=== PATIENT | female | born 1965 | race Caucasian/White ===

== ENCOUNTER → 2021-03-31 | Outpatient (CLI) | payer BC ==
--- NOTE | 2021-04-01 09:57 | MM ---
Reason for exam: clinical finding. Indicated problem(s): lump or thickening and pain in the left breast. Physical Findings: Nurse Summary: 5cm nodule in the left breast at 6-8 o'clock (nurse db). MG Diagnostic Mammo w CAD GORDY Bilateral CC, MLO, LM, and spot compression CC view(s) were taken. XCCM view(s) were taken of the left breast. The breast tissue is heterogeneously dense. This may lower the sensitivity of mammography. Right MLO central density does not show a clear persisting abnormality on spot MLO or lateral. Left 1.1cm oval, 1 o'clock mass contains a popcorn calcification likely fibroadenoma. Left anterior lateral density appears to disperse. Left far posterior medial and inferior palpable marker, shows an underlying 1cm nodule. These results were verbally communicated with the patient and result sheet given to the patient on 03/31/21. ASSESSMENT: Incomplete: need additional imaging evaluation, BI-RAD 0 RECOMMENDATION: Ultrasound of both breasts.
--- NOTE | 2021-04-01 10:09 | USB ---
Reason for exam: additional evaluation requested from abnormal screening. US Breast BILAT Right complete breast ultrasound includes all four quadrants, the retroareolar region and axilla. Finding demonstrates duct ectasia at the posterior nipple. Left complete breast ultrasound includes all four quadrants, the retroareolar region and axilla. Finding demonstrates a 10 x 4 x 10mm oval, hypoechoic lesion at 12 o'clock, probably fibroadenoma with a calcification, a 6 x 3 x 7mm oval, cystic lesion at 1 o'clock, a 31 x 23 x 28cm lobular, spiculated, solid, hypoechoic, vascular lesion at 7 o'clock BB, very suspicious, a 7mm oval lymph node at the axillary tail, slight 4mm cortical thickening, possible biopsy, maybe reactive and ductal ectasia at the posterior nipple. These results were verbally communicated with the patient and result sheet given to the patient on 03/31/21. ASSESSMENT: Highly suggestive of malignancy, BI-RAD 5 RECOMMENDATION: Ultrasound core biopsy of the left breast. 7 o'clock, possible second site axillary node. This maybe reactive. If thickening persists it can be sampled as well. Called Dr. Wright's office with mammographic findings and has scheduled an appointment for the patient for 04/09/21 at 12:[address] Valero. Biopsy scheduled for 04/23/21 at 10:30. PRELIMINARY REPORT CALLED AND FAXED TO DR. VALERO ON 04/01/21.
== END | disposition home or self-care (01) ==
LOC: RADMAMWWP 10:22
PROVIDERS: ATTEND Family Medicine
DX: N60.42 Mammary duct ectasia of left breast (principal); R92.1 Mammographic calcification found on diagnostic imaging of breast; N64.89 Other specified disorders of breast
CPT/HCPCS: 77066

== ENCOUNTER → 2021-04-09 | Outpatient (CLI) | payer BC ==
[2021-04-09 12:18] VITALS: BP 148/86; PULSE 88; RESP 18; TEMP 98.1
--- NOTE | 2021-04-09 13:37 | P.GSHP ---
History of Present Illness H&P Date: 04/09/21 Chief Complaint: mass in left breast Vicky is a 55 year old white female seen in consultation for Dr. Wright regarding a lump in her left breast. Patient states she noted the lesion approximately 5 months ago, however secondary to difficulty scheduling around where she was unable to see a physician until recently. She recently underwent a bilateral mammogram on for which ultrasound was recommended of both breasts. Ultrasound of the right breast showed duct ectasia, ultrasound of the left breast revealed a 10 x 10 mm lesion at 12:00 probable fibroadenoma as well as a 6 x 7 mm lesion at 1:00, and a 3 x 2.8 cm lobular spiculated solid lesion at 7:00. Additionally the patient was noted to have a 7 mm oval lymph node at the axillary tail for which biopsy was suggested. The patient states that the area of palpable change is painful, additionally she is uncertain as to whether it is increased in size. The pain is aching in nature with some burning to this. She has no nipple discharge or skin changes recently. She did have and episode of brown discharge from the left nipple several weeks ago. She has had cysts removed from both breast in the past. She has not had any infection in the breast. Caffeine: 3-4 cups/day nicotine: 1/2 PPD for 6 years chocolate: occasional Family history: father: lung cancer mother: uterine maternal grandfather: lung cancer paternal uncle : colon cancer Hormonal History: menarche: 12 M1, age at first : 19, breast feed: yes menopause: hysterectomy at 40, left ovaries BCP: used for 6 years hormones: none Surgical history: fluid drained behind her right ear tonsil 2 c-sections hysterectomy hernia right groin cyst removed from bilateral breast lipoma removed from back Medical History: A-fib. no blood thiners asa/day Social History: Nicotine: Half a pack per day for 6 years Alcohol:none drugs: none - Constitutional Constitutional: Denies chills, Denies fever - EENT Eyes: denies blurred vision, denies pain Ears: deny: decreased hearing, tinnitus Ears, nose, mouth and throat: Denies headache, Denies sore throat - Breasts Breasts: bilateral: as per HPI - Cardiovascular Cardiovascular: Reports as per HPI - Respiratory Comment: smoker - Gastrointestinal Gastrointestinal: Denies abdominal pain, Denies diarrhea, Denies nausea, Denies vomiting - Genitourinary (Female) Genitourinary: Denies dysuria, Denies hematuria - Menstruation Menstruation: Reports post hysterectomy - 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 - Integumentary Integumentary: Denies pruritus, Denies rash - Neurological Neurological: Denies numbness, Denies weakness - Psychiatric Psychiatric: Denies anxiety, Denies depression - Endocrine Endocrine: Denies fatigue, Denies weight change - Hematologic/Lymphatic Comment: 2 baby aspirin /day - Allergic/Immunologic Allergic/Immunologic: Reports as per HPI Past Medical History History of Any Multi-Drug Resistant Organisms: None Reported Smoking Status: Current every day smoker Medications and Allergies Home Medications Medication Instructions Recorded Confirmed Type Aspirin 81 mg PO DAILY 04/09/21 04/09/21 History Allergies Allergy/AdvReac Type Severity Reaction Status Date / Time Penicillins Allergy Unknown Verified 04/09/21 12:14 adhesive tape AdvReac Rash/Hives Unverified 04/09/21 12:15 Surgical - Exam Vital Signs Temp Pulse Resp BP Pulse Ox 98.1 F 88 18 148/86 98 04/09/21 12:15 04/09/21 12:15 04/09/21 12:15 04/09/21 12:15 04/09/21 12:15 BMI 30 - General no distress - Eyes normal ocular movement - ENT no hearing loss - Neck no masses, trachea midline - Respiratory normal respiratory effort, clear to auscultation - Cardiovascular Rhythm: regular Heart Sounds: normal: S1, S2 - Abdomen Abdomen: soft - Integumentary normal turgor - Neurologic no disoriented, no combative - Musculoskeletal normal gait, normal posture - Psychiatric oriented to time, oriented to person, oriented to place, speech is normal, memory intact Breast Exam: BRA: 40B inspection: Bilateral grade 3 ptosis Palpation: Right breast: Multi-positional exam fibrocystic changes no dominant masses or nodules of concern Right axilla: No adenopathy of concern Left breast: Multi-positional exam fibrocystic changes at the 7 o'clock position . As a firm area which extends onto the area of the chest wall it appears that it may be getting a slight infection with a punctate opening, is approximately 3 and half centimeters in size Left axilla: Shoddy adenopathy Results Mammogram and ultrasound reviewed with Dr. Torres Assessment and Plan Assessment: Impression: Palpable abnormality left breast Ultrasound abnormality left breast Fibrocystic breast changes Plan: Ultrasound-guided core biopsy area of concern of left breast Ultrasound core biopsy left axilla Follow up after ultrasound core biopsies CC: Dr. Wright
== END ==
LOC: WWCWWP 11:55
PROVIDERS: ATTEND Surgery
DX: N60.12 Diffuse cystic mastopathy of left breast (principal); I48.91 Unspecified atrial fibrillation; F17.210 Nicotine dependence, cigarettes, uncomplicated; Z79.82 Long term (current) use of aspirin; Z88.0 Allergy status to penicillin; Z91.018 Allergy to other foods

== ENCOUNTER → 2021-04-23 | Day surgery (SDC) | payer BC ==
[2021-04-23 09:45] VITALS: RESP 16
[2021-04-23 11:13] VITALS: BP 148/87; PULSE 70; TEMP 98
--- NOTE | 2021-04-23 13:01 | USB ---
EXAMINATION TYPE: US biopsy breast VAD LT, US breast needle core LT, MG diagnostic mammo LT wo CAD DATE OF EXAM: 04/23/2021 CLINICAL HISTORY: R92.8 Abnormal mammogram. Abnormal ultrasound TECHNIQUE: Ultrasound guided core biopsy of left breast mass and abnormal left axilla lymph node with clip placement both sites and follow-up two-view mammogram.. COMPARISON: Prior diagnostic mammogram and ultrasound March 31, 2021 FINDINGS: The procedure of ultrasound guided core biopsy was explained to the patient. Benefits, alternatives, and risks were discussed. An informed consent was then obtained. The patient was placed in supine positioning for imaging and for the procedure. Preprocedure imaging redemonstrates large roughly 3.0 cm heterogeneous hypoechoic mass with some vascularity at 7:00 position in the left breast. It also shows approximately 11 x 7 mm prominent lymph node in the left axilla with some asymmetric cortical thickening. The overlying skin was prepped and draped in usual sterile fashion. Lidocaine is used as anesthetic into the skin and subcutaneous tissue up to both areas of concern in the left breast. Lidocaine with epinephrine is used anesthetic into the deeper tissues. Under ultrasound guidance, a vacuum assisted biopsy gun device was used to obtain 2 core samples of the dominant mass 7:00 level. Following this, a biopsy clip was left in lesion. Under ultrasound guidance, an 18-gauge Bard needle was used to obtain 3 core samples of the prominent left axillary lymph node targeting the asymmetrically thickened cortex. Following this a hydromark biopsy clip left in the axillary lymph node. The patient tolerated the procedure ok without any immediate complication. She did have more pain than usual throughout the entire procedure. The patient was kept in the radiology department for short stay after the procedure and then discharged home in stable condition. Postprocedure mammogram shows Hydromark clip in the prominent left axillary lymph node. The clip in the dominant mass not documented due to posterior inner location not clearly seen on images obtained. Patient had left Department at time of dictation before repeat imaging could be performed or documented. During real-time ultrasound central placement of clip in the lesion was felt present. Mammogram correlation to the large ultrasound lesion number well seen even on March 31 work up. IMPRESSION: Successful, uncomplicated ultrasound guided core biopsy of area of concern in the left breast, full pathology results to follow. High index of suspicion for the left breast lesion. Intermediate index of suspicion for the left axillary lesion. Pathology Results: Malignant A. LEFT BREAST, 7:00, ULTRASOUND GUIDED NEEDLE CORE BIOPSY: Invasive poorly differentiated ductal carcinoma (Grade 3). See Surgical Pathology Cancer Case Summary and Comment. B. LEFT AXILLA, CORE BIOPSY: Scanty fragments of lymph node and fibrous tissue, negative for malignancy. Limited sample, see Comment. Recommendation Surgical consult of the left breast. (breast therapy and follow up) (lymph node negative) MTDD
== END ==
LOC: RADUSWWP 09:28
PROVIDERS: ATTEND Surgery
DX: C50.512 Malignant neoplasm of lower-outer quadrant of left female breast (principal); Z17.0 Estrogen receptor positive status [ER+]; Z88.0 Allergy status to penicillin; Z91.09 Other allergy status, other than to drugs and biological substances
CPT/HCPCS: 19083; 38505; 88305; 88342; 88341; 77065; A4648; J2001

== ENCOUNTER → 2021-04-30 | Outpatient (CLI) | payer BC ==
[2021-04-30 10:20] VITALS: BP 175/85; PULSE 77; RESP 16; TEMP 98
--- NOTE | 2021-04-30 10:54 | P.PN ---
Subjective Progress Note Date: 04/30/21 Principal diagnosis: left breast invasive ductal cancer Vicky is a 55 year old white female status post a left breast biopsy on 04-23-21 which was positive for a grade 3 invasive ductal cancer. There is probable skin involvement. This would make it a [id number]; Stage IIIC. If there is no skin involvement it would be a stage IIB. I have discussed this with the patient and her . I have recommended referral to medical oncology as soon as possible, as well as metastatic workup. Objective - Vital Signs Vital signs: Vital Signs Temp 98.0 F 04/30/21 10:14 Pulse 77 04/30/21 10:14 Resp 16 04/30/21 10:14 BP 175/85 04/30/21 10:14 Pulse Ox Intake & Output 04/29/21 04/30/21 04/30/21 18:59 06:59 18:59 Weight 78.018 kg - Constitutional Constitutional Comment(s): distress - EENT Eyes: Present: EOMI ENT: Present: hearing grossly normal - Integumentary Integumentary Comment(s): lesion inferior aspect of left breast extending onto skin - Musculoskeletal Musculoskeletal: Present: gait normal - Psychiatric Psychiatric: Present: A&O x's 3 Assessment and Plan Assessment: Impression: invasive ductal carcinoma left breast probable locally advanced Lymph node biopsy was negative Plan: I have had a discussion with the patient and her regarding the findings. If there is skin involvement this would be a T4 and a stage III C tumor, if there is not skin involvement this would be a stage IIB tumor most likely. I have suggested that she should be seen by medical oncology as soon as possible I have called medical oncology and we are waiting for an appointment The patient is going to have metastatic workup The patient is going to follow up here in 3 weeks Patient's case to be presented at tumor board CC: Dr. Wright
== END ==
LOC: WWCWWP 09:38
PROVIDERS: ATTEND Surgery
DX: C50.912 Malignant neoplasm of unspecified site of left female breast (principal); Z91.048 Other nonmedicinal substance allergy status; Z88.0 Allergy status to penicillin

== ENCOUNTER → 2021-05-17 | Outpatient (CLI) | payer BC ==
--- NOTE | 2021-05-19 09:28 | ECHOF ---
Referral Reason:I48.91 A-fib C50.312 breast CA MEASUREMENTS -------- HEIGHT: 160.0 cm WEIGHT: 76.7 kg BP: RVIDd: 2.7 cm (< 3.3) IVSd: 0.9 cm (0.6 - 1.1) LVIDd: 3.4 cm (3.9 - 5.3) LVPWd: 1.1 cm (0.6 - 1.1) IVSs: 1.6 cm LVIDs: 1.7 cm LVPWs: 1.9 cm LAESV Index (A-L): 23.44 ml/m Ao Diam: 3.0 cm (2.0 - 3.7) AV Cusp: 2.1 cm (1.5 - 2.6) LA Diam: 2.4 cm (2.7 - 3.8) MV EXCURSION: 14.230 mm (> 18.000) MV EF SLOPE: 144 mm/s (70 - 150) EPSS: 0.5 cm MV E Uvaldo: 0.73 m/s MV DecT: 233 ms MV A Uvaldo: 1.07 m/s MV E/A Ratio: 0.68 AR PHT: 285 ms RAP: 5.00 mmHg RVSP: 20.64 mmHg FINDINGS -------- This was a technically adequate study. The left ventricular size is normal. Left ventricular wall thickness is normal. Overall left vent ricular systolic function is normal with, an EF between 60 - 65 %. The right ventricle is normal in size. The left atrial size is normal. Normal LA size by volume 22+/-6 ml/m2. The right atrial size is normal. The aortic valve is trileaflet and appears structurally normal. The mitral valve is normal. There is trace mitral regurgitation. The tricuspid valve appears structurally normal. Trace tricuspid regurgitation present. Right alex tricular systolic pressure is normal at < 35 mmHg. There is no pulmonic regurgitation present. The aortic root size is normal. Normal inferior vena cava with normal inspiratory collapse consistent with estimated right atrial pre ssure of 5 mmHg. There is no pericardial effusion. CONCLUSIONS -------- 1. The left ventricular size is normal. 2. Left ventricular wall thickness is normal. 3. Overall left ventricular systolic function is normal with, an EF between 60 - 65 %. 4. There is trace mitral regurgitation. 5. Trace tricuspid regurgitation present. 6. There is no pericardial effusion. OFFICE LEAD: Ambreen Cohen RDCS
== END | disposition home or self-care (01) ==
LOC: RADECHMAIN 14:59
PROVIDERS: ATTEND Internal Medicine Hematology & Oncology
DX: C50.312 Malignant neoplasm of lower-inner quadrant of left female breast (principal); I08.1 Rheumatic disorders of both mitral and tricuspid valves
CPT/HCPCS: 93306

== ENCOUNTER → 2021-05-19 | Outpatient (CLI) | payer BC ==
--- NOTE | 2021-05-19 12:15 | CT ---
EXAMINATION TYPE: CT ChestAbdPelvis w con DATE OF EXAM: 05/19/2021 COMPARISON: None HISTORY: Left breast cancer, observation for suspected mets CT DLP: 1022.1 mGycm Automated exposure control for dose reduction was used. CONTRAST: CT scan of the chest, abdomen and pelvis is performed with Oral Contrast and with IV Contrast, patien t injected with 100 mL of Isovue 300. FINDINGS: LUNGS: Biapical thickening. Subpleural nodularity measures less than 5 mm likely benign. No consolida tive pneumonia, pleural effusion or pneumothorax. MEDIASTINUM: There are no greater than 1 cm hilar or mediastinal lymph nodes. No pericardial effusi on is seen. Residual thymic tissue in the anterior mediastinum. OTHER: Large aggressive appearing breast mass on the left measuring 3.1 cm suggestive of malignancy. LIVER/GB: No significant abnormality is appreciated. PANCREAS: No significant abnormality is seen. SPLEEN: No significant abnormality is seen. ADRENALS: No significant abnormality is seen. KIDNEYS: No significant abnormality is seen. BOWEL: No significant abnormality is seen. LYMPH NODES: There is a 1 cm short axis left axillary lymph node which should be correlated clinicall y given the presence of a left-sided breast mass or malignancy and metastases.. OSSEOUS STRUCTURES: Hypertrophic and degenerative changes of the spine. Multilevel facet arthropathy. OTHER: No free fluid. IMPRESSION: 1. The left breast mass suspicious for malignancy. There also is a lymph node within the left axilla measuring short axis of approximately 1 cm correlate clinically to exclude metastases.
--- NOTE | 2021-05-19 15:01 | NM ---
EXAMINATION TYPE: NM bone scan whole body DATE OF EXAM: 05/19/2021 COMPARISON: CT 05/19/2021 HISTORY: Breast cancer Delayed whole-body scanning was performed following the injection of 23.8 mCi Tc 99m MDP. Images acq uired 3 hours post injection. FINDINGS: There is faint uptake throughout the thoracic spine and more moderate uptake at L5-S1 on the left whi ch appears to be degenerative. Faint uptake involving the sternoclavicular joints and shoulders is most typical of arthritic change. Faint uptake involving the right knee likely is post arthritic. IMPRESSION: No diagnostic evidence of metastases.
== END | disposition home or self-care (01) ==
LOC: RADNMMAIN 09:59
PROVIDERS: ATTEND Surgery
DX: C50.912 Malignant neoplasm of unspecified site of left female breast (principal)
CPT/HCPCS: 71260; 74177; 78306; A9503; Q9967

== ENCOUNTER → 2021-05-20 | Outpatient (CLI) | payer BC ==
--- NOTE | 2021-05-21 07:57 | PE ---
EXAMINATION TYPE: PET CT fusion skull to thigh DATE OF EXAM: 05/20/2021 COMPARISON: Whole-body CT and nuclear medicine bone scan from one day earlier. HISTORY: Newly diagnosed left-sided breast cancer. TECHNIQUE: Following the intravenous administration of 9.83 mCi of F-18 FDG, whole body images are p erformed from the skull base to the midthigh. Images are reviewed on the computer in the coronal, ax ial, and sagittal planes. Reconstructed rotating images are created on independent workstation and r eviewed on the computer. A localization and attenuation correction CT is performed in conjunction w ith the PET scan. Blood glucose level equaled 95. SCAN: Initial Scan FINDINGS: SKULL BASE AND NECK: No areas of abnormal hypermetabolic uptake. CHEST, MEDIASTINUM, AND HILAR REGION: There is redemonstration of inferior medial left breast mass or known neoplasm measuring 3.2 x 2.7 cm axial image 105, abnormal hypermetabolic uptake is present max SUV is 10.24 on axial image 108. Central biopsy clip is seen axial image 106. Suspicious to adjacent left axillary lymph nodes axial image 75 with biopsy clip in the slightly larg er more lateral 1.3 x 1.1 cm lymph node. Mild hypermetabolic uptake, max SUV is 3.12 on axial image 7 6. No additional areas of abnormal hypermetabolic uptake including in the right breast or axilla. ABDOMEN AND PELVIS: Normal excretion is present. Contrast from recent CT seen in the colon. Nonspecif ic mild uptake at level of the cecum. No areas of abnormal hypermetabolic uptake. OSSEOUS STRUCTURES: No areas of abnormal hypermetabolic uptake. OTHER CT: Liver diffusely low dense consistent with diffuse fatty infiltration. Scattered colonic div erticula. Facet arthropathy in the lower lumbar spine. IMPRESSION: Abnormal hypermetabolic uptake in the biopsy-proven inferior medial left breast mass or n eoplasm. Mild uptake in the suspicious left axillary lymph node is worrisome for neoplasm involvement despite recent negative biopsy. No right breast involvement or metastatic disease identified.
== END | disposition home or self-care (01) ==
LOC: RADPETMAIN 08:27
PROVIDERS: ATTEND Internal Medicine Hematology & Oncology
DX: C50.312 Malignant neoplasm of lower-inner quadrant of left female breast (principal)
CPT/HCPCS: 78815; A9552

== ENCOUNTER → 2021-06-11 | Outpatient (CLI) | payer BC ==
[2021-06-11 14:42] VITALS: BP 143/87; PULSE 75; RESP 16; TEMP 97.9
--- NOTE | 2021-06-11 15:03 | P.PN ---
Subjective Progress Note Date: 06/11/21 Principal diagnosis: left breast invasive ductal cancer Vicky is a 55 year old white female seen in consultation for Dr. Wright regarding a lump in her left breast. Patient states she noted the lesion approximately 5 months ago, however secondary to difficulty scheduling around where she was unable to see a physician until recently. She recently underwent a bilateral mammogram on for which ultrasound was recommended of both breasts. Ultrasound of the right breast showed duct ectasia, ultrasound of the left breast revealed a 10 x 10 mm lesion at 12:00 probable fibroadenoma as well as a 6 x 7 mm lesion at 1:00, and a 3 x 2.8 cm lobular spiculated solid lesion at 7:00. Additionally the patient was noted to have a 7 mm oval lymph node at the axillary tail for which biopsy was suggested. The patient states that the area of palpable change is painful, additionally she is uncertain as to whether it is increased in size. The pain is aching in nature with some burning to this. She has no nipple discharge or skin changes recently. She did have and episode of brown discharge from the left nipple several weeks ago. She has had cysts removed from both breast in the past. She has not had any infection in the breast. Patient had a left breast core biopsy on 04-23-21. This was positive for an invasive ductal cancer possible skin involvement. [id number]; she was seen by medical oncology and recommended for carlos-adjuvant chemotherapy. She cancelled breast MRI and port placement next week. PET scan done on abnormal hypermetabolic uptake in biopsy-proven inferior medial left breast mass. Mild uptake and suspicious left axillary lymph node. No right breast involvement or metastatic disease Note from Dr. Talbert appreciated Caffeine: 3-4 cups/day nicotine: 1/2 PPD for 6 years chocolate: occasional Family history: father: lung cancer mother: uterine maternal grandfather: lung cancer paternal uncle : colon cancer Hormonal History: menarche: 12 M1, age at first : 19, breast feed: yes menopause: hysterectomy at 40, left ovaries BCP: used for 6 years hormones: none Surgical history: fluid drained behind her right ear tonsil 2 c-sections hysterectomy hernia right groin cyst removed from bilateral breast lipoma removed from back Medical History: A-fib. no blood thiners asa/day Social History: Nicotine: Half a pack per day for 6 years Alcohol:none drugs: none - Constitutional Constitutional: Denies chills, Denies fever - EENT Eyes: denies blurred vision, denies pain Ears: deny: decreased hearing, tinnitus Ears, nose, mouth and throat: Denies headache, Denies sore throat - Breasts Breasts: bilateral: as per HPI - Cardiovascular Cardiovascular: Reports as per HPI - Respiratory Comment: smoker - Gastrointestinal Gastrointestinal: Denies abdominal pain, Denies diarrhea, Denies nausea, Denies vomiting - Genitourinary (Female) Genitourinary: Denies dysuria, Denies hematuria - Menstruation Menstruation: Reports post hysterectomy - 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 - Integumentary Integumentary: Denies pruritus, Denies rash - Neurological Neurological: Denies numbness, Denies weakness - Psychiatric Psychiatric: Denies anxiety, Denies depression - Endocrine Endocrine: Denies fatigue, Denies weight change - Hematologic/Lymphatic Comment: 2 baby aspirin /day - Allergic/Immunologic Allergic/Immunologic: Reports as per HPI Objective - Vital Signs Vital signs: Vital Signs Temp 97.9 F 06/11/21 14:38 Pulse 75 06/11/21 14:38 Resp 16 06/11/21 14:38 BP 143/87 06/11/21 14:38 Pulse Ox Intake & Output 06/10/21 06/11/21 06/11/21 18:59 06:59 18:59 Weight 77.564 kg - Exam BMI 30.3 - Constitutional General appearance: Present: cooperative - EENT Eyes: Present: EOMI ENT: Present: hearing grossly normal - Neck Neck: Present: normal ROM - Respiratory Respiratory: bilateral: CTA - Cardiovascular Heart sounds: normal: S1, S2 - Gastrointestinal General gastrointestinal: Present: soft - Integumentary Integumentary Comment(s): Area under the left breast is approximately 4 cm by 2 cm with bolus changes over this consistent possibly with infected tumor - Musculoskeletal Musculoskeletal: Present: gait normal - Psychiatric Psychiatric: Present: A&O x's 3, appropriate affect, intact judgment & insight - Additional findings Additional findings: Breast Exam: BRA: 40B Patient: Bilateral grade 3 ptosis Palpation: Right breast: Multiple positional exam no dominant masses or nodules of concern Right axilla no adenopathy of concern Left breast: Positional exam fibrocystic changes at the 7 o'clock position is a firm area which extends onto the chest wall appears that maybe getting slight infected Left axilla: Shoddy adenopathy Assessment and Plan Assessment: Impression: Patient's case presented at tumor board this is a locally advanced invasive ductal carcinoma possibly T4 N0 M0 ER negative WI low positive and HER-2/marge negative G3 states 3 see if there is no skin involvement it would be a stage IIB; she has had a PET scan which did not show metastatic disease. She is scheduled for port placement and chemotherapy chemotherapy is recommended to be Adriamycin/Cytoxan followed by Taxol versus chemotherapy plus K Trudo Echocardiogram which has been done Plan: Port placement Chemotherapy to be initiated as soon as possible Surgical intervention. After the chemotherapy I will see the patient again in 2 months to follow clinically CC: Dr. Wright
== END ==
LOC: WWCWWP 14:19
PROVIDERS: ATTEND Surgery
DX: C50.912 Malignant neoplasm of unspecified site of left female breast (principal); F17.210 Nicotine dependence, cigarettes, uncomplicated; I48.91 Unspecified atrial fibrillation; Z88.0 Allergy status to penicillin; Z17.1 Estrogen receptor negative status [ER-]; Z91.048 Other nonmedicinal substance allergy status

== ENCOUNTER 2021-06-14 06:30 | Day surgery (SDC) | payer BC ==
[2021-06-11 09:15] VITALS: BMI 30.2
[~2021-06-14 06:30] MED LIST: ACETAMINOPHEN TAB 500 MG TAB PO PRN; DEXAMETHASONE SOD PHOSPHATE 4 MG/ML 1 ML VIAL IV ONE; HEPARIN SODIUM,PORCINE/PF 5,000 UNIT/0.5 ML SYRINGE SQ PRN; LACTATED RINGERS 1,000 ML IV SCH; MIDAZOLAM 2 MG/2 ML VIAL IV PRN; ONDANSETRON 4 MG/2 ML VIAL IVP ONE; Pre Op ABX Message 1 EACH MISC MISCELLANE ONE; SCOPOLAMINE 1.5MG/72HR PATCH TRANSDERM ONE
[2021-06-14] MEDS ORDERED: HYDROmorphone 0.5 MG/0.5 ML SYRINGE IVP PRN (07:00)
[2021-06-14] MEDS ORDERED: LIDOCAINE 1% (10MG/ML) FOR IV START INTRADERMA ONE (07:12)
[2021-06-14 07:22] VITALS: TEMP 97.5
[2021-06-14] MEDS ORDERED: IOPAMIDOL-370 50ML BTL MISCELLANE ONE (07:38)
[2021-06-14] MEDS ORDERED: BUPIVACAIN-EPI 0.25%-1:200,000 30 ML VIAL SQ ONE ×2 (07:38→08:10)
[2021-06-14] MEDS ORDERED: MIDAZOLAM 2 MG/2 ML VIAL ONE (07:55)
[2021-06-14] MEDS ORDERED: KETAMINE 10 MG/ML 20 ML VIAL ONE (07:55)
[2021-06-14] MEDS ORDERED: LIDOCAINE 1% INJ 10MG/ML (20 ML MDV) ONE (07:55)
[2021-06-14] MEDS ORDERED: fentaNYL (PF) 50 MCG/ML 2 ML AMP ONE (07:55)
[2021-06-14] MEDS ORDERED: PROPOFOL 10 MG/ML 20 ML VIAL IV ONE (07:55)
--- NOTE | 2021-06-14 09:07 | FL ---
Fluoroscopy HISTORY: Central catheter placement 4 seconds fluoroscopy time supplied to the referring clinician. 1 intraoperative C-arm images docume nt the procedure. See dictated report from general surgery.
--- NOTE | 2021-06-14 09:13 | XR ---
EXAMINATION TYPE: XR chest 1V portable DATE OF EXAM: 06/14/2021 COMPARISON: Chest x-ray 2013. CT thorax May 19, 2021 HISTORY: Post Mediport catheter insertion. Newly diagnosed breast cancer. TECHNIQUE: Single AP portable frontal upright view of the chest is obtained. FINDINGS: There is new right subclavian Mediport catheter terminating in SVC. The lungs remain grossl y clear without pleural effusion or pneumothorax seen bilaterally. The cardiac silhouette size remai ns within normal limits. The osseous structures are intact. IMPRESSION: As above.
[2021-06-14 09:16] VITALS: RESP 16
[2021-06-14 09:24] VITALS: BP 158/82; PULSE 72
--- NOTE | 2021-06-18 13:13 | P.GSHP ---
History of Present Illness H&P Date: 06/14/21 Chief Complaint: History of breast cancer This a 56-year-old female with recent diagnosis of breast cancer. Patient presents today for Port-A-Cath placement Past Medical History Past Medical History: Atrial Fibrillation, Deep Vein Thrombosis (DVT), Pulmonary Embolus (PE) Additional Past Medical History / Comment(s): left breast CA-dx April 30, 2021.,unable to lay on stomach from prior old injury as a teenager,DVT & PE after hysterectomy 15 yrs ago and DVT after varicose vein stripping yrs ago. History of Any Multi-Drug Resistant Organisms: None Reported Past Surgical History: Section, Hysterectomy, Tonsillectomy Additional Past Surgical History / Comment(s): breast biopsy. Ear surgery as child. Past Anesthesia/Blood Transfusion Reactions: No Reported Reaction Additional Past Anesthesia/Blood Transfusion Reaction / Comment(s): no hx blood transfusion Past Psychological History: No Psychological Hx Reported Smoking Status: Current every day smoker Past Alcohol Use History: Rare Additional Past Alcohol Use History / Comment(s): <1/2 ppd ppd,started smoking a s a teenager on and off Past Drug Use History: None Reported - Past Family History Mother Family Medical History: No Reported History Medications and Allergies Home Medications Medication Instructions Recorded Confirmed Type Aspirin 81 mg PO DAILY 04/09/21 06/11/21 History Acetaminophen [Tylenol] 325 - 650 mg PO Q4H PRN 06/11/21 06/11/21 History Allergies Allergy/AdvReac Type Severity Reaction Status Date / Time adhesive tape Allergy Rash/Hives,sometimes Verified 06/14/21 07:15 blisters Penicillins AdvReac Nausea Verified 06/14/21 07:15 Surgical - Exam Vital Signs Temp Pulse Resp BP Pulse Ox 97.5 F L 71 16 162/83 97 06/14/21 07:20 06/14/21 07:20 06/14/21 07:20 06/14/21 07:20 06/14/21 07:20 - General well developed, well nourished, no distress - Eyes PERRL - ENT normal pinna - Neck no masses - Respiratory normal expansion - Cardiovascular Rhythm: regular - Abdomen Abdomen: soft, non tender Results - Labs 06/14/21 07:12 Assessment and Plan Assessment: History of breast cancer. We'll perform Port-A-Cath placement
--- NOTE | 2021-06-18 13:14 | P.OP ---
Date of Procedure: 06/14/21 Preoperative Diagnosis: Breast cancer Postoperative Diagnosis: Breast cancer Procedure(s) Performed: Insertion of right subclavian Port-A-Cath Anesthesia: JOSE EDUARDO Surgeon: Jose R Newberry Estimated Blood Loss (ml): 5 Pathology: none sent Condition: stable Disposition: PACU Description of Procedure: The patient was placed on the operating table in the supine position. The patient received IV sedation. The patient's chest was prepped and draped in the usual sterile fashion. A roll had been placed between the shoulder blades in a longitudinal fashion. After prepping and draping the skin was anesthetized 1% local Xylocaine. And then using the Seldinger technique the subclavian vein was cannulated. A wire was placed into the vein and fluoroscopy position the wire at the atrial caval junction. Next the dilator sheath was placed over top the wire and the wire was withdrawn. The catheter was positioned at the atriocaval position. The catheter was placed through the sheath after the dilator was withdrawn. The sheath was then withdrawn. Position of the catheter was confirmed with fluoroscopy. The Port-A-Cath was connected to the catheter. The Port-A-Cath was flushed with saline and then heparinized saline. The skin was closed interrupted 3-0 Monocryl suture. Dermabond was applied. Patient tolerated procedure well and was sent to recovery room stable condition.
== END 2021-06-14 09:52 | disposition home or self-care (01) ==
LOC: OR 06:30
PROVIDERS: ATTEND Surgery
DX: C50.312 Malignant neoplasm of lower-inner quadrant of left female breast (principal)
CPT/HCPCS: 36556; 84132; 77001; 71045; C1788; J2250; J1100; J0690; J2405; J2001; J3010; J1642; J2704; J1644

== ENCOUNTER → 2021-07-30 | Outpatient (CLI) | payer BC ==
--- NOTE | 2021-08-01 14:00 | ECHOF ---
Referral Reason:Z01.818 ENCOUNTER FOR PREPROCEDURAL EXAM MEASUREMENTS -------- HEIGHT: 160.0 cm WEIGHT: 76.2 kg BP: RVIDd: 2.7 cm (< 3.3) IVSd: 1.0 cm (0.6 - 1.1) LVIDd: 3.8 cm (3.9 - 5.3) LVPWd: 1.0 cm (0.6 - 1.1) IVSs: 1.3 cm LVIDs: 2.3 cm LVPWs: 1.1 cm LA Diam: 2.9 cm (2.7 - 3.8) Ao Diam: 3.1 cm (2.0 - 3.7) AV Cusp: 2.2 cm (1.5 - 2.6) MV EXCURSION: 12.649 mm (> 18.000) MV EF SLOPE: 123 mm/s (70 - 150) EPSS: 0.3 cm MV E Uvaldo: 0.79 m/s MV DecT: 241 ms MV A Uvaldo: 0.84 m/s MV E/A Ratio: 0.95 FINDINGS -------- Sinus rhythm. This was a technically good study. The left ventricular size is normal. Left ventricular wall thickness is normal. Overall left vent ricular systolic function is normal with, an EF between 60 - 65 %. The right ventricle is normal in size. Normal LA size by volume 22+/-6 ml/m2. The right atrium is normal in size. Interatrial and interventricular septum intact. There is mild aortic regurgitation. The mitral valve is normal. The tricuspid valve appears structurally normal. Unable to estimate RVSP due to inadequate TR jet s pectral doppler profile. Trace/mild (physiologic) pulmonic regurgitation. The aortic root size is normal. Normal inferior vena cava with normal inspiratory collapse consistent with estimated right atrial pre ssure of 5 mmHg. There is no pericardial effusion. CONCLUSIONS -------- 1. The left ventricular size is normal. 2. Left ventricular wall thickness is normal. 3. Overall left ventricular systolic function is normal with, an EF between 60 - 65 %. 4. There is mild aortic regurgitation. 5. Trace/mild (physiologic) pulmonic regurgitation. 6. There is no pericardial effusion. MECHANICAL ASSEMBLY TECHNICIAN: Alma Rosa Corral, [facility]
== END | disposition home or self-care (01) ==
LOC: RADECHMAIN 13:55
PROVIDERS: ATTEND Internal Medicine Hematology & Oncology
DX: Z01.818 Encounter for other preprocedural examination (principal); I37.1 Nonrheumatic pulmonary valve insufficiency; I35.1 Nonrheumatic aortic (valve) insufficiency
CPT/HCPCS: 93306

== ENCOUNTER → 2021-09-22 | Outpatient (CLI) | payer BC ==
--- NOTE | 2021-09-22 11:22 | US ---
EXAMINATION TYPE: US venous doppler duplex LE RT DATE OF EXAM: 09/22/2021 11:11 AM COMPARISON: NONE CLINICAL HISTORY: R22.41, M79.661. Right leg pain and swelling SIDE PERFORMED: Right TECHNIQUE: The lower extremity deep venous system is examined utilizing real time linear array sonog saskia with graded compression, doppler sonography and color-flow sonography. VESSELS IMAGED: Common Femoral Vein Deep Femoral Vein Greater Saphenous Vein * Femoral Vein Popliteal Vein Small Saphenous Vein * Proximal Calf Veins (* superficial vessels) Right Leg: Positive for DVT There is thrombus within the popliteal vein from proximal through proximal calf veins. Grayscale, color doppler, spectral doppler imaging performed of the deep veins of the right lower ext remity. There is normal flow, compressibility, vascular waveforms up to the distal superficial femor al vein. IMPRESSION: Acute DVT in the proximal popliteal vein extending distally with complete occlusion is n oted. A Ida level critical message alert has been initiated for Myles Talbert MD via the [employer] on 09/22/2021 11:20 AM. This message alert has been sent to Myles Talbert MD via t preferences provided by the clinician for the receipt of Radiology Critical Findings. Message ID [id number].
== END | disposition home or self-care (01) ==
LOC: RADUSWWP 10:54
PROVIDERS: ATTEND Internal Medicine Hematology & Oncology
DX: I82.431 Acute embolism and thrombosis of right popliteal vein (principal)

== ENCOUNTER → 2021-11-19 | Outpatient (CLI) | payer OTHER ==
[2021-11-19 11:23] VITALS: BP 162/96; PULSE 90; RESP 18; TEMP 98.2
--- NOTE | 2021-11-19 11:49 | P.PN ---
Subjective Progress Note Date: 11/19/21 Principal diagnosis: left breast stage IIIC invasive ductal cancer left breast invasive ductal cancer stage IIIc T4b N0 M0 ER negative [place] weak HER- 2 negative Vicky is a 55 year old white female seen in consultation for Dr. Li regarding a lump in her left breast. Patient states she noted the lesion approximately 5 months ago, however secondary to difficulty scheduling around where she was unable to see a physician until recently. She recently underwent a bilateral mammogram on for which ultrasound was recommended of both breasts. Ultrasound of the right breast showed duct ectasia, ultrasound of the left breast revealed a 10 x 10 mm lesion at 12:00 probable fibroadenoma as well as a 6 x 7 mm lesion at 1:00, and a 3 x 2.8 cm lobular spiculated solid lesion at 7:00. Additionally the patient was noted to have a 7 mm oval lymph node at the axillary tail for which biopsy was suggested. The patient states that the area of palpable change is painful, additionally she is uncertain as to whether it is increased in size. The pain is aching in nature with some burning to this. She has no nipple discharge or skin changes recently. She did have and episode of brown discharge from the left nipple several weeks ago. She has had cysts removed from both breast in the past. She has not had any infection in the breast. Patient had a left breast core biopsy on 04-23-21. This was positive for an invasive ductal cancer possible skin involvement. [id number]; she was seen by medical oncology and recommended for carlos-adjuvant chemotherapy. She cancelled breast MRI and port placement next week. PET scan done on abnormal hypermetabolic uptake in biopsy-proven inferior medial left breast mass. Mild uptake and suspicious left axillary lymph node. No right breast involvement or metastatic disease Note from Dr. Talbert appreciated 11-19-21 The patient has completed her neoadjuvant chemotherapy. 11-05-21 note radiation oncology reviewed 10-06-21 note medical oncology reviewed The patient had a confirmed popliteal DVT during the course of her chemotherapy was started on Eliquis Patient is doing well at this time. She states that the nodule in the left breast is decreased in size. She is not complaining of any new lumps masses or nodules in either breast. The patient cannot tolerate an MRI; completed her chemotherapy on October 11. Caffeine: 3-4 cups/day nicotine: 1/2 PPD for 6 years chocolate: occasional Family history: father: lung cancer mother: uterine maternal grandfather: lung cancer paternal uncle : colon cancer Hormonal History: menarche: 12 M1, age at first : 19, breast feed: yes menopause: hysterectomy at 40, left ovaries BCP: used for 6 years hormones: none Surgical history: fluid drained behind her right ear tonsil 2 c-sections hysterectomy hernia right groin cyst removed from bilateral breast lipoma removed from back port placed Medical History: A-fib. no blood thiners asa/day DVT right leg behind the knee Social History: Nicotine: Half a pack per day for 6 years Alcohol:none drugs: none - Constitutional Constitutional: Denies chills, Denies fever - EENT Eyes: denies blurred vision, denies pain Ears: deny: decreased hearing, tinnitus Ears, nose, mouth and throat: Denies headache, Denies sore throat - Breasts Breasts: bilateral: as per HPI - Cardiovascular Cardiovascular: Reports as per HPI - Respiratory Comment: smoker - Gastrointestinal Gastrointestinal: Denies abdominal pain, Denies diarrhea, Denies nausea, Denies vomiting - Genitourinary (Female) Genitourinary: Denies dysuria, Denies hematuria - Menstruation Menstruation: Reports post hysterectomy - 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 - Integumentary Integumentary: Denies pruritus, Denies rash - Neurological Neurological: Denies numbness, Denies weakness - Psychiatric Psychiatric: Denies anxiety, Denies depression - Endocrine Endocrine: Denies fatigue, Denies weight change - Hematologic/Lymphatic Comment: 2 baby aspirin /day - Allergic/Immunologic Allergic/Immunologic: Reports as per HPI Objective - Exam BMI 28.7 - Constitutional General appearance: Present: cooperative - EENT Eyes: Present: EOMI ENT: Present: hearing grossly normal - Neck Neck: Present: normal ROM - Respiratory Respiratory: bilateral: CTA - Cardiovascular Heart sounds: normal: S1, S2 - Gastrointestinal General gastrointestinal: Present: soft - Integumentary Integumentary Comment(s): skin involvement lower aspect of left breast at 6 oclock - Musculoskeletal Musculoskeletal: Present: gait normal - Psychiatric Psychiatric: Present: A&O x's 3, appropriate affect, intact judgment & insight - Additional findings Additional findings: Breast Exam: BRA: XL Section: Bilateral grade 3 ptosis, skin involvement at the 6 o'clock position of the left breast where tumor was present Palpation: Right breast: Multi-positional exam fibrocystic changes no dominant masses or nodules of concern Right axilla: No adenopathy of concern Left breast there remains skin involvement at the 6 o'clock position as well as approximately a 4 cm lesion this is not appear to be fixed to the chest wall Left axilla: Fullness in the axilla Assessment and Plan Assessment: Impression: Stage III invasive ductal carcinoma left breast status post neoadjuvant therapy Residual tumor 6 o'clock position with skin involvement does not appear to be fixed to the chest wall Fullness in the left axilla Patient presently on our course Plan: Left breast mammogram re presentation of case at tumor board Patient would prefer a lumpectomy with sentinel node biopsy possible axillary node dissection Risk and benefits of the procedure discussed with the patient and her daughter, to be scheuled for surgery in the near future CC: Dr. Vasquez
== END ==
LOC: WWCWWP 11:12
PROVIDERS: ATTEND Surgery
DX: C50.912 Malignant neoplasm of unspecified site of left female breast (principal); Z17.1 Estrogen receptor negative status [ER-]; F17.210 Nicotine dependence, cigarettes, uncomplicated; Z86.718 Personal history of other venous thrombosis and embolism; Z91.048 Other nonmedicinal substance allergy status; Z88.0 Allergy status to penicillin
CPT/HCPCS: 77061; 77065

== ENCOUNTER → 2021-12-03 | Outpatient (CLI) | payer OTHER ==
--- NOTE | 2021-12-06 08:05 | MM ---
Reason for Exam: Additional evaluation requested from prior study. Last screening mammogram was performed 8 month(s) ago. Patient History: Menarche at age 12. First Full-Term at age 18. Hysterectomy at age 40. Breast cancer, left, age 55. Previous chemotherapy at age 56. 04/23/2021, Malignant Core Biopsy on the left side. 04/23/2021, Malignant Core Biopsy on the left side. Prior Study Comparison: 03/31/2021 Bilateral Diagnostic Mammogram, [facility]. 04/23/2021 Left Diagnostic Mammogram, [facility]. 11/19/2021 Left MG 3D diag mammo w/cad , [facility]. Tissue Density: Left: The breast tissue is heterogeneously dense. This may lower the sensitivity of mammography. Findings: Analyzed By CAD. Exam was repeated to try to visualize second biopsy clip in the marked posterior inferior left breast. This could not be identified. I was not told patient had recent ultrasound a few days ago when reviewing for needle localization. Recent ultrasound shows persistent but smaller mass with biopsy clip at 7:00 position growing into the dermal layer. This measures 1.9 cm long axis. Overall Assessment: Suspicious, BI-RAD 4 Management: Surgical Consultation of the left breast. Needle loc scheduled for 12/08/21. Electronically signed and approved by: Terry Orozco M.D.
== END | disposition home or self-care (01) ==
LOC: RADMAMWWP 12:48
PROVIDERS: ATTEND Surgery
DX: Z53.9 Procedure and treatment not carried out, unspecified reason (principal)

== ENCOUNTER 2021-12-08 07:38 | Day surgery (SDC) | payer OTHER ==
[~2021-12-08 07:38] MED LIST changes: -ACETAMINOPHEN TAB 500 MG TAB PO PRN; +ALPRAZolam 0.5 MG TAB PO PRN; -MIDAZOLAM 2 MG/2 ML VIAL IV PRN; -SCOPOLAMINE 1.5MG/72HR PATCH TRANSDERM ONE
[2021-12-08] MEDS ORDERED: LIDOCAINE 1% INJ 10MG/ML (20 ML MDV) SQ ONE (09:32)
--- NOTE | 2021-12-08 10:00 | P.NAPBC ---
NAPBC Queries - NAPBC Queries Was patient's case review presented at [facility] tumor board? If no, comment.: Yes Was patient's pathology reviewed at [facility]? If no, comment.: Yes Was breast conservation surgery offered? If no, comment.: Yes Was sentinel node biopsy offered? If no, comment.: Yes Was diagnosis confirmed by percutaneous core biopsy? If no, comment.: Yes Is patient mastectomy patient?: No Was a preop referral to reconstructive surgeon offered?: No Clinical Stage: Stage IIIC left breast invasive ductal camcer
[2021-12-08] MEDS ORDERED: LIDOCAINE 1% INJ 10MG/ML (30 ML VIAL-PF) SQ ONE (10:41)
[2021-12-08] MEDS ORDERED: METHYLENE BLUE 10 MG/ML (10 ML VIAL) MISCELLANE ONE (10:41)
[2021-12-08] MEDS ORDERED: LIDOCAINE 2% INJ 20 MG/ML (2 ML VIAL) ONE (11:34)
[2021-12-08] MEDS ORDERED: PROPOFOL 10 MG/ML 20 ML VIAL IV ONE (11:34)
[2021-12-08] MEDS ORDERED: fentaNYL (PF) 50 MCG/ML 2 ML AMP ONE (11:34)
[2021-12-08] MEDS ORDERED: SUCCINYLCHOLINE CHLORIDE 200 MG/10 ML VIAL IV ONE (11:34)
[2021-12-08] MEDS ORDERED: MIDAZOLAM 2 MG/2 ML VIAL ONE (11:34)
[2021-12-08] MEDS ORDERED: PHENYLEPHRINE-0.9% NACL SYG 1,000 MCG/10 ML SYRINGE ONE (11:34)
[2021-12-08] MEDS ORDERED: ceFAZolin 1,000 MG VIAL ONE (11:34)
--- NOTE | 2021-12-08 12:23 | NM ---
EXAMINATION TYPE: NM sentinel node injection DATE OF EXAM: 12/08/2021 COMPARISON: NONE HISTORY: Left-sided breast cancer TECHNIQUE AND FINDINGS: The procedure of sentinel lymph node injection was explained to the patient. The benefits, alternatives, and risks were discussed. An informed consent was then obtained. Overlying skin is cleaned with sterile alcohol. Following this, 474 uCi Tc99m Tilmanocept was inject ed in the upper outer aspect of the left nipple intradermally. The patient tolerated the procedure well without any immediate complication. The patient was kept in the radiology department for short stay after the procedure and then taken to surgery for surgical p rocedure what is presumed intraoperative gamma probe will be used for sentinel lymph node detection. IMPRESSION: Left breast radiotracer injection for sentinel node localization as above.
--- NOTE | 2021-12-08 12:36 | P.OP ---
Date of Procedure: 12/08/21 Preoperative Diagnosis: Left breast invasive ductal carcinoma status post neoadjuvant chemotherapy Postoperative Diagnosis: Same Procedure(s) Performed: needle localization of prior biopsied lymph node, sentinel node biopsy, lumpectomy, onco-plastic tissue transfer 84 cm Anesthesia: GETA Surgeon: Tawnya Valero Estimated Blood Loss (ml): 10 IV fluids (ml): 1,000 Pathology: other (Breast tissue, sentinel lymph node) Condition: stable Disposition: same day Indications for Procedure: Biopsy-proven invasive ductal carcinoma left breast Operative Findings: Invasive tumor left breast involving the skin and close on the chest wall Description of Procedure: The patient was first taken to the radiology suite where radiotracer was injected in the periareolar area. Additionally needle localization of the tumor in the breast and the lower medial aspect as well as near localization of a lymph node which had been biopsied pre-neoadjuvant chemotherapy was performed. The lymph node was negative for tumor however it shrink during neoadjuvant treatment and therefore the wish to remove it. The patient was then taken to the operative suite. Following induction of anesthesia interrogation of the axilla with the neoprobe was performed. Minimal activity was identified and therefore 10 mL of diluted methylene blue was injected in the periareolar area. The breast was massaged for 3 minutes. The breast and axilla were then prepped and draped in a sterile fashion. The area of the axilla was approached initially. An incision was made at the area. Needle local had been placed. This was dissected down into the axillary tissues. Deeper the axillary tissues. Activity was identified in the tissues were removed. The specimen was sent to pathology and confirmation that the node of concern had been identified and removed was obtained. The 10 second count on the area of the lymph node was 2642. The background count was 28 at 10 seconds. After assured that hemostasis was attained the deep tissues were closed using 3-0 Vicryl suture. This was followed by closure of the skin with 4-0 Monocryl. The area of the breast was then approached. The lesion on the breast was in the lower medial aspect at the inframammary ridge with involvement of the skin. The lesion was widely dissected around onto the pectoralis muscle. Skin was removed. Dissection was performed to recreate on the muscle of removal of some of the muscle tissue as well. The defect of the resection was 10 cm x 5 cm. The specimen was radiographed after was painted for orientation and the area of concern was identified to be removed. Additionally the lateral superior and inferior margins were obtained. Anterior margin was scan and posterior margin was the pectoralis muscle and chest wall. After assured that hemostasis was attained a superior polar of 9 x 2 cm was formed and inferior pillar of 8 x 2 cm was formed. The wound was examined for hemostasis and irrigated. Titanium clips were placed. The 2 pillars were brought together using 3-0 Vicryl suture. The skin was brought together using 3-0 Vicryl suture in the subcutaneous tissue and 4-0 Monocryl. Steri-Strips were applied. The patient tolerated the procedure in stable condition. All instrument and sponge counts were correct at the end of the case.
--- NOTE | 2021-12-08 12:39 | P.DS ---
Providers Attending physician: Tawnya Valero Primary care physician: Geoff Wright Plan - Discharge Summary Discharge Rx Participant: No New Discharge Prescriptions: No Action Unk Mulitple Vitamin 1 tab PO DAILY Aspirin 81 mg PO DAILY Acetaminophen [Tylenol] 325 - 650 mg PO Q4H PRN PRN Reason: Pain Apixaban [Eliquis] 5 mg PO BID Cholecalciferol (Vitamin D3) [Vitamin D3 (125 MCG = 5,000 IU)] 125 mcg PO DAILY Discharge Medication List Aspirin 81 mg PO DAILY 04/09/21 [History] Acetaminophen [Tylenol] 325 - 650 mg PO Q4H PRN 06/11/21 [History] Apixaban [Eliquis] 5 mg PO BID 11/19/21 [History] Cholecalciferol (Vitamin D3) [Vitamin D3 (125 MCG = 5,000 IU)] 125 mcg PO DAILY 12/06/21 [History] Unk Mulitple Vitamin 1 tab PO DAILY 12/06/21 [History] Follow up Appointment(s)/Referral(s): Tawnya Valero MD [STAFF PHYSICIAN] - 1 Week Activity/Diet/Wound Care/Special Instructions: Do not drive until seen by Dr. Morales Do not drive if taking narcotic pain medication May shower after 48 hours Wear Adolfo wrap at all times unless showering Discharge Disposition: HOME SELF-CARE
[2021-12-08] MEDS ORDERED: LACTATED RINGERS 1,000 ML IV ONE (12:44)
[2021-12-08 13:05] VITALS: TEMP 97.4
[2021-12-08] MEDS: HYDROmorphone 0.5 MG/0.5 ML SYRINGE IVP PRN ×3 (13:12→13:54)
[2021-12-08] MEDS ORDERED: Acetaminophen-Codeine 300-30mg TAB ONE (14:50)
[2021-12-08] MEDS ORDERED: Acetaminophen-Codeine 300-30mg TAB PO ONE (14:52)
[2021-12-08 15:04] VITALS: PULSE 87
[2021-12-08 15:22] VITALS: BP 143/84; RESP 15
--- NOTE | 2021-12-16 09:06 | MM ---
Prior Study Comparison: 04/23/2021 Left Diagnostic Mammogram, [facility]. 11/19/2021 Left MG 3D diag mammo w/cad LT, [facility]. 12/03/2021 Left MG 3D follow up no charge , [facility]. Pathology Description: Location: 7 o'clock. The procedure of needle localization with wire placement using ultrasound and mammogram guidance and than surgical excision was explained to the patient. Benefits, alternatives, and risks were discussed. An informed consent was then obtained. Ultrasound localization performed of the large mass or neoplasm. The clock position invading the dermal layer marked inferior aspect left breast. Preprocedure ultrasound redemonstrates a lobulated mass with central clip measuring just over 2.0 cm. Overlying skin is cleansed with ChloraPrep. Lidocaine was used as anesthetic. Under ultrasound guidance, a 5 cm needle was passed into the lesion. Following this needle is withdrawn and wires left in place. Due to marked posterior inferior location it cannot be visualized on mammogram similar to postbiopsy. Attention then turned to the sampled axillary lymph node with biopsy clip. The overlying skin was prepped and draped in usual sterile fashion. Lidocaine was used as anesthetic into the skin and subcutaneous tissue up to the level of area of concern. A 5 cm needle was used. It was placed via a lateral to medial approach under mammographic guidance. Subsequent 90 degrees mammogram show the needle to be in satisfactory position relative to the targeted area. At this point, wire was placed and the needle was withdrawn. The wire was fixed to patient's skin. Images were marked for surgeon for the axillary clip and lymph node. The patient tolerated the procedure well without any immediate complication. The patient was kept in the radiology department for short stay after the procedure and then taken to surgery for surgical excision. Targeted biopsy clip corresponding to mass and biopsy clip corresponding to lymph node and wire are identified in both specimen mammograms. The patient was kept in hospital for short stay after the procedure and then discharged home in stable condition. IMPRESSION: Successful, uncomplicated needle localization with wire placement and surgical excision of both areas of concern in the left breast, full pathology results to follow. Pathology Results: Result: Malignant, Invasive ductal carcinoma. A. LEFT BREAST, LUMPECTOMY: Lymph node involved by metastatic high grade ductal carcinoma. Greatest dimension of metastatic carcinoma measures 5 mm. Adjacent scar/fibrosis and histiocytes consistent with neoadjuvant chemotherapy related changes. Margins negative for malignancy. See Surgical Pathology Cancer Case Summary. B. LEFT BREAST #2, LUMPECTOMY: Invasive poorly differentiated ductal carcinoma (Grade 3), margins negative. Fibrosis/scar consistent with neoadjuvant chemotherapy related changes. See Surgical Pathology Cancer Case Summary. C. ADDITIONAL LEFT BREAST TISSUE, EXCISION: Benign breast with fibrocystic changes, fibroadipose tissue and skeletal muscle. D. LEFT BREAST, NEW MEDIAL MARGIN, EXCISION: Benign fibroadipose tissue with focal fibrosis. E. LEFT BREAST, NEW SUPERIOR MARGIN, EXCISION: Benign breast tissue with fibrocystic changes. F. LEFT BREAST, NEW LATERAL MARGIN, EXCISION: Benign breast tissue with fibrocystic changes. G. LEFT BREAST, INFERIOR MARGIN, EXCISION: Benign fibroadipose tissue. Pathology Description: The procedure of needle localization with wire placement using ultrasound and mammogram guidance and than surgical excision was explained to the patient. Benefits, alternatives, and risks were discussed. An informed consent was then obtained. Ultrasound localization performed of the large mass or neoplasm. The clock position invading the dermal layer marked inferior aspect left breast. Preprocedure ultrasound redemonstrates a lobulated mass with central clip measuring just over 2.0 cm. Overlying skin is cleansed with ChloraPrep. Lidocaine was used as anesthetic. Under ultrasound guidance, a 5 cm needle was passed into the lesion. Following this needle is withdrawn and wires left in place. Due to marked posterior inferior location it cannot be visualized on mammogram similar to postbiopsy. Attention then turned to the sampled axillary lymph node with biopsy clip. The overlying skin was prepped and draped in usual sterile fashion. Lidocaine was used as anesthetic into the skin and subcutaneous tissue up to the level of area of concern. A 5 cm needle was used. It was placed via a lateral to medial approach under mammographic guidance. Subsequent 90 degrees mammogram show the needle to be in satisfactory position relative to the targeted area. At this point, wire was placed and the needle was withdrawn. The wire was fixed to patient's skin. Images were marked for surgeon for the axillary clip and lymph node. The patient tolerated the procedure well without any immediate complication. The patient was kept in the radiology department for short stay after the procedure and then taken to surgery for surgical excision. Targeted biopsy clip corresponding to mass and biopsy clip corresponding to lymph node and wire are identified in both specimen mammograms. The patient was kept in hospital for short stay after the procedure and then discharged home in stable condition. IMPRESSION: Successful, uncomplicated needle localization with wire placement and surgical excision of both areas of concern in the left breast, full pathology results to follow. Pathology Results: Result: Malignant, Invasive ductal carcinoma. A. LEFT BREAST, LUMPECTOMY: Lymph node involved by metastatic high grade ductal carcinoma. Greatest dimension of metastatic carcinoma measures 5 mm. Adjacent scar/fibrosis and histiocytes consistent with neoadjuvant chemotherapy related changes. Margins negative for malignancy. See Surgical Pathology Cancer Case Summary. B. LEFT BREAST #2, LUMPECTOMY: Invasive poorly differentiated ductal carcinoma (Grade 3), margins negative. Fibrosis/scar consistent with neoadjuvant chemotherapy related changes. See Surgical Pathology Cancer Case Summary. C. ADDITIONAL LEFT BREAST TISSUE, EXCISION: Benign breast with fibrocystic changes, fibroadipose tissue and skeletal muscle. D. LEFT BREAST, NEW MEDIAL MARGIN, EXCISION: Benign fibroadipose tissue with focal fibrosis. E. LEFT BREAST, NEW SUPERIOR MARGIN, EXCISION: Benign breast tissue with fibrocystic changes. F. LEFT BREAST, NEW LATERAL MARGIN, EXCISION: Benign breast tissue with fibrocystic changes. G. LEFT BREAST, INFERIOR MARGIN, EXCISION: Benign fibroadipose tissue. Overall Assessment: Malignant Management: Surgical Consultation of the left breast. Electronically signed and approved by: Terry Orozco M.D.
--- NOTE | 2021-12-16 09:06 | MM ---
Prior Study Comparison: 04/23/2021 Left Diagnostic Mammogram, [facility]. 11/19/2021 Left MG 3D diag mammo w/cad LT, [facility]. 12/03/2021 Left MG 3D follow up no charge , [facility]. Pathology Description: Location: 7 o'clock. The procedure of needle localization with wire placement using ultrasound and mammogram guidance and than surgical excision was explained to the patient. Benefits, alternatives, and risks were discussed. An informed consent was then obtained. Ultrasound localization performed of the large mass or neoplasm. The clock position invading the dermal layer marked inferior aspect left breast. Preprocedure ultrasound redemonstrates a lobulated mass with central clip measuring just over 2.0 cm. Overlying skin is cleansed with ChloraPrep. Lidocaine was used as anesthetic. Under ultrasound guidance, a 5 cm needle was passed into the lesion. Following this needle is withdrawn and wires left in place. Due to marked posterior inferior location it cannot be visualized on mammogram similar to postbiopsy. Attention then turned to the sampled axillary lymph node with biopsy clip. The overlying skin was prepped and draped in usual sterile fashion. Lidocaine was used as anesthetic into the skin and subcutaneous tissue up to the level of area of concern. A 5 cm needle was used. It was placed via a lateral to medial approach under mammographic guidance. Subsequent 90 degrees mammogram show the needle to be in satisfactory position relative to the targeted area. At this point, wire was placed and the needle was withdrawn. The wire was fixed to patient's skin. Images were marked for surgeon for the axillary clip and lymph node. The patient tolerated the procedure well without any immediate complication. The patient was kept in the radiology department for short stay after the procedure and then taken to surgery for surgical excision. Targeted biopsy clip corresponding to mass and biopsy clip corresponding to lymph node and wire are identified in both specimen mammograms. The patient was kept in hospital for short stay after the procedure and then discharged home in stable condition. IMPRESSION: Successful, uncomplicated needle localization with wire placement and surgical excision of both areas of concern in the left breast, full pathology results to follow. Pathology Results: Result: Malignant, Invasive ductal carcinoma. A. LEFT BREAST, LUMPECTOMY: Lymph node involved by metastatic high grade ductal carcinoma. Greatest dimension of metastatic carcinoma measures 5 mm. Adjacent scar/fibrosis and histiocytes consistent with neoadjuvant chemotherapy related changes. Margins negative for malignancy. See Surgical Pathology Cancer Case Summary. B. LEFT BREAST #2, LUMPECTOMY: Invasive poorly differentiated ductal carcinoma (Grade 3), margins negative. Fibrosis/scar consistent with neoadjuvant chemotherapy related changes. See Surgical Pathology Cancer Case Summary. C. ADDITIONAL LEFT BREAST TISSUE, EXCISION: Benign breast with fibrocystic changes, fibroadipose tissue and skeletal muscle. D. LEFT BREAST, NEW MEDIAL MARGIN, EXCISION: Benign fibroadipose tissue with focal fibrosis. E. LEFT BREAST, NEW SUPERIOR MARGIN, EXCISION: Benign breast tissue with fibrocystic changes. F. LEFT BREAST, NEW LATERAL MARGIN, EXCISION: Benign breast tissue with fibrocystic changes. G. LEFT BREAST, INFERIOR MARGIN, EXCISION: Benign fibroadipose tissue. Pathology Description: The procedure of needle localization with wire placement using ultrasound and mammogram guidance and than surgical excision was explained to the patient. Benefits, alternatives, and risks were discussed. An informed consent was then obtained. Ultrasound localization performed of the large mass or neoplasm. The clock position invading the dermal layer marked inferior aspect left breast. Preprocedure ultrasound redemonstrates a lobulated mass with central clip measuring just over 2.0 cm. Overlying skin is cleansed with ChloraPrep. Lidocaine was used as anesthetic. Under ultrasound guidance, a 5 cm needle was passed into the lesion. Following this needle is withdrawn and wires left in place. Due to marked posterior inferior location it cannot be visualized on mammogram similar to postbiopsy. Attention then turned to the sampled axillary lymph node with biopsy clip. The overlying skin was prepped and draped in usual sterile fashion. Lidocaine was used as anesthetic into the skin and subcutaneous tissue up to the level of area of concern. A 5 cm needle was used. It was placed via a lateral to medial approach under mammographic guidance. Subsequent 90 degrees mammogram show the needle to be in satisfactory position relative to the targeted area. At this point, wire was placed and the needle was withdrawn. The wire was fixed to patient's skin. Images were marked for surgeon for the axillary clip and lymph node. The patient tolerated the procedure well without any immediate complication. The patient was kept in the radiology department for short stay after the procedure and then taken to surgery for surgical excision. Targeted biopsy clip corresponding to mass and biopsy clip corresponding to lymph node and wire are identified in both specimen mammograms. The patient was kept in hospital for short stay after the procedure and then discharged home in stable condition. IMPRESSION: Successful, uncomplicated needle localization with wire placement and surgical excision of both areas of concern in the left breast, full pathology results to follow. Pathology Results: Result: Malignant, Invasive ductal carcinoma. A. LEFT BREAST, LUMPECTOMY: Lymph node involved by metastatic high grade ductal carcinoma. Greatest dimension of metastatic carcinoma measures 5 mm. Adjacent scar/fibrosis and histiocytes consistent with neoadjuvant chemotherapy related changes. Margins negative for malignancy. See Surgical Pathology Cancer Case Summary. B. LEFT BREAST #2, LUMPECTOMY: Invasive poorly differentiated ductal carcinoma (Grade 3), margins negative. Fibrosis/scar consistent with neoadjuvant chemotherapy related changes. See Surgical Pathology Cancer Case Summary. C. ADDITIONAL LEFT BREAST TISSUE, EXCISION: Benign breast with fibrocystic changes, fibroadipose tissue and skeletal muscle. D. LEFT BREAST, NEW MEDIAL MARGIN, EXCISION: Benign fibroadipose tissue with focal fibrosis. E. LEFT BREAST, NEW SUPERIOR MARGIN, EXCISION: Benign breast tissue with fibrocystic changes. F. LEFT BREAST, NEW LATERAL MARGIN, EXCISION: Benign breast tissue with fibrocystic changes. G. LEFT BREAST, INFERIOR MARGIN, EXCISION: Benign fibroadipose tissue. Overall Assessment: Malignant Management: Surgical Consultation of the left breast. Electronically signed and approved by: Terry Orozco M.D.
== END 2021-12-08 15:45 | disposition home or self-care (01) ==
LOC: OR 07:38
PROVIDERS: ATTEND Surgery
DX: C50.312 Malignant neoplasm of lower-inner quadrant of left female breast (principal); R59.0 Localized enlarged lymph nodes; Z17.1 Estrogen receptor negative status [ER-]; Z92.21 Personal history of antineoplastic chemotherapy; I48.0 Paroxysmal atrial fibrillation; Z86.718 Personal history of other venous thrombosis and embolism; F17.210 Nicotine dependence, cigarettes, uncomplicated; Z80.0 Family history of malignant neoplasm of digestive organs; Z80.49 Family history of malignant neoplasm of other genital organs; Z80.1 Family history of malignant neoplasm of trachea, bronchus and lung; Z79.01 Long term (current) use of anticoagulants; Z79.82 Long term (current) use of aspirin; Z88.2 Allergy status to sulfonamides; Z88.3 Allergy status to other anti-infective agents; Z88.0 Allergy status to penicillin; Z91.09 Other allergy status, other than to drugs and biological substances
CPT/HCPCS: 38525; 19301; 14301; 14302; 19285; 88307; 76098; 19281; 38792; C1819; A9520; J2250; J0330; J1100; J2405; J0690; J2001 ×3; Q9968; J3010; J2370; J2704; J1170; J1644

== ENCOUNTER → 2021-12-16 | Outpatient (CLI) | payer OTHER ==
[2021-12-16 13:25] VITALS: BP 146/95; PULSE 87; RESP 18; TEMP 98.1
--- NOTE | 2021-12-16 13:56 | P.PN ---
Progress Note - Text Progress Note Date: 12/16/21 Vicky is a 56 year old white female status post left breast lumpectomy and SNB on 12-08-21. Pathology revealed the margins were negative, however, the node was(+). Patient tolerated the surgery without any difficulty. Physical examination: lungs: clear heart: RRR incision breast clean and dry incision axilla: clean and dry Impression: patient doing well Plan: follow up here in one month follow up with radiation oncology follow up with medical oncology CC: Dr. Vasquez
== END ==
LOC: WWCWWP 12:49
PROVIDERS: ATTEND Surgery
DX: Z48.817 Encounter for surgical aftercare following surgery on the skin and subcutaneous tissue (principal); Z88.0 Allergy status to penicillin; Z91.048 Other nonmedicinal substance allergy status; Z88.1 Allergy status to other antibiotic agents

== ENCOUNTER 2022-02-04 08:28 | Day surgery (SDC) | payer OTHER ==
[~2022-02-04 08:28] MED LIST changes: +ACETAMINOPHEN TAB 500 MG TAB PO PRN; -ALPRAZolam 0.5 MG TAB PO PRN; +HYDROmorphone 0.5 MG/0.5 ML SYRINGE IVP PRN; +MIDAZOLAM 2 MG/2 ML VIAL IV PRN; -Pre Op ABX Message 1 EACH MISC MISCELLANE ONE; +SCOPOLAMINE 1 MG/72 HR PATCH TRANSDERM ONE
[2022-02-04 08:53] VITALS: TEMP 97.4
--- NOTE | 2022-02-04 10:51 | P.GSHP ---
History of Present Illness H&P Date: 02/04/22 Chief Complaint: History of breast cancer This is a 56-year-old female who presents today for removal Port-A-Cath. Patient's previous history of breast cancer. Past Medical History Past Medical History: Atrial Fibrillation, Deep Vein Thrombosis (DVT), Pulmonary Embolus (PE) Additional Past Medical History / Comment(s): left breast CA-dx April 30, 2021-had surg. & currently getting radiation,unable to lay on stomach from prior old injury as a teenager, DVT & PE after hysterectomy 15 yrs ago and DVT after varicose vein stripping yrs ago., DVT in August behind right knee History of Any Multi-Drug Resistant Organisms: None Reported Past Surgical History: Breast Surgery, Section, Hysterectomy, Tonsillectomy Additional Past Surgical History / Comment(s): breast biopsy. Ear surgery as child., mediport insertion, left breast lumpectomy w/sentinel lymph node bx. in November 2021 Past Anesthesia/Blood Transfusion Reactions: No Reported Reaction Additional Past Anesthesia/Blood Transfusion Reaction / Comment(s): no hx blood transfusion Smoking Status: Current every day smoker - Past Family History Mother Family Medical History: AFIB, Congestive Heart Failure (CHF), COPD, Hypertension Additional Family Medical History / Comment(s): beginings of uterine Cancer Father Family Medical History: Cancer Additional Family Medical History / Comment(s): lung Medications and Allergies Home Medications Medication Instructions Recorded Confirmed Type Aspirin 81 mg PO DAILY 04/09/21 02/02/22 History Acetaminophen [Tylenol] 325 - 650 mg PO Q4H PRN 06/11/21 02/02/22 History Apixaban [Eliquis] 5 mg PO BID 11/19/21 02/02/22 History Cholecalciferol (Vitamin D3) 125 mcg PO DAILY 12/06/21 02/02/22 History [Vitamin D3 (125 MCG = 5,000 IU)] Unk Mulitple Vitamin 1 tab PO DAILY 12/06/21 02/02/22 History Allergies Allergy/AdvReac Type Severity Reaction Status Date / Time metronidazole [From Flagyl] Allergy Intermediate Anaphylaxis Verified 02/04/22 08:44 adhesive tape Allergy Mild Rash/Hives,sometimes Verified 02/04/22 08:43 blisters Penicillins AdvReac Nausea Verified 02/04/22 08:43 Surgical - Exam Vital Signs Temp Pulse Resp BP Pulse Ox 97.4 F L 85 16 156/74 98 02/04/22 08:52 02/04/22 08:52 02/04/22 08:52 02/04/22 08:52 02/04/22 08:52 - General well developed, well nourished, no distress - Eyes PERRL - ENT normal pinna - Neck no masses - Respiratory normal expansion - Cardiovascular Rhythm: regular - Abdomen Abdomen: soft, non tender Assessment and Plan Assessment: History of breast cancer. We'll perform of Port-A-Cath.
[2022-02-04] MEDS ORDERED: BUPIVACAIN-EPI 0.25%-1:200,000 30 ML VIAL SQ ONE ×3 (11:03→11:24)
[2022-02-04] MEDS ORDERED: LIDOCAINE 2% INJ 20 MG/ML (2 ML VIAL) ONE (11:06)
[2022-02-04] MEDS ORDERED: fentaNYL (PF) 50 MCG/ML 2 ML AMP ONE (11:06)
[2022-02-04] MEDS ORDERED: PROPOFOL 10 MG/ML 20 ML VIAL IV ONE (11:06)
[2022-02-04] MEDS ORDERED: MIDAZOLAM 2 MG/2 ML VIAL ONE (11:06)
--- NOTE | 2022-02-04 11:37 | P.OP ---
Date of Procedure: 02/04/22 Preoperative Diagnosis: History of left breast cancer Postoperative Diagnosis: History of left breast cancer Procedure(s) Performed: Removal of Port-A-Cath left subclavian Anesthesia: MAC Surgeon: Jose R Newberry Estimated Blood Loss (ml): 2 Pathology: none sent Condition: stable Disposition: PACU Description of Procedure: The patient's placed on the operating table in supine position. She received IV sedation. Her left chest was prepped and draped usual sterile fashion. The skin was incised 1% local Xylocaine. Skin cyst was made over the port Then using blunt and sharp dissection with cautery the Port-A-Cath was excised. The was retrieved cyst. The skin was then closed interrupted 3-0 Monocryl suture. Dermabond was applied. Patient tolerated the procedure well. She was sent to recovery room in stable condition.
[2022-02-04 11:59] VITALS: RESP 20
[2022-02-04 12:03] VITALS: BP 144/85; PULSE 80
== END 2022-02-04 12:21 | disposition home or self-care (01) ==
LOC: OR 08:28
PROVIDERS: ATTEND Surgery
DX: Z85.3 Personal history of malignant neoplasm of breast (principal); Z45.2 Encounter for adjustment and management of vascular access device; I48.91 Unspecified atrial fibrillation; I82.401 Acute embolism and thrombosis of unspecified deep veins of right lower extremity; I26.99 Other pulmonary embolism without acute cor pulmonale; F17.200 Nicotine dependence, unspecified, uncomplicated; Z98.891 History of uterine scar from previous surgery; Z90.710 Acquired absence of both cervix and uterus; Z90.89 Acquired absence of other organs; Z98.890 Other specified postprocedural states; Z82.49 Family history of ischemic heart disease and other diseases of the circulatory system; Z88.0 Allergy status to penicillin; Z88.8 Allergy status to other drugs, medicaments and biological substances; Z83.6 Family history of other diseases of the respiratory system; Z80.49 Family history of malignant neoplasm of other genital organs; Z80.1 Family history of malignant neoplasm of trachea, bronchus and lung; Z79.82 Long term (current) use of aspirin; Z90.12 Acquired absence of left breast and nipple
CPT/HCPCS: 36590; J2250; J1100; J0690; J2405; J3010; J2704; J1644; J2001

== ENCOUNTER → 2022-06-03 | Outpatient (CLI) | payer BC ==
[2022-06-03 09:16] VITALS: BP 144/95; PULSE 85; RESP 16; TEMP 97.8
--- NOTE | 2022-06-03 09:55 | P.PN ---
Subjective Progress Note Date: 06/03/22 Principal diagnosis: stage III left breast invasive ductal cancer left breast stage IIIC invasive ductal cancer left breast invasive ductal cancer stage IIIc T4b N0 M0 ER negative OR weak HER- 2 negative Vicky is a 57 year old white female who on had a bilateral maria de jesus mogram showing an abnormality in the lower inner quadrant of the left breast. An ultrasound was performed which revealed a 3.1 x 2.3 cm solid spiculated lesion at 7:00. In addition there appeared to be a 7 mm lymph node in the axillary tail with slight cortical thickening. A core biopsy was performed on 1119. The axillary node was negative however the mass was positive for grade 3 invasive ductal carcinoma. This was ER negative OR low positive and HER-2/marge negative. A PET scan was performed which did not show any evidence of metastatic disease. The patient underwent neoadjuvant chemotherapy which included Adriamycin and Cytoxan as well as Paxil. During the course of her treatment she developed a DVT of the right lower extremity and was placed on our course. She subsequently underwent a left breast lumpectomy and sentinel node biopsy on . Pathology revealed a 2.2 cm focus of invasive ductal carcinoma as well as a positive sentinel lymph node. She underwent radiation completing the radiation on . She was recommended to take Xeloda secondary to the incomplete response of the chemotherapy. She was unable to tolerate the Xeloda and is not taking it at thi s time. She is not taking any hormonal or chemotherapy at this time. She is not complaining of any new lumps masses or nodules of concern in either breast. She is due for bilateral mammogram at this time. 04-12-[address] Talbert appreciated Caffeine: 3-4 cups/day nicotine: 1/2 PPD for 6 years chocolate: occasional Family history: father: lung cancer mother: uterine maternal grandfather: lung cancer paternal uncle : colon cancer Hormonal History: menarche: 12 M1, age at first : 19, breast feed: yes menopause: hysterectomy at 40, left ovaries BCP: used for 6 years hormones: none Surgical history: fluid drained behind her right ear tonsil 2 c-sections hysterectomy hernia right groin cyst removed from bilateral breast lipoma removed from back port placed Medical History: A-fib. no blood thiners aspirin/day DVT right leg behind the knee Social History: Nicotine: Half a pack per day for 6 years Alcohol:none drugs: none - Constitutional Constitutional: Denies chills, Denies fever - EENT Eyes: denies blurred vision, denies pain Ears: deny: decreased hearing, tinnitus Ears, nose, mouth and throat: Denies headache, Denies sore throat - Breasts Breasts: bilateral: as per HPI - Cardiovascular Cardiovascular: Reports as per HPI - Respiratory Comment: smoker - Gastrointestinal Gastrointestinal: Denies abdominal pain, Denies diarrhea, Denies nausea, Denies vomiting - Genitourinary (Female) Genitourinary: Denies dysuria, Denies hematuria - Menstruation Menstruation: Reports post hysterectomy - 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 - Integumentary Integumentary: Denies pruritus, Denies rash - Neurological Neurological: Denies numbness, Denies weakness - Psychiatric Psychiatric: Denies anxiety, Denies depression - Endocrine Endocrine: Denies fatigue, Denies weight change - Hematologic/Lymphatic Comment: 2 baby aspirin /day - Allergic/Immunologic Allergic/Immunologic: Reports as per HPI Objective - Vital Signs Vital signs: Vital Signs Temp 97.8 F 06/03/22 09:10 Pulse 85 06/03/22 09:10 Resp 16 06/03/22 09:10 BP 144/95 06/03/22 09:10 Pulse Ox 98 06/03/22 09:10 FiO2 Intake & Output 06/02/22 06/03/22 06/03/22 18:59 06:59 18:59 Weight 68.492 kg - Constitutional General appearance: Present: cooperative - EENT Eyes: Present: EOMI ENT: Present: hearing grossly normal - Neck Neck: Present: normal ROM - Respiratory Respiratory: bilateral: CTA - Cardiovascular Heart sounds: normal: S1, S2 - Gastrointestinal General gastrointestinal: Present: soft - Integumentary Integumentary: Present: normal turgor - Musculoskeletal Musculoskeletal: Present: gait normal - Psychiatric Psychiatric: Present: A&O x's 3, appropriate affect, intact judgment & insight - Additional findings Additional findings: Breast Exam: BRA: 2X Inspection; post radiation and post operative changes left breast, bilateral grade 2 ptosis Palpation: Right breast: Multiple positional exam fibrocystic changes no dominant masses or nodules of concern Right axilla: No adenopathy of concern Left breast: Multiple positional exam post radiation and postsurgical changes no dominant masses or nodules of concern Left axilla: Well-healed scar from prior surgery no dominant masses or nodules of concern Assessment and Plan Assessment: Impression: A-fib. no blood thiners aspirin/day DVT right leg behind the knee in the past Stage IIIc left breast invasive ductal carcinoma no evidence of recurrent disease at this time Plan: Patient is due for a bilateral mammogram Bilateral mammogram and then follow up here for results Follow-up with medical oncology CC: Dr. Li
== END ==
LOC: WWCWWP 09:02
PROVIDERS: ATTEND Surgery
DX: R92.8 Other abnormal and inconclusive findings on diagnostic imaging of breast (principal); I48.91 Unspecified atrial fibrillation; Z79.82 Long term (current) use of aspirin; Z86.718 Personal history of other venous thrombosis and embolism; F17.210 Nicotine dependence, cigarettes, uncomplicated; Z88.0 Allergy status to penicillin; Z91.048 Other nonmedicinal substance allergy status; Z88.1 Allergy status to other antibiotic agents

== ENCOUNTER → 2022-06-08 | Outpatient (CLI) | payer BC ==
--- NOTE | 2022-06-08 10:14 | MM ---
Reason for Exam: Hx of breast cancer, conservation therapy. Last mammogram was performed 1 year(s) and 2 month(s) ago. Patient History: Menarche at age 12. First Full-Term at age 18. Hysterectomy at age 40. Postmenopausal. Patient has history of breast feeding. Breast cancer, left, age 55. Breast cancer, left, age 56. Breast cancer, left, age 56. 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 Previous chest radiation therapy at age 56. Previous chemotherapy at age 56. 12/08/2021, Lumpectomy on the Left side. 12/08/2021, Malignant MG pre op needle loc LT on the left side. 12/08/2021, Malignant US breast localization LT on the left side. 04/23/2021, Malignant Core Biopsy on the left side. 04/23/2021, Malignant Core Biopsy on the left side. Prior Study Comparison: 04/23/2021 Left Diagnostic Mammogram, [facility]. 11/19/2021 Left MG 3D diag mammo w/cad LT, [facility]. 12/03/2021 Left MG 3D follow up no charge LT, [facility]. Tissue Density: The breast tissue is heterogeneously dense. This may lower the sensitivity of mammography. Findings: Analyzed By CAD. Postsurgical changes to the left breast. New suspicious masses, calcifications or distortions. Overall Assessment: Benign, BI-RAD 2 Management: Diagnostic Mammogram of both breasts in 1 year. A clinical breast exam by your physician is recommended on an annual basis and results should be correlated with mammographic findings. This exam should not preclude additional follow-up of suspicious palpable abnormalities. Results were given to the patient verbally at the time of exam. Electronically signed and approved by: Jason Costa DO
== END | disposition home or self-care (01) ==
LOC: RADMAMWWP 09:32
PROVIDERS: ATTEND Surgery
DX: C50.912 Malignant neoplasm of unspecified site of left female breast (principal); Z85.3 Personal history of malignant neoplasm of breast; Z78.0 Asymptomatic menopausal state; Z98.890 Other specified postprocedural states
CPT/HCPCS: 77066

== ENCOUNTER → 2023-01-05 | Outpatient (CLI) | payer BC ==
[2023-01-05 09:47] VITALS: BP 149/91; PULSE 73; RESP 18; TEMP 98.3
--- NOTE | 2023-01-05 10:18 | P.PN ---
Subjective Progress Note Date: 01/05/23 Principal diagnosis: left breast stage III invasive ductal cancer; 2020 left breast stage IIIC invasive ductal cancer left breast invasive ductal cancer stage IIIc T4b N0 M0 ER negative IL weak HER- 2 negative Vicky is a 57 year old white female who on had a bilateral mammogram showing an abnormality in the lower inner quadrant of the left breast. An ultrasound was performed which revealed a 3.1 x 2.3 cm solid spiculated lesion at 7:00. In addition there appeared to be a 7 mm lymph node in the axillary tail with slight cortical thickening. A core biopsy was performed on 1119. The axillary node was negative however the mass was positive for grade 3 invasive ductal carcinoma. This was ER negative IL low positive and HER-2/marge negative. A PET scan was performed which did not show any evidence of metastatic disease. The patient underwent neoadjuvant chemotherapy which included Adriamycin and Cytoxan as well as Paxil. During the course of her treatment she developed a DVT of the right lower extremity and was placed on our course. She subsequently underwent a left breast lumpectomy and sentinel node biopsy on . Pathology revealed a 2.2 cm focus of invasive ductal carcinoma as well as a positive sentinel lymph node. She underwent radiation completing the radiation on . She was recommended to take Xeloda secondary to the incomplete response of the chemotherapy. She was unable to tolerate the Xeloda and is not taking it at this time. She is not taking any hormonal or chemotherapy at this time. She is not complaining of any new lumps masses or nodules of concern in either breast. She is due for bilateral mammogram at this time. 04-12-[address] Talbert appreciated 01-05-23 Vicky is a 57-year-old female with a history of clinical stage IIIc high-grade invasive ductal carcinoma of the left breast, ER negative IL weakly positive and HER-2/marge negative. She underwent neoadjuvant chemotherapy followed by lumpectomy and sentinel node sampling on 12-08-21. Final pathology revealed a stage IIIa T2 N1 M0 lesion. She underwent adjuvant radiotherapy finishing on . She is not complaining of any new lumps masses or nodules of concern in either breast. She is not taking any hormone therapy. She was recommended to take Xeloda secondary to the incomplete response of the chemotherapy. She was unable to tolerate this and is not taking any at this time. She has not seen medical oncology recently. Bilateral mammogram 05-29-22 BIRAD 2 note 08-18-22 radiation oncology reviewed finished on 01-30-2020 Caffeine: 3-4 cups/day nicotine: 1/2 PPD for 6 years chocolate: occasional Family history: father: lung cancer mother: uterine maternal grandfather: lung cancer paternal uncle : colon cancer Hormonal History: menarche: 12 M1, age at first : 19, breast feed: yes menopause: hysterectomy at 40, left ovaries BCP: used for 6 years hormones: none Surgical history: fluid drained behind her right ear tonsil 2 c-sections hysterectomy hernia right groin cyst removed from bilateral breast lipoma removed from back port placed Medical History: A-fib. no blood thiners aspirin/day DVT right leg behind the knee Social History: Nicotine: Half a pack per day for 6 years Alcohol:none drugs: none - Constitutional Constitutional: Denies chills, Denies fever - EENT Eyes: denies blurred vision, denies pain Ears: deny: decreased hearing, tinnitus Ears, nose, mouth and throat: Denies headache, Denies sore throat - Breasts Breasts: bilateral: as per HPI - Cardiovascular Cardiovascular: Reports as per HPI - Respiratory Comment: smoker - Gastrointestinal Gastrointestinal: Denies abdominal pain, Denies diarrhea, Denies nausea, Denies vomiting - Genitourinary (Female) Genitourinary: Denies dysuria, Denies hematuria - Menstruation Menstruation: Reports post hysterectomy - 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 - Integumentary Integumentary: Denies pruritus, Denies rash - Neurological Neurological: Denies numbness, Denies weakness - Psychiatric Psychiatric: Denies anxiety, Denies depression - Endocrine Endocrine: Denies fatigue, Denies weight change - Hematologic/Lymphatic Comment: 2 baby aspirin /day - Allergic/Immunologic Allergic/Immunologic: Reports as per HPI Objective - Vital Signs Vital signs: Vital Signs Temp 98.3 F 01/05/23 09:37 Pulse 73 01/05/23 09:37 Resp 18 01/05/23 09:37 BP 149/91 01/05/23 09:37 Pulse Ox 98 01/05/23 09:37 FiO2 Intake & Output 08/02/1801/05/23 01/05/23 18:59 06:59 18:59 Weight 66.224 kg - Constitutional General appearance: Present: cooperative - EENT Eyes: Present: EOMI ENT: Present: hearing grossly normal - Neck Neck: Present: normal ROM - Respiratory Respiratory: bilateral: CTA - Cardiovascular Rhythm: regular Heart sounds: normal: S1, S2 - Gastrointestinal General gastrointestinal: Present: soft - Integumentary Integumentary: Present: normal turgor - Musculoskeletal Musculoskeletal: Present: gait normal - Psychiatric Psychiatric: Present: A&O x's 3, appropriate affect, intact judgment & insight - Additional findings Additional findings: Breast Exam: BRA: 2X Inspection; post radiation and post operative changes left breast, bilateral grade 2 ptosis Palpation: Right breast: Multiple positional exam fibrocystic changes no dominant masses or nodules of concern Right axilla: No adenopathy of concern Left breast: Multiple positional exam post radiation and postsurgical changes no dominant masses or nodules of concern Left axilla: Well-healed scar from prior surgery no dominant masses or nodules of concern Assessment and Plan Assessment: Impression: A-fib. no blood thiners aspirin/day DVT right leg behind the knee in the past Stage IIIc left breast invasive ductal carcinoma no evidence of recurrent disease at this time Plan: Patient is due for a bilateral mammogram 2023 Bilateral mammogram and then follow up here for results Follow-up with medical oncology follow up radiation oncology Have discussed the importance of following with medical oncology. At this time she states that she can't afford it but will consider it. She will call us if she has any questions or concerns. CC: Dr. Li
== END ==
LOC: WWCWWP 09:02
PROVIDERS: ATTEND Surgery
DX: C50.912 Malignant neoplasm of unspecified site of left female breast (principal); I48.91 Unspecified atrial fibrillation; Z51.11 Encounter for antineoplastic chemotherapy; Z86.718 Personal history of other venous thrombosis and embolism; Z88.0 Allergy status to penicillin; Z17.1 Estrogen receptor negative status [ER-]; Z91.048 Other nonmedicinal substance allergy status; Z88.8 Allergy status to other drugs, medicaments and biological substances; Z79.82 Long term (current) use of aspirin

== ENCOUNTER 2023-02-07 19:07 | Emergency (ER) | payer BC ==
[2023-02-07 19:20] VITALS: TEMP 98
--- NOTE | 2023-02-07 19:22 | ED ---
Headache HPI - General Source: patient, RN notes reviewed Mode of arrival: ambulatory Limitations: no limitations - History of Present Illness MD Complaint: headache <Crystal Chavez - Last Filed: 02/07/23 19:18> <Felix Finch - Last Filed: 02/07/23 23:33> - General Chief Complaint: Headache Stated Complaint: bad headache queezy Time Seen by Provider: 02/07/23 19:15 - History of Present Illness Initial Comments: This is a 57 year old female who presents to the emergency department for a headache. States that this started earlier today. Reports associated nausea. Denies any history of headaches. She tried taking Tylenol with no relief. She went to see her PCP, who gave her a shot of steroids and Toradol, however that was not effective either. (Crystal Chavez) 57-year-old female presents to the ED with a chief complaint of headache. Patient states has been having "small" headaches over the past week and states that this has typically improved with [id number] medications however today started to experience worsening headache. Presented to her PCP today who provided her Toradol and steroids. Despite this, reports ongoing headache. Associated nausea. No auditory or visual hallucinations. Denies chest pain or shortness of breath. No other complaints. (Felix Finch) - Related Data Home Medications Medication Instructions Recorded Confirmed Aspirin 81 mg PO DAILY 04/09/21 01/05/23 Acetaminophen [Tylenol] 325 - 650 mg PO Q4H PRN 06/11/21 01/05/23 Allergies Allergy/AdvReac Type Severity Reaction Status Date / Time metronidazole [From Flagyl] Allergy Intermediate Anaphylaxis Verified 02/07/23 19:20 adhesive tape Allergy Mild Rash/Hives,sometimes Verified 02/07/23 19:20 blisters Penicillins AdvReac Nausea Verified 02/07/23 19:20 Review of Systems ROS Other: All systems not noted in ROS Statement are negative. <Crystal Chavez - Last Filed: 02/07/23 19:18> ROS Other: All systems not noted in ROS Statement are negative. <Felix Finch - Last Filed: 02/07/23 23:33> ROS Statement: Those systems with pertinent positive or pertinent negative responses have been documented in the HPI. Past Medical History Past Medical History: Atrial Fibrillation, Deep Vein Thrombosis (DVT), Pulmonary Embolus (PE) Additional Past Medical History / Comment(s): left breast CA-dx April 30, 2021-had surg. & currently getting radiation,unable to lay on stomach from prior old injury as a teenager, DVT & PE after hysterectomy 15 yrs ago and DVT after varicose vein stripping yrs ago., DVT in August behind right knee History of Any Multi-Drug Resistant Organisms: None Reported Past Surgical History: Breast Surgery, Section, Hysterectomy, Tonsillectomy Additional Past Surgical History / Comment(s): breast biopsy. Ear surgery as child., mediport insertion, left breast lumpectomy w/sentinel lymph node bx. in November 2021 Past Anesthesia/Blood Transfusion Reactions: No Reported Reaction Additional Past Anesthesia/Blood Transfusion Reaction / Comment(s): no hx blood transfusion Past Psychological History: No Psychological Hx Reported Smoking Status: Current every day smoker Past Alcohol Use History: None Reported Additional Past Alcohol Use History / Comment(s): <1/2 ppd, started smoking as a teenager on and off Past Drug Use History: None Reported - Past Family History Mother Family Medical History: AFIB, Congestive Heart Failure (CHF), COPD, Hypertension Additional Family Medical History / Comment(s): beginings of uterine Cancer Father Family Medical History: Cancer Additional Family Medical History / Comment(s): lung <Crystal Chavez - Last Filed: 02/07/23 19:18> General Exam <Crystal Chavez - Last Filed: 02/07/23 19:18> General appearance: alert, in no apparent distress Eye exam: Present: normal appearance, PERRL, EOMI ENT exam: Present: mucous membranes moist Neck exam: Present: normal inspection Respiratory exam: Present: normal lung sounds bilaterally Cardiovascular Exam: Present: regular rate, normal rhythm Extremities exam: Present: normal inspection Back exam: Present: normal inspection Neurological exam: Present: alert, oriented X3, CN II-XII intact, other (GCS 15) <Felix Finch - Last Filed: 02/07/23 23:33> - General Exam Comments Initial Comments: Visual Physical Exam Vital signs reviewed General: Well-appearing, nontoxic, no acute distress. Head: Normocephalic, atraumatic Eyes: PERRLA, EOMI ENT: Airway patent Chest: Nonlabored breathing Skin: No visual rash, normal skin tone Neuro: Alert and oriented 3 Musculoskeletal: No gross abnormalities I performed the QuickNote portion of this chart. Signed Crystal Chavez PA-C. (Crystal Chavez) Course Vital Signs 02/07/23 02/07/23 19:17 23:16 Temperature 98.0 F Pulse Rate 71 77 Respiratory 18 19 Rate Blood Pressure 187/80 188/96 O2 Sat by Pulse 97 99 Oximetry Medical Decision Making - Lab Data Result diagrams: 02/07/23 22:31 02/07/23 22:31 <Felix Finch - Last Filed: 02/07/23 23:33> - Medical Decision Making Was pt. sent in by a medical professional or institution (ALETHA Underwood, SWITCH TECHNICIAN, urgent care, hospital, or half-way...) When possible be specific @ -No Did you speak to anyone other than the patient for history (EMS, parent, family, police, friend...)? What history was obtained from this source @ -No Did you review nursing and triage notes (agree or disagree)? Why? @ -I reviewed and agree with nursing and triage notes Were old charts reviewed (outside hosp., previous admission, EMS record, old EKG, old radiological studies, urgent care reports/EKG's, half-way records)? Report findings @ -No old charts were reviewed Differential Diagnosis (chest pain, altered mental status, abdominal pain women, abdominal pain men, vaginal bleeding, weakness, fever, dyspnea, syncope, headache, dizziness, GI bleed, back pain, seizure, CVA, palpatations, mental health, musculoskeletal)? @ -Differential Headache: Migraine, tension, cluster, carbon monoxide, central venous thrombosis, pension karma temporal arteritis, acute closure glaucoma, intercranial hemorrhage, mastoiditis, sinusitis, head injury, this is not meant to be an all-inclusive list. EKG interpreted by me (3pts min.). @ -As above X-rays interpreted by me (1pt min.). @ -None done CT interpreted by me (1pt min.). @ -CT of the brain showed left occipital lobe cystic lesion with surrounding vasogenic edema. Additional hypodense area with in the right thalamus also present measuring 7 mm representing remote injury versus age indeterminate lacunar injury U/S interpreted by me (1pt. min.). @ -None done What testing was considered but not performed or refused? (CT, X-rays, U/S, labs)? Why? @ -None What meds were considered but not given or refused? Why? @ -None Did you discuss the management of the patient with other professionals (professionals i.e. Dr., PA, SWITCH TECHNICIAN, lab, RT, psych nurse, medical social consultant, automobile service station manager, teacher, psychological operations officer, family independence case manager)? Give summary @ -Case discussed with Dr. Urbano of internal medicine, who advised transfer to facility with neurosurgery. Was smoking cessation discussed for >3mins.? @ -No Was critical care preformed (if so, how long)? @ -No Were there social determinants of health that impacted care today? How? (Homelessness, low income, unemployed, alcoholism, drug addiction, transportation, low edu. Level, literacy, decrease access to med. care, fci, rehab)? @ -No Was there de-escalation of care discussed even if they declined (Discuss DNR or withdrawal of care, Hospice)? DNR status @ -No What co-morbidities impacted this encounter? (DM, HTN, Smoking, COPD, CAD, Cancer, CVA, ARF, Chemo, Hep., AIDS, mental health diagnosis, sleep apnea, morbid obesity)? @ -History of breast cancer Was patient admitted / discharged? Hospital course, mention meds given and route, prescriptions, significant lab abnormalities, going to OR and other pertinent info. @ -Transfer 77-year-old female with a history of breast cancer presenting to the ED with a chief complaint of headache. Laboratory studies including CBC, chemistry, Influenza A/B, RSV, COVID, unremarkable. CT brain remarkable for cystic lesion in the left occipital lobe measuring 3.9 x 3.8 x 3.4 cm. Patient will be transferred to [facility] for further evaluation. Case discussed with Dr. Segura, who accepted transfer. Undiagnosed new problem with uncertain prognosis? @ -No Drug Therapy requiring intensive monitoring for toxicity (Heparin, Nitro, Insulin, Cardizem)? @ -No Were any procedures done? @ -No Diagnosis/symptom? @ -Left occipital cystic lesion, headache Acute, or Chronic, or Acute on Chronic? @ -Acute on chronic Uncomplicated (without systemic symptoms) or Complicated (systemic symptoms)? @ -Uncomplicated Side effects of treatment? @ -No Exacerbation, Progression, or Severe Exacerbation? @ -No Poses a threat to life or bodily function? How? (Chest pain, [place], [place], pneumonia, PE, COPD, DKA, ARF, appy, cholecystitis, CVA, Diverticulitis, Homicidal, Suicidal, threat to staff... and all critical care pts) @ -No (Felix Finch) - Lab Data Lab Results 02/07/23 02/07/23 02/07/23 Range/Units 19:21 22:31 22:31 WBC 11.1 H (3.8-10.6) k/uL RBC 5.04 (3.80-5.40) m/uL Hgb 15.3 (11.4-16.0) gm/dL Hct 46.3 H (34.0-46.0) % MCV 91.9 (80.0-100.0) fL MCH 30.4 (25.0-35.0) pg MCHC 33.1 (31.0-37.0) g/dL RDW 12.6 (11.5-15.5) % Plt Count 237 (150-450) k/uL MPV 6.8 Neutrophils % 80 % Lymphocytes % 13 % Monocytes % 4 % Eosinophils % 1 % Basophils % 1 % Neutrophils # 8.9 H (1.3-7.7) k/uL Lymphocytes # 1.5 (1.0-4.8) k/uL Monocytes # 0.4 (0-1.0) k/uL Eosinophils # 0.1 (0-0.7) k/uL Basophils # 0.1 (0-0.2) k/uL Sodium 138 (137-145) mmol/L Potassium 3.7 (3.5-5.1) mmol/L Chloride 107 (98-107) mmol/L Carbon Dioxide 27 (22-30) mmol/L Anion Gap 4 mmol/L BUN 6 L (7-17) mg/dL Creatinine 0.48 L (0.52-1.04) mg/dL Est GFR (CKD-EPI)AfAm >90 (>60 ml/min/1.73 sqM) Est GFR (CKD-EPI)NonAf >90 (>60 ml/min/1.73 sqM) Glucose 126 H (74-99) mg/dL Calcium 9.4 (8.4-10.2) mg/dL Total Bilirubin 0.6 (0.2-1.3) mg/dL AST 28 (14-36) U/L ALT 18 (4-34) U/L Alkaline Phosphatase 85 (38-126) U/L Troponin I (0.000-0.034) ng/mL Total Protein 6.4 (6.3-8.2) g/dL Albumin 3.9 (3.5-5.0) g/dL Influenza Type A (PCR) Not Detected (Not Detectd) Influenza Type B (PCR) Not Detected (Not Detectd) RSV (PCR) Not Detected (Not Detectd) SARS-CoV-2 (PCR) Not Detected (Not Detectd) 02/07/23 Range/Units 22:31 WBC (3.8-10.6) k/uL RBC (3.80-5.40) m/uL Hgb (11.4-16.0) gm/dL Hct (34.0-46.0) % MCV (80.0-100.0) fL MCH (25.0-35.0) pg MCHC (31.0-37.0) g/dL RDW (11.5-15.5) % Plt Count (150-450) k/uL MPV Neutrophils % % Lymphocytes % % Monocytes % % Eosinophils % % Basophils % % Neutrophils # (1.3-7.7) k/uL Lymphocytes # (1.0-4.8) k/uL Monocytes # (0-1.0) k/uL Eosinophils # (0-0.7) k/uL Basophils # (0-0.2) k/uL Sodium (137-145) mmol/L Potassium (3.5-5.1) mmol/L Chloride (98-107) mmol/L Carbon Dioxide (22-30) mmol/L Anion Gap mmol/L BUN (7-17) mg/dL Creatinine (0.52-1.04) mg/dL Est GFR (CKD-EPI)AfAm (>60 ml/min/1.73 sqM) Est GFR (CKD-EPI)NonAf (>60 ml/min/1.73 sqM) Glucose (74-99) mg/dL Calcium (8.4-10.2) mg/dL Total Bilirubin (0.2-1.3) mg/dL AST (14-36) U/L ALT (4-34) U/L Alkaline Phosphatase (38-126) U/L Troponin I <0.012 (0.000-0.034) ng/mL Total Protein (6.3-8.2) g/dL Albumin (3.5-5.0) g/dL Influenza Type A (PCR) (Not Detectd) Influenza Type B (PCR) (Not Detectd) RSV (PCR) (Not Detectd) SARS-CoV-2 (PCR) (Not Detectd) - EKG Data EKG Comments: EKG shows a sinus rhythm at [address] or T-wave changes. [place] 135, QRS 86, QT/QTc 427/433 (Felix Finch) Disposition <Crystal Chavez - Last Filed: 02/07/23 19:18> Time of Disposition: 22:51 - Out of Hospital Transfer - Req. Specs Out of Hospital Transfer - Requested Specifics: Other Emergency Center ([facility]) <Felix Finch - Last Filed: 02/07/23 23:33> Clinical Impression: Brain lesion, Headache Disposition: OTHER INSTITUTION NOT DEFINED Referrals: Geoff Wright DO [Primary Care Provider] - 1-2 days
[2023-02-07] MEDS ORDERED: PROCHLORPERAZINE INJ 10 MG/2 ML VIAL IVP STA (21:35)
[2023-02-07] MEDS ORDERED: SODIUM CHLORIDE 0.9% 1,000 ML IV STA (21:35)
--- NOTE | 2023-02-07 22:03 | CT ---
EXAMINATION TYPE: CT brain wo con CT DLP: 1202.7 mGycm, Automated exposure control for dose reduction was used. DATE OF EXAM: 02/07/2023 9:49 PM COMPARISON: 05/20/2021 /CT.. CLINICAL INDICATION:Female, 57 years old with history of no hx of ram, intractable RAM, HEADACHE TECHNIQUE: Brain: Axial CT images of the brain were obtained with coronal and sagittal reformats created and rev iewed. Contrast used: None. Oral contrast used: None. FINDINGS: Brain: Extra-axial spaces: No abnormal extra-axial fluid collections. Ventricular system: Within normal limits Cerebral parenchyma: Cystic lesion in the left occipital lobe not definitively in the [id number] o n prior. Cystic area measuring 3.9 x 1.8 x 3.4 additional hypodense 7 mm area within the right thalam us. Cm. No acute intraparenchymal hemorrhage. The noble-white junction is well differentiated. Cerebellum: Unremarkable. Mass effect: No evidence of midline shift. Intracranial vasculature: unremarkable Soft tissues: Normal. Calvarium/osseous structures: No depressed skull fracture. Paranasal sinuses and mastoid air cells: Mild scattered paranasal sinus disease. Visualized orbits: Orbital contents are intact. IMPRESSION: 1. Left occipital lobe cystic lesion with surrounding vasogenic edema. Further evaluation with MRI b rain with IV contrast if recommended. 2. Hypodense area within the right thalamus also present measuring 7 mm represent remote injury vers us age indeterminate right thalamic lacunar injury. This should be assessed on MRI.
[2023-02-07] MEDS ORDERED: MORPHINE SULFATE 4 MG/ML SYRINGE IVP STA ×2 (22:57→23:04)
[2023-02-07 23:02] LABS: Basophils # (A) 0.1 k/uL (0-0.2); Basophils % (A) 1 %; Eosinophils # (A) 0.1 k/uL (0-0.7); Eosinophils % (A) 1 %; HCT 46.3 % (34.0-46.0); HGB 15.3 gm/dL (11.4-16.0); Lymphocytes # (A) 1.5 k/uL (1.0-4.8); Lymphocytes % (A) 13 %; MCH 30.4 pg (25.0-35.0); MCHC 33.1 g/dL (31.0-37.0); MCV 91.9 fL (80.0-100.0); Mean Platelet Volume 6.8; Monocytes # (A) 0.4 k/uL (0-1.0); Monocytes % (A) 4 %; Neutrophils # (A) 8.9 k/uL (1.3-7.7); Neutrophils % (A) 80 %; Platelet Count 237 k/uL (150-450); RBC 5.04 m/uL (3.80-5.40); RDW 12.6 % (11.5-15.5); WBC 11.1 k/uL (3.8-10.6)
[2023-02-07 23:13] LABS: ALT 18 U/L (4-34); AST 28 U/L (14-36); African American GFR (CKD) >90 (>60 ml/min/1.73 sqM); Albumin 3.9 g/dL (3.5-5.0); Alkaline Phosphatase 85 U/L (38-126); Anion Gap 4 mmol/L; Blood Urea Nitrogen 6 mg/dL (7-17); Calcium 9.4 mg/dL (8.4-10.2); Carbon Dioxide 27 mmol/L (22-30); Chloride 107 mmol/L (98-107); Glucose 126 mg/dL (74-99); Non-African American GFR(CKD) >90 (>60 ml/min/1.73 sqM); Potassium 3.7 mmol/L (3.5-5.1); Sodium 138 mmol/L (137-145); Total Bilirubin 0.6 mg/dL (0.2-1.3); Total Protein 6.4 g/dL (6.3-8.2)
[2023-02-07 23:17] VITALS: BP 188/96; PULSE 77; RESP 19
[2023-02-08 00:51] LABS: Amorphous Sediment,Urine Rare /hpf; Appearance,Urine Clear (Clear); Bacteria,Urine Occasional /hpf; Bilirubin,Urine Negative (Negative); Blood,Urine Small (Negative); Color,Urine Colorless; Glucose,Urine (UA) Negative (Negative); Granular Casts,Urine 2 /lpf (0); Hyaline Casts,Urine 10 /lpf (0-2); Ketones,Urine Negative (Negative); Leukocyte Esterase,Urine Negative (Negative); Mucus,Urine Many /hpf; Nitrite,Urine Negative (Negative); Protein,Urine Negative (Negative); RBC,Urine 12 /hpf (0-5); Specific Gravity,Urine 1.008 (1.001-1.035); Squamous Epithelial Cell,Urine 1 /hpf (0-4); Urobilinogen,Urine <2.0 mg/dL (<2.0); WBC,Urine 2 /hpf (0-5)
== END 2023-02-08 01:25 | disposition other institution (70) ==
LOC: EC 19:07
DX: G93.9 Disorder of brain, unspecified (principal); R51.9 Headache, unspecified; I48.91 Unspecified atrial fibrillation; F17.200 Nicotine dependence, unspecified, uncomplicated; Z79.82 Long term (current) use of aspirin; Z88.0 Allergy status to penicillin; Z91.09 Other allergy status, other than to drugs and biological substances; Z88.8 Allergy status to other drugs, medicaments and biological substances
CPT/HCPCS: 36415; 93005; 86900; 86901; 80053; 84484; 85025; 86850; 81001; 87636; 70450; 99285; 96374; 96375; 96361 ×3; J2270; J0780

== ENCOUNTER 2023-03-01 13:05 | Emergency (ER) | payer BC ==
[2023-03-01 13:21] VITALS: RESP 18
[2023-03-01] MEDS ORDERED: APIXABAN 5 MG TAB PO STA (15:13)
--- NOTE | 2023-03-01 15:15 | ED ---
Extremity Problem HPI - General Chief complaint: Extremity Problem,Nontraumatic Stated complaint: left leg DVT Time Seen by Provider: 03/01/23 14:21 Source: patient Mode of arrival: wheelchair Limitations: no limitations - History of Present Illness Initial comments: 57-year-old female past medical history significant for A. fib not on any anticoagulation presents to the ED with a chief complaint of leg pain. Patient states for the past 3 days has had pain of the left calf. States pain initially intermittent in nature but has since progressed to be constant nature. No recent long travel. Denies chest pain or shortness of breath. No abdominal pain. No other complaints. - Related Data Home Medications Medication Instructions Recorded Confirmed Aspirin 81 mg PO DAILY 04/09/21 01/05/23 Acetaminophen [Tylenol] 325 - 650 mg PO Q4H PRN 06/11/21 01/05/23 Previous Rx's Medication Instructions Recorded Apixaban [Eliquis Starter Pack 5 - 10 mg PO DIRECTED 30 Days 03/01/23 (for VTE)] #1 each Allergies Allergy/AdvReac Type Severity Reaction Status Date / Time metronidazole [From Flagyl] Allergy Intermediate Anaphylaxis Verified 03/01/23 13:16 adhesive tape Allergy Mild Rash/Hives,sometimes Verified 03/01/23 13:16 blisters Penicillins AdvReac Nausea Verified 03/01/23 13:16 Review of Systems ROS Statement: Those systems with pertinent positive or pertinent negative responses have been documented in the HPI. ROS Other: All systems not noted in ROS Statement are negative. Past Medical History Past Medical History: Atrial Fibrillation, Deep Vein Thrombosis (DVT), Pulmonary Embolus (PE) Additional Past Medical History / Comment(s): left breast CA-dx April 30, 2021-had surg. & currently getting radiation,unable to lay on stomach from prior old injury as a teenager, DVT & PE after hysterectomy 15 yrs ago and DVT after varicose vein stripping yrs ago., DVT in August behind right knee History of Any Multi-Drug Resistant Organisms: None Reported Past Surgical History: Breast Surgery, Section, Hysterectomy, Tonsillectomy Additional Past Surgical History / Comment(s): breast biopsy. Ear surgery as child., mediport insertion, left breast lumpectomy w/sentinel lymph node bx. in November 2021 Past Anesthesia/Blood Transfusion Reactions: No Reported Reaction Additional Past Anesthesia/Blood Transfusion Reaction / Comment(s): no hx blood transfusion Past Psychological History: No Psychological Hx Reported Smoking Status: Current every day smoker Past Alcohol Use History: None Reported Past Drug Use History: None Reported - Past Family History Mother Family Medical History: AFIB, Congestive Heart Failure (CHF), COPD, Hypertension Additional Family Medical History / Comment(s): beginings of uterine Cancer Father Family Medical History: Cancer Additional Family Medical History / Comment(s): lung General Exam Limitations: no limitations General appearance: alert, in no apparent distress Neck exam: Present: normal inspection Respiratory exam: Present: normal lung sounds bilaterally Cardiovascular Exam: Present: regular rate, irregular rhythm GI/Abdominal exam: Present: soft Extremities exam: Present: other (Strength and Sensation equal and symmetric in bilateral lower extremities. DP pulses of the left lower extremity 2+, PT pulses 1+. Tenderness to palpation upon squeezing the calf. Positive Homans si gn.) Neurological exam: Present: alert, oriented X3 Skin exam: Present: warm, dry Course Vital Signs 03/01/23 13:13 Temperature 98.3 F Pulse Rate 70 Respiratory 18 Rate Blood Pressure 145/84 O2 Sat by Pulse 99 Oximetry Medical Decision Making - Medical Decision Making Was pt. sent in by a medical professional or institution (, PA, MARINE PIPEFITTER HELPER, urgent care, hospital, or fdc...) When possible be specific @ -No Did you speak to anyone other than the patient for history (EMS, parent, family, police, friend...)? What history was obtained from this source @ -No Did you review nursing and triage notes (agree or disagree)? Why? @ -I reviewed and agree with nursing and triage notes Were old charts reviewed (outside hosp., previous admission, EMS record, old EKG, old radiological studies, urgent care reports/EKG's, fdc records)? Report findings @ -No old charts were reviewed Differential Diagnosis (chest pain, altered mental status, abdominal pain women, abdominal pain men, vaginal bleeding, weakness, fever, dyspnea, syncope, headache, dizziness, GI bleed, back pain, seizure, CVA, palpatations, mental health, musculoskeletal)? @ -Differential Musculoskeletal Muscular strain, contusion, ligament sprain, fracture, arthritis, septic arthritis, bursitis, cellulitis, muscle spasm, nerve compression, DVT, arterial occlusion, herpes zoster, electrolyte abnormality, tumor.... This is not meant to be in all inclusive list EKG interpreted by me (3pts min.). @ -None X-rays interpreted by me (1pt min.). @ -None done CT interpreted by me (1pt min.). @ -None done U/S interpreted by me (1pt. min.). @ -None done What testing was considered but not performed or refused? (CT, X-rays, U/S, labs)? Why? @ -None What meds were considered but not given or refused? Why? @ -None Did you discuss the management of the patient with other professionals (professionals i.e. Dr., PA, MARINE PIPEFITTER HELPER, lab, RT, psych nurse, 7th grade social studies teacher, wheat inspector, teacher, protective officer, shelter case manager)? Give summary @ -No Was smoking cessation discussed for >3mins.? @ -No Was critical care preformed (if so, how long)? @ -No Were there social determinants of health that impacted care today? How? (Homelessness, low income, unemployed, alcoholism, drug addiction, transportation, low edu. Level, literacy, decrease access to med. care, senior living, rehab)? @ -No Was there de-escalation of care discussed even if they declined (Discuss DNR or withdrawal of care, Hospice)? DNR status @ -No What co-morbidities impacted this encounter? (DM, HTN, Smoking, COPD, CAD, Cancer, CVA, ARF, Chemo, Hep., AIDS, mental health diagnosis, sleep apnea, morbi d obesity)? @ -A. fib Was patient admitted / discharged? Hospital course, mention meds given and route, prescriptions, significant lab abnormalities, going to OR and other pertinent info. @ -Discharge 57-year-old female presenting to the ED with a chief complaint of left leg pain. Patient had outpatient ultrasound that was positive for DVT in the left popliteal and proximal calf pain. He shouldn't advised to present to the ED for further evaluation. Patient not on any anticoagulation. Patient started on Eliquis. Provided dose here and provided prescription for initiation dose. Advised follow-up with PCP. At this time, patient is not having any chest pain or shortness of breath. Discharged home in stable condition. Discussed return precautions with patient and family who verbalizes agreement. Undiagnosed new problem with uncertain prognosis? @ -No Drug Therapy requiring intensive monitoring for toxicity (Heparin, Nitro, Insulin, Cardizem)? @ -No Were any procedures done? @ -No Diagnosis/symptom? @ -DVT, left lower extremity Acute, or Chronic, or Acute on Chronic? @ -Acute Uncomplicated (without systemic symptoms) or Complicated (systemic symptoms)? @ -Uncomplicated Side effects of treatment? @ -No Exacerbation, Progression, or Severe Exacerbation? @ -No Poses a threat to life or bodily function? How? (Chest pain, [place], [place], pneumonia, PE, COPD, DKA, ARF, appy, cholecystitis, CVA, Diverticulitis, Homicidal, Suicidal, threat to staff... and all critical care pts) @ -No Disposition Clinical Impression: DVT (deep vein thrombosis) in Disposition: HOME SELF-CARE Condition: Good Instructions (If sedation given, give patient instructions): Deep Vein Thrombosis (ED), Apixaban (By mouth), Deep Vein Thrombosis Prevention (ED) Additional Instructions: Please return to the Emergency Department if symptoms worsen or any other concerns. Please follow-up with PCP. Prescriptions: Apixaban [Eliquis Starter Pack (for VTE)] 5 - 10 mg PO DIRECTED 30 Days #1 each Is patient prescribed a controlled substance at d/c from ED?: No When asked, does pt state using other controlled substances?: No Referrals: Geoff Wright DO [Primary Care Provider] - 1-2 days Time of Disposition: 15:18
[2023-03-01 15:41] VITALS: BP 137/88; PULSE 69; TEMP 98.1
== END 2023-03-01 15:55 | disposition home or self-care (01) ==
LOC: EC 13:05
DX: I82.432 Acute embolism and thrombosis of left popliteal vein (principal); F17.200 Nicotine dependence, unspecified, uncomplicated; Z86.711 Personal history of pulmonary embolism; Z79.82 Long term (current) use of aspirin; Z88.1 Allergy status to other antibiotic agents; Z91.09 Other allergy status, other than to drugs and biological substances; Z88.0 Allergy status to penicillin
CPT/HCPCS: 99283

== ENCOUNTER → 2023-03-01 | Outpatient (CLI) | payer BC ==
--- NOTE | 2023-03-01 13:17 | US ---
EXAMINATION TYPE: US venous doppler duplex LE LT DATE OF EXAM: 03/01/2023 12:40 PM COMPARISON: NONE CLINICAL INDICATION: Female, 57 years old with history of M79.662 PAIN LLE R22.42 SWELLING LLE; LLE p ain and swelling SIDE PERFORMED: Left TECHNIQUE: The lower extremity deep venous system is examined utilizing real time linear array sonog [place] with graded compression, doppler sonography and color-flow sonography. VESSELS IMAGED: Common Femoral Vein Deep Femoral Vein Greater Saphenous Vein * Femoral Vein Popliteal Vein Small Saphenous Vein * Proximal Calf Veins (* superficial vessels) Left Leg: Positive for DVT within the distal segment of the popliteal vein and proximal calf vein IMPRESSION: Positive deep venous thrombosis within the left popliteal vein and proximal calf vein. Patient was sent to the ER.
== END | disposition home or self-care (01) ==
LOC: RADUSWWP 12:14
PROVIDERS: ATTEND Radiology Radiation Oncology
DX: I82.432 Acute embolism and thrombosis of left popliteal vein (principal); C77.3 Secondary and unspecified malignant neoplasm of axilla and upper limb lymph nodes; C50.512 Malignant neoplasm of lower-outer quadrant of left female breast; M79.662 Pain in left lower leg; R22.42 Localized swelling, mass and lump, left lower limb; Z92.21 Personal history of antineoplastic chemotherapy; Z17.1 Estrogen receptor negative status [ER-]

== ENCOUNTER → 2023-03-10 | Outpatient (CLI) | payer BC ==
--- NOTE | 2023-03-12 13:57 | PE ---
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 Images are reviewed on the computer in the coronal, ax ial, and sagittal planes. Reconstructed rotating images are created on independent workstation and r eviewed on the computer. A non-contrast CT is performed in conjunction with the PET scan. Glucose l evel 70 mg/dL CT DLP: 400.52 mGycm, Automated exposure control for dose reduction was used. COMPARISON: CT 05/19/2021, PET/CT 05/20/2021, FINDINGS: Mediastinal SUV mean is 03/10/2023. Hepatic parenchyma SUV mean is 1.6. SKULL BASE AND NECK: Post surgical changes to the skull with foci of gas within the surgical bed no abnormal radiotracer uptake. CHEST, MEDIASTINUM, AND HILAR REGION: * New right lower lung pulmonary nodule measuring 16 mm Max SUV 2.5 * Left upper lung streaky interstitial scarring max SUV 1.6. * Medial left breast mass now is probably cystic measuring 5.8 x 2.4 cm Max SUV 1.1, previously 10.2 . * Left lateral breast abnormal lymph node is no longer visualized previously Max SUV 3.1. ABDOMEN AND PELVIS: * Areas of of radiotracer uptake within the liver max SUV 2.8 in the posterior right hepatic lobe an d more medially in the right hepatic lobe measuring up to max SUV 2.1. Not well appreciated on noncon trast CT. * Left adrenal gland abnormal uptake max SUV 3.8. MUSCULOSKELETAL STRUCTURES: Focus of abnormal radiotracer uptake within the left gluteus maximize max SUV 4.6. OTHER CT: Post procedural changes to the left posterior skull with foci of gas in the dural space and left ventricle. Left nonobstructing 4 mm calculus. The [place] clinically. Scattered colonic divert icula. IMPRESSION: 1. Post treatment changes the left breast without remaining left breast radiotracer uptake suggestin g positive response to therapy. However there are new suspicious lesions including a new pulmonary no dule in the right lower lung, at least 3 areas within the liver and a left adrenal gland lesion which are suspicious for metastatic disease. Lastly, age indeterminate area within the left gluteus maximu m muscle is also new and suspicious. 2. Post procedural changes to the left posterior skull with foci of gas in the dural space and left ventricle. Correlate with history of craniotomy.
== END | disposition home or self-care (01) ==
LOC: RADPETMAIN 12:01
PROVIDERS: ATTEND Radiology Radiation Oncology
DX: C77.3 Secondary and unspecified malignant neoplasm of axilla and upper limb lymph nodes (principal); C50.512 Malignant neoplasm of lower-outer quadrant of left female breast; Z17.1 Estrogen receptor negative status [ER-]; Z92.21 Personal history of antineoplastic chemotherapy
CPT/HCPCS: 78815; A9552

== ENCOUNTER 2023-05-03 02:07 | Emergency (ER) | payer BC ==
[2023-05-03 02:19] VITALS: TEMP 97.9
[2023-05-03] MEDS ORDERED: IPRATROPIUM-ALBUTEROL 3 ML NEB INHALATION STA (02:35)
[2023-05-03] MEDS ORDERED: KETOROLAC 15 MG/ML 1 ML VIAL IVP STA (02:35)
[2023-05-03] MEDS ORDERED: HYDROmorphone 0.5 MG/0.5 ML SYRINGE IVP STA (02:36)
--- NOTE | 2023-05-03 02:36 | ED ---
Chest Pain HPI - General Chief Complaint: Chest Pain Stated Complaint: Chest pain Time Seen by Provider: 05/03/23 02:15 Source: patient, RN notes reviewed, old records reviewed Mode of arrival: wheelchair Limitations: no limitations - History of Present Illness Initial Comments: This is a 57-year-old female here today. She presents today for evaluation of chest pain and chest tightness. Shortness of breath. Patient is on [place] with underlying history of cancer and DVT. Patient has no fevers cough or congestion of travel show sick contacts. MD Complaint: chest pain, other (Chest tightness and shortness of breath) -: hour(s) Onset: during exertion Pain Location: substernal, left chest Pain Radiation: none Severity: moderate Severity scale (1-10): 4 Consistency: constant Improves With: nothing Worsens With: nothing Anginal Symptoms: nausea Other Symptoms: cough Treatments Prior to Arrival: none - Related Data Home Medications Medication Instructions Recorded Confirmed Aspirin 81 mg PO DAILY 04/09/21 04/24/23 Acetaminophen [Tylenol] 325 - 650 mg PO Q4H PRN 06/11/21 04/24/23 Acetaminophen-Codeine 300-30mg 1 tab PO DIRECTED PRN 04/03/23 04/24/23 [Tylenol w/codeine #3] Ondansetron [Zofran] 1 tab PO QID PRN 04/03/23 04/24/23 Previous Rx's Medication Instructions Recorded Apixaban [Eliquis Starter Pack 5 - 10 mg PO DIRECTED 30 Days 03/01/23 (for VTE)] #1 each Allergies Allergy/AdvReac Type Severity Reaction Status Date / Time metronidazole [From Flagyl] Allergy Intermediate Anaphylaxis Verified 05/03/23 02:11 adhesive tape Allergy Mild Rash/Hives,sometimes Verified 05/03/23 02:11 blisters Penicillins AdvReac Nausea Verified 05/03/23 02:11 Review of Systems ROS Statement: Those systems with pertinent positive or pertinent negative responses have been documented in the HPI. ROS Other: All systems not noted in ROS Statement are negative. EKG Findings - EKG Comments: EKG Findings:: EKG is sinus tachycardia 108 LA 1:30 QRS 82 QTC 397 - EKG Results: EKG: interpreted by VIRGIL Past Medical History Past Medical History: Atrial Fibrillation, Deep Vein Thrombosis (DVT), Pulmonary Embolus (PE) Additional Past Medical History / Comment(s): left breast CA-dx April 30, 2021-had surg. & currently getting radiation,unable to lay on stomach from prior old injury as a teenager, DVT & PE after hysterectomy 15 yrs ago and DVT after varicose vein stripping yrs ago., DVT in August behind right knee History of Any Multi-Drug Resistant Organisms: None Reported Past Surgical History: Breast Surgery, Section, Hysterectomy, Tonsillectomy Additional Past Surgical History / Comment(s): breast biopsy. Ear surgery as child., mediport insertion, left breast lumpectomy w/sentinel lymph node bx. in November 2021, tumor removal brain Past Anesthesia/Blood Transfusion Reactions: No Reported Reaction Additional Past Anesthesia/Blood Transfusion Reaction / Comment(s): no hx blood transfusion Past Psychological History: No Psychological Hx Reported Smoking Status: Current every day smoker Past Alcohol Use History: None Reported Past Drug Use History: None Reported - Past Family History Mother Family Medical History: AFIB, Congestive Heart Failure (CHF), COPD, Hypertension Additional Family Medical History / Comment(s): beginings of uterine Cancer Father Family Medical History: Cancer Additional Family Medical History / Comment(s): lung General Exam Limitations: no limitations General appearance: alert, in no apparent distress Head exam: Present: atraumatic, normocephalic, normal inspection Eye exam: Present: normal appearance, PERRL, EOMI. Absent: scleral icterus, conjunctival injection, periorbital swelling ENT exam: Present: normal exam, mucous membranes moist Neck exam: Present: normal inspection. Absent: tenderness, meningismus, lymphadenopathy Respiratory exam: Present: normal lung sounds bilaterally. Absent: respiratory distress, wheezes, rales, rhonchi, stridor Cardiovascular Exam: Present: regular rate, normal rhythm, normal heart sounds. Absent: systolic murmur, diastolic murmur, rubs, gallop, clicks GI/Abdominal exam: Present: soft, normal bowel sounds. Absent: distended, tenderness, guarding, rebound, rigid Extremities exam: Present: normal inspection, full ROM, normal capillary refill. Absent: tenderness, pedal edema, joint swelling, calf tenderness Back exam: Present: normal inspection Neurological exam: Present: alert, oriented X3, CN II-XII intact Psychiatric exam: Present: normal affect, normal mood Skin exam: Present: warm, dry, intact, normal color. Absent: rash Course Vital Signs 05/03/23 05/03/23 05/03/23 02:08 02:58 03:07 Temperature 97.9 F Pulse Rate 113 H 98 89 Respiratory 20 Rate Blood Pressure 189/104 O2 Sat by Pulse 99 Oximetry 05/03/23 05/03/23 05/03/23 03:35 05:00 05:52 Temperature 97.9 F Pulse Rate 90 89 Respiratory 18 18 Rate Blood Pressure 141/79 146/77 O2 Sat by Pulse 99 100 Oximetry - Reevaluation(s) Reevaluation #1: 05/03/23 04:40 Record is reviewed Reevaluation #2: Patient symptoms are improved Studies Chest x-ray negative for acute disease Reevaluation #3: 05/10/23 21:59 Spoke with patient regarding findings questions answered Reevaluation #4: 05/03/23 04:40 Was pt. sent in by a medical professional or institution (, PA, CLIENT RESOLUTION SPECIALIST, urgent care, hospital, or half-way...) When possible be specific @ -no Did you speak to anyone other than the patient for history (EMS, parent, family, police, friend...)? What history was obtained from this source @ -no Did you review nursing and triage notes (agree or disagree)? Why? @ -agree Are old charts reviewed (outside hosp., previous admission, EMS record, old EKG, old radiological studies, urgent care reports/EKG's, half-way records)? Report findings @ -yes Differential Diagnosis (chest pain, altered mental status, abdominal pain women, abdominal pain men, vaginal bleeding, weakness, fever, dyspnea, syncope, headache, dizziness, GI bleed, back pain, seizure, CVA, palpatations, mental health, musculoskeletal)? @ -prior EKG interpreted by me (3pts min.). @ -yes X-rays interpreted by me (1pt min.). @ -yes CT interpreted by me (1pt min.). @ -no U/S interpreted by me (1pt. min.). @ -no What testing was considered but not performed or refused? (CT, X-rays, U/S, labs)? Why? @ -none What meds were considered but not given or refused? Why? @ -none Did you discuss the management of the patient with other professionals (professionals i.e. , PA, CLIENT RESOLUTION SPECIALIST, lab, RT, psych nurse, delinquency prevention social worker, lockstitch tunnel elastic operator, teacher, court registry officer, piano case and bench assembler)? Give summary @ -no Was smoking cessation discussed for >3mins.? @ -no Was critical care preformed (if so, how long)? @ -no Were there social determinants of health that impacted care today? How? (Homelessness, low income, unemployed, alcoholism, drug addiction, transportation, low edu. Level, literacy, decrease access to med. care, skilled nursing, rehab)? @ -none Was there de-escalation of care discussed even if they declined (Discuss DNR or withdrawal of care, Hospice)? DNR status @ -no What co-morbidities impacted this encounter? (DM, HTN, Smoking, COPD, CAD, Cancer, CVA, ARF, Chemo, Hep., AIDS, mental health diagnosis, sleep apnea, morbid obesity)? @ -none Was patient admitted / discharged? Hospital course, mention meds given and route, prescriptions, significant lab abnormalities, going to OR and other pertinent info. @ - 57 female with chest pain, atypical chest pain and here in the ER for evaluation. Patient is no acute findings x-ray troponin EKG are negative and patient can be discharged home Discharge Undiagnosed new problem with uncertain prognosis? @ -no Drug Therapy requiring intensive monitoring for toxicity (Heparin, Nitro, Insulin, Cardizem)? @ -no Were any procedures done? @ -no Diagnosis/symptom? @ -Chest pain Acute, or Chronic, or Acute on Chronic? @ -Acute Uncomplicated (without systemic symptoms) or Complicated (systemic symptoms)? @ -Complicated Side effects of treatment? @ -no Exacerbation, Progression, or Severe Exacerbation? @ -exacerbation Poses a threat to life or bodily function? How? (Chest pain, [place], [place], pneumonia, PE, COPD, DKA, ARF, appy, cholecystitis, CVA, Diverticulitis, Homicidal, Suicidal, threat to staff... and all critical care pts) @ -yes with acute ACS Reevaluation #5: 05/03/23 04:40 Differential Chest Pain: Stable Angina, Unstable Angina, STEMI, NSTEMI Aortic Dissection, Pneumothorax, Musculoskeletal, Esophageal Spasm GERD, Cholecystitis, Pancreatitis, Zoster, this is not meant to be an all-inclusive list. Chest Pain MDM - MDM 57 female with chest pain, atypical chest pain and here in the ER for evaluation. Patient is no acute findings x-ray troponin EKG are negative and patient can be discharged home Disposition Clinical Impression: Atypical chest pain, Chest pain Disposition: HOME SELF-CARE Condition: Good Instructions (If sedation given, give patient instructions): Chest Pain (ED) Is patient prescribed a controlled substance at d/c from ED?: No Referrals: Geoff Wright DO [Primary Care Provider] - 1-2 days Time of Disposition: 05:30
[2023-05-03 03:16] LABS: ALT 17 U/L (4-34); AST 27 U/L (14-36); African American GFR (CKD) >90 (>60 ml/min/1.73 sqM); Albumin 3.7 g/dL (3.5-5.0); Alkaline Phosphatase 72 U/L (38-126); Anion Gap 12 mmol/L; Blood Urea Nitrogen 6 mg/dL (7-17); Calcium 9.3 mg/dL (8.4-10.2); Carbon Dioxide 25 mmol/L (22-30); Chloride 101 mmol/L (98-107); Glucose 99 mg/dL (74-99); Lipase 79 U/L (23-300); Magnesium 1.9 mg/dL (1.6-2.3); Non-African American GFR(CKD) >90 (>60 ml/min/1.73 sqM); Potassium 3.1 mmol/L (3.5-5.1); Sodium 138 mmol/L (137-145); Total Bilirubin 0.3 mg/dL (0.2-1.3); Total Protein 6.2 g/dL (6.3-8.2)
[2023-05-03 03:24] LABS: NT-Pro-B-Type Natriuretic Pept 261 pg/mL
[2023-05-03 03:35] LABS: Basophils # (A) 0.1 k/uL (0-0.2); Basophils % (A) 1 %; Eosinophils # (A) 0.3 k/uL (0-0.7); Eosinophils % (A) 3 %; HCT 35.5 % (34.0-46.0); Lymphocytes # (A) 1.4 k/uL (1.0-4.8); Lymphocytes % (A) 16 %; MCH 30.9 pg (25.0-35.0); MCHC 33.8 g/dL (31.0-37.0); MCV 91.5 fL (80.0-100.0); Mean Platelet Volume 7.9; Monocytes # (A) 0.6 k/uL (0-1.0); Monocytes % (A) 6 %; Neutrophils # (A) 6.6 k/uL (1.3-7.7); Neutrophils % (A) 73 %; Platelet Count 422 k/uL (150-450); RBC 3.88 m/uL (3.80-5.40); RDW 14.3 % (11.5-15.5); WBC 9.1 k/uL (3.8-10.6)
[2023-05-03 03:45] VITALS: RESP 18
[2023-05-03 03:49] LABS: Partial Thromboplastin Time 24.7 sec (22.0-30.0); Prothrombin Time 11.1 sec (10.0-12.5)
--- NOTE | 2023-05-03 05:25 | XR ---
EXAMINATION TYPE: XR chest 2V DATE OF EXAM: 05/03/2023 COMPARISON: Chest x-ray June 14, 2021 HISTORY: Chest pain. TECHNIQUE: Frontal and lateral views of the chest are obtained. FINDINGS: Interval removal of right-sided Mediport catheter. There is new nodular increased opacity in the right middle lobe. Left lung is clear. No pleural effusion or pneumothorax seen bilaterally. T he cardiac silhouette size is stable and within normal limits. The osseous structures are intact. IMPRESSION: New nodular consolidation and/or true pulmonary nodule right middle lobe. Advise follow- up after treatment to rule out pulmonary nodule.
[2023-05-03 05:57] VITALS: BP 146/77; PULSE 89
== END 2023-05-03 05:53 | disposition home or self-care (01) ==
LOC: EC 02:07
DX: R00.0 Tachycardia, unspecified (principal); I48.91 Unspecified atrial fibrillation; F17.200 Nicotine dependence, unspecified, uncomplicated; Z79.82 Long term (current) use of aspirin; Z88.0 Allergy status to penicillin; Z91.09 Other allergy status, other than to drugs and biological substances; Z88.8 Allergy status to other drugs, medicaments and biological substances
CPT/HCPCS: 99285 ×2; 96374 ×2; 36415; 94640; 93005; 83880; 80053; 83690; 83735; 84484; 85025; 85610; 85730; 71046; J1885

== ENCOUNTER → 2023-05-08 | Outpatient (CLI) | payer BC ==
--- NOTE | 2023-05-09 09:13 | MR ---
EXAMINATION TYPE: MR brain wo/w con DATE OF EXAM: 05/08/2023 3:42 PM COMPARISON: 02/16/2023 HISTORY: Hx breast cancer, Hx Brain tumor removed FINDINGS: The ventricles, basal cisterns and sulci overlying the cerebral convexities are mildly enlarged. There is evidence of mild periventricular white matter ischemic demyelination. Postoperative changes of craniotomy left parietal region with surgical cavity and postoperative encep halomalacia. No evidence for pathologic enhancement at this time which is much improved from prior st udy. No evidence for recurrent mass in this region. There are 2 new small lesions, one within the lef t cerebellum inferiorly measuring 6.2 mm and a second within the superior cerebellum on the right nichol suring 6 5 mm. Remote deep white matter insults are also noted. No acute edema is seen on diffusion weighted imaging. Acute intracranial hemorrhage or extra-axial collection is not evident. The paranasal sinuses and mastoid air cells are well-aerated. IMPRESSION: 1. Two small new enhancing lesions within the cerebellum as discussed. 2. Postoperative encephalomalacia left parietal lobe without evidence for recurrent mass or pathologi c enhancement.
== END | disposition home or self-care (01) ==
LOC: RADMRIMAIN 14:58
PROVIDERS: ATTEND Neurological Surgery
DX: G93.89 Other specified disorders of brain (principal); R22.0 Localized swelling, mass and lump, head; Z85.3 Personal history of malignant neoplasm of breast
CPT/HCPCS: 70553; A9585

== ENCOUNTER → 2023-05-18 | Outpatient (CLI) | payer BC | END | disposition home or self-care (01) | LOC: LABWHC1 11:48 | PROVIDERS: ATTEND Internal Medicine | DX: I51.7 Cardiomegaly (principal); C50.312 Malignant neoplasm of lower-inner quadrant of left female breast; I82.4Z9 Acute embolism and thrombosis of unspecified deep veins of unspecified distal lower extremity; R94.31 Abnormal electrocardiogram [ECG] [EKG]; Z17.1 Estrogen receptor negative status [ER-] | CPT/HCPCS: 93005 ==

== ENCOUNTER → 2023-06-01 | Outpatient (CLI) | payer BC ==
--- NOTE | 2023-06-02 09:22 | CA ---
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 67 - 155 / 56 - 104 cm??? LV Systolic Volume MOD BP 19.8 cm??? 22 - 58 / 19 - 49 cm??? LV Ejection Fraction MOD BP 62.5 % >= 55 % LV Cardiac Index MOD BP 1578.0 cm???/min???m??? LV Diastolic Volume MOD 4C 65.6 cm??? LV Systolic Volume MOD 4C 21.3 cm??? LV Ejection Fraction MOD 4C 67.5 % LV Cardiac Index MOD 4C 2122.1 cm???/min???m??? LV Diastolic Length 4C 7.6 cm LV Systolic Length 4C 6.1 cm LV Diastolic Volume MOD 2C 39.4 cm??? LV Systolic Volume MOD 2C 16.6 cm??? LV Ejection Fraction MOD 2C 57.8 % LV Cardiac Index MOD 2C 1091.9 cm???/min???m??? LV Diastolic Length 2C 7.0 cm LV Systolic Length 2C 5.5 cm Ascending Aorta Diameter 3.7 cm M-MODE Aortic Root Diameter MM 2.7 cm LA Systolic Diameter MM 3.2 cm LA Ao Ratio MM 1.2 AV Cusp Separation MM 2.1 cm DOPPLER AV Peak Velocity 147.7 cm/s AV Peak Gradient 8.7 mmHg AV Mean Velocity 99.5 cm/s AV Mean Gradient 4.6 mmHg AV Velocity Time Integral 25.2 cm LVOT Peak Velocity 154.0 cm/s LVOT Peak Gradient 9.5 mmHg LVOT Velocity Time Integral 27.6 cm LVOT Stroke Volume 91.1 cm??? LVOT Stroke Volume Index 53.8 ml/m??? LVOT Cardiac Index 4369.4 cm???/min???m??? AV Area Cont Eq vti 3.6 cm??? AV Area Cont Eq pk 3.4 cm??? Mitral E Point Velocity 48.4 cm/s Mitral A Point Velocity 78.6 cm/s Mitral E to A Ratio 0.6 MV Deceleration Time 244.9 ms LV E' Lateral Velocity 9.1 cm/s Mitral E to LV E' Lateral Ratio 5.3 LV E' Septal Velocity 5.8 cm/s Mitral E to LV E' Septal Ratio 8.4 TR Peak Velocity 201.6 cm/s TR Peak Gradient 16.3 mmHg Right Atrial Pressure 3.0 mmHg Pulmonary Artery Systolic Pressu 19.3 mmHg Right Ventricular Systolic Press 19.3 mmHg FINDINGS Left Ventricle Mildly increased septal wall thickness. Mildly increased posterior wall thickness. Left ventricular cavity size normal. Normal left ventricular systolic function with no obvious regional wall motion abnormalities. Left ventricular ejection fraction is estimated at 60-65%. Right Ventricle Mild right ventricular dilatation. Right Atrium Mild right atrial dilatation. Left Atrium Mild left atrial dilatation. Mitral Valve Structurally normal mitral valve. Trace mitral regurgitation. Aortic Valve Trileaflet aortic valve. Trace aortic regurgitation. Tricuspid Valve Structurally normal tricuspid valve. Trace-mild tricuspid regurgitation. Pulmonic Valve Structurally normal pulmonic valve. No pulmonic regurgitation. Pericardium Minimal pericardial effusion (normal variant). Aorta Normal size aortic root and upper normal proximal ascending aorta. CONCLUSIONS Normal LV size and systolic function. Mild biatrial enlargement noted. Mild mitral and tricuspid regurgitation. No pulmonary hypertension. Trivial pericardial effusion Previewed by: Dr. Gabby Salamanca MD (Electronically Signed) Final Date: 02 June 2023 09:22
== END | disposition home or self-care (01) ==
LOC: RADECHMAIN 12:58
PROVIDERS: ATTEND Internal Medicine
DX: Z01.818 Encounter for other preprocedural examination (principal); I34.0 Nonrheumatic mitral (valve) insufficiency; I36.1 Nonrheumatic tricuspid (valve) insufficiency; I31.39 Other pericardial effusion (noninflammatory); I51.7 Cardiomegaly; C50.312 Malignant neoplasm of lower-inner quadrant of left female breast; I82.4Z9 Acute embolism and thrombosis of unspecified deep veins of unspecified distal lower extremity; Z17.1 Estrogen receptor negative status [ER-]; Z71.3 Dietary counseling and surveillance
CPT/HCPCS: 93306

== ENCOUNTER → 2023-06-08 | Outpatient (CLI) | payer BC ==
--- NOTE | 2023-06-10 12:06 | PE ---
EXAMINATION TYPE: PET CT fusion skull to thigh DATE OF EXAM: 06/08/2023 CLINICAL INDICATION:Female, 58 years old with history of C50.312 BREAST CANCER; TECHNIQUE: Following the intravenous administration of 10.6 mCi of F-18 FDG, whole body images are performed from the skull base to the midthigh. Images are reviewed on the computer in the coronal, a xial, and sagittal planes. Reconstructed rotating images are created on independent workstation and reviewed on the computer. A non-contrast CT is performed in conjunction with the PET scan. Glucose level 83 mg/dL CT DLP: 299.7 mGycm, Automated exposure control for dose reduction was used. COMPARISON: CT None, PET/CT 03/10/2023, FINDINGS: Mediastinal SUV mean is 1.8. Hepatic parenchyma SUV mean is 2.4 SKULL BASE AND NECK: Post surgical changes to the skull. CHEST, MEDIASTINUM, AND HILAR REGION: * Increasing metabolic activity in the right lower lung pulmonary nodule measuring 16 mm Max SUV max SUV 10.7, previously 2.5. There is consolidation changes extending away from this lesion towards the periphery suggestive of superimposed post obstructive pneumonia versus atelectasis. * Left upper lung streaky interstitial scarring max SUV max SUV 2.6, previously 1.6. * Medial left breast mass now is probably cystic measuring 5.0 x 2.6 cm, previously 5.8 x 2.4 cm Max SUV 2.3, 1.1, previously 10.2. * New subcarinal lymph nodes with increased metabolic activity max SUV 4.2. * Right pulmonary hilum lymph node max SUV 3.7. Left lower lung pulmonary nodule Max SUV 5.4 measuri ng 10 mm. ABDOMEN AND PELVIS: * Increasing size and number of abnormal metastatic foci within the liver. The largest in the right hepatic lobe near the dome max SUV 7.0 inferiorly medially max SUV 8.0 and near the sixth segment is discrete 10.8. In the left hepatic lobe max SUV 9.6. There is over 20 lesions. Not well appreciated o n noncontrast CT. * Left adrenal gland abnormal uptake max SUV max SUV 5.0, previously 3.8. MUSCULOSKELETAL STRUCTURES: * Focus of abnormal radiotracer uptake within the left gluteus maximize max SUV 12.3, previously 4.6 . * L2 vertebral body max SUV 5.8. * T12 vertebral body max 6.3. * Left iliac crest max SUV 8.8. * Left femoral head max SUV 7.9. * Right femoral head max SUV 7.2. * New uptake within the right transverse process of C7 max SUV 7.9. OTHER CT: Post procedural changes to the left posterior skull. Left nonobstructing 4 mm calculus. Sca ttered colonic diverticula. Mild cardiomegaly. Multilevel degeneration changes of the spine. Moderate to severe atherosclerosis of the arterial vasculature. IMPRESSION: 1. Progression of disease with increasing metastatic foci in metabolic activity. There is greater th an 20 liver lesions on this exam. The left gluteus rebecca lesion is now increased size and metabolic activity. There is new areas of abnormal metabolic activity within the lung and mediastinum as well as the new lesions in the osseous structures. 2. Post procedural changes to the left posterior skull.
== END | disposition home or self-care (01) ==
LOC: RADPETMAIN 10:48
PROVIDERS: ATTEND Internal Medicine
DX: C50.312 Malignant neoplasm of lower-inner quadrant of left female breast (principal); K76.9 Liver disease, unspecified; M89.9 Disorder of bone, unspecified; I82.4Z9 Acute embolism and thrombosis of unspecified deep veins of unspecified distal lower extremity; Z17.1 Estrogen receptor negative status [ER-]; Z98.890 Other specified postprocedural states
CPT/HCPCS: 78815; A9552

== ENCOUNTER → 2023-06-12 | Outpatient (CLI) | payer BC ==
--- NOTE | 2023-06-12 09:23 | MM ---
Reason for Exam: Hx of breast cancer, conservation therapy. Last screening mammogram was performed 12 month(s) ago. Patient History: Menarche at age 12. First Full-Term at age 18. Hysterectomy at age 40. Postmenopausal. Patient has history of breast feeding. Breast cancer, left, age 55. Breast cancer, left, age 56. Breast cancer, left, age 56. [employer]. Previous chest radiation therapy at age 56. Previous chemotherapy at age 56. 12/08/2021, Lumpectomy on the Left side. 12/08/2021, Malignant MG pre op needle loc LT on the left side. 12/08/2021, Malignant US breast localization LT on the left side. 04/23/2021, Malignant Core Biopsy on the left side. 04/23/2021, Malignant Core Biopsy on the left side. 2021, Radiation Therapy on the left side. 2021, Chemotherapy. Tissue Density: The breast tissue is heterogeneously dense. This may lower the sensitivity of mammography. Findings: Analyzed By CAD. Postsurgical and posttreatment changes left breast. An additional nipple in profile view was provided for the left cc view. Unchanged course and round calcifications on the left. No significant change on the right. Ongoing short interval follow-up for the left breast. Overall Assessment: Probably benign, BI-RAD 3 Management: Diagnostic Mammogram of the left breast in 6 months. Ongoing appropriate oncologic management for patient's known metastatic disease. Results were given to the patient verbally at the time of exam. Patient should continue monthly self-breast exams. A clinical breast exam by your physician is recommended on an annual basis. This exam should not preclude additional follow-up of suspicious palpable abnormalities. Electronically signed and approved by: Fariba Martinez M.D. Radiologist
== END | disposition home or self-care (01) ==
LOC: RADMAMWWP 08:51
PROVIDERS: ATTEND Surgery
DX: R92.333 Mammographic heterogeneous density, bilateral breasts (principal); Z85.3 Personal history of malignant neoplasm of breast; Z78.0 Asymptomatic menopausal state; Z98.890 Other specified postprocedural states
CPT/HCPCS: 77062; 77066

== ENCOUNTER → 2023-06-15 | Outpatient (CLI) | payer BC ==
--- NOTE | 2023-06-15 10:24 | P.PN ---
Subjective Progress Note Date: 06/15/23 Principal diagnosis: stage 4 invasive ductal left breast cancer left breast stage III invasive ductal cancer; 2020 left breast invasive ductal cancer stage IIIc T4b N0 M0 ER negative AL weak HER- 2 negative Vicky is a 58-year-old female with a history of clinical stage IIIc high-grade invasive ductal carcinoma of the left breast, ER negative AL weakly positive and HER-2/marge negative. She underwent neoadjuvant chemotherapy followed by lumpectomy and sentinel node sampling on 12-08-21. Final pathology revealed a stage IIIa T2 N1 M0 lesion. She underwent adjuvant radiotherapy finishing on . She is not complaining of any new lumps masses or nodules of concern in either breast. She is not taking any hormone therapy. She was recommended to take Xeloda secondary to the incomplete response of the chemotherapy. She was unable to tolerate this and is not taking any at this time. She has not seen medical oncology recently. She began complaining of headaches in December of 2022, and following workup underwent a crainotomy with disease consistent with metastatic breast cancer. She subsequently underwent radiation therapy for this. She is going to receive her last radiation therapy for this today. note medical oncology reviewed from 05-18-[address] 06-08-23 reviewed/ metastatic disease liver, lung, and bones/ She is presently receiving Taxol mammogram 06-12-23 BIRAD 3 repeat left breast mammogram in 6 months Bilateral mammogram 05-29-22 BIRAD 3; repeat left breast mammogram in 6 months note 08-18-22 radiation oncology reviewed finished on 01-30-2020 Caffeine: 3-4 cups/day nicotine: 1/2 PPD for 6 years chocolate: occasional Family history: father: lung cancer mother: uterine maternal grandfather: lung cancer paternal uncle : colon cancer Hormonal History: menarche: 12 M1, age at first : 19, breast feed: yes menopause: hysterectomy at 40, left ovaries BCP: used for 6 years hormones: none Surgical history: fluid drained behind her right ear tonsil 2 c-sections hysterectomy hernia right groin cyst removed from bilateral breast lipoma removed from back port placed crainotomy January 2023 Medical History: A-fib. no blood thiners aspirin/day DVT right leg behind the knee on taxol now Social History: Nicotine: Half a pack per day for 6 years Alcohol:none drugs: none - Constitutional Constitutional: Denies chills, Denies fever - EENT Eyes: denies blurred vision, denies pain Ears: deny: decreased hearing, tinnitus Ears, nose, mouth and throat: Denies headache, Denies sore throat - Breasts Breasts: bilateral: as per HPI - Cardiovascular Cardiovascular: Reports as per HPI - Respiratory Comment: smoker - Gastrointestinal Gastrointestinal: Denies abdominal pain, Denies diarrhea, Denies nausea, Denies vomiting - Genitourinary (Female) Genitourinary: Denies dysuria, Denies hematuria - Menstruation Menstruation: Reports post hysterectomy - 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 - Integumentary Integumentary: Denies pruritus, Denies rash - Neurological Neurological: Denies numbness, Denies weakness - Psychiatric Psychiatric: Denies anxiety, Denies depression - Endocrine Endocrine: Denies fatigue, Denies weight change - Hematologic/Lymphatic Comment: 2 baby aspirin /day - Allergic/Immunologic Allergic/Immunologic: Reports as per HPI Objective - Constitutional General appearance: Present: cooperative - EENT Eyes: Present: EOMI ENT: Present: hearing grossly normal - Neck Neck: Present: normal ROM - Respiratory Respiratory: bilateral: CTA - Cardiovascular Rhythm: regular Heart sounds: normal: S1, S2 - Gastrointestinal General gastrointestinal: Present: soft - Integumentary Integumentary: Present: normal turgor - Psychiatric Psychiatric: Present: A&O x's 3, appropriate affect, intact judgment & insight - Additional findings Additional findings: Breast Exam: BRA: 2X Inspection; post radiation and post operative changes left breast, bilateral grade 2 ptosis Palpation: Right breast: Multiple positional exam fibrocystic changes no dominant masses or nodules of concern Right axilla: No adenopathy of concern Left breast: Multiple positional exam post radiation and postsurgical changes no dominant masses or nodules of concern Left axilla: Well-healed scar from prior surgery no dominant masses or nodules of concern Assessment and Plan Assessment: Impression: A-fib. no blood thiners aspirin/day DVT right leg behind the knee in the past Stage IV left breast invasive ductal carcinoma, PET scan 06-08-23 multiople sites of mmetastatic disease MRI 05-08-23 reviewed two new spot recieving radiation therapy Plan: left breast mammogram in 6 months follow up with medical ALLERGY/probable resumed Taxol follow up radiation oncology CC: Dr. Li
[2023-06-15 10:58] VITALS: BP 140/83; PULSE 98; RESP 18; TEMP 97.9
== END ==
LOC: WWCWWP 09:41
PROVIDERS: ATTEND Surgery
DX: C50.912 Malignant neoplasm of unspecified site of left female breast (principal); C78.00 Secondary malignant neoplasm of unspecified lung; C78.7 Secondary malignant neoplasm of liver and intrahepatic bile duct; C79.51 Secondary malignant neoplasm of bone; I48.91 Unspecified atrial fibrillation; Z17.1 Estrogen receptor negative status [ER-]; Z51.11 Encounter for antineoplastic chemotherapy; Z86.718 Personal history of other venous thrombosis and embolism; Z90.710 Acquired absence of both cervix and uterus; Z92.3 Personal history of irradiation; Z98.890 Other specified postprocedural states; Z91.018 Allergy to other foods; Z88.0 Allergy status to penicillin; Z79.82 Long term (current) use of aspirin; Z88.1 Allergy status to other antibiotic agents

== ENCOUNTER → 2023-06-27 | Outpatient (CLI) | payer BC ==
--- NOTE | 2023-06-27 13:34 | MR ---
EXAMINATION TYPE: MR brain wo/w con DATE OF EXAM: 06/27/2023 COMPARISON: 05/08/2023 HISTORY: 58-year-old female F/U radiation, abnormal MR. R22.0 SWELLING MASS LUMP OF HEAD TECHNIQUE: Multiplanar, multisequence images of the brain and brainstem were acquired before and aft er administration of 6 mL IV Gadavist. Diffusion weighted imaging is performed. FINDINGS: DWI sequence shows no evidence for acute infarct. Postsurgical change of left parieto-occipital craniotomy flap. Thin extra-axial fluid underlying the craniotomy flap measuring 5 mm unchanged. Underlying resection cavity/encephalomalacia with some heterogeneous T1 and T2 bright hemorrhagic pro ducts noted. Stable 4 mm nodular area of enhancement along the posterior superior margin of the resec tion cavity, post contrast axial image 105 remains unchanged. No new or enlarging abnormal nodular en hancement. * Ring-enhancing lesion left cerebellum measures 8 mm versus 5 mm, previously. Slight increased surr ounding vasogenic edema. * 6 mm ring-enhancing lesion superior right cerebellum versus 4 mm, previously. Minimal associated r ight T2-weighted signal here. * 5 mm ring-enhancing lesion posterior left elizabeth radiata. Retrospectively, this measured 2 mm dist ally. Some increasing localized vasogenic edema here. Suspect old lacunar infarct right basal ganglia versus site of previously treated disease. No additional new lesions are seen. No midline shift or hydrocephalus. Midline structures and craniocervical junction appear normal. Dural venous sinuses are patent. Scattered mild mucosal thickening ethmoid air cells. Globes are intact. IMPRESSION: 1. Left posterior craniotomy flap with underlying resection cavity containing some similar hemorrhagi c debris. A small area of 4 mm nodular enhancement along the posterosuperior margin of the cavity is unchanged. 2. However, a ring-enhancing lesion within the left cerebellum, right cerebellum, and posterior left elizabeth radiata are also enlarging currently measuring up to 8 mm versus 5 mm, previously. Slight inte rval increase in localized vasogenic edema at these lesions as well. 3. No midline shift or hydrocephalus.
== END | disposition home or self-care (01) ==
LOC: RADMRIMAIN 09:23
PROVIDERS: ATTEND Neurological Surgery
DX: G93.9 Disorder of brain, unspecified (principal); R22.0 Localized swelling, mass and lump, head
CPT/HCPCS: 70553; A9585

== ENCOUNTER 2023-07-06 02:33 | Emergency (ER) | payer BC ==
[2023-07-06 02:58] VITALS: RESP 18; TEMP 98.1
[2023-07-06 03:12] LABS: Basophils # (A) 0.1 k/uL (0-0.2); Basophils % (A) 1 %; Eosinophils # (A) 0.1 k/uL (0-0.7); Eosinophils % (A) 1 %; HGB 13.9 gm/dL (11.4-16.0); Lymphocytes # (A) 1.9 k/uL (1.0-4.8); Lymphocytes % (A) 19 %; MCH 29.7 pg (25.0-35.0); MCHC 33.1 g/dL (31.0-37.0); MCV 89.9 fL (80.0-100.0); Mean Platelet Volume 7.5; Monocytes # (A) 0.5 k/uL (0-1.0); Monocytes % (A) 5 %; Neutrophils % (A) 72 %; Platelet Count 350 k/uL (150-450); RBC 4.67 m/uL (3.80-5.40); RDW 13.2 % (11.5-15.5); WBC 9.8 k/uL (3.8-10.6)
[2023-07-06 03:26] LABS: INR 1.1 (<1.2); Partial Thromboplastin Time 26.1 sec (22.0-30.0); Prothrombin Time 11.5 sec (10.0-12.5)
--- NOTE | 2023-07-06 03:28 | ED ---
Chest Pain HPI - General Chief Complaint: Chest Pain Stated Complaint: Chest pain Source: patient, EMS Mode of arrival: EMS Limitations: no limitations - History of Present Illness Initial Comments: 58-year-old female with past medical history of metastatic breast cancer who presents to the emergency department reporting chest pain. States that the pain started tonight while she was at work. Describes it as a pressure sensation without radiation. Denies associated shortness of breath. No history of coronary disease. She called EMS who provided her with aspirin and nitro. States that her pain is resolved at this time. She denies history of DVT or PE. Patient is on anticoagulation for A-fib. No other alleviating, precipitating modifying factors - Related Data Home Medications Medication Instructions Recorded Confirmed Apixaban [Eliquis] 5 mg PO BID 07/07/23 07/07/23 Omeprazole 40 mg PO AC-BRKFST 07/07/23 07/07/23 Previous Rx's Medication Instructions Recorded Acetaminophen-Codeine 300-30mg 1 tab PO Q4H PRN 3 Days #18 tablet 07/09/23 [Tylenol w/codeine #3] Lidocaine 4% Patch 1 patch TOPICAL DAILY 30 Days #30 07/09/23 patch amLODIPine [Norvasc] 5 mg PO DAILY 90 Days #90 tab 07/09/23 Allergies Allergy/AdvReac Type Severity Reaction Status Date / Time metronidazole [From Flagyl] Allergy Intermediate Anaphylaxis Verified 07/07/23 07:25 adhesive tape Allergy Mild Rash/Hives,sometimes Verified 07/07/23 07:25 blisters Penicillins AdvReac Nausea Verified 07/07/23 07:25 Review of Systems ROS Statement: Those systems with pertinent positive or pertinent negative responses have been documented in the HPI. ROS Other: All systems not noted in ROS Statement are negative. Past Medical History Past Medical History: Atrial Fibrillation, Cancer, Deep Vein Thrombosis (DVT), Pulmonary Embolus (PE) Additional Past Medical History / Comment(s): left breast CA-dx April 30, 2021-had surg. & currently getting radiation,unable to lay on stomach from prior old injury as a teenager, DVT & PE after hysterectomy 15 yrs ago and DVT after varicose vein stripping yrs ago., DVT in August behind right knee History of Any Multi-Drug Resistant Organisms: None Reported Past Surgical History: Breast Surgery, Section, Hysterectomy, Tonsillectomy Additional Past Surgical History / Comment(s): breast biopsy. Ear surgery as child., mediport insertion, left breast lumpectomy w/sentinel lymph node bx. in November 2021, tumor removal brain Past Anesthesia/Blood Transfusion Reactions: No Reported Reaction Additional Past Anesthesia/Blood Transfusion Reaction / Comment(s): no hx blood transfusion Past Psychological History: No Psychological Hx Reported Smoking Status: Current every day smoker Past Alcohol Use History: None Reported Past Drug Use History: None Reported - Past Family History Mother Family Medical History: AFIB, Congestive Heart Failure (CHF), COPD, Hypertension Additional Family Medical History / Comment(s): beginings of uterine Cancer Father Family Medical History: Cancer Additional Family Medical History / Comment(s): lung General Exam Limitations: no limitations General appearance: alert, in no apparent distress Head exam: Present: atraumatic, normocephalic, normal inspection Eye exam: Present: normal appearance, PERRL, EOMI. Absent: scleral icterus, conjunctival injection, periorbital swelling ENT exam: Present: normal exam, mucous membranes moist Neck exam: Present: normal inspection. Absent: tenderness, meningismus, lymphadenopathy Respiratory exam: Present: normal lung sounds bilaterally. Absent: respiratory distress, wheezes, rales, rhonchi, stridor Cardiovascular Exam: Present: regular rate, normal rhythm, normal heart sounds. Absent: systolic murmur, diastolic murmur, rubs, gallop, clicks GI/Abdominal exam: Present: soft, normal bowel sounds. Absent: distended, tenderness, guarding, rebound, rigid Extremities exam: Present: normal inspection, full ROM, normal capillary refill. Absent: tenderness, pedal edema, joint swelling, calf tenderness Back exam: Present: normal inspection Neurological exam: Present: alert, oriented X3, CN II-XII intact Psychiatric exam: Present: normal affect, normal mood Skin exam: Present: warm, dry, intact, normal color. Absent: rash Course Vital Signs 07/06/23 07/06/23 07/06/23 02:35 03:00 04:00 Temperature 98.1 F Pulse Rate 74 70 69 Respiratory 18 18 18 Rate Blood Pressure 177/106 151/96 158/90 O2 Sat by Pulse 96 96 97 Oximetry 07/06/23 07/06/23 05:00 06:00 Temperature Pulse Rate 65 66 Respiratory 18 18 Rate Blood Pressure 154/92 159/93 O2 Sat by Pulse 97 97 Oximetry Chest Pain MDM - MDM Was pt. sent in by a medical professional or institution (ALETHA Underwood, FOOD COURT TEAM MEMBER, urgent care, hospital, or [facility]...) When possible be specific @ -No Did you speak to anyone other than the patient for history (EMS, parent, family, police, friend...)? What history was obtained from this source @ -EMS Did you review nursing and triage notes (agree or disagree)? Why? @ -I reviewed and agree with nursing and triage notes Were old charts reviewed (outside hosp., previous admission, EMS record, old EKG, old radiological studies, urgent care reports/EKG's, [facility] records)? Report findings @ -No old charts were reviewed Differential Diagnosis (chest pain, altered mental status, abdominal pain women, abdominal pain men, vaginal bleeding, weakness, fever, dyspnea, syncope, headache, dizziness, GI bleed, back pain, seizure, CVA, palpatations, mental health, musculoskeletal)? @ -Differential Chest Pain: Stable Angina, Unstable Angina, STEMI, NSTEMI Aortic Dissection, Pneumothorax, Musculoskeletal, Esophageal Spasm GERD, Cholecystitis, Pancreatitis, Zoster, this is not meant to be an all-inclusive list. EKG interpreted by me (3pts min.). @ -Yes and demonstrates sinus rhythm with a rate of 75. Parable 129. QRS 85. QTc of 443. Mild ST depression in lead III. No ST segment elevation X-rays interpreted by me (1pt min.). @ -Yes and demonstrates no acute process CT interpreted by me (1pt min.). @ -None done U/S interpreted by me (1pt. min.). @ -None done What testing was considered but not performed or refused? (CT, X-rays, U/S, labs)? Why? @ -None What meds were considered but not given or refused? Why? @ -None Did you discuss the management of the patient with other professionals (professionals i.e. ALETHA Underwood, FOOD COURT TEAM MEMBER, lab, RT, psych nurse, social secretary, reproduction production manager, teacher, state patrol officer, caseworker)? Give summary @ -No Was smoking cessation discussed for >3mins.? @ -No Was critical care preformed (if so, how long)? @ -No Were there social determinants of health that impacted care today? How? (Homel essness, low income, unemployed, alcoholism, drug addiction, transportation, low edu. Level, literacy, decrease access to med. care, long-term, rehab)? @ -No Was there de-escalation of care discussed even if they declined (Discuss DNR or withdrawal of care, Hospice)? DNR status @ -No What co-morbidities impacted this encounter? (DM, HTN, Smoking, COPD, CAD, Cancer, CVA, ARF, Chemo, Hep., AIDS, mental health diagnosis, sleep apnea, morbid obesity)? @ -Metastatic breast cancer Was patient admitted / discharged? Hospital course, mention meds given and route, prescriptions, significant lab abnormalities, going to OR and other pertinent info. @ -Upon arrival patient was placed into room 6. Thorough history and physical exam was performed. Patient placed on continuous pulse ox and cardiac monit oring. Twelve-lead EKG was obtained. Laboratory studies are conducted. Chest x-ray was performed. Results are discussed with the patient. Did recommend overnight observation however patient refused. Discussed completing a second troponin. Patient was agreeable to this. Second troponin was completed and was negative. Patient will go home at this time. Instructed to follow-up with her primary care doctor and return for any new or worsening symptoms. Patient agreeable to the plan she was discharged in stable condition Undiagnosed new problem with uncertain prognosis? @ -Yes Drug Therapy requiring intensive monitoring for toxicity (Heparin, Nitro, Insulin, Cardizem)? @ -No Were any procedures done? @ -No Diagnosis/symptom? @ -Acute chest pain Acute, or Chronic, or Acute on Chronic? @ -Acute Uncomplicated (without systemic symptoms) or Complicated (systemic symptoms)? @ -Complicated Side effects of treatment? @ -No Exacerbation, Progression, or Severe Exacerbation? @ -No Poses a threat to life or bodily function? How? (Chest pain, [place], [place], pneumonia, PE, COPD, DKA, ARF, appy, cholecystitis, CVA, Diverticulitis, Homicidal, Suicidal, threat to staff... and all critical care pts) @ -No Disposition Clinical Impression: Chest pain Disposition: HOME SELF-CARE Condition: Stable Instructions (If sedation given, give patient instructions): Chest Pain (ED) Additional Instructions: I recommend that you follow-up with your primary care doctor for an echo. Return for any new or worsening symptoms Is patient prescribed a controlled substance at d/c from ED?: No Referrals: Geoff Wright DO [Primary Care Provider] - 1-2 days Time of Disposition: 06:42
[2023-07-06 03:34] LABS: ALT 24 U/L (4-34); AST 48 U/L (14-36); African American GFR (CKD) >90 (>60 ml/min/1.73 sqM); Albumin 3.7 g/dL (3.5-5.0); Alkaline Phosphatase 113 U/L (38-126); Anion Gap 7 mmol/L; Blood Urea Nitrogen 3 mg/dL (7-17); Calcium 9.2 mg/dL (8.4-10.2); Carbon Dioxide 29 mmol/L (22-30); Chloride 103 mmol/L (98-107); Glucose 119 mg/dL (74-99); Lipase 63 U/L (23-300); Magnesium 1.9 mg/dL (1.6-2.3); Non-African American GFR(CKD) >90 (>60 ml/min/1.73 sqM); Potassium 3.3 mmol/L (3.5-5.1); Sodium 139 mmol/L (137-145); Total Bilirubin 0.4 mg/dL (0.2-1.3); Total Protein 6.9 g/dL (6.3-8.2)
[2023-07-06 03:41] LABS: NT-Pro-B-Type Natriuretic Pept 406 pg/mL
--- NOTE | 2023-07-06 04:09 | XR ---
EXAM: XR Chest, 2 Views CLINICAL HISTORY: ITS.REASON XR Reason: Chest Pain TECHNIQUE: Frontal and lateral views of the chest. COMPARISON: XR Chest dated 05/03/23, PET/CT dated 06/08/2023 FINDINGS: Lungs: Lobular opacity/consolidation in the right lower lung correlates with PET/CT findings in the anterolateral right lower lobe. Opacity increased since the prior x-ray although similar to the PET/CT. Pleural space: Unremarkable. No pneumothorax. Heart: Unremarkable. No cardiomegaly. Mediastinum: Unremarkable. Normal mediastinal contour. Bones/joints: Unremarkable. No acute fracture. Other: Clips in the left breast as seen on the PET/CT. IMPRESSION: Lobular opacity/consolidation in the right lower lung correlates with PET/CT findings in the anterolateral right lower lobe. Opacity increased since the prior x-ray although similar to the PET/CT.
[2023-07-06 06:17] VITALS: BP 159/93; PULSE 66
== END 2023-07-06 06:54 | disposition home or self-care (01) ==
LOC: EC 02:33
DX: R07.9 Chest pain, unspecified (principal); I48.91 Unspecified atrial fibrillation; F17.200 Nicotine dependence, unspecified, uncomplicated; Z79.01 Long term (current) use of anticoagulants; Z79.899 Other long term (current) drug therapy; Z88.0 Allergy status to penicillin; Z88.1 Allergy status to other antibiotic agents; Z91.048 Other nonmedicinal substance allergy status
CPT/HCPCS: 36415; 71046; 80053; 83690; 83735; 83880; 84484; 85025; 85610; 85730; 93005; 99285

== ENCOUNTER 2023-07-07 05:37 | Observation (INO) | payer BC ==
[2023-07-07 05:59] LABS: Basophils # (A) 0.2 k/uL (0-0.2); Basophils % (A) 2 %; Eosinophils # (A) 0.2 k/uL (0-0.7); Eosinophils % (A) 2 %; HCT 42.8 % (34.0-46.0); Lymphocytes % (A) 20 %; MCH 29.8 pg (25.0-35.0); MCHC 32.8 g/dL (31.0-37.0); MCV 90.9 fL (80.0-100.0); Mean Platelet Volume 6.8; Monocytes # (A) 0.5 k/uL (0-1.0); Monocytes % (A) 5 %; Neutrophils # (A) 7.1 k/uL (1.3-7.7); Neutrophils % (A) 70 %; Platelet Count 306 k/uL (150-450); RBC 4.71 m/uL (3.80-5.40); WBC 10.1 k/uL (3.8-10.6)
--- NOTE | 2023-07-07 05:59 | ED ---
Chest Pain HPI - General Chief Complaint: Chest Pain Stated Complaint: Chest Pain Source: patient, EMS Mode of arrival: EMS Limitations: no limitations - History of Present Illness Initial Comments: 58-year-old female with past medical history of metastatic cancer to the bone, lung, brain and liver who presents emergency department reporting chest pain. Patient was seen in the emergency department yesterday for same complaint. She had a negative workup and was sent home and instructed to follow-up with her primary care doctor. States that the pain returned tonight. She describes it as a pressure sensation over the central portion of her chest. Describes any provocative factors. She called EMS who gave her nitro. She refused an aspirin. She has no previous cardiac history. She does have a history of PE and takes Eliquis. States she has been compliant with this medication. No missed doses. She denies being short of breath. No fevers, chills or cough. No calf pain or swelling. Pain has been alleviated after the nitro. No other alleviating, precipitating modifying factors - Related Data Home Medications Medication Instructions Recorded Confirmed Apixaban [Eliquis] 5 mg PO BID 07/07/23 07/07/23 Omeprazole 40 mg PO AC-BRKFST 07/07/23 07/07/23 Allergies Allergy/AdvReac Type Severity Reaction Status Date / Time metronidazole [From Flagyl] Allergy Intermediate Anaphylaxis Verified 07/07/23 07:25 adhesive tape Allergy Mild Rash/Hives,sometimes Verified 07/07/23 07:25 blisters Penicillins AdvReac Nausea Verified 07/07/23 07:25 Review of Systems ROS Statement: Those systems with pertinent positive or pertinent negative responses have been documented in the HPI. ROS Other: All systems not noted in ROS Statement are negative. Past Medical History Past Medical History: Atrial Fibrillation, Cancer, Deep Vein Thrombosis (DVT), Pulmonary Embolus (PE) Additional Past Medical History / Comment(s): left breast CA-dx April 30, 2021-had surg. & currently getting radiation,unable to lay on stomach from prior old injury as a teenager, DVT & PE after hysterectomy 15 yrs ago and DVT after varicose vein stripping yrs ago., DVT in August behind right knee History of Any Multi-Drug Resistant Organisms: None Reported Past Surgical History: Breast Surgery, Section, Hysterectomy, Tonsillectomy Additional Past Surgical History / Comment(s): breast biopsy. Ear surgery as child., mediport insertion, left breast lumpectomy w/sentinel lymph node bx. in November 2021, tumor removal brain Past Anesthesia/Blood Transfusion Reactions: No Reported Reaction Additional Past Anesthesia/Blood Transfusion Reaction / Comment(s): no hx blood transfusion Past Psychological History: No Psychological Hx Reported Smoking Status: Current every day smoker Past Alcohol Use History: None Reported Past Drug Use History: None Reported - Past Family History Mother Family Medical History: AFIB, Congestive Heart Failure (CHF), COPD, Hypertension Additional Family Medical History / Comment(s): beginings of uterine Cancer Father Family Medical History: Cancer Additional Family Medical History / Comment(s): lung General Exam Limitations: no limitations General appearance: alert, in no apparent distress Head exam: Present: atraumatic, normocephalic, normal inspection Eye exam: Present: normal appearance, PERRL, EOMI. Absent: scleral icterus, conjunctival injection, periorbital swelling ENT exam: Present: normal exam, mucous membranes moist Neck exam: Present: normal inspection. Absent: tenderness, meningismus, lymphadenopathy Respiratory exam: Present: normal lung sounds bilaterally. Absent: respiratory distress, wheezes, rales, rhonchi, stridor Cardiovascular Exam: Present: regular rate, normal rhythm, normal heart sounds. Absent: systolic murmur, diastolic murmur, rubs, gallop, clicks GI/Abdominal exam: Present: soft, normal bowel sounds. Absent: distended, tenderness, guarding, rebound, rigid Extremities exam: Present: normal inspection, full ROM, normal capillary refill. Absent: tenderness, pedal edema, joint swelling, calf tenderness Back exam: Present: normal inspection Neurological exam: Present: alert, oriented X3, CN II-XII intact Psychiatric exam: Present: normal affect, normal mood Skin exam: Present: warm, dry, intact, normal color. Absent: rash Course Vital Signs 07/07/23 07/07/23 05:38 06:44 Temperature 97.8 F Pulse Rate 82 75 Respiratory 16 18 Rate Blood Pressure 169/109 150/88 O2 Sat by Pulse 98 97 Oximetry Chest Pain MDM - MDM Was pt. sent in by a medical professional or institution (, PA, SHIRRER, urgent care, hospital, or [facility]...) When possible be specific @ -No Did you speak to anyone other than the patient for history (EMS, parent, family, police, friend...)? What history was obtained from this source @ -EMS Did you review nursing and triage notes (agree or disagree)? Why? @ -I reviewed and agree with nursing and triage notes Were old charts reviewed (outside hosp., previous admission, EMS record, old EKG, old radiological studies, urgent care reports/EKG's, [facility] records)? Report findings @ -I reviewed the patient's ED visit from yesterday Differential Diagnosis (chest pain, altered mental status, abdominal pain women, abdominal pain men, vaginal bleeding, weakness, fever, dyspnea, syncope, headache, dizziness, GI bleed, back pain, seizure, CVA, palpatations, mental health, musculoskeletal)? @ -Differential Chest Pain: Stable Angina, Unstable Angina, STEMI, NSTEMI Aortic Dissection, Pneumothorax, Musculoskeletal, Esophageal Spasm GERD, Cholecystitis, Pancreatitis, Zoster, this is not meant to be an all-inclusive list. EKG interpreted by me (3pts min.). @ -Yes and demonstrates sinus rhythm with a rate of 73. QRS 84. QTc 425. No acute ST segment elevations or depressions X-rays interpreted by me (1pt min.). @ -None done CT interpreted by me (1pt min.). @ -Yes and demonstrates no PE U/S interpreted by me (1pt. min.). @ -None done What testing was considered but not performed or refused? (CT, X-rays, U/S, labs)? Why? @ -None What meds were considered but not given or refused? Why? @ -Aspirin however patient refused Did you discuss the management of the patient with other professionals (professionals i.e. , PA, SHIRRER, lab, RT, psych nurse, social media campaign manager, marketing systems analyst, teacher, consular officer, case managers)? Give summary @ -Dr. John who accepted admission of the patient Was smoking cessation discussed for >3mins.? @ -No Was critical care preformed (if so, how long)? @ -No Were there social determinants of health that impacted care today? How? (Homelessness, low income, unemployed, alcoholism, drug addiction, transportation, low edu. Level, literacy, decrease access to med. care, skilled nursing, rehab)? @ -No Was there de-escalation of care discussed even if they declined (Discuss DNR or withdrawal of care, Hospice)? DNR status @ -No What co-morbidities impacted this encounter? (DM, HTN, Smoking, COPD, CAD, Cancer, CVA, ARF, Chemo, Hep., AIDS, mental health diagnosis, sleep apnea, morbid obesity)? @ -Metastatic breast cancer Was patient admitted / discharged? Hospital course, mention meds given and route, prescriptions, significant lab abnormalities, going to OR and other pertinent info. @ -Admitted. Upon arrival patient is placed in room 1. Thorough history and physical exam were performed. IV was established. Laboratory studies are conducted. Patient is sent for CT as her chest x-ray yesterday was negative. Patient has no PE on CT. Discussed results with the patient. Spoke with Dr. John who agreed to admit the patient Undiagnosed new problem with uncertain prognosis? @ -yes Drug Therapy requiring intensive monitoring for toxicity (Heparin, Nitro, I nsulin, Cardizem)? @ -No Were any procedures done? @ -No Diagnosis/symptom? @ -Acute chest pain, history of metastatic breast cancer, history of PE Acute, or Chronic, or Acute on Chronic? @ -Acute Uncomplicated (without systemic symptoms) or Complicated (systemic symptoms)? @ -Complicated Side effects of treatment? @ -No Exacerbation, Progression, or Severe Exacerbation? @ -No Poses a threat to life or bodily function? How? (Chest pain, [place], [place], pneumonia, PE, COPD, DKA, ARF, appy, cholecystitis, CVA, Diverticulitis, Homicidal, Suicidal, threat to staff... and all critical care pts) @ -No Disposition Clinical Impression: Chest pain Disposition: ADMITTED IP TO THIS HOSP Condition: Stable Is patient prescribed a controlled substance at d/c from ED?: No Time of Disposition: 07:58 Decision to Admit Reason: Admit from EC Decision Date: 07/07/23 Decision Time: 07:58
[2023-07-07 06:11] LABS: ALT 23 U/L (4-34); AST 47 U/L (14-36); African American GFR (CKD) >90 (>60 ml/min/1.73 sqM); Albumin 3.6 g/dL (3.5-5.0); Alkaline Phosphatase 111 U/L (38-126); Anion Gap 3 mmol/L; Blood Urea Nitrogen 5 mg/dL (7-17); Calcium 9.1 mg/dL (8.4-10.2); Carbon Dioxide 31 mmol/L (22-30); Chloride 104 mmol/L (98-107); Glucose 114 mg/dL (74-99); Lipase 48 U/L (23-300); Magnesium 1.8 mg/dL (1.6-2.3); Non-African American GFR(CKD) >90 (>60 ml/min/1.73 sqM); Potassium 3.5 mmol/L (3.5-5.1); Sodium 138 mmol/L (137-145); Total Bilirubin 0.4 mg/dL (0.2-1.3); Total Protein 6.7 g/dL (6.3-8.2)
[2023-07-07 07:07] LABS: INR 1.1 (<1.2); Partial Thromboplastin Time 25.1 sec (22.0-30.0); Prothrombin Time 11.5 sec (10.0-12.5)
--- NOTE | 2023-07-07 07:08 | CT ---
EXAMINATION TYPE: CT chest angio for PE DATE OF EXAM: 07/07/2023 COMPARISON: PET CT 06/08/2023 HISTORY: Chest pain for a few days hx of breast CA current TX CT DLP: 228.2 mGycm CONTRAST: CT chest with contrast and 3D reconstruction with MIP imaging is performed with IV Contrast, patient injected with 80 mL of Isovue 300. Contrast-enhanced CT of the chest was performed through the course of the pulmonary arteries with nori g and mediastinal window settings submitted. 3D reconstruction with MIP imaging was also performed. PULMONARY ARTERIES: The pulmonary arteries and their major tributaries are patent. I do not see judy dence for sizable filling defect to suggest pulmonary embolic process. LUNGS: Right basilar pulmonary mass measuring 4.4 cm maximal dimension. Scattered pulmonary nodules d escribed on recent PET/CT. MEDIASTINUM: Thoracic aorta is of normal caliber,however, evaluation is limited given timing of the contrast bolus. If there is concern for thoracic aortic pathology consider BRYON. Correlate clinicall y . The heart is not enlarged. No evidence for mediastinal mass. No mediastinal lymph nodes greater than 1cm. HILAR STRUCTURES: No evidence for mass. No hilar lymph nodes greater than 1 cm. UPPER ABDOMEN: Suspect hepatic lesions. IMPRESSION: 1. No evidence for Pulmonary embolism at this time.
[2023-07-07] MEDS ORDERED: NALOXONE 0.4 MG/ML 1 ML VIAL IVP PRN (08:10)
[2023-07-07] MEDS ORDERED: ONDANSETRON 4 MG/2 ML VIAL IVP PRN (08:10)
[2023-07-07] MEDS ORDERED: HYDROcodone/APAP 5-325MG 1 EACH TAB PO PRN (08:10)
[2023-07-07] MEDS ORDERED: MELATONIN 3 MG TABLET PO PRN (08:10)
[2023-07-07] MEDS ORDERED: NALOXONE 0.4 MG/ML 1 ML VIAL IV PRN (08:11)
[2023-07-07] MEDS: ACETAMINOPHEN TAB 325 MG TAB PO PRN (08:42)
[2023-07-07] MEDS: APIXABAN 5 MG TAB PO SCH (08:42)
[2023-07-07] MEDS: ASPIRIN 325 MG TAB PO STA (09:55)
--- NOTE | 2023-07-07 10:19 | P.CRDCN ---
History of Present Illness Consult date: 07/07/23 Requesting physician: Moises John Reason for Consult (text): chest pain Chief complaint: chest pain History of present illness: Is a pleasant 58-year-old female patient who does not follow regularly with a advertising representative. She has a remote history of paroxysmal atrial fibrillation, pulmonary embolism for which she is anticoagulated with Eliquis, breast cancer diagnosed in 2020 and most recently brain tumor requiring craniotomy done at [facility] in January 2023 as well as subsequent radiation and also involvement in bilateral lungs, liver and bone. She is a current every day smo ker but is trying to quit. She recently had an appointment with her oncologist Dr. Dallas Mejia and chemotherapy was stopped as it was not effective and moving forward the patient is unsure of the treatment plan. She presented to the emergency department with complaints of chest discomfort. The pain is worse with deep inspiration. It is not exertional. Troponin has been negative x 1. EKG shows sinus mechanism with no significant ST-T wave abnormalities. Upon examination she is resting comfortably in bed. She continues to complain of discomfort with inspiration. She denies any shortness of breath, edema, or PND. She does have occasional palpitations and attributes this to her paroxysmal atrial fibrillation. Which she has had for several years. She has had no syncope or near syncope. Echocardiogram and done in May of this year showed normal LV systolic function with mild MR and TR. Past Medical History Past Medical History: Atrial Fibrillation, Cancer, Deep Vein Thrombosis (DVT), Pulmonary Embolus (PE) Additional Past Medical History / Comment(s): left breast CA-dx April 30, 2021-had surg. & currently getting radiation,unable to lay on stomach from prior old injury as a teenager, DVT & PE after hysterectomy 15 yrs ago and DVT after varicose vein stripping yrs ago., DVT in August behind right knee History of Any Multi-Drug Resistant Organisms: None Reported Past Surgical History: Breast Surgery, Section, Hysterectomy, Tonsillectomy Additional Past Surgical History / Comment(s): breast biopsy. Ear surgery as child., mediport insertion, left breast lumpectomy w/sentinel lymph node bx. in November 2021, tumor removal brain Past Anesthesia/Blood Transfusion Reactions: No Reported Reaction Additional Past Anesthesia/Blood Transfusion Reaction / Comment(s): no hx blood transfusion Past Psychological History: No Psychological Hx Reported Smoking Status: Current every day smoker Past Alcohol Use History: None Reported Past Drug Use History: None Reported - Past Family History Mother Family Medical History: AFIB, Congestive Heart Failure (CHF), COPD, Hypertension Additional Family Medical History / Comment(s): beginings of uterine Cancer Father Family Medical History: Cancer Additional Family Medical History / Comment(s): lung Medications and Allergies Home Medications Medication Instructions Recorded Confirmed Type Apixaban [Eliquis] 5 mg PO BID 07/07/23 07/07/23 History Omeprazole 40 mg PO AC-BRKFST 07/07/23 07/07/23 History Allergies Allergy/AdvReac Type Severity Reaction Status Date / Time metronidazole [From Flagyl] Allergy Intermediate Anaphylaxis Verified 07/07/23 07:25 adhesive tape Allergy Mild Rash/Hives,sometimes Verified 07/07/23 07:25 blisters Penicillins AdvReac Nausea Verified 07/07/23 07:25 Physical Exam Vitals: Vital Signs Temp Pulse Resp BP Pulse Ox 07/07/23 08:39 98.2 F 76 18 150/95 98 07/07/23 06:44 75 18 150/88 97 07/07/23 05:38 97.8 F 82 16 169/109 98 Intake and Output 07/06/23 07/07/23 07/07/23 22:59 06:59 14:59 Other: Weight 60.328 kg PHYSICAL EXAMINATION: This is a 58-year-old female in no apparent distress at the time of my examination. VITAL SIGNS: Reviewed HEENT: Head is atraumatic, normocephalic. Pupils are equal, round. Sclerae anicteric. Conjunctivae are clear. Mucous membranes of the mouth are moist. Neck is supple. There is no elevated jugular venous pressure. No carotid bruit is heard. CHEST EXAMINATION: Managed to auscultation bilaterally. No wheezes rales or rhonchi. Respirations even and nonlabored. HEART EXAMINATION: Heart regular, positive S1 and S2. No S3. No S4. No clicks, rubs or murmurs. ABDOMEN: Soft, nontender. Bowel sounds are heard. No organomegaly noted. EXTREMITIES: 2+ peripheral pulses with no evidence of peripheral edema and no calf tenderness noted. NEUROLOGIC EXAMINATION: Patient is awake, alert and oriented x3. Results 07/07/23 05:45 02/09/24 05:45 Cardiac Enzymes 07/07/23 07/07/23 07/07/23 Range/Units 05:45 05:45 08:45 AST 47 H (14-36) U/L Troponin I <0.012 <0.012 (0.000-0.034) ng/mL Coagulation 07/07/23 Range/Units 05:45 PT 11.5 (10.0-12.5) sec APTT 25.1 (22.0-30.0) sec CBC 07/07/23 Range/Units 05:45 WBC 10.1 (3.8-10.6) k/uL RBC 4.71 (3.80-5.40) m/uL Hgb 14.0 (11.4-16.0) gm/dL Hct 42.8 (34.0-46.0) % Plt Count 306 (150-450) k/uL Comprehensive Metabolic Panel 07/07/23 Range/Units 05:45 Sodium 138 (137-145) mmol/L Potassium 3.5 (3.5-5.1) mmol/L Chloride 104 (98-107) mmol/L Carbon Dioxide 31 H (22-30) mmol/L BUN 5 L (7-17) mg/dL Creatinine 0.44 L (0.52-1.04) mg/dL Glucose 114 H (74-99) mg/dL Calcium 9.1 (8.4-10.2) mg/dL AST 47 H (14-36) U/L ALT 23 (4-34) U/L Alkaline Phosphatase 111 (38-126) U/L Total Protein 6.7 (6.3-8.2) g/dL Albumin 3.6 (3.5-5.0) g/dL Current Medications Generic Name Dose Route Start Last Admin Trade Name Freq PRN Reason Stop Dose Admin Acetaminophen 650 mg 07/07/23 08:10 07/07/23 08:42 Acetaminophen Tab 325 Mg Tab PO 650 mg Q6HR PRN Administration Mild Pain or Fever > 100.5 Hydrocodone Bitart/Acetaminophen 1 each 07/07/23 08:10 Hydrocodone/Apap 5-325mg 1 Each Tab PO Q4HR PRN Moderate Pain (Scale 4 to 6) Apixaban 5 mg 07/07/23 09:00 07/07/23 08:42 Apixaban 5 Mg Tab PO 5 mg BID [facility] Administration Protocol Aspirin 81 mg 07/08/23 09:00 Aspirin 81 Mg PO DAILY [facility] Melatonin 3 mg 07/07/23 08:10 Melatonin 3 Mg Tablet PO HS PRN Insomnia Morphine Sulfate 4 mg 07/07/23 08:27 Morphine Sulfate 4 Mg/Ml Syringe IV Q4HR PRN Severe Pain (Scale 7 to 10) Naloxone HCl 0.2 mg 07/07/23 08:11 Naloxone 0.4 Mg/Ml 1 Ml Vial IV Q2M PRN Opioid Reversal Ondansetron HCl 4 mg 07/07/23 08:10 Ondansetron 4 Mg/2 Ml Vial IVP Q8HR PRN Nausea And Vomiting Pantoprazole Sodium 40 mg 07/08/23 07:30 Pantoprazole 40 Mg Tablet PO AC-BRKFST [facility] Intake and Output 07/06/23 07/07/23 07/07/23 22:59 06:59 14:59 Other: Weight 60.328 kg 07/07/23 05:45 07/07/23 05:45 EKG Interpretations (text) Normal sinus rhythm Assessment and Plan Assessment: #1 chest pain, atypical, likely to be musculoskeletal or pulmonary in nature, troponin and EKG unremarkable #2 metastatic breast cancer #3 paroxysmal atrial fibrillation, currently maintaining sinus mechanism #4 history of PE, currently anticoagulated on Eliquis Plan: From cardiology's perspective an acute coronary event has been ruled out patient's discomfort does not appear to be cardiac in nature. At this time we will follow-up with the patient on as-needed basis. Recommend considering consulting oncology. CHILD DEVELOPMENT ASSISTANT note has been reviewed, I agree with a documented findings and plan of care. Patient was seen and examined.
--- NOTE | 2023-07-07 10:40 | P.HPIM ---
History of Present Illness H&P Date: 07/07/23 History of Presenting Illness: Patient is a very pleasant 58-year-old female with a past medical history of metastatic breast cancer with metastasis to lung, liver, bone and brain status post craniotomy with tumor revision 02/[address] Mejia with last chemotherapy treatment being approximately 6 weeks ago, DVT, paroxysmal atrial fibrillation and previous PE on anticoagulation with Eliquis. She presented to the emergency department with a chief complaint of chest pain/pressure. Patient reports a constant pressure to midsternal chest beginning yesterday and progressively worsening. Patient reports pain is made worse upon taking a deep breath but denies anything improving pain. Patient underwent full evaluation in the emergency department. Vital signs upon arrival show blood pressure 169/109, heart rate 82, respiratory rate 16, temp 97.8 F, and SpO2 of 98% on room air. EKG was completed showing normal sinus rhythm at 73 bpm with T wave inversion in leads III otherwise showing no further T wave or ST abnormalities upon personal review and interpretation. Labs were completed and reviewed. CBC and coagulation profile were unremarkable. BMP revealing hypercarbia with bicarb of 31 otherwise normal findings. Blood glucose was 114. Magnesium 1.8. Liver profile showing elevated AST of 47 otherwise normal findings. Troponin was negative at less than 0.012. Lipase normal findings at 48. CTA chest was completed showing right basilar pulmonary mass measuring 4.4 cm with scattered pulmonary nodules which was previously shown on patient's PET scan completed 06/08/2023, concerns for hepatic lesions also previously reported, and no evidence of acute process or pulmonary emboli reported at this time. Heart score 5 secondary to highly suspicious history, nonspecific repolarization disturbance with T wave inversion in lead III, age, and 1-2 risk factors. Patient is admitted under our services with consultation to cardiology and oncology. Recent echo completed 06/01/2023 and report reviewed revealed preserved EF of 60 to 65% with mild biatrial enlargement and trivial pericardial effusion. Review of systems: Pertinent positives and negatives as discussed in HPI, a complete review of systems was performed and all other systems are negative. Physical exam: Vital signs reviewed and stable. General: Nontoxic, no distress and appears chronically ill. Derm: Skin warm and dry, normal coloration for ethnicity. Head: Atraumatic, normocephalic and symmetric. Eyes: EOMs intact, no lid lag, and anicteric sclera Mouth: no lip lesions, mucus membranes moist Cardiovascular: regular rate and rhythm with normal S1S2, systolic murmur, positive posterior tibial pulses bilaterally, and cap refill < 2 seconds. Lungs: Respirations even, regular, and unlabored on room air. Lungs CTA bilaterally, no rhonchi, no rales, no wheezing, and no accessory muscle usage. Abdominal: soft, nontender to palpation, no guarding, no appreciable organomegaly Ext: ROM intact. No gross muscle atrophy, no edema, no contractures Neuro: Speech clear, face symmetrical and CN II-XII grossly intact with no noted focal neuro deficits Psych: Alert and oriented to person, place, time, and situation. Appropriate and pleasant affect. Assessment and Plan of Care: Chest pain/pressure, rule out acute coronary event Hypertension upon arrival -Echocardiogram recently completed 06/01/2023 showing preserved EF of 60 to 65% with mild biatrial enlargement and trivial pericardial effusion, will order repeat echocardiogram for reevaluation pending further cardiology recommendations. -Cardiology consulted, appreciate recommendations -Telemetry monitoring -Trend troponins -Cardiac diet -Patient given aspirin 325 mg p.o. x 1 dose and started on aspirin 81 mg daily. -Lipid profile with a.m. labs. -Echocardiogram Metastatic breast cancer -Consult placed to patient's oncologist, Dr. Mejia -Symptomatic care and pain management with Tylenol 650 mg p.o. every 6 hours as needed for mild pain or fever, Albers 5/325 mg tablets every 4 hours as needed for moderate pain, or morphine 4 mg IVP as needed for severe pain. Data and imaging reviewed: As stated above in HPI. The patient is admitted with an anticipated lessr than 2 midnight stay for evaluation of chest pain CODE STATUS: Full code DVT prophylaxis: Eliquis Anticipated discharge date: 24 to [address]: Home Patient was seen independently by Nurse Practitioner. This document was prepared using [employer] dictation software. Please allow for errors in wedger and gluer while rare they do occur. Getachew Briceno NP rendered care for this patient independently, reviewed the findings and plan as documented in the note above. I did not physically speak with or examine the patient on this date. Past Medical History Past Medical History: Atrial Fibrillation, Cancer, Deep Vein Thrombosis (DVT), Pulmonary Embolus (PE) Additional Past Medical History / Comment(s): left breast CA-dx April 30, 2021-had surg. & currently getting radiation,unable to lay on stomach from prior old injury as a teenager, DVT & PE after hysterectomy 15 yrs ago and DVT after varicose vein stripping yrs ago., DVT in August behind right knee History of Any Multi-Drug Resistant Organisms: None Reported Past Surgical History: Breast Surgery, Section, Hysterectomy, Tonsillectomy Additional Past Surgical History / Comment(s): breast biopsy. Ear surgery as child., mediport insertion, left breast lumpectomy w/sentinel lymph node bx. in November 2021, tumor removal brain Past Anesthesia/Blood Transfusion Reactions: No Reported Reaction Additional Past Anesthesia/Blood Transfusion Reaction / Comment(s): no hx blood transfusion Past Psychological History: No Psychological Hx Reported Smoking Status: Current every day smoker Past Alcohol Use History: None Reported Past Drug Use History: None Reported - Past Family History Mother Family Medical History: AFIB, Congestive Heart Failure (CHF), COPD, Hypertension Additional Family Medical History / Comment(s): beginings of uterine Cancer Father Family Medical History: Cancer Additional Family Medical History / Comment(s): lung Medications and Allergies Home Medications Medication Instructions Recorded Confirmed Type Apixaban [Eliquis] 5 mg PO BID 07/07/23 07/07/23 History Omeprazole 40 mg PO AC-BRKFST 07/07/23 07/07/23 History Allergies Allergy/AdvReac Type Severity Reaction Status Date / Time metronidazole [From Flagyl] Allergy Intermediate Anaphylaxis Verified 07/07/23 07:25 adhesive tape Allergy Mild Rash/Hives,sometimes Verified 07/07/23 07:25 blisters Penicillins AdvReac Nausea Verified 07/07/23 07:25 Physical Exam Vitals: Vital Signs Temp Pulse Resp BP Pulse Ox 07/07/23 06:44 75 18 150/88 97 07/07/23 05:38 97.8 F 82 16 169/109 98 Intake and Output 07/06/23 07/07/23 07/07/23 22:59 06:59 14:59 Other: Weight 60.328 kg Results CBC & Chem 7: 07/07/23 05:45 07/07/23 05:45 Labs: Abnormal Lab Results - Last 24 Hours (Table) 07/07/23 Range/Units 05:45 Carbon Dioxide 31 H (22-30) mmol/L BUN 5 L (7-17) mg/dL Creatinine 0.44 L (0.52-1.04) mg/dL Glucose 114 H (74-99) mg/dL AST 47 H (14-36) U/L
--- NOTE | 2023-07-07 12:34 | CA ---
Transthoracic Echo Report Name: Vicky Duncan Age: 58 Gender: F : 1965 Exam Date: 07/07/2023 10:36 Exam Location: [facility] Ht (in): 63 Wt (lb): 133 Ordering Physician: Getachew Briceno Attending/Referring Phys: Manufacturing Engineering Professor Santy Camargo RD Procedure CPT: Indications: Evaluate structure and function Cardiac Hx: Technical Quality: Fair Contrast 1: Total Dose (mL): Contrast 2: Total Dose (mL): MEASUREMENTS (Male / Female) Normal Values 2D ECHO LV Diastolic Diameter PLAX 4.6 cm 4.2 - 5.9 / 3.9 - 5.3 cm LV Systolic Diameter PLAX 3.3 cm IVS Diastolic Thickness 0.9 cm 0.6 - 1.0 / 0.6 - 0.9 cm LVPW Diastolic Thickness 1.0 cm 0.6 - 1.0 / 0.6 - 0.9 cm LV Relative Wall Thickness 0.4 RV Internal Dim ED PLAX 2.2 cm LV Diastolic Volume MOD BP 35.7 cm??? 67 - 155 / 56 - 104 cm??? LV Systolic Volume MOD BP 13.7 cm??? 22 - 58 / 19 - 49 cm??? LV Ejection Fraction MOD BP 61.7 % >= 55 % LV Cardiac Index MOD BP 951.8 cm???/min???m??? LV Diastolic Volume MOD 4C 33.7 cm??? LV Systolic Volume MOD 4C 16.1 cm??? LV Ejection Fraction MOD 4C 52.1 % LV Cardiac Index MOD 4C 758.5 cm???/min???m??? LV Diastolic Length 4C 6.8 cm LV Systolic Length 4C 6.0 cm LV Diastolic Volume MOD 2C 38.0 cm??? LV Systolic Volume MOD 2C 11.4 cm??? LV Ejection Fraction MOD 2C 69.9 % LV Cardiac Index MOD 2C 1145.5 cm???/min???m??? LV Diastolic Length 2C 6.8 cm LV Systolic Length 2C 6.2 cm FINDINGS Left Ventricle Normal LV size and wall thickness. Left ventricular ejection fraction is estimated at 55-60 %.Normal left ventricular systolic function with no obvious regional wall motion abnormalities. Right Ventricle Right Atrium Left Atrium Mitral Valve Aortic Valve Tricuspid Valve Pulmonic Valve Pericardium minimal pericardial effusion (normal variant). Aorta CONCLUSIONS Limited echo. Normal left ventricle size and systolic function Minimal pericardial effusion Previewed by: Dr. Melissa Blake MD (Electronically Signed) Final Date: 07 July 2023 12:34
[2023-07-07 15:10] LABS: Chol/HDL Ratio 4.12 Ratio; LDL Cholesterol,Calculated 128.7 mg/dL (0.0-131.0); VLDL Calculation 15.16 mg/dL (5.00-40.00)
--- NOTE | 2023-07-07 22:33 | P.CONS ---
History of Present Illness - Reason for Consult Consult date: 07/07/23 metastatic breast cancer Requesting physician: Getachew Briceno - Chief Complaint Chest pain - History of Present Illness Patient is a 58 year old female with a signifcant history of metastatic breast cancer. She is a patient of Dr. Dallas Mejia. She underwent 4 cycles of dose dense Adriamycin/cyclophosphamide from 06/21/2021-08/02/2021 followed by 4 cycles of dose dense Taxol from 08/16/2021-10/11/2021. She underwent lumpectomy with sentinel lymph node biopsy on 12/08/2021, which noted residual 2.2 cm grade 3 invasive ductal carcinoma with 1 sentinel lymph node being positive. Pathologic staging was [id number]. She completed 60 Gy of adjuvant radiation therapy on 02/25/2022. She briefly took adjuvant Xeloda for residual disease, but did not tolerate this well and eventually stopped. In December 2022, she began to have mild headaches, which were initially relieved with Tylenol. Eventually, these became more persistent and were not relieved with Tylenol. CT of the head on 02/07/2023 without contrast noted cystic lesion in the left occipital lobe measuring 3.9 x 1.8 x 3.4 cm with surrounding vasogenic edema along with an additional hypodense 7 mm area within the right thalamus of unclear etiology. She was eventually transferred to [facility] for brain MRI revealed 4.6 x 3.3 cm mass in the left occipital region with surrounding vasogenic edema and no midline shift. There was noted to be remote lacunar infarct in the right thalamus. CT chest/abdomen/pelvis on 02/09/2023 was notable for nodule in the apical segment of the right lower lobe measuring 2 x 1.5 cm. She underwent craniotomy with resection of the left occipital tumor on 02/14/2023 with postsur gical pathology revealing poorly differentiated metastatic carcinoma compatible with breast primary (IHC positive for GATA3, CK7, CK5/6) that was ER negative, MT negative, and HER2 low (IHC 1+) with Ki-67 of 90%. Her postoperative course was complicated by DVT of the left lower extremity on 03/01/2023 and was subsequently started on Eliquis. She has seen Dr. Aquino of radiation oncology with plan to receive 5 fractions of radiation therapy to the surgical bed in February 2023. PET/CT on 03/10/2023 noted evidence of metastatic disease to the right lung, right hepatic lobe, and left adrenal gland. NGS from the resected brain tumor revealed no targetable mutations and MSI negative. PD-L1 was less than 1%. [id number] revealed TP53 mutation with no actionable mutations. She initiated paclitaxel every 3 weeks on 04/03/2023 and most recently received cycle 4 of treatment on 06/06/2023 at 20% dose reduction. Echocardiogram obtained on 06/01/2023 following last visit revealed EF of 60 to 65%. Brain MRI on 05/08/2023 noted 2 new cerebellar lesions in the left and right cerebellar hemispheres nichol suring 6.2 and 6.5 mm with no vasogenic edema. She received 3 fractions of radiation therapy to the cerebellar lesions from 06/13/2023 through 06/15/2023. PET/CT on 06/08/2023 revealed evidence of disease progression with new liver lesions, subcarinal lymphadenopathy, and metastases to the bone. Based on this, we discussed changing treatment from paclitaxel to Enhertu given she had HER2 low disease. Schduled to begin Enhertu soon. She presented to the emergency department with a chief complaint of chest pain. Patient reports a constant pressure to midsternal chest beginning yesterday and began to worsen over night. Of note patient underwent full evaluation in the emergency department for the same the day prior. Upon admission CTA chest was obtained revealing no evidence for pulmonary embolism with right basilar pulmonary mass measuring 4.4 cm, with scattered pulmonary nodules. Serial troponins negative. Echocardiogram obtained revealing normal left ventricular size and systolic function with minimal pericardial effusion. Cardiology following. CBC reviewed, WBC 10.1, hemoglobin 14.0, platelets 306,000. At today's visit patient is reporting improvement in chest pain. Reports nasal congestion and cough with clear sputum. Denies dysphagia. Review of Systems 10 point ROS is negative except as stated in the HPI Past Medical History Past Medical History: Atrial Fibrillation, Cancer, Deep Vein Thrombosis (DVT), Pulmonary Embolus (PE) Additional Past Medical History / Comment(s): left breast CA-dx April 30, 2021-had surg. & currently getting radiation,unable to lay on stomach from prior old injury as a teenager, DVT & PE after hysterectomy 15 yrs ago and DVT after varicose vein stripping yrs ago., DVT in August behind right knee History of Any Multi-Drug Resistant Organisms: None Reported Past Surgical History: Breast Surgery, Section, Hysterectomy, Tonsillectomy Additional Past Surgical History / Comment(s): breast biopsy. Ear surgery as child., mediport insertion, left breast lumpectomy w/sentinel lymph node bx. in November 2021, tumor removal brain Past Anesthesia/Blood Transfusion Reactions: No Reported Reaction Additional Past Anesthesia/Blood Transfusion Reaction / Comm: no hx blood transfusion Past Psychological History: No Psychological Hx Reported Smoking Status: Current every day smoker Past Alcohol Use History: None Reported Past Drug Use History: None Reported - Past Family History Mother Family Medical History: AFIB, Congestive Heart Failure (CHF), COPD, Hypertension Additional Family Medical History / Comment(s): beginings of uterine Cancer Father Family Medical History: Cancer Additional Family Medical History / Comment(s): lung Medications and Allergies Home Medications Medication Instructions Recorded Confirmed Type Apixaban [Eliquis] 5 mg PO BID 07/07/23 07/07/23 History Omeprazole 40 mg PO AC-BRKFST 07/07/23 07/07/23 History Allergies Allergy/AdvReac Type Severity Reaction Status Date / Time metronidazole [From Flagyl] Allergy Intermediate Anaphylaxis Verified 07/07/23 07:25 adhesive tape Allergy Mild Rash/Hives,sometimes Verified 07/07/23 07:25 blisters Penicillins AdvReac Nausea Verified 07/07/23 07:25 Physical Exam Vitals: Vital Signs Temp Pulse Resp BP Pulse Ox 07/07/23 12:17 98.1 F 70 18 152/91 97 07/07/23 08:39 98.2 F 76 18 150/95 98 07/07/23 06:44 75 18 150/88 97 07/07/23 05:38 97.8 F 82 16 169/109 98 Intake and Output 07/06/23 07/07/23 07/07/23 22:59 06:59 14:59 Other: Weight 60.328 kg - Constitutional General appearance: average body habitus, no acute distress - EENT ENT: hearing grossly normal - Respiratory Respiratory: bilateral: CTA - Cardiovascular Rhythm: regular Heart sounds: normal: S1, S2 - Gastrointestinal General gastrointestinal: soft, no tenderness - Integumentary Integumentary: no cyanotic, no jaundiced - Neurologic Neurologic: CNII-XII intact - Musculoskeletal Musculoskeletal: strength equal bilaterally - Psychiatric Psychiatric: A&O x's 3 Results CBC & Chem 7: 07/07/23 05:45 07/07/23 05:45 Labs: Abnormal Lab Results - Last 24 Hours (Table) 07/07/23 Range/Units 05:45 Carbon Dioxide 31 H (22-30) mmol/L BUN 5 L (7-17) mg/dL Creatinine 0.44 L (0.52-1.04) mg/dL Glucose 114 H (74-99) mg/dL AST 47 H (14-36) U/L Comments: echo reviewed CT scan - chest: report reviewed Assessment and Plan (1) Breast cancer Current Visit: Yes Status: Acute Priority: High Code(s): C50.919 - MALIGNANT NEOPLASM OF UNSP SITE OF UNSPECIFIED FEMALE BREAST SNOMED Code(s): 973129810 (2) Chest pain Current Visit: Yes Status: Acute Priority: High Code(s): R07.9 - CHEST PAIN, UNSPECIFIED SNOMED Code(s): 68490946 Plan: Chest pain: -Presented to the emergency department with a chief complaint of chest pain. Of note patient underwent full evaluation in the emergency department for the same the day prior. Upon admission CTA chest was obtained revealing no evidence for pulmonary embolism with right basilar pulmonary mass measuring 4.4 cm, with scattered pulmonary nodules. Serial troponins negative. Echocardiogram obtained revealing normal left ventricular size and systolic function with minimal pericardial effusion -Cardiology following Metastatic breast cancer: -Full history in HPI -Completed cycle 4 of taxol on 06/05/23 -Brain MRI on 05/08/2023 noted 2 new cerebellar lesions in the left and right cerebellar hemispheres measuring 6.2 and 6.5 mm with no vasogenic edema. She received 3 fractions of radiation therapy to the cerebellar lesions from 06/13/2023 through 06/15/2023. PET/CT on 06/08/2023 revealed evidence of disease progression with new liver lesions, subcarinal lymphadenopathy, and metastases to the bone -Based on this, we discussed changing treatment from paclitaxel to Enhertu given she had HER2 low disease. Scheduled to begin Enhertu soon attests: I have seen and examined patient, performed H&P, developed impression and plan of care. Discussed with dictator. Agree with documentation, dictated as a scribe
[2023-07-08] MEDS: PANTOPRAZOLE 40 MG TABLET PO SCH (06:08)
[2023-07-08] MEDS: MORPHINE SULFATE 4 MG/ML SYRINGE IV PRN (09:05)
--- NOTE | 2023-07-08 11:39 | P.PN ---
Subjective Progress Note Date: 07/08/23 History of Presenting Illness: Patient is a very pleasant 58-year-old female with a past medical history of metastatic breast cancer with metastasis to lung, liver, bone and brain status post craniotomy with tumor revision 02/[address] Mejia with last chemotherapy treatment being approximately 6 weeks ago, DVT, paroxysmal atrial fibrillation and previous PE on anticoagulation with Eliquis. She presented to the emergency department with a chief complaint of chest pain/pressure. Patient reports a constant pressure to midsternal chest beginning yesterday and progressively worsening. Patient reports pain is made worse upon taking a deep breath but denies anything improving pain. Patient underwent full evaluation in the emergency department. Vital signs upon arrival show blood pressure 169/109, heart rate 82, respiratory rate 16, temp 97.8 F, and SpO2 of 98% on room air. EKG was completed showing normal sinus rhythm at 73 bpm with T wave inversion in leads III otherwise showing no further T wave or ST abnormalities upon personal review and interpretation. Labs were completed and reviewed. CBC and coagulation profile were unremarkable. BMP revealing hypercarbia with bicarb of 31 otherwise normal findings. Blood glucose was 114. Magnesium 1.8. Liver profile showing elevated AST of 47 otherwise normal findings. Troponin was n egative at less than 0.012. Lipase normal findings at 48. CTA chest was completed showing right basilar pulmonary mass measuring 4.4 cm with scattered pulmonary nodules which was previously shown on patient's PET scan completed 06/08/2023, concerns for hepatic lesions also previously reported, and no evidence of acute process or pulmonary emboli reported at this time. Heart score 5 secondary to highly suspicious history, nonspecific repolarization disturbance with T wave inversion in lead III, age, and 1-2 risk factors. Patient is admitted under our services with consultation to cardiology and oncology. Recent echo completed 06/01/2023 and report reviewed revealed preserved EF of 60 to 65% with mild biatrial enlargement and trivial pericardial effusion. Troponins were trended all negative at less than 0.012 x 3 draws. Repeat echocardiogram was completed showing normal preserved EF of 55 to 60% again with minimal pericardial effusion. Cardiology evaluated ruling out acute coronary process clearing patient from cardiac perspective as chest pain is not likely of cardiac origin. Patient reports persistent chest pressure pain to midsternal region worsens upon taking a deep breath this is likely pleurisy versus pain from known lung mass with metastasis to bone. Oncology following. Discussed with oncology team who would like to reevaluate patient this morning, will hold patient for pain management pending further recommendations from oncologist. Plan for likely discharge within the next 24 hours. Physical exam: Patient seen and fully evaluated at the bedside this morning. Patient appeared frustrated regarding persistent pain to midsternal chest and continues to report worsens upon taking a deep breath. Patient required IV pain medication this morning with morphine. Vital signs reviewed and stable. General: Nontoxic, no distress and appears chronically ill. Derm: Skin warm and dry, normal coloration for ethnicity. Head: Atraumatic, normocephalic and symmetric. Eyes: EOMs intact, no lid lag, and anicteric sclera Mouth: no lip lesions, mucus membranes moist Cardiovascular: regular rate and rhythm with normal S1S2, systolic murmur, positive posterior tibial pulses bilaterally, and cap refill < 2 seconds. Lungs: Respirations even, regular, and unlabored on room air. Lungs CTA bilaterally, no rhonchi, no rales, no wheezing, and no accessory muscle usage. Abdominal: soft, nontender to palpation, no guarding, no appreciable organomegaly Ext: ROM intact. No gross muscle atrophy, no edema, no contractures Neuro: Speech clear, face symmetrical and CN II-XII grossly intact with no noted focal neuro deficits Psych: Alert and oriented to person, place, time, and situation. Appropriate and pleasant affect. Assessment and Plan of Care: Chest pain believed to be secondary to pleurisy and cancer pain as patient with known metastatic pulmonary mass along with metastasis to bone Metastatic breast cancer to lung, bone, liver, and brain Chest pain/pressure, acute coronary event ruled out Hypertension -Troponins were trended all negative at less than 0.012 x 3 draws. -Repeat echocardiogram was completed showing normal preserved EF of 55 to 60% again with minimal pericardial effusion. -Cardiology evaluated ruling out acute coronary process clearing patient from cardiac perspective as chest pain is not likely of cardiac origin. -Patient reports persistent chest pressure pain to midsternal region worsens upon taking a deep breath this is likely pleurisy versus pain from known lung mass with metastasis to bone. -Oncology following. Discussed patient's persistent reports of pain with oncology team who would like to reevaluate patient this morning, will hold patient for pain management pending further recommendations from oncologist. -Blood pressure was hypertensive upon arrival to the emergency department at 169/109, patient continues to have elevated pressures ranging from 140s to 160s. Will start patient on amlodipine 5 mg daily. -Lipid profile unremarkable -At this time we will continue with symptomatic care and pain management with Tylenol 650 mg p.o. every 6 hours as needed for mild pain or fever, [place] 5/325 mg tablets every 4 hours as needed for moderate pain, or morphine 4 mg IVP as needed for severe pain. -Plan for likely discharge within the next 24 hours. Data and imaging reviewed: Repeat echocardiogram was completed and report reviewed showing normal preserved EF of 55 to 60% again with minimal pericardial effusion. Troponins trended all negative at less than 0.012 x 3 draws. Lipid profile was unremarkable. Vital signs reviewed. Blood pressure 160/84, patient has had persistently elevated pressures throughout hospitalization with systolic pressures ranging from 140s to 160s. Patient started on amlodipine 5 mg daily. CODE STATUS: Full code DVT prophylaxis: Eliquis Anticipated discharge date: Plan for discharge within the next 24 hours once cleared by oncologist. Anticipated discharge place: Home Patient was seen independently by Nurse Practitioner. This document was prepared using [employer] dictation software. Please allow for errors in quality review trainer while rare they do occur. I reviewed the documentation as provided by the VIGNESH above, who is the original author of this note. I agree with the documented assessment and plan, with the following changes: none Objective - Vital Signs Vital signs: Vital Signs Temp 98.4 F 07/08/23 07:00 Pulse 66 07/08/23 07:00 Resp 15 07/08/23 07:00 BP 160/84 07/08/23 07:00 Pulse Ox 99 07/08/23 07:00 FiO2 Intake & Output 07/07/23 07/08/23 07/08/23 18:59 06:59 18:59 Intake Total 118 Balance 118 Weight 60.328 kg Intake: Oral 118 Other: # Voids 1 1 - Labs CBC & Chem 7: 07/08/23 05:58 07/08/23 05:58
[2023-07-08 11:52] LABS: Basophils # (A) 0.15 X 10*3/uL (0.00-0.10); Basophils % (A) 1.7 %; Blood Urea Nitrogen 7.4 mg/dL (9.0-27.0); Calcium 9.1 mg/dL (8.7-10.3); Carbon Dioxide 26.3 mmol/L (21.6-31.8); Chloride 103 mmol/L (96-109); Eosinophils # (A) 0.15 X 10*3/uL (0.04-0.35); Eosinophils % (A) 1.7 %; Glucose 93 mg/dL (70-110); HCT 42.5 % (37.2-46.3); HGB 13.5 g/dL (12.0-15.0); Lymphocytes # (A) 2.11 X 10*3/uL (0.90-5.00); Lymphocytes % (A) 23.3 %; MCH 28.7 pg (27.0-32.0); MCHC 31.8 g/dL (32.0-37.0); MCV 90.4 FL (80.0-97.0); Mean Platelet Volume 9.1 FL (9.5-12.2); Monocytes # (A) 0.62 X 10*3/uL (0.20-1.00); Monocytes % (A) 6.8 %; NRBC Per 100 WBC 0 X 10*3/uL (0.00-0.01); Neutrophils # (A) 6.01 X 10*3/uL (1.80-7.70); Neutrophils % (A) 66.3 %; Platelet Count 310 X 10*3/uL (140-440); Potassium 3.7 mmol/L (3.5-5.5); RDW 12.6 % (11.5-14.5); Sodium 141 mmol/L (135-145); WBC 9.06 X 10*3/uL (4.50-10.00)
[2023-07-08] MEDS: ASPIRIN 81 MG PO SCH (12:23)
[2023-07-08] MEDS: amLODIPine 5 MG TAB PO SCH (12:49)
[2023-07-08] MEDS: LIDOCAINE 4% PATCH TOPICAL SCH (14:55)
--- NOTE | 2023-07-08 15:24 | P.PN ---
Subjective Progress Note Date: 07/08/23 Principal diagnosis: Metastatic breast cancer -Echocardiogram revealed no evidence of wall motion abnormalities or pericarditis -CTA of the chest negative for pulmonary embolism or pneumonia -No acute events overnight -She still has intermittent chest discomfort that is located in the sternum and reproducible upon touching the lateral edges of the sternum -Prior to admission, she had been lifting heavy boxes up and down stairs in addition to working her job Objective - Vital Signs Vital signs: Vital Signs Temp 98.5 F 07/08/23 14:45 Pulse 75 07/08/23 14:45 Resp 15 07/08/23 14:45 BP 129/84 07/08/23 14:45 Pulse Ox 98 07/08/23 14:45 FiO2 Intake & Output 07/07/23 07/08/23 07/08/23 18:59 06:59 18:59 Intake Total 118 Balance 118 Weight 60.328 kg Intake: Oral 118 Other: Voiding Method Toilet # Voids 1 1 3 # Bowel Movements 0 - Constitutional General appearance: Present: cooperative, no acute distress - EENT Eyes: Present: EOMI - Respiratory Respiratory: bilateral: CTA - Cardiovascular Rhythm: regular - Gastrointestinal General gastrointestinal: Present: soft. Absent: distended - Integumentary Integumentary: Absent: rash - Neurologic Neurologic: Present: CNII-XII intact - Musculoskeletal Musculoskeletal Comment(s): Tenderness to palpation of the sternum - Psychiatric Psychiatric: Present: A&O x's 3, appropriate affect - Labs CBC & Chem 7: 07/08/23 05:58 07/08/23 05:58 Labs: Abnormal Lab Results - Last 24 Hours (Table) 07/08/23 07/08/23 Range/Units 05:58 05:58 MCHC 31.8 L (32.0-37.0) g/dL MPV 9.1 L (9.5-12.2) FL Basophils # 0.15 H (0.00-0.10) X 10*3/uL BUN 7.4 L (9.0-27.0) mg/dL Creatinine 0.5 L (0.6-1.5) mg/dL - Imaging and Cardiology CT scan - chest: report reviewed Venous US: report reviewed Assessment and Plan (1) Costochondritis, acute Current Visit: Yes Status: Acute Code(s): M94.0 - CHONDROCOSTAL JUNCTION SYNDROME [TIETZE] SNOMED Code(s): 60961828 (2) Malignant neoplasm of breast metastatic to liver Current Visit: Yes Status: Acute Code(s): C50.919 - MALIGNANT NEOPLASM OF UNSP SITE OF UNSPECIFIED FEMALE BREAST; C78.7 - SECONDARY MALIG NEOPLASM OF LIVER AND INTRAHEPATIC BILE DUCT SNOMED Code(s): 47240215 Plan: Costochondritis: -Presented to the emergency department with a chief complaint of chest pain. Of note patient underwent full evaluation in the emergency department for the same the day prior. Upon admission CTA chest was obtained revealing no evidence for pulmonary embolism with right basilar pulmonary mass measuring 4.4 cm, with scattered pulmonary nodules. Serial troponins negative. 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 She received 3 fractions of radiation therapy to the cerebellar lesions from 06/13/2023 through 06/15/2023. PET/CT on 06/08/2023 revealed evidence of disease progression with new liver lesions, subcarinal lymphadenopathy, and metastases to the bone -Based on this, we discussed changing treatment from paclitaxel to Enhertu given she had HER2 low disease -We are currently working on scheduling her treatment and will follow-up on this in clinic Dallas Mejia MD
[2023-07-09 07:57] VITALS: BP 157/85; PULSE 63; RESP 14; TEMP 98.1
--- NOTE | 2023-07-09 11:07 | P.DS ---
Providers Date of admission: 07/07/23 08:11 Expected date of discharge: 07/09/23 Attending physician: Moises John MD Consults: 07/07/23 08:21 Consult Physician Routine Consulting Provider: Dallas Mejia Consult Reason/Comments: metastatic breast cancer, coming in w/ CP has lung mass previously known Do you want consulting provider notified?: Yes Primary care physician: [facility] Course: Discharge Diagnosis: Chest pain secondary to pleurisy and costochondritis resulting from cancer pain as patient with known metastatic pulmonary mass along with metastasis to bone. Hypertension. Metastatic breast cancer to lung, bone, liver, and brain. Chest pain/pressure, acute coronary event ruled out. Hospital Course: Patient is a very pleasant 58-year-old female with a past medical history of metastatic breast cancer with metastasis to lung, liver, bone and brain status post craniotomy with tumor revision 02/[address] Mejia with last chemotherapy treatment being approximately 6 weeks ago, DVT, paroxysmal atrial fibrillation and previous PE on anticoagulation with Eliquis. She presented to the emergency department with a chief complaint of chest pain/pressure. Patient reports a constant pressure to midsternal chest beginning yesterday and progressively worsening. Patient reports pain is made worse upon taking a deep breath but denies anything improving pain. Patient underwent full evaluation in the emergency department. Vital signs upon arrival show blood pressure 169/109, heart rate 82, respiratory rate 16, temp 97.8 F, and SpO2 of 98% on room air. EKG was completed showing normal sinus rhythm at 73 bpm with T wave inversion in leads III otherwise showing no further T wave or ST abnormalities upon personal review and interpretation. Labs were completed and reviewed. CBC and coagulation profile were unremarkable. BMP revealing hypercarbia with bicarb of 31 otherwise normal findings. Blood glucose was 114. Magnesium 1.8. Liver profile showing elevated AST of 47 otherwise normal findings. Troponin was negative at less than 0.012. Lipase normal findings at 48. CTA chest was completed showing right basilar pulmonary mass measuring 4.4 cm with scattered pulmonary nodules which was previously shown on patient's PET scan completed 06/08/2023, concerns for hepatic lesions also previously reported, and no evidence of acute process or pulmonary emboli reported at this time. Heart score 5 secondary to highly suspicious history, nonspecific repolarization disturbance with T wave inversion in lead III, age, and 1-2 risk factors. Patient is admitted under our services with consultation to cardiology and oncology. Recent echo completed 06/01/2023 and report reviewed revealed preserved EF of 60 to 65% with mild biatrial enlargement and trivial pericardial effusion. Troponins were trended all negative at less than 0.012 x 3 draws. Repeat echocardiogram was completed showing normal preserved EF of 55 to 60% again with minimal pericardial effusion. Cardiology evaluated ruling out acute coronary process clearing patient from cardiac perspective as chest pain is not likely of cardiac origin. Patient reports persistent chest pressure pain to midsternal region worsens upon taking a deep breath this is likely pleurisy versus pain from known lung mass with metastasis to bone. Oncology following. Discussed with oncology team who recommended continuing pain management and added on lidocaine patches. As stated above, blood pressure was quite elevated upon arrival to the emergency department at 169/109 and patient continued to have elevated pressures ranging from 140s to 160s throughout hospitalization and was started on amlodipine 5 mg daily. Patient discharged home with prescriptions for amlodipine, lidocaine patch, and Tylenol 3. Physical exam: Vital signs reviewed and stable. General: Nontoxic, no distress and appears chronically ill. Derm: Skin warm and dry, normal coloration for ethnicity. Head: Atraumatic, normocephalic and symmetric. Eyes: EOMs intact, no lid lag, and anicteric sclera Mouth: no lip lesions, mucus membranes moist Cardiovascular: regular rate and rhythm with normal S1S2, systolic murmur, positive posterior tibial pulses bilaterally, and cap refill < 2 seconds. Lungs: Respirations even, regular, and unlabored on room air. Lungs CTA bilaterally, no rhonchi, no rales, no wheezing, and no accessory muscle usage. Abdominal: soft, nontender to palpation, no guarding, no appreciable organomegaly Ext: ROM intact. No gross muscle atrophy, no edema, no contractures Neuro: Speech clear, face symmetrical and CN II-XII grossly intact with no noted focal neuro deficits Psych: Alert and oriented to person, place, time, and situation. Appropriate and pleasant affect. A total of 31 minutes of time were spent preparing this complex discharge summary. Pt was discharged on 07/09/2023 at 11:14 AM. Patient was seen independently by Nurse Practitioner. This document was prepared using [employer] dictation software. Please allow for errors in neurocritical care physician while rare they do occur. I reviewed the documentation as provided by the VIGNESH above, who is the original author of this note. I agree with the documented assessment and plan, with the following changes: none Patient Condition at Discharge: Stable Plan - Discharge Summary New Discharge Prescriptions: New Lidocaine 4% Patch 1 patch TOPICAL DAILY 30 Days #30 patch amLODIPine [Norvasc] 5 mg PO DAILY 90 Days #90 tab Acetaminophen-Codeine 300-30mg [Tylenol w/codeine #3] 1 tab PO Q4H PRN 3 Days #18 tablet PRN Reason: Pain Control Continue Apixaban [Eliquis] 5 mg PO BID Omeprazole 40 mg PO AC-BRKT Discharge Medication List Apixaban [Eliquis] 5 mg PO BID 07/07/23 [History] Omeprazole 40 mg PO AC-BRKFST 07/07/23 [History] Acetaminophen-Codeine 300-30mg [Tylenol w/codeine #3] 1 tab PO Q4H PRN 3 Days #18 tablet 07/09/23 [Rx] Lidocaine 4% Patch 1 patch TOPICAL DAILY 30 Days #30 patch 07/09/23 [Rx] amLODIPine [Norvasc] 5 mg PO DAILY 90 Days #90 tab 07/09/23 [Rx] Follow up Appointment(s)/Referral(s): Geoff Wright DO [Primary Care Provider] - 1-2 days Dallas Mejia MD [STAFF PHYSICIAN] - 1 Week Melissa Blake MD [STAFF PHYSICIAN] - 1 Week Patient Instructions/Handouts: Pleurisy (DC), Costochondritis (DC), Hypertension (DC) Activity/Diet/Wound Care/Special Instructions: Activity: As tolerated. Take breaks as needed. Diet: Heart healthy and carb consistent diet. Avoid salts, or foods with hidden salts such as canned or boxed foods and frozen dinners. Extra salt makes your heart work harder and traps the fluid in your body for longer. Special Instructions: Take all of your medications as directed and remember to keep all of your doctor's appointments and follow-up as needed. Thank you for allowing us to participate in your care, it was truly a pleasure having you for our patient!!! Discharge/Stand Alone Forms: Work/School Release Discharge Disposition: HOME SELF-CARE
== END 2023-07-09 14:13 | disposition home or self-care (01) ==
LOC: EC 05:37 → 6NMEDSUR 08:11
PROVIDERS: ADMIT Student in an Organized Health Care Education/Training Program; ATTEND Student in an Organized Health Care Education/Training Program
DX: M94.0 Chondrocostal junction syndrome [Tietze] (principal); R09.1 Pleurisy; G89.3 Neoplasm related pain (acute) (chronic); C79.51 Secondary malignant neoplasm of bone; C78.01 Secondary malignant neoplasm of right lung; C78.7 Secondary malignant neoplasm of liver and intrahepatic bile duct; C79.31 Secondary malignant neoplasm of brain; I48.0 Paroxysmal atrial fibrillation; I11.0 Hypertensive heart disease with heart failure; I50.9 Heart failure, unspecified; J44.9 Chronic obstructive pulmonary disease, unspecified; F17.200 Nicotine dependence, unspecified, uncomplicated; Z85.3 Personal history of malignant neoplasm of breast; Z86.711 Personal history of pulmonary embolism; Z86.718 Personal history of other venous thrombosis and embolism; Z86.73 Personal history of transient ischemic attack (TIA), and cerebral infarction without residual deficits; Z79.01 Long term (current) use of anticoagulants; Z79.899 Other long term (current) drug therapy; Z88.0 Allergy status to penicillin; Z88.1 Allergy status to other antibiotic agents
CPT/HCPCS: 96376; 96374; 99285; 36415; 93308; 80061; 80053; 80048; 83690; 83735; 84484; 85025 ×2; 85610; 85730; 71275; G0378 ×3; J2270; Q9967

== ENCOUNTER 2023-08-28 09:10 | Observation (INO) | payer BC ==
[2023-08-28] MEDS: SODIUM CHLORIDE 0.9% 500 ML 500 ML IV STA (10:09)
[2023-08-28] MEDS: MORPHINE SULFATE 2 MG/ML SYRINGE IVP STA (10:10)
[2023-08-28] MEDS: ONDANSETRON 4 MG/2 ML VIAL IVP STA (10:10)
--- NOTE | 2023-08-28 10:12 | CT ---
EXAMINATION TYPE: CT brain wo con DATE OF EXAM: 08/28/2023 COMPARISON: 02/07/2023 HISTORY: Dizziness, prior brain mets CT DLP: 1153.[address] of the brain was performed. The ventricles, basal cisterns and sulci overlying the cerebral convexities demonstrate mild enlargem ent. Interval left occipital craniotomy change with post surgical encephalomalacia noted. No evidence for obvious recurrent or residual mass on this unenhanced study. If symptoms persist consider MRI. There is no evidence for intracranial hemorrhage or sulcal effacement. There is decreased attenuation about the periventricular white matter and deep white matter of both c erebral hemispheres, compatible with chronic small vessel ischemia. Differential diagnosis does inclu de demyelination. No mass effects are seen.No midline shift. If symptoms persist consider MRI. IMPRESSION: 1. Interval left occipital craniotomy change with post surgical encephalomalacia noted. No evidence f or obvious recurrent or residual mass on this unenhanced study. If symptoms persist consider MRI.
--- NOTE | 2023-08-28 10:13 | XR ---
EXAMINATION TYPE: XR chest 2V DATE OF EXAM: 08/28/2023 COMPARISON: July 06, 2023 HISTORY: Shortness of breath TECHNIQUE: Frontal and lateral views of the chest are obtained. FINDINGS: Scattered senescent parenchymal changes noted. Hyperinflation compatible with COPD. There is persistent right basilar opacity which correlates with recent PET/CT findings. No definite i nterval change appreciated. Heart size is stable. Mediastinal structures are stable and grossly unremarkable. No evidence for hilar prominence. Degenerative changes dorsal spine. IMPRESSION: 1. There is persistent right basilar opacity which correlates with recent PET/CT findings. No definit e interval change appreciated.
[2023-08-28 10:16] LABS: Basophils # (A) 0.1 k/uL (0-0.2); Basophils % (A) 1 %; Eosinophils # (A) 0.1 k/uL (0-0.7); Eosinophils % (A) 1 %; HCT 41.1 % (34.0-46.0); HGB 13.2 gm/dL (11.4-16.0); Lymphocytes # (A) 1.3 k/uL (1.0-4.8); Lymphocytes % (A) 12 %; MCH 28.5 pg (25.0-35.0); MCV 88.9 fL (80.0-100.0); Mean Platelet Volume 8.4; Monocytes # (A) 0.9 k/uL (0-1.0); Monocytes % (A) 8 %; Neutrophils # (A) 8.8 k/uL (1.3-7.7); Neutrophils % (A) 77 %; Platelet Count 359 k/uL (150-450); RBC 4.63 m/uL (3.80-5.40); RDW 15.6 % (11.5-15.5); WBC 11.3 k/uL (3.8-10.6)
[2023-08-28 10:29] LABS: ALT 78 U/L (4-34); African American GFR (CKD) >90 (>60 ml/min/1.73 sqM); Albumin 3.3 g/dL (3.5-5.0); Anion Gap 11 mmol/L; Blood Urea Nitrogen 8 mg/dL (7-17); Calcium 8.7 mg/dL (8.4-10.2); Carbon Dioxide 23 mmol/L (22-30); Chloride 99 mmol/L (98-107); Glucose 220 mg/dL (74-99); Magnesium 1.9 mg/dL (1.6-2.3); Non-African American GFR(CKD) >90 (>60 ml/min/1.73 sqM); Sodium 133 mmol/L (137-145); Total Bilirubin 0.9 mg/dL (0.2-1.3); Total Protein 6.4 g/dL (6.3-8.2)
[2023-08-28 10:30] LABS: INR 1.1 (<1.2); Prothrombin Time 11.7 sec (10.0-12.5)
[2023-08-28 10:31] LABS: AST 163 U/L (14-36); Alkaline Phosphatase 304 U/L (38-126); Potassium 3.7 mmol/L (3.5-5.1)
[2023-08-28] MEDS ORDERED: NITROGLYCERIN SL TABS 0.4 MG TAB SUBLINGUAL PRN (11:40)
--- NOTE | 2023-08-28 11:40 | ED ---
Chest Pain HPI - General Chief Complaint: Chest Pain Stated Complaint: Chest Pains Time Seen by Provider: 08/28/23 09:31 Source: patient, RN notes reviewed Mode of arrival: wheelchair - History of Present Illness Initial Comments: 58-year-old female presents emergency department chief complaint chest pain, dizziness. Patient states that symptoms started yesterday worsened today. States that she is extremely dizzy the point where she cannot get up. Patient states it is better at rest. States that room spinning she did feel lightheaded [place] today. She complains of centralized chest pain. Patient states does not feel like her typical chest pain that she has associated with her breast cancer. Patient states she was due for chemotherapy but states that she was too symptomatic and came here. She states her last treatment was 3 weeks ago. She denies any fevers or chills no cough or cold-like symptoms. She does admit to nausea. Patient states nothing is alleviated her chest pain. States she is stage IV metastatic breast cancer states she did have a prior mets to her brain with prior surgery at [facility]. Patient is followed by oncology here. - Related Data Home Medications Medication Instructions Recorded Confirmed Apixaban [Eliquis] 5 mg PO BID 07/07/23 08/28/23 Omeprazole 40 mg PO AC-BRKFST 07/07/23 08/28/23 OLANZapine 5 mg PO DIRECTED 08/28/23 08/28/23 Ondansetron Odt [Zofran Odt] 4 mg PO Q4-6H PRN 08/28/23 08/28/23 Previous Rx's Medication Instructions Recorded Acetaminophen-Codeine 300-30mg 1 tab PO Q4H PRN 3 Days #18 tablet 07/09/23 [Tylenol w/codeine #3] amLODIPine [Norvasc] 5 mg PO DAILY 90 Days #90 tab 07/09/23 Allergies Allergy/AdvReac Type Severity Reaction Status Date / Time metronidazole [From Flagyl] Allergy Intermediate Anaphylaxis Verified 08/28/23 12:19 adhesive tape Allergy Mild Rash/Hives,sometimes Verified 08/28/23 12:19 blisters Penicillins AdvReac Nausea Verified 08/28/23 12:19 Review of Systems ROS Statement: Those systems with pertinent positive or pertinent negative responses have been documented in the HPI. ROS Other: All systems not noted in ROS Statement are negative. EKG Findings - EKG Comments: EKG Findings:: EKG performed at 9: 24 sinus rhythm rate of 93 HI 104 QRS 80 QT/QTc 354/408 - EKG Results: EKG: interpreted by VIRGIL Past Medical History Past Medical History: Atrial Fibrillation, Cancer, Deep Vein Thrombosis (DVT), Pulmonary Embolus (PE) Additional Past Medical History / Comment(s): left breast CA-dx April 30, 2021-had surg. & currently getting radiation,unable to lay on stomach from prior old injury as a teenager, DVT & PE after hysterectomy 15 yrs ago and DVT after varicose vein stripping yrs ago., DVT in August behind right knee History of Any Multi-Drug Resistant Organisms: None Reported Past Surgical History: Breast Surgery, Section, Hysterectomy, Tonsillectomy Additional Past Surgical History / Comment(s): breast biopsy. Ear surgery as child., mediport insertion, left breast lumpectomy w/sentinel lymph node bx. in November 2021, tumor removal brain Past Anesthesia/Blood Transfusion Reactions: No Reported Reaction Additional Past Anesthesia/Blood Transfusion Reaction / Comment(s): no hx blood transfusion Past Psychological History: No Psychological Hx Reported Smoking Status: Current every day smoker Past Alcohol Use History: None Reported Past Drug Use History: None Reported - Past Family History Mother Family Medical History: AFIB, Congestive Heart Failure (CHF), COPD, Hypertension Additional Family Medical History / Comment(s): beginings of uterine Cancer Father Family Medical History: Cancer Additional Family Medical History / Comment(s): lung General Exam General appearance: alert, in no apparent distress Head exam: Present: atraumatic, normocephalic, normal inspection Eye exam: Present: normal appearance, PERRL, EOMI. Absent: scleral icterus, conjunctival injection, periorbital swelling ENT exam: Present: normal exam, normal oropharynx, mucous membranes moist Neck exam: Present: normal inspection, full ROM. Absent: tenderness, meningismus, lymphadenopathy Respiratory exam: Present: normal lung sounds bilaterally. Absent: respiratory distress, wheezes, rales, rhonchi, stridor Cardiovascular Exam: Present: normal rhythm, tachycardia, normal heart sounds. Absent: systolic murmur, diastolic murmur, rubs, gallop, clicks GI/Abdominal exam: Present: soft, normal bowel sounds. Absent: distended, tenderness, guarding, rebound, rigid Neurological exam: Present: alert, oriented X3, CN II-XII intact, reflexes normal. Absent: motor sensory deficit Course Vital Signs 08/28/23 08/28/23 08/28/23 09:14 10:05 11:00 Temperature 97.7 F Pulse Rate 103 H 84 77 Respiratory 18 19 17 Rate Blood Pressure 142/86 133/90 123/77 O2 Sat by Pulse 98 98 97 Oximetry 08/28/23 08/28/23 12:00 14:08 Temperature Pulse Rate 80 77 Respiratory 17 18 Rate Blood Pressure 132/83 118/69 O2 Sat by Pulse 98 98 Oximetry Chest Pain MDM - MDM Was pt. sent in by a medical professional or institution (, PA, NERVE SPECIALIST, urgent care, hospital, or correction...) When possible be specific @ -No Did you speak to anyone other than the patient for history (EMS, parent, family, police, friend...)? What history was obtained from this source @ -No Did you review nursing and triage notes (agree or disagree)? Why? @ -I reviewed and agree with nursing and triage notes Were old charts reviewed (outside hosp., previous admission, EMS record, old EK G, old radiological studies, urgent care reports/EKG's, correction records)? Report findings @ -Reviewed prior laboratory studies, imaging Differential Diagnosis (chest pain, altered mental status, abdominal pain women, abdominal pain men, vaginal bleeding, weakness, fever, dyspnea, syncope, headache, dizziness, GI bleed, back pain, seizure, CVA, palpatations, mental health, musculoskeletal)? @ -Differential Dizziness: Benign paroxysmal positional Vertigo, Menieres disease, otitis media, acoustic neuroma, vertebrobasilar insufficiency, cerebellar stroke, encephalitis, hypovolemic, arrhythmia, coronary artery syndrome, anemia, this is not meant to be an all-inclusive list Differential Chest Pain: Stable Angina, Unstable Angina, STEMI, NSTEMI Aortic Dissection, Pneumothorax, Musculoskeletal, Esophageal Spasm GERD, Cholecystitis, Pancreatitis, Zoster, this is not meant to be an all-inclusive list. EKG interpreted by me (3pts min.). @ -As above X-rays interpreted by me (1pt min.). @ -Chest x-ray shows consolidation of the right consistent with PET scan and known cancer CT interpreted by me (1pt min.). @ -CT the brain shows no intracranial hemorrhage, there is postsurgical changes, craniotomy U/S interpreted by me (1pt. min.). @ -None done What testing was considered but not performed or refused? (CT, X-rays, U/S, labs)? Why? @ -None What meds were considered but not given or refused? Why? @ -None Did you discuss the management of the patient with other professionals (professionals i.e. , PA, NERVE SPECIALIST, lab, RT, psych nurse, social studies department chair, controls project engineer, teacher, control systems drafting officer, supportive employment case manager)? Give summary @ -Dr. Charles for admission secondary to persistent dizziness, metastatic disease and underlying chest pain. Was smoking cessation discussed for >3mins.? @ -No Was critical care preformed (if so, how long)? @ -No Were there social determinants of health that impacted care today? How? (Homelessness, low income, unemployed, alcoholism, drug addiction, transportation, low edu. Level, literacy, decrease access to med. care, retirement, rehab)? @ -No Was there de-escalation of care discussed even if they declined (Discuss DNR or withdrawal of care, Hospice)? DNR status @ -No What co-morbidities impacted this encounter? (DM, HTN, Smoking, COPD, CAD, Cancer, CVA, ARF, Chemo, Hep., AIDS, mental health diagnosis, sleep apnea, morbid obesity)? @ -Metastatic cancer Was patient admitted / discharged? Hospital course, mention meds given and route, prescriptions, significant lab abnormalities, going to OR and other pertinent info. @ -Admitted the patient admitted for persistent intractable dizziness concerning for her metastatic disease in which she had prior brain mets and surgery. Patient does have chest pain and will have cardiac rule out. Patient will consult to neurology, oncology. Undiagnosed new problem with uncertain prognosis? @ -No Drug Therapy requiring intensive monitoring for toxicity (Heparin, Nitro, Insulin, Cardizem)? @ -No Were any procedures done? @ -No Diagnosis/symptom? @ -Intractable dizziness, metastatic cancer, chest pain Acute, or Chronic, or Acute on Chronic? @ -Acute Uncomplicated (without systemic symptoms) or Complicated (systemic symptoms)? @ -Complicated Side effects of treatment? @ -No Exacerbation, Progression, or Severe Exacerbation? @ -No Poses a threat to life or bodily function? How? (Chest pain, [place], [place], pneumonia, PE, COPD, DKA, ARF, appy, cholecystitis, CVA, Diverticulitis, Homicidal, Suicidal, threat to staff... and all critical care pts) @ -No Disposition Clinical Impression: Chest pain, Dizziness, Breast cancer metastasized to multiple sites Disposition: ADMITTED IP TO THIS [facility] Time of Disposition: 11:40
[2023-08-28] MEDS: MECLIZINE 12.5 MG TAB PO STA (12:35)
[2023-08-28] MEDS: METOCLOPRAMIDE 5 MG/ML 2 ML VIAL IVP STA (12:35)
[2023-08-28] MEDS ORDERED: MECLIZINE 25 MG TAB PO PRN (13:05)
--- NOTE | 2023-08-28 13:11 | P.HPIM ---
History of Present Illness H&P Date: 08/28/23 58-year-old female with a past medical history of metastatic breast cancer with metastasis to lung, liver, bone and brain status post craniotomy with tumor revision 02/[address] Mejia, DVT, paroxysmal atrial fibrillation and previous PE on anticoagulation with Eliquis. Presents to the ED for chest pain and vertigo. Symptoms started yesterday after taking a shower. While walking back to her bedroom, experienced vertiginous symptoms associated with loss of coordination and nausea. Denied slurred speech, confusion, focal neurological deficits. No viral URI or issues with hearing. Reports feeling vertigo sometimes since her craniotomy in January 2023 but nothing as severe as this episode. This morning started to experience chest pain. Sternal, aching, 6/10 severity, no radiation, worsened with deep inspiration and palpation of the chest wall. Symptoms persisted which prompted her to come to the ED. In the ED she underwent extensive evaluation. BP 142/86, HR 103, RR 18, T97.7F, 98% on RA. CBC WBC 11.3. Coag panel within normal limits. CMP Na 133, Cr 0.46, glu 220, AST 163, ALT 78, alk phos 304, alb 3.3. Trop < 0.012. EKG sinus rhythm. CXR unremarkable. CT brain interval left craniotomy changes with post surgical encephlomalacia. Admitted for further workup of dizziness, rule out ACS and Neurology evaluation. General: non toxic, no distress, appears at stated age Derm: warm, dry Head: atraumatic, normocephalic, symmetric Eyes: EOMI, no lid lag, anicteric sclera Mouth: no lip lesion, mucus membranes moist Cardiovascular: S1S2 reg, no murmur Lungs: CTA bilateral, no rhonchi, no rales , no accessory muscle use Ext: no gross muscle atrophy, no edema, no contractures Neuro: no focal neuro deficits Psych: Alert, oriented, appropriate affect Based on my assessment of this patient, this patient meets a high complexity level of care. Patient has an acute diagnosis of vertigo and chest pain that poses a threat to life or bodily function. Vertigo: History of left craniotomy changes with post surgical encephlomalacia in 01/2023. Start Meclizine 25 mg PO TID. Fall precautions. Orthostats. Telemetry monitoring. Previous Echo in 06/21 shows preserved EF with mild MR/TR and trivial pericardial effusion. Consult Neurology. Chest pain: Likely costocondritis or pleurisy given pulmonary mass. Toradol 15 mg IV Q6H PRN for pain. Trend Trop/EKG to rule out ACS. Leukocytosis: No signs of active infection. Monitor fever profile. Transaminitis: Unsure if related to chemotherapy. Consult Oncology. CODE STATUS: FULL CODE DVT Prophylaxis: Eliquis GI Prophylaxis: Omeprazole. Designated medical POA if patient is not able to make medical decisions for themselves: Daughter I have reviewed the following community resource consultant notes: ED note. I have reviewed the results of the following tests: As above I have ordered the following tests: As above I have discussed the care of this patient with the following independent historian: Daughter I have independently interpreted the following test below: EKG I have discussed the management of this patient with the following physician: ED provider. Past Medical History Past Medical History: Atrial Fibrillation, Cancer, Deep Vein Thrombosis (DVT), Pulmonary Embolus (PE) Additional Past Medical History / Comment(s): left breast CA-dx April 30, 2021-had surg. & currently getting radiation,unable to lay on stomach from prior old injury as a teenager, DVT & PE after hysterectomy 15 yrs ago and DVT after varicose vein stripping yrs ago., DVT in August behind right knee History of Any Multi-Drug Resistant Organisms: None Reported Past Surgical History: Breast Surgery, Section, Hysterectomy, Tonsi llectomy Additional Past Surgical History / Comment(s): breast biopsy. Ear surgery as child., mediport insertion, left breast lumpectomy w/sentinel lymph node bx. in November 2021, tumor removal brain Past Anesthesia/Blood Transfusion Reactions: No Reported Reaction Additional Past Anesthesia/Blood Transfusion Reaction / Comment(s): no hx blood transfusion Past Psychological History: No Psychological Hx Reported Smoking Status: Current every day smoker Past Alcohol Use History: None Reported Past Drug Use History: None Reported - Past Family History Mother Family Medical History: AFIB, Congestive Heart Failure (CHF), COPD, Hypertension Additional Family Medical History / Comment(s): beginings of uterine Cancer Father Family Medical History: Cancer Additional Family Medical History / Comment(s): lung Medications and Allergies Home Medications Medication Instructions Recorded Confirmed Type Apixaban [Eliquis] 5 mg PO BID 07/07/23 08/28/23 History Omeprazole 40 mg PO AC-BRKFST 07/07/23 08/28/23 History Acetaminophen-Codeine 300-30mg 1 tab PO Q4H PRN 3 Days #18 tablet 07/09/23 08/28/23 Rx [Tylenol w/codeine #3] amLODIPine [Norvasc] 5 mg PO DAILY 90 Days #90 tab 07/09/23 08/28/23 Rx OLANZapine 5 mg PO DIRECTED 08/28/23 08/28/23 History Ondansetron Odt [Zofran Odt] 4 mg PO Q4-6H PRN 08/28/23 08/28/23 History Allergies Allergy/AdvReac Type Severity Reaction Status Date / Time metronidazole [From Flagyl] Allergy Intermediate Anaphylaxis Verified 08/28/23 12:19 adhesive tape Allergy Mild Rash/Hives,sometimes Verified 08/28/23 12:19 blisters Penicillins AdvReac Nausea Verified 08/28/23 12:19 Physical Exam Vitals: Vital Signs Temp Pulse Resp BP Pulse Ox 08/28/23 12:00 80 17 132/83 98 08/28/23 11:00 77 17 123/77 97 08/28/23 10:05 84 19 133/90 98 08/28/23 09:14 97.7 F 103 H 18 142/86 98 Intake and Output 08/27/23 08/28/23 08/28/23 22:59 06:59 14:59 Other: Weight 63.503 kg Results CBC & Chem 7: 08/28/23 09:54 08/28/23 09:54 Labs: Abnormal Lab Results - Last 24 Hours (Table) 08/28/23 08/28/23 Range/Units 09:54 09:54 WBC 11.3 H (3.8-10.6) k/uL RDW 15.6 H (11.5-15.5) % Neutrophils # 8.8 H (1.3-7.7) k/uL Sodium 133 L (137-145) mmol/L Creatinine 0.46 L (0.52-1.04) mg/dL Glucose 220 H (74-99) mg/dL AST 163 H (14-36) U/L ALT 78 H (4-34) U/L Alkaline Phosphatase 304 H (38-126) U/L Albumin 3.3 L (3.5-5.0) g/dL
[2023-08-28] MEDS: KETOROLAC 15 MG/ML 1 ML VIAL IVP PRN (14:21)
--- NOTE | 2023-08-28 16:11 | P.CNNES ---
History of Present Illness Consult date: 08/28/23 Requesting physician: Geoff Rogers Reason for Consult: Intractable dizziness History of Present Illness: Patient is a 58-year-old left-handed female with history of atrial fibrillation, left breast cancer, DVT and PE, came to the hospital this morning at 9:10 AM for vertigo. Patient states that last night she took a shower around 8 PM, and was feeling fine. When she got done with taking the shower, she felt very dizzy, spinning with vertigo which she has never experienced before. She was barely able to walk from bathroom to the bedroom, as it was a continuous vertigo, until she laid down in the bed and then was not feeling as bad. She started watching TV and few hours later, she stopped being dizzy. She then put herself under covers and went to sleep and slept well. When she woke up at 6 AM this morning, she was feeling slightly dizzy. She was still able to get up, went to the bathroom, started making her snacks. She was able to eat oatmeal. She has scheduled chemotherapy today for her breast cancer. She went and drove to her daughter and then did not feel good and the dizziness reappeared and kept on getting worse. Therefore she told her daughter to bring her to the hospital. Patient denies any strokelike symptoms like slurred speech facial droop, double vision, loss of vision, any focal numbness tingling or weakness. Patient denies any flulike symptoms, cold, upper respiratory infection, pain pressure or ringing in the ears, or any sinus issues. Vital signs arrival blood pressure 142/86 pulse rate 103, temperature 97.7. Blood test shows WBC 11.3, hemoglobin 13.2, normal platelets. PT PTT normal, sodium 133 potassium 3.7, AST is 163, ALT 78, troponin negative. Chest x-ray revealed there is persistent right basilar opacity which correlates with recent PET/CT findings. No definite interval change appreciated. EKG shows sinus rhythm with short VT interval. CT head showed interval left occipital craniotomy change with postsurgical encephalomalacia noted. No evidence for obvious recurrent or residual mass on this unenhanced study. If symptoms persist, consider MRI. I personally reviewed CT head, agree with the findings. Visualized paranasal sinuses and external auditory canals are clear. Patient was diagnosed with left breast cancer in 2020 for which she underwent surgery, followed by radiation therapy. In January 2022, she was diagnosed with cerebral metastasis for which she underwent craniotomy and surgical removal of the tumor followed by cranial radiation. She was placed on Taxol but that it did not work. Now she is under another type of chemotherapy and has completed 3 of them and 2 more to go. Patient has developed right lower quadrant defect since her craniotomy. Patient also has history of DVT, PE and atrial fibrillation on Eliquis. She does not miss a dose of Eliquis. Patient has smoked half pack per day for 10 years, quit 1-1/2 months ago. At present patient is not dizzy anymore. Review of Systems Constitutional: Reports weight loss, Denies chills, Denies fever Eyes: right loss of peripheral vision, denies blurred vision, denies diplopia, denies pain, denies loss of vision Ears: deny: decreased hearing, ear discharge Ears, nose, mouth and throat: Reports headache (Comes and goes), Reports vertigo, Denies sore throat Cardiovascular: Reports chest pain, Reports shortness of breath (When first got here, now gone), Denies syncope Respiratory: Reports excessive sputum, Denies cough Gastrointestinal: Denies abdominal pain, Denies diarrhea, Denies nausea, Denies vomiting Genitourinary: Denies dysuria, Denies hematuria, Denies urge incontinence Musculoskeletal: Denies low back pain, Denies neck pain Integumentary: Denies pruritus, Denies rash Neurological: Reports as per HPI Psychiatric: Denies anxiety, Denies depression Endocrine: Reports weight change, Denies fatigue Hematologic/Lymphatic: Denies easy bleeding, Denies easy bruising Past Medical History Past Medical History: Atrial Fibrillation, Cancer, Deep Vein Thrombosis (DVT), Pulmonary Embolus (PE) Additional Past Medical History / Comment(s): left breast CA-dx April 30, 2021-had surg. & currently getting radiation,unable to lay on stomach from prior old injury as a teenager, DVT & PE after hysterectomy 15 yrs ago and DVT after varicose vein stripping yrs ago., DVT in August behind right knee History of Any Multi-Drug Resistant Organisms: None Reported Past Surgical History: Breast Surgery, Section, Hysterectomy, Tonsillectomy Additional Past Surgical History / Comment(s): breast biopsy. Ear surgery as child., mediport insertion, left breast lumpectomy w/sentinel lymph node bx. in November 2021, tumor removal brain Past Anesthesia/Blood Transfusion Reactions: No Reported Reaction Additional Past Anesthesia/Blood Transfusion Reaction / Comment(s): no hx blood transfusion Past Psychological History: No Psychological Hx Reported Smoking Status: Current every day smoker Past Alcohol Use History: None Reported Past Drug Use History: None Reported - Past Family History Mother Family Medical History: AFIB, Congestive Heart Failure (CHF), COPD, Hypertension Additional Family Medical History / Comment(s): beginings of uterine Cancer Father Family Medical History: Cancer Additional Family Medical History / Comment(s): lung Medications and Allergies Home Medications Medication Instructions Recorded Confirmed Type Apixaban [Eliquis] 5 mg PO BID 07/07/23 08/28/23 History Omeprazole 40 mg PO AC-BRKFST 07/07/23 08/28/23 History Acetaminophen-Codeine 300-30mg 1 tab PO Q4H PRN 3 Days #18 tablet 07/09/23 08/28/23 Rx [Tylenol w/codeine #3] amLODIPine [Norvasc] 5 mg PO DAILY 90 Days #90 tab 07/09/23 08/28/23 Rx OLANZapine 5 mg PO DIRECTED 08/28/23 08/28/23 History Ondansetron Odt [Zofran Odt] 4 mg PO Q4-6H PRN 08/28/23 08/28/23 History Allergies Allergy/AdvReac Type Severity Reaction Status Date / Time metronidazole [From Flagyl] Allergy Intermediate Anaphylaxis Verified 08/28/23 12:19 adhesive tape Allergy Mild Rash/Hives,sometimes Verified 08/28/23 12:19 blisters Penicillins AdvReac Nausea Verified 08/28/23 12:19 Physical Examination - Vital Signs Vital Signs: Vital Signs Temp Pulse Resp BP Pulse Ox 08/28/23 12:00 80 17 132/83 98 08/28/23 11:00 77 17 123/77 97 08/28/23 10:05 84 19 133/90 98 08/28/23 09:14 97.7 F 103 H 18 142/86 98 Intake and Output 08/27/23 08/28/23 08/28/23 22:59 06:59 14:59 Other: Weight 63.503 kg Patient is a middle aged female, very pleasant, in no acute distress. She is somewhat thin built. Patient is alert awake oriented to time place and person. Speech and language functions are normal. Patient can name and repeat very well. No aphasia or dysarthria. Attention, concentration and fund of knowledge is adequate. Yosvany lind is edentulous. On cranial nerve examination, pupils are equal, round and reacting to light, visual clarke revealed right lower quadrant visual field defect, homonymous type, on confrontation. Extraocular muscles are intact with no nystagmus. Face is symmetric, tongue protrudes to the midline. Palatal elevation and sensation normal, hearing and shoulder shrug normal, facial sensation normal. On muscle strength testing, there is no pronator drift and the strength is normal in arms and legs distally and proximally except hip flexion, which is about 4+5-bilaterally. Deep tendon reflexes are asymmetric (right/left) biceps 1+/1, brachioradialis 1+/1, knees 1+/1, ankles 1/1 and plantars are downgoing bilaterally. Sensory to touch is equal with no neglect on double simultaneous stimulation. Cerebellar function showed no ataxia for [id number] testing. No dysdiadochokinesia. No ataxia for [id number] testing on either side. Tone and bulk of muscles normal. Gait deferred.. On general examination, there is no carotid bruit or murmur, S1-S2 audible. Chest is clear on consultation. Abdomen is soft nontender. No organomegaly, bowel sounds present. Peripheral pulses are present. No peripheral edema. Results - Laboratory Findings CBC and BMP: 08/28/23 09:54 08/28/23 09:54 Abnormal Lab Findings: Abnormal Labs 08/28/23 08/28/23 09:54 09:54 WBC 11.3 H RDW 15.6 H Neutrophils # 8.8 H Sodium 133 L Creatinine 0.46 L Glucose 220 H AST 163 H ALT 78 H Alkaline Phosphatase 304 H Albumin 3.3 L Assessment and Plan Assessment: * New onset dizziness/vertigo, unclear cause. * Left breast cancer, status post surgery, radiation, on chemotherapy. * History of a solitary left occipital cerebral metastasis, status postcraniotomy February 2023. * Right lower quadrant visual field defect, likely due to residual effect of above. * Atrial fibrillation, on Eliquis * Tobacco use, quit 1-1/2 months ago * History of DVT Plan: * MRI of the brain with and without contrast evaluate for CVA, rule out metastasis * CTA of head and neck, rule out vertebrobasilar insufficiency or carotid disease. * Further management based upon above test results. * Continue Eliquis. * Cholesterol 190, LDL 128, HDL 46 and triglycerides 75, on 07/07/2023. Consider starting Lipitor 20 mg. * B12, folate, TSH, hemoglobin A1c. * Neurology will follow. Thank you for the consult.
--- NOTE | 2023-08-28 17:10 | MR ---
EXAMINATION TYPE: MR brain wo/w con DATE OF EXAM: 08/28/2023 4:48 PM CLINICAL INDICATION:Female, 58 years old with history of Vertigo, history of breast cancer?; PHH, Sandeep tigo, History of breast cancer. COMPARISON: 06/27/2023. TECHNIQUE: Multi planar, multi sequence imaging was performed through the brain including: T1, T2, In version recovery, susceptibility weighted imaging and gradient echo imaging and Diffusion weighted im aging. The patient was then given intravenous contrast and multi planar, T1 fat-saturation images wer e obtained. IV Contrast: 6.5 cc Gadavist FINDINGS: Postsurgical changes of the left posterior parietal region with craniotomy changes. There is blooming artifact along the surgical bed margin. Some enhancement along the posterior superior aspect of the lesion remains present. Measuring 5 mm. No evidence for restricted diffusion. Scattered metastatic lesions throughout the cerebellum and cerebrum. samples include: * New cystic peripherally enhancing lesion in the right cerebellum measuring up to 9 mm. * Decrease in size of left cerebellar lesion now measuring 6 mm, previously 10 mm. * Right superior cerebellar hemisphere lesion has now decreased in size measuring 4 mm previously 6 mm. * Enhancing focus within the left caudate nucleus is new. Measuring up to 4 mm. * Cystic area within the right thalamus is not significantly changed. Left temporal lobe deep white matter enhancing focus measuring 3 mm, previously 7 mm. * Possible new right frontal lobe lesion measuring 2 mm series 801 image 124. * New left frontal lobe cortex lesion using 5 mm series 801 image 102 * Right posterior parietal subcortical cystic lesion which is new measuring 9 mm series 801 image 29 . * New focus of enhancement in the right frontal lobe series 801 image 119. Measuring 3 mm. The bone marrow signal is within normal limits. Post craniotomy changes. Some heterogenous bone marro w signal and postcontrast imaging within the right frontal/parietal region series 801 image 124. This is not significantly changed from prior. Paranasal sinuses and mastoid air cells: No significant paranasal sinus disease. Visualized orbits: Orbital contents are intact. IMPRESSION: 1. Progression of disease with postsurgical changes and new scattered metastatic foci. Other metasta tic foci have decreased in size. 2. No evidence for acute/subacute CVA.
[2023-08-28] MEDS: APIXABAN 5 MG TAB PO SCH (20:41)
[2023-08-29 03:50] LABS: Vitamin B12 >3600.0 pg/mL (200.0-944.0)
[2023-08-29] MEDS: PANTOPRAZOLE 40 MG TABLET PO SCH (06:21)
[2023-08-29] MEDS: amLODIPine 5 MG TAB PO SCH (08:36)
[2023-08-29] MEDS: ACETAMINOPHEN TAB 325 MG TAB PO PRN (10:46)
[2023-08-29 11:16] LABS: Chol/HDL Ratio 8.22 Ratio; LDL Cholesterol,Calculated 147.8 mg/dL (0.0-131.0)
--- NOTE | 2023-08-29 12:05 | P.PN ---
Subjective Progress Note Date: 08/29/23 Patient was seen for a follow-up. Patient's sister was also present. Patient states that she had a short episode of dizziness this morning that lasted only for a minute. She has a slight headache at this time. No other focal symptoms. No new concerns. Objective - Vital Signs Vital signs: Vital Signs Temp 98.5 F 08/29/23 07:00 Pulse 70 08/29/23 07:00 Resp 18 08/29/23 07:00 BP 135/79 08/29/23 07:00 Pulse Ox 98 08/29/23 07:00 FiO2 Intake & Output 08/28/23 08/29/23 08/29/23 18:59 06:59 18:59 Intake Total 118 Balance 118 Weight 63.503 kg 63.503 kg Intake: Oral 118 Other: Voiding Method Toilet # Voids 2 - Exam Mental status, speech and language functions are normal. Rest of the examination is unchanged. No ataxia. - Labs CBC & Chem 7: 08/28/23 09:54 08/28/23 09:54 Labs: Abnormal Lab Results - Last 24 Hours (Table) 08/28/23 Range/Units 09:54 Vitamin B12 >3600.0 H (200.0-944.0) pg/mL Assessment and Plan Assessment: * New onset dizziness/vertigo, unclear cause. Probable due to cerebral metastasis. * Left breast cancer, status post surgery, radiation, on chemotherapy. * History of a solitary left occipital cerebral metastasis, status postcraniotomy February 2023. * Right lower quadrant visual field defect, likely due to residual effect of above. * Atrial fibrillation, on Eliquis * Tobacco use, quit 1-1/2 months ago * History of DVT Plan: * MRI of the brain with and without contrast was performed, which revealed progression of disease with postsurgical changes and new scattered metastatic foci. Other metastatic foci have decreased in size. No evidence for acute/subacute CVA. I personally reviewed MRI, agree with the findings. Await oncology input. * CTA of head and neck, completed, results pending. * Continue Eliquis. * B12 > 3600, folate 11.10, TSH 1.97, hemoglobin A1c. * Lipid panel with cholesterol 199, LDL 147, HDL 24, triglycerides 135. Consider starting Lipitor 20 mg. However we will defer to IM because of already elevated liver enzymes.
[2023-08-29] MEDS: DEXAMETHASONE SOD PHOSPHATE 10 MG/ML 1 ML VIAL IVP STA (13:26)
--- NOTE | 2023-08-29 14:10 | P.PN ---
Subjective Progress Note Date: 08/29/23 58-year-old female with a past medical history of metastatic breast cancer with metastasis to lung, liver, bone and brain status post craniotomy with tumor revision 02/[address] Mejia, DVT, paroxysmal atrial fibrillation and previous PE on anticoagulation with Eliquis. Presents to the ED for chest pain and vertigo. Symptoms started yesterday after taking a shower. While walking back to her bedroom, experienced vertiginous symptoms associated with loss of coordination and nausea. Denied slurred speech, confusion, focal neurological deficits. No viral URI or issues with hearing. Reports feeling vertigo sometimes since her craniotomy in January 2023 but nothing as severe as this episode. This morning started to experience chest pain. Sternal, aching, 6/10 severity, no radiation, worsened with deep inspiration and palpation of the chest wall. Symptoms persisted which prompted her to come to the ED. In the ED she underwent extensive evaluation. BP 142/86, HR 103, RR 18, T97.7F, 98% on RA. CBC WBC 11.3. Coag panel within normal limits. CMP Na 133, Cr 0.46, glu 220, AST 163, ALT 78, alk phos 304, alb 3.3. Trop < 0.012. EKG sinus rhythm. CXR unremarkable. CT brain interval left craniotomy changes with post surgical encephlomalacia. Admitted for further workup of dizziness, rule out ACS and Neurology evaluation. 08/28 Patient was seen and examined. Sister at bedside. Reported one episode of vertigo this morning that improved after sitting down. Troponins < 0.012 x 3. B12 > 3600. Folate 11.1. TSH 1.97. Lipid panel LDL 147.8, HDL 24.2. MRI brain shows new metastatic lesions including in the cerebellum. Discussed with Dr. Talbert, plans to start Decadron and get Rad-Onc to evaluate. Neurology recommends CTA head and neck. General: non toxic, no distress, appears at stated age Derm: warm, dry Head: atraumatic, normocephalic, symmetric Eyes: EOMI, no lid lag, anicteric sclera Mouth: no lip lesion, mucus membranes moist Cardiovascular: S1S2 reg, no murmur Lungs: CTA bilateral, no rhonchi, no rales , no accessory muscle use Ext: no gross muscle atrophy, no edema, no contractures Neuro: no focal neuro deficits Psych: Alert, oriented, appropriate affect Based on my assessment of this patient, this patient meets a high complexity level of care. Patient has an acute diagnosis of vertigo and chest pain that poses a threat to life or bodily function. Vertigo: History of left craniotomy changes with post surgical encephlomalacia in 01/2023. MRI brain as above. Meclizine 25 mg PO TID. Start Decadron 10 mg IV x 1 followed by 2 mg IV TID. Fall precautions. Telemetry monitoring. Previous Echo in 06/21 shows preserved EF with mild MR/TR and trivial pericardial effusion. Consult Neurology. Chest pain: Likely costocondritis or pleurisy given pulmonary mass. Toradol 15 mg IV Q6H PRN for pain. Troponins trended ACS ruled out. Dyslipidemia: Lipitor 20 mg PO QD started by Neurology. Leukocytosis: No signs of active infection. Monitor fever profile. Transaminitis: Unsure if related to chemotherapy. Consult Oncology. CODE STATUS: FULL CODE DVT Prophylaxis: Eliquis GI Prophylaxis: Omeprazole. Designated medical POA if patient is not able to make medical decisions for themselves: Daughter I have reviewed the following ent consultant notes: Neurology. I have reviewed the results of the following tests: Troponin. B12. Folate. TSH. Lipid panel. MRI brain. I have ordered the following tests: I have discussed the care of this patient with the following independent hist orian: RICHARD Snowden. I have independently interpreted the following test below: I have discussed the management of this patient with the following physician: Dr. Talbert. Objective - Vital Signs Vital signs: Vital Signs Temp 98.5 F 08/29/23 07:00 Pulse 70 08/29/23 07:00 Resp 18 08/29/23 07:00 BP 135/79 08/29/23 07:00 Pulse Ox 98 08/29/23 07:00 FiO2 Intake & Output 08/28/23 08/29/23 08/29/23 18:59 06:59 18:59 Intake Total 118 Balance 118 Weight 63.503 kg 63.503 kg Intake: Oral 118 Other: Voiding Method Toilet # Voids 2 - Labs CBC & Chem 7: 08/28/23 09:54 08/28/23 09:54 Labs: Abnormal Lab Results - Last 24 Hours (Table) 08/28/23 08/29/23 Range/Units 09:54 06:45 LDL Cholesterol, Calc 147.8 H (0.0-131.0) mg/dL HDL Cholesterol 24.20 L (40.00-60.00) mg/dL Vitamin B12 >3600.0 H (200.0-944.0) pg/mL
--- NOTE | 2023-08-29 16:00 | P.CONS ---
History of Present Illness - Reason for Consult Consult date: 08/29/23 [employer] progression Requesting physician: Myles Talbert - Chief Complaint "I have dizziness" - History of Present Illness Ms. 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 She underwent neoadjuvant chemotherapy followed by lumpectomy with sentinel lymph node sampling. Final pathology revealed stage IIIA (pT2, pN1a, M0) disease. She underwent a course of adjuvant radiotherapy to the breast and at risk lymphatics finishing 60 Gy on 02/25/2022. She initiated adjuvant Xeloda, but did ultimately discontinue this. She unfortunately was more recently found to have a large left parietal brain metastasis and underwent resection on 02/14/23. She underwent post-operative adjuvant radiation to the brain finishing on 03/17/23. She was later found to have 3 new, small lesions and underwent single fraction SRS to each finishing on 06/15/23. As above, the patient is well-known to Dr. Aquino. She presents with an acute history of dizziness, which is how she notes she presented when her 3 lesions were found earlier this year. She has also had occasional headaches though denies any neurological deficits. CT brain yesterday was essentially unremarkable, but MRI brain demonstrated, on my review, at least 7 new lesions (all subcentimeter). She has been started on Decadron 2 mg every 8 hours. She feels her symptoms have since improved. Review of Systems as per HPI Past Medical History Past Medical History: Atrial Fibrillation, Cancer, Deep Vein Thrombosis (DVT), Pulmonary Embolus (PE) Additional Past Medical History / Comment(s): left breast CA-dx April 30, 2021-had surg. & currently getting chemo; completed radiation,unable to lay on stomach from prior old injury as a teenager, DVT & PE after hysterectomy 15 yrs ago and DVT after varicose vein stripping yrs ago., DVT in August behind right knee and another DVT behind left knee. History of Any Multi-Drug Resistant Organisms: None Reported Past Surgical History: Breast Surgery, Section, Hernia Repair, Hysterectomy, Tonsillectomy Additional Past Surgical History / Comment(s): breast biopsy. Ear surgery as child., mediport insertion with removal, left breast lumpectomy w/sentinel lymph node bx. in November 2021, tumor removal brain. fatty tissue removed from back. Cysts removed from bilateral breasts. Past Anesthesia/Blood Transfusion Reactions: No Reported Reaction Additional Past Anesthesia/Blood Transfusion Reaction / Comm: no hx blood transfusion Past Psychological History: No Psychological Hx Reported Smoking Status: Former smoker Past Alcohol Use History: None Reported Past Drug Use History: None Reported - Past Family History Mother Family Medical History: AFIB, Congestive Heart Failure (CHF), COPD, Hypertension Additional Family Medical History / Comment(s): beginings of uterine Cancer Father Family Medical History: Cancer Additional Family Medical History / Comment(s): lung Medications and Allergies Home Medications Medication Instructions Recorded Confirmed Type Apixaban [Eliquis] 5 mg PO BID 07/07/23 08/28/23 History Omeprazole 40 mg PO AC-BRKFST 07/07/23 08/28/23 History Acetaminophen-Codeine 300-30mg 1 tab PO Q4H PRN 3 Days #18 tablet 07/09/23 08/28/23 Rx [Tylenol w/codeine #3] amLODIPine [Norvasc] 5 mg PO DAILY 90 Days #90 tab 07/09/23 08/28/23 Rx OLANZapine 5 mg PO DIRECTED 08/28/23 08/28/23 History Ondansetron Odt [Zofran Odt] 4 mg PO Q4-6H PRN 08/28/23 08/28/23 History Allergies Allergy/AdvReac Type Severity Reaction Status Date / Time metronidazole [From Flagyl] Allergy Intermediate Anaphylaxis Verified 08/28/23 12:19 adhesive tape Allergy Mild Rash/Hives,sometimes Verified 08/28/23 12:19 blisters Penicillins AdvReac Nausea Verified 08/28/23 12:19 Physical Exam Vitals: Vital Signs Temp Pulse Pulse Resp BP BP BP 08/29/23 07:00 98.5 F 70 18 08/29/23 05:37 75 16 144/80 136/83 08/29/23 01:37 99.0 F 74 16 118/77 08/28/23 20:37 97.9 F 72 16 122/71 08/28/23 20:14 97.8 F 69 16 120/70 BP Pulse Ox 08/29/23 07:00 135/79 98 08/29/23 05:37 145/83 97 08/29/23 01:37 97 08/28/23 20:37 100 08/28/23 20:14 96 Intake and Output 08/29/23 08/29/23 08/29/23 06:59 14:59 22:59 Intake Total 118 Balance 118 Intake: Oral 118 Other: # Voids 2 - Constitutional General appearance: average body habitus, no acute distress - Respiratory Respiratory: negative: prolonged expiration, prolonged inspiration - Neurologic no focal motor or sensory deficits, gait not assessed - Psychiatric Psychiatric: A&O x's 3 Results CBC & Chem 7: 08/28/23 09:54 08/28/23 09:54 Labs: Abnormal Lab Results - Last 24 Hours (Table) 08/28/23 08/29/23 Range/Units 09:54 06:45 LDL Cholesterol, Calc 147.8 H (0.0-131.0) mg/dL HDL Cholesterol 24.20 L (40.00-60.00) mg/dL Vitamin B12 >3600.0 H (200.0-944.0) pg/mL Assessment and Plan Assessment: 58-year-old female with a history of a clinical stage IIIC (cT4b, cN0, M0) high- grade invasive ductal carcinoma the left breast, ER negative, WA weak (1-10%) and HER-2 negative. She underwent neoadjuvant chemotherapy followed by lumpectomy with sentinel lymph node sampling. Final pathology revealed a stage IIIA (pT2, pN1a, M0). She underwent a course of adjuvant radiotherapy to the breast and at risk lymphatics finishing 60 Gy on 02/25/2022. She initiated ad juvant Xeloda, but did ultimately discontinue this. She unfortunately was recently found to have a large left parietal brain metastasis and underwent resection on 02/14/23. She underwent post-operative adjuvant radiation to the brain finishing on 03/17/23. She was later found to have 3 new, small lesions and underwent single fraction SRS to each finishing on 06/15/23. Plan: The patient unfortunately presents with intracranial progression, with at least 7 new subcentimeter lesions. Given the short latency to recurrence and extent of disease, I recommend a course of whole brain radiation therapy. Hippocampal- avoidance should be achievable based on the locations of the lesions. I did discuss her case with Dr. Aquino as well as her and her daughter at bedside. Ag ree with Decadron with GI prophylaxis. Treatment will span 2 weeks (10 treatments) and commence upon discharge. We will follow while inpatient and coordinate close follow-up upon discharge. Irving Singh MD Radiation Oncology Time with Patient: Greater than 30
[2023-08-29] MEDS ORDERED: DEXAMETHASONE SOD PHOSPHATE 4 MG/ML 1 ML VIAL IVP SCH (18:00)
--- NOTE | 2023-08-29 19:06 | CT ---
EXAMINATION TYPE: CT angio head neck CT DLP: 254.4 mGycm, Automated exposure control for dose reduction was used. DATE OF EXAM: 08/28/2023 6:34 PM COMPARISON: 08/28/2023. CLINICAL INDICATION:Female, 58 years old with history of Vertigo; PHH, dizziness TECHNIQUE: Axially acquired helical CT angiogram of the head and neck was obtained with contrast. Axi al images are supplemented with 3D reconstructions and MIP images which were post-processed at an in dependent workstation. NASCET criteria used. Contrast used:65cc mL of Isovue 370 with IV Contrast, Oral contrast used: None. FINDINGS: CTA HEAD: No evidence of acute intracranial hemorrhage, mass effect, or midline shift. The ventricles, sulci, a nd cisterns are unremarkable. Posterior surgical changes of the left posterior scalp. The visualized portions of the internal carotid arteries, middle cerebral arteries, anterior cerebral arteries, and posterior cerebral arteries are patent. The basilar and vertebral arteries are patent. CTA NECK: Right Carotid System: The common carotid and external carotid arteries are patent. There is less than 25% stenosis at the c arotid bifurcation secondary to calcified/noncalcified plaque. The rest of the internal carotid arter y is patent. Left Carotid System: The common carotid and external carotid arteries are patent. There is less than 25% stenosis at the c arotid bifurcation secondary to calcified/noncalcified plaque. The rest of the internal carotid arter y is patent. Vertebral arteries are patent without evidence hemodynamically significant stenosis. There is a three-vessel aortic arch. The origins of the great vessels are patent. No evidence of hemo dynamically significant stenosis. Upper thorax: 4 mm pulmonary nodule in the right upper lung interstitial prominence in the left upper lung anteriorly. IMPRESSION: 1. No evidence of dissection of the cervical internal carotid arteries or vertebral arteries or any e vidence of significant stenosis at the carotid bifurcations. 2. No evidence of intracranial high-grade stenosis or intracranial aneurysm.
[2023-08-29] MEDS: DEXAMETHASONE SOD PHOSPHATE 4 MG/ML 1 ML VIAL IVP SCH (19:58)
--- NOTE | 2023-08-29 21:48 | P.CONS ---
History of Present Illness - Reason for Consult Consult date: 08/29/23 metastatic breast cancer Requesting physician: Geoff Rogers - Chief Complaint dizziness - History of Present Illness Patient is a 58 year old female with a signifcant history of metastatic breast cancer. She is a patient of Dr. Dallas Mejia. She underwent 4 cycles of dose dense Adriamycin/cyclophosphamide from 06/21/2021-08/02/2021 followed by 4 cycles of dose dense Taxol from 08/16/2021-10/11/2021. She underwent lumpectomy with sentinel lymph node biopsy on 12/08/2021, which noted residual 2.2 cm grade 3 invasive ductal carcinoma with 1 sentinel lymph node being positive. Pathologic staging was [id number]. She completed 60 Gy of adjuvant radiation therapy on 02/25. She briefly took adjuvant Xeloda for residual disease, but did not tolerate this well and eventually stopped. In December 2022, she began to have mild headaches, which were initially relieved with Tylenol. Eventually, these became more persistent and were not relieved with Tylenol. CT of the head on 02/07/2023 without contrast noted cystic lesion in the left occipital lobe measuring 3.9 x 1.8 x 3.4 cm with surrounding vasogenic edema along with an additional hypodense 7 mm area within the right thalamus of unclear etiology. She was eventually transferred to [facility] for brain MRI revealed 4.6 x 3.3 cm mass in the left occipital region with surrounding vasogenic edema and no midline shift. There was noted to be remote lacunar infarct in the right thalamus. CT chest/abdomen/pelvis on 02/09/2023 was notable for nodule in the apical segment of the right lower lobe measuring 2 x 1.5 cm. She underwent craniotomy with resection of the left occipital tumor on 02/14/2023 with pos tsurgical pathology revealing poorly differentiated metastatic carcinoma compatible with breast primary (IHC positive for GATA3, CK7, CK5/6) that was ER negative, [place] negative, and HER2 low (IHC 1+) with Ki-67 of 90%. Her postoperative course was complicated by DVT of the left lower extremity on 03/01 and was subsequently started on Eliquis. She has seen Dr. Aquino of radiation oncology with plan to receive 5 fractions of radiation therapy to the surgical bed in February 2023. PET/CT on 03/10/2023 noted evidence of metastatic disease to the right lung, right hepatic lobe, and left adrenal gland. NGS from the resected brain tumor revealed no targetable mutations and MSI negative. PD- L1 was less than 1%. [id number] revealed TP53 mutation with no actionable mutations. She initiated paclitaxel every 3 weeks on 04/03/2023 and most recently received cycle 4 of treatment on 06/06/2023 at 20% dose reduction. Echocardiogram obtained on 06/01/2023 following last visit revealed EF of 60 to 65%. Brain MRI on 05/08/2023 noted 2 new cerebellar lesions in the left and right cerebellar hemispheres measuring 6.2 and 6.5 mm with no vasogenic edema. She received 3 fractions of radiation therapy to the cerebellar lesions from 06/13/2023 through 06/15/2023. PET/CT on 06/08/2023 revealed evidence of disease progression with new liver lesions, subcarinal lymphadenopathy, and metastases to the bone. Based on this, we discussed changing treatment from paclitaxel to Enhertu given she had HER2 low disease. Cycle 1 of Enhertu was started on 07/17/2023 and most recently received cycle 2 on 08/07/2023. Next cycle wa scheduled on 08/27, but was missed due to hospitalization. Plan to repeat PET/CT in late August/ early September to assess disease response, as well as repeat brain MRI around mid August per neurosurgery and radiation oncology. Patient presented to the emergency room with dizziness. Also complaining of chest pain which is chronic in nature related to malignancy. Patient reports she began to have sudden onset dizziness causing her to present for further evaluation. Denies visual disturbances, nausea vomiting and unilateral weakness, and slurred speech. Patient does report mild headache today, but states she did not sleep well and relates headache to this. Upon admission CT brain without contrast revealed interval left occipital craniotomy change with postsurgical encephalomalacia noted. No evidence for obvious recurrent or residual mass. MRI brain was subsequently ordered revealing progression of disease with postsurgical changes and new scattered metastatic foci. Other meta static foci have decreased in size. No evidence for acute/subacute CVA. Serial troponins negative. Coags WNL. CBC revealed, WBC 11.3, hemoglobin 13.2, platelets 359,000. Creatinine 0.46, GFR greater than 90. Transaminitis noted, bilirubin 0.9. At today's visit patient is reporting improvement in dizziness, had mild episode this morning but reports no dizziness at this time. Review of Systems 10 point ROS is negative except as stated in HPI Past Medical History Past Medical History: Atrial Fibrillation, Cancer, Deep Vein Thrombosis (DVT), Pulmonary Embolus (PE) Additional Past Medical History / Comment(s): left breast CA-dx April 30, 2021-had surg. & currently getting chemo; completed radiation,unable to lay on stomach from prior old injury as a teenager, DVT & PE after hysterectomy 15 yrs ago and DVT after varicose vein stripping yrs ago., DVT in August behind right knee and another DVT behind left knee. History of Any Multi-Drug Resistant Organisms: None Reported Past Surgical History: Breast Surgery, Section, Hernia Repair, Hysterectomy, Tonsillectomy Additional Past Surgical History / Comment(s): breast biopsy. Ear surgery as child., mediport insertion with removal, left breast lumpectomy w/sentinel lymph node bx. in November 2021, tumor removal brain. fatty tissue removed from back. Cysts removed from bilateral breasts. Past Anesthesia/Blood Transfusion Reactions: No Reported Reaction Additional Past Anesthesia/Blood Transfusion Reaction / Comm: no hx blood transfusion Past Psychological History: No Psychological Hx Reported Smoking Status: Former smoker Past Alcohol Use History: None Reported Past Drug Use History: None Reported - Past Family History Mother Family Medical History: AFIB, Congestive Heart Failure (CHF), COPD, Hypertension Additional Family Medical History / Comment(s): beginings of uterine Cancer Father Family Medical History: Cancer Additional Family Medical History / Comment(s): lung Medications and Allergies Home Medications Medication Instructions Recorded Confirmed Type Apixaban [Eliquis] 5 mg PO BID 07/07/23 08/28/23 History Omeprazole 40 mg PO AC-BRKFST 07/07/23 08/28/23 History Acetaminophen-Codeine 300-30mg 1 tab PO Q4H PRN 3 Days #18 tablet 07/09/23 08/28/23 Rx [Tylenol w/codeine #3] amLODIPine [Norvasc] 5 mg PO DAILY 90 Days #90 tab 07/09/23 08/28/23 Rx OLANZapine 5 mg PO DIRECTED 08/28/23 08/28/23 History Ondansetron Odt [Zofran Odt] 4 mg PO Q4-6H PRN 08/28/23 08/28/23 History Allergies Allergy/AdvReac Type Severity Reaction Status Date / Time metronidazole [From Flagyl] Allergy Intermediate Anaphylaxis Verified 08/28/23 12:19 adhesive tape Allergy Mild Rash/Hives,sometimes Verified 08/28/23 12:19 blisters Penicillins AdvReac Nausea Verified 08/28/23 12:19 Physical Exam Vitals: Vital Signs Temp Pulse Pulse Resp BP BP BP 08/29/23 07:00 98.5 F 70 18 08/29/23 05:37 75 16 144/80 136/83 08/29/23 01:37 99.0 F 74 16 118/77 08/28/23 20:37 97.9 F 72 16 122/71 08/28/23 20:14 97.8 F 69 16 120/70 08/28/23 14:08 77 18 118/69 08/28/23 12:00 80 17 132/83 08/28/23 11:00 77 17 123/77 08/28/23 10:05 84 19 133/90 08/28/23 09:14 97.7 F 103 H 18 142/86 BP Pulse Ox 08/29/23 07:00 135/79 98 08/29/23 05:37 145/83 97 08/29/23 01:37 97 08/28/23 20:37 100 08/28/23 20:14 96 08/28/23 14:08 98 08/28/23 12:00 98 08/28/23 11:00 97 08/28/23 10:05 98 08/28/23 09:14 98 Intake and Output 08/28/23 08/29/23 08/29/23 22:59 06:59 14:59 Other: Voiding Method Toilet # Voids 1 2 Weight 63.503 kg - Constitutional General appearance: average body habitus, no acute distress - EENT Eyes: anicteric sclerae, EOMI ENT: hearing grossly normal - Respiratory Respiratory: bilateral: CTA - Cardiovascular Rhythm: regular Heart sounds: normal: S1, S2 - Gastrointestinal General gastrointestinal: soft, tenderness - Integumentary Integumentary: no cyanotic - Neurologic no focal deficits - Musculoskeletal Musculoskeletal: strength equal bilaterally - Psychiatric Psychiatric: A&O x's 3 Results CBC & Chem 7: 08/28/23 09:54 08/28/23 09:54 Labs: Abnormal Lab Results - Last 24 Hours (Table) 08/28/23 08/28/23 08/28/23 Range/Units 09:54 09:54 09:54 WBC 11.3 H (3.8-10.6) k/uL RDW 15.6 H (11.5-15.5) % Neutrophils # 8.8 H (1.3-7.7) k/uL Sodium 133 L (137-145) mmol/L Creatinine 0.46 L (0.52-1.04) mg/dL Glucose 220 H (74-99) mg/dL AST 163 H (14-36) U/L ALT 78 H (4-34) U/L Alkaline Phosphatase 304 H (38-126) U/L Albumin 3.3 L (3.5-5.0) g/dL Vitamin B12 >3600.0 H (200.0-944.0) pg/mL Chest x-ray: report reviewed CT Scan - head: report reviewed MRI - head: report reviewed Assessment and Plan (1) Breast cancer metastasized to multiple sites Current Visit: Yes Status: Acute Priority: High Code(s): C50.919 - MALIGNANT NEOPLASM OF UNSP SITE OF UNSPECIFIED FEMALE BREAST SNOMED Code(s): 688226584 (2) Chest pain Current Visit: Yes Status: Acute Priority: High Code(s): R07.9 - CHEST PAIN, UNSPECIFIED SNOMED Code(s): 47462055 (3) Dizziness Current Visit: Yes Status: Acute Priority: High Code(s): R42 - DIZZINESS AND GIDDINESS SNOMED Code(s): 475883671 Plan: Dizziness, Chest pain: Presented with complaints of sudden onset dizziness. Also complaining of chest pain which is chronic in nature related to malignancy, had previous admission for the same in februrary with cardiac workup done. Denies visual disturbances, nausea vomiting and unilateral weakness, and slurred speech. - Upon admission CT brain without contrast revealed interval left occipital craniotomy change with postsurgical encephalomalacia noted. No evidence for obvious recurrent or residual mass. MRI brain was subsequently ordered revealing progression of disease with postsurgical changes and new scattered metastatic foci. Other metastatic foci have decreased in size. No evidence for acute/subacute CVA. -Consult placed to radiation oncology. Spoke with Dr. Singh regarding case, will plan outpt hippocampal sparing whole brain radiation, as at least 7 new lesions were noted on MRI brain. -Decadron 2mg TID and PPI started Metastatic breast cancer: -Full oncological history in [facility] --Brain MRI on 05/08/2023 noted 2 new cerebellar lesions in the left and right cerebellar hemispheres measuring 6.2 and 6.5 mm with no vasogenic edema. She received 3 fractions of radiation therapy to the cerebellar lesions from 06/13/2023 through 06/15/2023. PET/CT on 06/08/2023 revealed evidence of disease progression with new liver lesions, subcarinal lymphadenopathy, and metastases to the bone. Due to progression of disease treatment was switched to Enhertu -Completed cycle 2 of Enhertu on on 08/07/23. Next cycle was scheduled on 08/27, but was missed due to hospitalization. Plan to repeat PET/CT in late August/ early September to assess disease response -Brain MRI was scheduled later this month, but was obtained obtained inpt due to dizziness. Unfortunately scan revealed new scattered metastatic foci. Plan for whole brain radiation with radiation oncology upon discharge -Further treatment will be on hold until clinic f/u, at which time treatment and goals of care will be further discussed attests: I have seen and examined patient, performed H&P, developed impression and plan of care. Discussed with dictator. Agree with documentation, dictated as a scribe
--- NOTE | 2023-08-30 05:51 | P.DS ---
Providers Date of admission: 08/28/23 11:32 Expected date of discharge: 08/30/23 Attending physician: Hui Gray MD Consults: 08/28/23 11:40 Consult Physician Urgent Consulting Provider: Dallas Mejia Consult Reason/Comments: Metastatic cancer Do you want consulting provider notified?: Yes Consult Physician Urgent Consulting Provider: Michelle Powers Consult Reason/Comments: Intractable dizziness Do you want consulting provider notified?: Yes 08/29/23 11:49 Consult Physician Urgent Consulting Provider: Rell Aquino Consult Reason/Comments: brain mets vertigo Do you want consulting provider notified?: Yes 08/29/23 11:50 Consult Physician Routine Consulting Provider: Irving Singh Consult Reason/Comments: brain mets Do you want consulting provider notified?: Already Contacted Primary care physician: [facility] Course: 58-year-old female with a past medical history of metastatic breast cancer with metastasis to lung, liver, bone and brain status post craniotomy with tumor revision 02/[address] Mejia, DVT, paroxysmal atrial fibrillation and previous PE on anticoagulation with Eliquis. Presents to the ED for chest pain and vertigo. Symptoms started yesterday after taking a shower. While walking back to her bedroom, experienced vertiginous symptoms associated with loss of coordination and nausea. Denied slurred speech, confusion, focal neurological deficits. No viral URI or issues with hearing. Reports feeling vertigo sometimes since her craniotomy in January 2023 but nothing as severe as this episode. This morning started to experience chest pain. Sternal, aching, 6/10 severity, no radiation, worsened with deep inspiration and palpation of the chest wall. Symptoms persisted which prompted her to come to the ED. In the ED she underwent extensive evaluation. BP 142/86, HR 103, RR 18, T97.7F, 98% on RA. CBC WBC 11.3. Coag panel within normal limits. CMP Na 133, Cr 0.46, glu 220, AST 163, ALT 78, alk phos 304, alb 3.3. Trop < 0.012. EKG sinus rhythm. CXR unremarkable. CT brain interval left craniotomy changes with post surgical encephlomalacia. Admitted for further workup of dizziness, rule out ACS and Neurology evaluation. 08/28 Patient was seen and examined. Sister at bedside. Reported one episode of vertigo this morning that improved after sitting down. Troponins < 0.012 x 3. B12 > 3600. Folate 11.1. TSH 1.97. Lipid panel LDL 147.8, HDL 24.2. MRI brain shows new metastatic lesions including in the cerebellum. Discussed with Dr. Talbert, plans to start Decadron and get Rad-Onc to evaluate. Neurology recommends CTA head and neck. 08/29 Patient was seen and examined. Vertigo improved. Complains of headache, drinks 2-4 cups of coffee daily. CTA head and neck shows no significant stenosis. Rad-Onc consulted recommends 10 treatments of whole brain radiation. Plans on discharge home today on Decadron. Decadron may be tapered by Dr. Aquino in the outpatient setting. General: non toxic, no distress, appears at stated age Derm: warm, dry Head: atraumatic, normocephalic, symmetric Eyes: EOMI, no lid lag, anicteric sclera Mouth: no lip lesion, mucus membranes moist Cardiovascular: S1S2 reg, no murmur Lungs: CTA bilateral, no rhonchi, no rales , no accessory muscle use Ext: no gross muscle atrophy, no edema, no contractures Neuro: no focal neuro deficits Psych: Alert, oriented, appropriate affect Discharge Diagnosis: Vertigo related to new cerebellar metastatic lesions. Chest pain Dyslipidemia Leukocytosis Transaminitis This complex discharge took 35 minutes to complete. Patient Condition at Discharge: Stable Plan - Discharge Summary New Discharge Prescriptions: New dexAMETHasone [Decadron] 2 mg PO Q8HR #180 tablet Continue Apixaban [Eliquis] 5 mg PO BID amLODIPine [Norvasc] 5 mg PO DAILY 90 Days #90 tab Acetaminophen-Codeine 300-30mg [Tylenol w/codeine #3] 1 tab PO Q4H PRN 3 Days #18 tablet PRN Reason: Pain Control Ondansetron Odt [Zofran ODT] 4 mg PO Q4-6H PRN PRN Reason: Nausea And Vomiting OLANZapine 5 mg PO DIRECTED Omeprazole 40 mg PO AC-BRKFST Discharge Medication List Apixaban [Eliquis] 5 mg PO BID 07/07/23 [History] Omeprazole 40 mg PO AC-BRKFST 07/07/23 [History] Acetaminophen-Codeine 300-30mg [Tylenol w/codeine #3] 1 tab PO Q4H PRN 3 Days #18 tablet 07/09/23 [Rx] amLODIPine [Norvasc] 5 mg PO DAILY 90 Days #90 tab 07/09/23 [Rx] OLANZapine 5 mg PO DIRECTED 08/28/23 [History] Ondansetron Odt [Zofran ODT] 4 mg PO Q4-6H PRN 08/28/23 [History] dexAMETHasone [Decadron] 2 mg PO Q8HR #180 tablet 08/30/23 [Rx] Follow up Appointment(s)/Referral(s): Dallas Mejia MD [STAFF PHYSICIAN] - 1 Week Rell Aquino MD [STAFF PHYSICIAN] - 1 Week Geoff Wright DO [Primary Care Provider] - 1-2 days Discharge Disposition: HOME SELF-CARE
[2023-08-30 08:35] VITALS: BP 165/83; PULSE 64; RESP 15; TEMP 98.3
== END 2023-08-30 10:03 | disposition home or self-care (01) ==
LOC: EC 09:10 → 6NMEDSUR 11:32
PROVIDERS: ADMIT Family Medicine; ATTEND Family Medicine
DX: R07.9 Chest pain, unspecified (principal); R42 Dizziness and giddiness; H53.40 Unspecified visual field defects; C50.912 Malignant neoplasm of unspecified site of left female breast; C79.31 Secondary malignant neoplasm of brain; C78.01 Secondary malignant neoplasm of right lung; C78.7 Secondary malignant neoplasm of liver and intrahepatic bile duct; I48.0 Paroxysmal atrial fibrillation; E78.5 Hyperlipidemia, unspecified; D72.829 Elevated white blood cell count, unspecified; R74.01 Elevation of levels of liver transaminase levels; Z86.711 Personal history of pulmonary embolism; Z86.718 Personal history of other venous thrombosis and embolism; Z87.891 Personal history of nicotine dependence; Z79.01 Long term (current) use of anticoagulants; Z79.899 Other long term (current) drug therapy; Z88.0 Allergy status to penicillin; Z88.1 Allergy status to other antibiotic agents
CPT/HCPCS: 96376 ×2; 96375 ×2; 96374; 99285; 36415; 93005; 97162; 80061; 80053; 84443; 82607; 82746; 83735; 84484; 85025; 85610; 85730; 83036; 71046; 70496; 70450; 70498; 70553; G0378 ×3; J1100 ×3; J2765; J2405; J2270; J1885 ×3; Q9967; A9585

== ENCOUNTER 2023-09-05 03:50 | Emergency (ER) | payer BC ==
[2023-09-05 04:30] LABS: Basophils % (A) 0 %; Eosinophils # (A) 0.2 k/uL (0-0.7); Eosinophils % (A) 1 %; HCT 46.2 % (34.0-46.0); HGB 14.3 gm/dL (11.4-16.0); Lymphocytes # (A) 1.3 k/uL (1.0-4.8); Lymphocytes % (A) 5 %; MCH 28.5 pg (25.0-35.0); MCV 91.8 fL (80.0-100.0); Monocytes # (A) 1.2 k/uL (0-1.0); Monocytes % (A) 5 %; Neutrophils # (A) 21.2 k/uL (1.3-7.7); Neutrophils % (A) 88 %; Platelet Count 326 k/uL (150-450); RBC 5.03 m/uL (3.80-5.40); RDW 15.8 % (11.5-15.5); WBC 24.1 k/uL (3.8-10.6)
[2023-09-05] MEDS: HYDROmorphone 1 MG/ML 1 ML SYRINGE IVP STA (04:31)
[2023-09-05] MEDS: SODIUM CHLORIDE 0.9% 500 ML 500 ML IV STA (04:32)
[2023-09-05 04:58] LABS: ALT 158 U/L (4-34); AST 216 U/L (14-36); African American GFR (CKD) >90 (>60 ml/min/1.73 sqM); Albumin 3.8 g/dL (3.5-5.0); Alkaline Phosphatase 539 U/L (38-126); Anion Gap 13 mmol/L; Blood Urea Nitrogen 13 mg/dL (7-17); Calcium 9.7 mg/dL (8.4-10.2); Carbon Dioxide 19 mmol/L (22-30); Chloride 104 mmol/L (98-107); Glucose 101 mg/dL (74-99); Magnesium 1.9 mg/dL (1.6-2.3); Non-African American GFR(CKD) >90 (>60 ml/min/1.73 sqM); Potassium 4.2 mmol/L (3.5-5.1); Sodium 136 mmol/L (137-145); Total Bilirubin 0.8 mg/dL (0.2-1.3); Total Protein 7.1 g/dL (6.3-8.2)
[2023-09-05 05:19] LABS: INR 1.1 (<1.2); Partial Thromboplastin Time 24.8 sec (22.0-30.0); Prothrombin Time 11.4 sec (10.0-12.5)
--- NOTE | 2023-09-05 06:09 | ED ---
Chest Pain HPI - General Chief Complaint: Chest Pain Stated Complaint: Chest Tightness, Difficulty Breathing Time Seen by Provider: 09/05/23 03:55 Source: patient Mode of arrival: wheelchair Limitations: no limitations - History of Present Illness Initial Comments: 's patient is a 58-year-old woman who presents with a constellation of symptoms that started tonight while she was at work. The patient states that she had some dark brown vaginal bleeding, then noticed that she was also feeling dizzy and her chest was tight. The patient had just been admitted here August 27 for dizziness similar to what she was having tonight. The patient states that she does have history of breast cancer with metastasis, and she is to see Dr. Cameron about having radiation treatments on Monday. The patient has not noted fever or chills. No cough or dyspnea. The patient has not had vomiting or diarrhea. The vaginal bleeding has resolved. -: hour(s) Onset: other (while at work) Pain Location: substernal Pain Radiation: none Severity: moderate Quality: tightness Consistency: now resolved Improves With: nothing Worsens With: nothing Treatments Prior to Arrival: other (taking dexamethasone) - Related Data Home Medications Medication Instructions Recorded Confirmed Apixaban [Eliquis] 5 mg PO BID 07/07/23 09/17/23 Omeprazole 40 mg PO AC-BRKFST 07/07/23 09/17/23 OLANZapine 5 mg PO DIRECTED 08/28/23 09/17/23 Ondansetron Odt [Zofran ODT] 4 mg PO Q4-6H PRN 08/28/23 09/17/23 HYDROcodone/APAP 5-325MG [[place] 1 tab PO Q4H PRN 09/17/23 09/17/23 5-325] dexAMETHasone [Decadron] See Taper PO DIRECTED 09/17/23 09/17/23 Previous Rx's Medication Instructions Recorded Acetaminophen-Codeine 300-30mg 1 tab PO Q4H PRN 3 Days #18 tablet 07/09/23 [Tylenol w/codeine #3] amLODIPine [Norvasc] 5 mg PO DAILY 90 Days #90 tab 07/09/23 Allergies Allergy/AdvReac Type Severity Reaction Status Date / Time metronidazole [From Flagyl] Allergy Intermediate Anaphylaxis Verified 09/17/23 09:17 adhesive tape Allergy Mild Rash/Hives,sometimes Verified 09/17/23 09:17 blisters sulfamethoxazole Allergy Anaphylaxis Verified 09/17/23 09:17 [From Bactrim] trimethoprim [From Bactrim] Allergy Anaphylaxis Verified 09/17/23 09:17 Penicillins AdvReac Nausea Verified 09/17/23 09:17 Review of Systems ROS Statement: Those systems with pertinent positive or pertinent negative responses have been documented in the HPI. ROS Other: All systems not noted in ROS Statement are negative. Constitutional: Denies: fever, chills, weakness Respiratory: Denies: cough, dyspnea, wheezes Cardiovascular: Reports: as per HPI, chest pain Gastrointestinal: Reports: nausea. Denies: abdominal pain, vomiting, diarrhea Genitourinary: Reports: abnormal menses. Denies: dysuria, frequency, discharge Musculoskeletal: Denies: back pain Skin: Denies: rash Neurological: Reports: vertigo. Denies: headache, weakness, numbness, confusion Hematological/Lymphatic: Denies: easy bleeding EKG Findings - EKG Results: EKG: interpreted by VIRGIL, sinus rhythm (Rate 83 bpm), normal axis - Blocks, [place], Hypertrophy, ST Abn: Chamber hypertrophy or enlargement: left atrial enlargement or conduction defect Past Medical History Past Medical History: Atrial Fibrillation, Cancer, Deep Vein Thrombosis (DVT), Pulmonary Embolus (PE) Additional Past Medical History / Comment(s): left breast CA-dx April 30, 2021-had surg. & currently getting chemo; completed radiation,unable to lay on stomach from prior old injury as a teenager, DVT & PE after hysterectomy 15 yrs ago and DVT after varicose vein stripping yrs ago., DVT in August behind right knee and another DVT behind left knee. History of Any Multi-Drug Resistant Organisms: None Reported Past Surgical History: Breast Surgery, Section, Hernia Repair, Hysterectomy, Tonsillectomy Additional Past Surgical History / Comment(s): breast biopsy. Ear surgery as child., mediport insertion with removal, left breast lumpectomy w/sentinel lymph node bx. in November 2021, tumor removal brain. fatty tissue removed from back. Cysts removed from bilateral breasts. Past Anesthesia/Blood Transfusion Reactions: No Reported Reaction Additional Past Anesthesia/Blood Transfusion Reaction / Comment(s): no hx blood transfusion Past Psychological History: No Psychological Hx Reported Smoking Status: Former smoker Past Alcohol Use History: None Reported Past Drug Use History: None Reported - Past Family History Mother Family Medical History: AFIB, Congestive Heart Failure (CHF), COPD, Hypertension Additional Family Medical History / Comment(s): beginings of uterine Cancer Father Family Medical History: Cancer Additional Family Medical History / Comment(s): lung General Exam Limitations: no limitations General appearance: alert, in no apparent distress Head exam: Present: atraumatic, normocephalic Eye exam: Present: normal appearance. Absent: scleral icterus, conjunctival injection Neck exam: Present: normal inspection Respiratory exam: Present: normal lung sounds bilaterally. Absent: respiratory distress, wheezes, rales, rhonchi, stridor Cardiovascular Exam: Present: regular rate, normal rhythm, normal heart sounds. Absent: systolic murmur, diastolic murmur, rubs, gallop GI/Abdominal exam: Present: soft. Absent: distended, tenderness, guarding, rebound, rigid, mass Extremities exam: Present: normal inspection, normal capillary refill. Absent: pedal edema, calf tenderness Back exam: Present: normal inspection. Absent: CVA tenderness (R), CVA tenderness (L) Neurological exam: Present: alert, oriented X3, CN II-XII intact. Absent: motor sensory deficit Skin exam: Present: warm, dry, intact, normal color. Absent: rash Course Vital Signs 09/05/23 09/05/23 09/05/23 03:53 05:15 06:39 Temperature 97.3 F L Pulse Rate 103 H 72 71 Respiratory 18 18 16 Rate Blood Pressure 166/100 153/90 144/84 O2 Sat by Pulse 99 96 97 Oximetry 09/05/23 09/05/23 09/05/23 07:55 08:14 08:53 Temperature 97.6 F 97.9 F Pulse Rate 79 93 Respiratory 19 20 Rate Blood Pressure 165/96 156/86 O2 Sat by Pulse 98 99 Oximetry Chest Pain MDM - MDM patient is 58-year-old woman with brain metastases from her breast cancer who is due to start radiation therapy tomorrow. The patient's workup unremarkable other than some leukocytosis that is most likely related to the Decadron that she had been started on. The case is discussed with oncology, and they would like to increase the dexamethasone dose from 2 mg twice per day to 2 mg 3 times per day and have patient keep the appointment with Dr. Cameron tomorrow. The patient had chest x-ray that I interpreted as being unchanged from her previous film The patient had CT of the brain that I my interpretation does not show acute intracranial hemorrhage. Was pt. sent in by a medical professional or institution (, [facility]TH[facility], CLINICAL ADVISOR, urgent care, hospital, or fpc...) When possible be specific @ -[No] Did you speak to anyone other than the patient for history (EMS, parent, family, police, friend...)? What history was obtained from this source @ -[No] Did you review nursing and triage notes (agree or disagree)? Why? @ -[I reviewed and agree with nursing and triage notes] Were old charts reviewed (outside hosp., previous admission, EMS record, old EKG, old radiological studies, urgent care reports/EKG's, fpc records)? Report findings @ -[Yes old charts were reviewed] Differential Diagnosis (chest pain, altered mental status, abdominal pain women, abdominal pain men, vaginal bleeding, weakness, fever, dyspnea, syncope, headache, dizziness, GI bleed, back pain, seizure, CVA, palpatations, mental health, musculoskeletal)? @ -[Differential Dizziness: Benign paroxysmal positional Vertigo, Menieres disease, otitis media, acoustic neuroma, vertebrobasilar insufficiency, cerebellar stroke, encephalitis, hypovolemic, arrhythmia, coronary artery syndrome, anemia, this is not meant to be an all-inclusive list EKG interpreted by me (3pts min.). @ -[As above] X-rays interpreted by me (1pt min.). @ -[I interpreted as above CT interpreted by me (1pt min.). @ -[I interpreted as above U/S interpreted by me (1pt. min.). @ -[None done] What testing was considered but not performed or refused? (CT, X-rays, U/S, labs)? Why? @ -[None] What meds were considered but not given or refused? Why? @ -[None] Did you discuss the management of the patient with other professionals (professionals i.e. ALETHA Underwood, CLINICAL ADVISOR, lab, RT, psych nurse, licensed clinical social worker, fire eater, teacher, chief science officer, pillowcase cutter)? Give summary @ -[Case was discussed with oncologist treatment recommendations were incorporated Was smoking cessation discussed for >3mins.? @ -[No] Was critical care preformed (if so, how long)? @ -[No] Were there social determinants of health that impacted care today? How? (Homelessness, low income, unemployed, alcoholism, drug addiction, transportation, low edu. Level, literacy, decrease access to med. care, snf, rehab)? @ -[No] Was there de-escalation of care discussed even if they declined (Discuss DNR or withdrawal of care, Hospice)? DNR status @ -[No] What co-morbidities impacted this encounter? (DM, HTN, Smoking, COPD, CAD, Cancer, CVA, ARF, Chemo, Hep., AIDS, mental health diagnosis, sleep apnea, morbid obesity)? @ -[Metastatic cancer Was patient admitted / discharged? Hospital course, mention meds given and route, prescriptions, significant lab abnormalities, going to OR and other pertinent info. @ -[See above Undiagnosed new problem with uncertain prognosis? @ -[No] Drug Therapy requiring intensive monitoring for toxicity (Heparin, Nitro, Insulin, Cardizem)? @ -[No] Were any procedures done? @ -[No] Diagnosis/symptom? @ -[Acute dizziness Leukocytosis Acute, or Chronic, or Acute on Chronic? @ -[Acute Uncomplicated (without systemic symptoms) or Complicated (systemic symptoms)? @ -[Uncomplicated Side effects of treatment? @ -[No] Exacerbation, Progression, or Severe Exacerbation? @ -[No] Poses a threat to life or bodily function? How? (Chest pain, [place], [place], pneumonia, PE, COPD, DKA, ARF, appy, cholecystitis, CVA, Diverticulitis, Homicidal, Suicidal, threat to staff... and all critical care pts) @ -[No] Disposition Clinical Impression: Dizziness, Breast cancer metastasized to multiple sites Disposition: HOME SELF-CARE Condition: Good Instructions (If sedation given, give patient instructions): Dizziness (ED) Is patient prescribed a controlled substance at d/c from ED?: No Referrals: Geoff Wright DO [Primary Care Provider] - 1-2 days
--- NOTE | 2023-09-05 07:38 | XR ---
EXAMINATION TYPE: XR chest 2V DATE OF EXAM: 09/05/2023 COMPARISON: 08/28/2023 HISTORY: Shortness of breath TECHNIQUE: Frontal and lateral views of the chest are obtained. FINDINGS: Scattered senescent parenchymal changes noted. Hyperinflation compatible with COPD. Right lower lobe infiltrate persists although slightly improved. Continued follow-up until resolution advised. Heart size is stable. Mediastinal structures are stable and grossly unremarkable. No evidence for hilar prominence. Degenerative changes dorsal spine. IMPRESSION: 1. Right lower lobe infiltrate persists although slightly improved. Continued follow-up until resolut ion advised.
--- NOTE | 2023-09-05 07:41 | CT ---
EXAMINATION TYPE: CT brain wo con DATE OF EXAM: 09/05/2023 COMPARISON: 08/28/2023 HISTORY: Dizziness, history of breast CA and brain tumor removal CT DLP: 1079.[address] of the brain was performed. The ventricles, basal cisterns and sulci overlying the cerebral convexities demonstrate mild enlargem ent. Again noted are changes of postoperative encephalomalacia left occipital lobe with craniotomy change seen. No evidence for recurrent mass. There is no evidence for intracranial hemorrhage or sulcal effacement. There is decreased attenuation about the periventricular white matter and deep white matter of both c erebral hemispheres, compatible with chronic small vessel ischemia. Differential diagnosis does inclu de demyelination. No mass effects are seen.No midline shift. If symptoms persist consider MRI. IMPRESSION: 1. Age related atrophic and chronic small vessel ischemic change without acute intracranial process s een at this time.
[2023-09-05 08:25] VITALS: BP 156/86; PULSE 93; RESP 20
[2023-09-05 09:02] LABS: Appearance,Urine Clear (Clear); Bilirubin,Urine Negative (Negative); Blood,Urine Moderate (Negative); Color,Urine Yellow; Glucose,Urine (UA) Negative (Negative); Ketones,Urine Negative (Negative); Leukocyte Esterase,Urine Negative (Negative); Mucus,Urine Rare /hpf; Nitrite,Urine Negative (Negative); PH, Urine 5.5 (5.0-8.0); Protein,Urine Trace (Negative); RBC,Urine >182 /hpf (0-5); Specific Gravity,Urine 1.019 (1.001-1.035); Squamous Epithelial Cell,Urine 1 /hpf (0-4); Urobilinogen,Urine <2.0 mg/dL (<2.0); WBC,Urine 15 /hpf (0-5)
[2023-09-05 09:07] VITALS: TEMP 97.9
== END 2023-09-05 08:53 | disposition home or self-care (01) ==
LOC: EC 03:50
DX: C50.912 Malignant neoplasm of unspecified site of left female breast (principal); R42 Dizziness and giddiness; Z87.891 Personal history of nicotine dependence; Z88.0 Allergy status to penicillin; Z88.1 Allergy status to other antibiotic agents; Z88.2 Allergy status to sulfonamides; Z91.048 Other nonmedicinal substance allergy status
CPT/HCPCS: 36415; 93005; 80053; 83735; 84484; 85025; 85610; 85730; 81001; 71046; 70450; 99285; 96374; J1170

== ENCOUNTER 2023-09-16 20:26 | Inpatient (IN) | payer BC ==
[2023-09-16] MEDS: SODIUM CHLORIDE 0.9% 1,000 ML IV STA ×2 (21:13→21:15)
[2023-09-16 21:16] LABS: Anisocytosis Slight; HCT 49.8 % (34.0-46.0); MCH 28.6 pg (25.0-35.0); MCHC 30.1 g/dL (31.0-37.0); Mean Platelet Volume 8.2; RBC 5.24 m/uL (3.80-5.40); WBC 29.1 k/uL (3.8-10.6)
[2023-09-16] MEDS: DILTIAZEM DRIP BOLUS FROM BAG 1 MG SOLN IV ONE ×2 (21:23→22:59)
[2023-09-16] MEDS: DILTIAZEM 125 MG in SODIUM CHLORIDE 0.9% 100 ML IV SCH ×2 (21:23→22:59)
[2023-09-16 21:26] LABS: AST 264 U/L (14-36); African American GFR (CKD) >90 (>60 ml/min/1.73 sqM); Albumin 2.9 g/dL (3.5-5.0); Anion Gap 14 mmol/L; Blood Urea Nitrogen 26 mg/dL (7-17); Calcium 9.1 mg/dL (8.4-10.2); Carbon Dioxide 18 mmol/L (22-30); Chloride 98 mmol/L (98-107); Glucose 368 mg/dL (74-99); Non-African American GFR(CKD) >90 (>60 ml/min/1.73 sqM); Potassium 4.9 mmol/L (3.5-5.1); Sodium 130 mmol/L (137-145); Total Bilirubin 1.4 mg/dL (0.2-1.3); Total Protein 5.9 g/dL (6.3-8.2)
[2023-09-16 21:31] LABS: Partial Thromboplastin Time 24.4 sec (22.0-30.0); Prothrombin Time 11.3 sec (10.0-12.5)
[2023-09-16 21:35] LABS: NT-Pro-B-Type Natriuretic Pept 3080 pg/mL
--- NOTE | 2023-09-16 21:37 | ED ---
SOB HPI - General Chief Complaint: Shortness of Breath Stated Complaint: SOB, dizziness, urinating blood Time Seen by Provider: 09/16/23 20:56 Source: patient, family, RN notes reviewed Mode of arrival: wheelchair Limitations: no limitations - History of Present Illness Initial Comments: 58-year-old female with a history of stage IV breast cancer who last received chemotherapy 5 days ago who presents with complaints of shortness of breath weakness dizziness. She has a history of atrial fibrillation but did not really feel palpitations. She is feels generally weak. She also states she has some burning with urination. She also has had some intermittent on and off right shoulder pain. Additionally she does state that hematuria started today she also has had history of DVT in the left leg for 5 months ago he is on Eliquis at this time.. She denies any overt fevers chills or sweats no nausea no vomiting she does admit to decreased oral intake and feels dry. MD Complaint: shortness of breath - Related Data Home Medications Medication Instructions Recorded Confirmed Apixaban [Eliquis] 5 mg PO BID 07/07/23 08/28/23 Omeprazole 40 mg PO AC-BRKFST 07/07/23 08/28/23 OLANZapine 5 mg PO DIRECTED 08/28/23 08/28/23 Ondansetron Odt [Zofran ODT] 4 mg PO Q4-6H PRN 08/28/23 08/28/23 Previous Rx's Medication Instructions Recorded Acetaminophen-Codeine 300-30mg 1 tab PO Q4H PRN 3 Days #18 tablet 07/09/23 [Tylenol w/codeine #3] amLODIPine [Norvasc] 5 mg PO DAILY 90 Days #90 tab 07/09/23 dexAMETHasone [Decadron] 2 mg PO Q8HR #180 tablet 08/30/23 Allergies Allergy/AdvReac Type Severity Reaction Status Date / Time metronidazole [From Flagyl] Allergy Intermediate Anaphylaxis Verified 09/16/23 20:44 adhesive tape Allergy Mild Rash/Hives,sometimes Verified 09/16/23 20:44 blisters sulfamethoxazole Allergy Anaphylaxis Verified 09/16/23 20:44 [From Bactrim] trimethoprim [From Bactrim] Allergy Anaphylaxis Verified 09/16/23 20:44 Penicillins AdvReac Nausea Verified 09/16/23 20:44 Review of Systems ROS Statement: Those systems with pertinent positive or pertinent negative responses have been documented in the HPI. ROS Other: All systems not noted in ROS Statement are negative. Past Medical History Past Medical History: Atrial Fibrillation, Cancer, Deep Vein Thrombosis (DVT), Pulmonary Embolus (PE) Additional Past Medical History / Comment(s): left breast CA-dx April 30, 2021-had surg. & currently getting chemo; completed radiation,unable to lay on stomach from prior old injury as a teenager, DVT & PE after hysterectomy 15 yrs ago and DVT after varicose vein stripping yrs ago., DVT in August behind right knee and another DVT behind left knee. History of Any Multi-Drug Resistant Organisms: None Reported Past Surgical History: Breast Surgery, Section, Hernia Repair, Hyst erectomy, Tonsillectomy Additional Past Surgical History / Comment(s): breast biopsy. Ear surgery as child., mediport insertion with removal, left breast lumpectomy w/sentinel lymph node bx. in November 2021, tumor removal brain. fatty tissue removed from back. Cysts removed from bilateral breasts. Past Anesthesia/Blood Transfusion Reactions: No Reported Reaction Additional Past Anesthesia/Blood Transfusion Reaction / Comment(s): no hx blood transfusion Past Psychological History: No Psychological Hx Reported Smoking Status: Former smoker Past Alcohol Use History: None Reported Past Drug Use History: None Reported - Past Family History Mother Family Medical History: AFIB, Congestive Heart Failure (CHF), COPD, Hypertension Additional Family Medical History / Comment(s): beginings of uterine Cancer Father Family Medical History: Cancer Additional Family Medical History / Comment(s): lung General Exam - General Exam Comments Initial Comments: This is a well-developed frail-appearing female who is awake alert oriented x 4 Limitations: no limitations General appearance: alert, anxious Head exam: Present: atraumatic, normocephalic, normal inspection Eye exam: Present: normal appearance, PERRL, EOMI. Absent: scleral icterus, conjunctival injection, periorbital swelling ENT exam: Present: mucous membranes dry Neck exam: Present: normal inspection, full ROM, other (No stridor JVD or bruits). Absent: tenderness, meningismus, lymphadenopathy Respiratory exam: Present: normal lung sounds bilaterally. Absent: respiratory distress, wheezes, rales, rhonchi, stridor Cardiovascular Exam: Present: tachycardia, irregular rhythm. Absent: systolic murmur, diastolic murmur, rubs, gallop, clicks GI/Abdominal exam: Present: soft, normal bowel sounds. Absent: distended, tenderness, guarding, rebound, rigid, bruit, pulsatile mass Rectal exam: Present: deferred Extremities exam: Present: normal inspection, full ROM, normal capillary refill. Absent: tenderness, pedal edema, joint swelling, calf tenderness Back exam: Present: normal inspection Neurological exam: Present: alert, oriented X3, CN II-XII intact Psychiatric exam: Present: normal affect, normal mood Skin exam: Present: warm, dry, intact, normal color. Absent: rash Course Vital Signs 09/16/23 20:40 Temperature 97.6 F Pulse Rate 168 H Respiratory 24 Rate Blood Pressure 126/82 O2 Sat by Pulse 99 Oximetry - Reevaluation(s) Reevaluation #1: 09/16/23 21:58 Patient did later complain of some abdominal discomfort and is requesting pain medication. Reevaluation #2: 09/16/23 23:04 Evaluation the patient she is feeling somewhat improved the heart rate is trending down but still markedly elevated. She will get a further change in dosing of Cardizem. Medical Decision Making - Medical Decision Making I did discuss the findings with the patient and family members were present also with Dr. Arndt. The patient has A-fib with RVR a history of stage IV breast cancer status postchemotherapy she does have an elevated lactic acid but no specific infectious process is identified she does have a 29,000 white blood cell count no fever. Imaging shows no evidence of acute processes interpreted by me. EKG showed atrial fibrillation with rapid ventricular response. Will be admitted with cardiology consultation. Was pt. sent in by a medical professional or institution (, PA, CREW DIRECTOR, urgent care, hospital, or assisted...) When possible be specific @ -No Did you speak to anyone other than the patient for history (EMS, parent, family, police, friend...)? What history was obtained from this source @ -Family Did you review nursing and triage notes (agree or disagree)? Why? @ -I reviewed and agree with nursing and triage notes Were old charts reviewed (outside hosp., previous admission, EMS record, old EKG, old radiological studies, urgent care reports/EKG's, assisted records)? Report findings @ -Old charts were reviewed Differential Diagnosis (chest pain, altered mental status, abdominal pain women, abdominal pain men, vaginal bleeding, weakness, fever, dyspnea, syncope, headache, dizziness, GI bleed, back pain, seizure, CVA, palpatations, mental health, musculoskeletal)? @ -Dyspnea, rapid atrial fibrillation EKG interpreted by me (3pts min.). @ -As above EKG interpreted by me atrial fibrillation with a rapid ventricular response rate of 173 QRS duration 76 QT/QTc 249/[address] configuration X-rays interpreted by me (1pt min.). @ -X-ray interpreted by me no acute process CT interpreted by me (1pt min.). @ -None done U/S interpreted by me (1pt. min.). @ -None done What testing was considered but not performed or refused? (CT, X-rays, U/S, labs)? Why? @ -None What meds were considered but not given or refused? Why? @ -None Did you discuss the management of the patient with other professionals (professionals i.e. , PA, CREW DIRECTOR, lab, RT, psych nurse, social science instructor, crew supervisor, teacher, fare enforcement officer, family caseworker)? Give summary @ -Dr. Arndt Was smoking cessation discussed for >3mins.? @ -No Was critical care preformed (if so, how long)? @ -45 minutes Were there social determinants of health that impacted care today? How? (H omelessness, low income, unemployed, alcoholism, drug addiction, transportation, low edu. Level, literacy, decrease access to med. care, shelter, rehab)? @ -No Was there de-escalation of care discussed even if they declined (Discuss DNR or withdrawal of care, Hospice)? DNR status @ -No What co-morbidities impacted this encounter? (DM, HTN, Smoking, COPD, CAD, Cancer, CVA, ARF, Chemo, Hep., AIDS, mental health diagnosis, sleep apnea, morbid obesity)? @ -She of atrial fibrillation, stage IV breast cancer, recent chemotherapy, decreased oral intake] Was patient admitted / discharged? Hospital course, mention meds given and route, prescriptions, significant lab abnormalities, going to OR and other pertinent info. @ -Hospital course patient was admitted for inpatient treatment of the above Undiagnosed new problem with uncertain prognosis? @ -No Drug Therapy requiring intensive monitoring for toxicity (Heparin, Nitro, Insulin, Cardizem)? @ -IV Cardizem Were any procedures done? @ -No Diagnosis/symptom? @ -Rapid atrial fibrillation, stage IV breast cancer, lactic acidosis, elevated BNP, elevated glucose, elevated white blood cell count Acute, or Chronic, or Acute on Chronic? @ -Acute on chronic Uncomplicated (without systemic symptoms) or Complicated (systemic symptoms)? @ -Complicated] Side effects of treatment? @ -Potential Exacerbation, Progression, or Severe Exacerbation? @ -Severe exacerbation Poses a threat to life or bodily function? How? (Chest pain, [place], [place], pneumonia, PE, COPD, DKA, ARF, appy, cholecystitis, CVA, Diverticulitis, Homicidal, Suicidal, threat to staff... and all critical care pts) @ -Potential rapid atrial fibrillation - Lab Data Result diagrams: 09/16/23 21:04 09/16/23 21:04 Lab Results 09/16/23 09/16/23 09/16/23 Range/Units 21:04 21:04 21:04 WBC 29.1 H (3.8-10.6) k/uL RBC 5.24 (3.80-5.40) m/uL Hgb 15.0 (11.4-16.0) gm/dL Hct 49.8 H (34.0-46.0) % MCV 95.0 (80.0-100.0) fL MCH 28.6 (25.0-35.0) pg MCHC 30.1 L (31.0-37.0) g/dL RDW 16.0 H (11.5-15.5) % Plt Count 70 L D (150-450) k/uL MPV 8.2 Neutrophils % (Manual) 93 % Band Neuts % (Manual) 4 % Lymphocytes % (Manual) 2 % Monocytes % (Manual) 1 % Neutrophils # (Manual) 28.20 H (1.3-7.7) k/uL Lymphocytes # (Manual) 0.58 L (1.0-4.8) k/uL Monocytes # (Manual) 0.29 (0-1.0) k/uL Nucleated RBCs 0 (0-0) /100 WBC Manual Slide Review Performed Anisocytosis Slight PT 11.3 (10.0-12.5) sec INR 1.0 (<1.2) APTT 24.4 (22.0-30.0) sec Sodium 130 L (137-145) mmol/L Potassium 4.9 (3.5-5.1) mmol/L Chloride 98 (98-107) mmol/L Carbon Dioxide 18 L (22-30) mmol/L Anion Gap 14 mmol/L BUN 26 H (7-17) mg/dL Creatinine 0.53 (0.52-1.04) mg/dL Est GFR (CKD-EPI)AfAm >90 (>60 ml/min/1.73 sqM) Est GFR (CKD-EPI)NonAf >90 (>60 ml/min/1.73 sqM) Glucose 368 H (74-99) mg/dL Plasma Lactic Acid Obed (0.7-2.0) mmol/L Calcium 9.1 (8.4-10.2) mg/dL Magnesium 2.0 (1.6-2.3) mg/dL Total Bilirubin 1.4 H (0.2-1.3) mg/dL AST 264 H (14-36) U/L ALT 349 H (4-34) U/L Alkaline Phosphatase 801 H (38-126) U/L Troponin I (0.000-0.034) ng/mL NT-Pro-B Natriuret Pep 3080 pg/mL Total Protein 5.9 L (6.3-8.2) g/dL Albumin 2.9 L (3.5-5.0) g/dL Urine Color Urine Appearance (Clear) Urine pH (5.0-8.0) Ur Specific [place] (1.001-1.035) Urine Protein (Negative) Urine Glucose (UA) (Negative) Urine Ketones (Negative) Urine Blood (Negative) Urine Nitrite (Negative) Urine Bilirubin (Negative) Urine Urobilinogen (<2.0) mg/dL Ur Leukocyte Esterase (Negative) Urine RBC (0-5) /hpf Urine WBC (0-5) /hpf Amorphous Sediment (None) /hpf Hyaline Casts (0-2) /lpf Urine Mucus (None) /hpf 09/16/23 09/16/23 09/16/23 Range/Units 21:04 21:04 21:33 WBC (3.8-10.6) k/uL RBC (3.80-5.40) m/uL Hgb (11.4-16.0) gm/dL Hct (34.0-46.0) % MCV (80.0-100.0) fL MCH (25.0-35.0) pg MCHC (31.0-37.0) g/dL RDW (11.5-15.5) % Plt Count (150-450) k/uL MPV Neutrophils % (Manual) % Band Neuts % (Manual) % Lymphocytes % (Manual) % Monocytes % (Manual) % Neutrophils # (Manual) (1.3-7.7) k/uL Lymphocytes # (Manual) (1.0-4.8) k/uL Monocytes # (Manual) (0-1.0) k/uL Nucleated RBCs (0-0) /100 WBC Manual Slide Review Anisocytosis PT (10.0-12.5) sec INR (<1.2) APTT (22.0-30.0) sec Sodium (137-145) mmol/L Potassium (3.5-5.1) mmol/L Chloride (98-107) mmol/L Carbon Dioxide (22-30) mmol/L Anion Gap mmol/L BUN (7-17) mg/dL Creatinine (0.52-1.04) mg/dL Est GFR (CKD-EPI)AfAm (>60 ml/min/1.73 sqM) Est GFR (CKD-EPI)NonAf (>60 ml/min/1.73 sqM) Glucose (74-99) mg/dL Plasma Lactic Acid Obed 8.9 H* (0.7-2.0) mmol/L Calcium (8.4-10.2) mg/dL Magnesium (1.6-2.3) mg/dL Total Bilirubin (0.2-1.3) mg/dL AST (14-36) U/L ALT (4-34) U/L Alkaline Phosphatase (38-126) U/L Troponin I <0.012 (0.000-0.034) ng/mL NT-Pro-B Natriuret Pep pg/mL Total Protein (6.3-8.2) g/dL Albumin (3.5-5.0) g/dL Urine Color Light Red Urine Appearance Cloudy H (Clear) Urine pH 5.5 (5.0-8.0) Ur Specific [place] 1.022 (1.001-1.035) Urine Protein 1+ H (Negative) Urine Glucose (UA) Trace H (Negative) Urine Ketones Trace H (Negative) Urine Blood Large H (Negative) Urine Nitrite Negative (Negative) Urine Bilirubin Negative (Negative) Urine Urobilinogen <2.0 (<2.0) mg/dL Ur Leukocyte Esterase Small H (Negative) Urine RBC >182 H (0-5) /hpf Urine WBC 30 H (0-5) /hpf Amorphous Sediment Rare H (None) /hpf Hyaline Casts 186 H (0-2) /lpf Urine Mucus Rare H (None) /hpf Critical Care Time Critical Care Time: Yes Total Critical Care Time: 45 Disposition Clinical Impression: Rapid atrial fibrillation, Dyspnea, History of breast cancer in female, Lactic acidosis, Leukocytosis, Elevated brain natriuretic peptide (BNP) level, Hyperglycemia, Hematuria Disposition: ADMITTED IP TO THIS [facility] Condition: Serious Referrals: Geoff Wright DO [Primary Care Provider] - 1-2 days Time of Disposition: 23:11 Decision Date: 09/16/23 Decision Time: 23:11
[2023-09-16 21:44] LABS: Platelet Count 70 k/uL (150-450)
[2023-09-16 21:48] LABS: Band Neutrophils % 4 %; Lymphocytes # (M) 0.58 k/uL (1.0-4.8); Monocytes # (M) 0.29 k/uL (0-1.0); Neutrophils % (M) 93 %; Nucleated Red Blood Cells 0 /100 WBC (0-0); Total Cells Counted 200
[2023-09-16 21:56] LABS: Amorphous Sediment,Urine Rare /hpf; Appearance,Urine Cloudy (Clear); Bilirubin,Urine Negative (Negative); Blood,Urine Large (Negative); Color,Urine Light Red; Glucose,Urine (UA) Trace (Negative); Hyaline Casts,Urine 186 /lpf (0-2); Ketones,Urine Trace (Negative); Leukocyte Esterase,Urine Small (Negative); Mucus,Urine Rare /hpf; Nitrite,Urine Negative (Negative); PH, Urine 5.5 (5.0-8.0); Protein,Urine 1+ (Negative); RBC,Urine >182 /hpf (0-5); Specific Gravity,Urine 1.022 (1.001-1.035); Urobilinogen,Urine <2.0 mg/dL (<2.0); WBC,Urine 30 /hpf (0-5)
[2023-09-16 21:59] LABS: ALT 349 U/L (4-34); Alkaline Phosphatase 801 U/L (38-126)
[2023-09-16] MEDS: HYDROmorphone 0.5 MG/0.5 ML SYRINGE IVP STA (22:04)
--- NOTE | 2023-09-16 22:36 | XR ---
EXAM: XR Chest, 2 Views CLINICAL HISTORY: ITS.REASON XR Reason: difficulty breathing TECHNIQUE: Frontal and lateral views of the chest. COMPARISON: No relevant prior studies available. FINDINGS: Lungs: Unremarkable. No consolidation. Pleural space: Unremarkable. No pneumothorax. Heart: Cardiomegaly. Mediastinum: Unremarkable. Normal mediastinal contour. Bones/joints: Unremarkable. No acute fracture. Vasculature: Calcified aorta. Upper abdomen: Elevated RIGHT hemidiaphragm. IMPRESSION: No acute findings in the chest.
[2023-09-16] MEDS ORDERED: NALOXONE 0.4 MG/ML 1 ML VIAL IV PRN (23:11)
[2023-09-16] MEDS: SODIUM CHLORIDE 0.9% 1,000 ML IV SCH (23:26)
[2023-09-17] MEDS: MORPHINE SULFATE 4 MG/ML SYRINGE IVP STA (00:44)
[2023-09-17] MEDS: dexAMETHasone 2 MG TAB PO SCH (00:45)
--- NOTE | 2023-09-17 03:43 | P.HPIM ---
History of Present Illness H&P Date: 09/16/23 Chief Complaint: Palpitations and shortness of breath 58-year-old female with stage IV breast cancer with mets to the brain liver and bone, A-fib on Eliquis. Patient coming in reporting some right-sided shoulder and chest pain along with feeling short of breath and palpitations she denies any falls or head injury she denies any upper respiratory infection symptoms she denies any nausea vomiting coughing fevers chills denies any changes in vision or hearing denies any focal neurodeficits she reports worsening of her lower extremity weakness she is known to have brain tumors currently on Decadron 3 times a day. She admits to moving some furniture and carrying some boxes few days ago which she thinks is causing her right shoulder pain. She also noticed having palpitations today and elevated heart rate for which she decided to come in for evaluation She also reports chronic unchanged epigastric abdominal pain secondary to injury since she was a teenager. Denies any GI bleeding denies any nausea or vomiting denies any diarrhea Patient last chemotherapy session was 5 days ago she received a session every 3 weeks She reports worsening headache but denies any associated changes in vision or hearing denies any new focal neurodeficits however she is noticing some increased weakness of her bilateral lower extremities denies any bowel or urinary incontinence or retention Patient denies tobacco smoking she claims that she quit 2 months ago denies any illicit drugs or heavy alcohol review of systems Pertinent positives as noted in HPI. All other systems were reviewed and are negative on exam Constitutional: No acute distress, conversant, pleasant Eyes: Anicteric sclerae, moist conjunctiva, Pupils equal round reactive to light ENMT: NC/AT Oropharynx clear, no erythema, or exudates Neck: Supple, no masses, or JVD No carotid bruits No thyromegaly Lungs: Clear to auscultation Clear to percussion Normal respiratory effort, no accessory muscle use Cardiovascular: Heart irregular No murmurs, gallops, or rubs No peripheral edema Abdominal: Soft Nontender, no guarding, rebound or rigidity Abdomen moving with respiration Normoactive bowel sounds Extremities: No digital cyanosis No clubbing Pedal pulses intact and symmetrical Radial pulses intact and symmetrical No calf tenderness Psychiatric: Alert and oriented to person, place and time Appropriate affect fair judgement Neuro Muscles Strength 5/5 in bilateral upper extremity 3 out of 5 in bilateral lower extremity Sensation to light touch grossly present throughout Cranial nerves II-XII grossly intact Past Medical History Past Medical History: Atrial Fibrillation, Cancer, Deep Vein Thrombosis (DVT), Pulmonary Embolus (PE) Additional Past Medical History / Comment(s): left breast CA-dx April 30, 2021-had surg. & currently getting chemo; completed radiation,unable to lay on stomach from prior old injury as a teenager, DVT & PE after hysterectomy 15 yrs ago and DVT after varicose vein stripping yrs ago., DVT in August behind right knee and another DVT behind left knee. Brain mets status postcraniotomy 02/18 History of Any Multi-Drug Resistant Organisms: None Reported Past Surgical History: Breast Surgery, Section, Hernia Repair, Hysterectomy, Tonsillectomy Additional Past Surgical History / Comment(s): breast biopsy. Ear surgery as child., mediport insertion with removal, left breast lumpectomy w/sentinel lymph node bx. in November 2021, tumor removal brain. fatty tissue removed from back. Cysts removed from bilateral breasts. Past Anesthesia/Blood Transfusion Reactions: No Reported Reaction Additional Past Anesthesia/Blood Transfusion Reaction / Comment(s): no hx blood transfusion Past Psychological History: No Psychological Hx Reported Smoking Status: Former smoker Past Alcohol Use History: None Reported Past Drug Use History: None Reported - Past Family History Mother Family Medical History: AFIB, Congestive Heart Failure (CHF), COPD, Hypertension Additional Family Medical History / Comment(s): beginings of uterine Cancer Father Family Medical History: Cancer Additional Family Medical History / Comment(s): lung Medications and Allergies Home Medications Medication Instructions Recorded Confirmed Type Apixaban [Eliquis] 5 mg PO BID 07/07/23 08/28/23 History Omeprazole 40 mg PO AC-BRKFST 07/07/23 08/28/23 History Acetaminophen-Codeine 300-30mg 1 tab PO Q4H PRN 3 Days #18 tablet 07/09/23 08/28/23 Rx [Tylenol w/codeine #3] amLODIPine [Norvasc] 5 mg PO DAILY 90 Days #90 tab 07/09/23 08/28/23 Rx OLANZapine 5 mg PO DIRECTED 08/28/23 08/28/23 History Ondansetron Odt [Zofran ODT] 4 mg PO Q4-6H PRN 08/28/23 08/28/23 History dexAMETHasone [Decadron] 2 mg PO Q8HR #180 tablet 08/30/23 Rx Allergies Allergy/AdvReac Type Severity Reaction Status Date / Time metronidazole [From Flagyl] Allergy Intermediate Anaphylaxis Verified 09/16/23 20:44 adhesive tape Allergy Mild Rash/Hives,sometimes Verified 09/16/23 20:44 blisters sulfamethoxazole Allergy Anaphylaxis Verified 09/16/23 20:44 [From Bactrim] trimethoprim [From Bactrim] Allergy Anaphylaxis Verified 09/16/23 20:44 Penicillins AdvReac Nausea Verified 09/16/23 20:44 Physical Exam Vitals: Vital Signs Temp Pulse Resp BP Pulse Ox 09/17/23 01:20 155 H 16 107/58 97 09/16/23 23:04 152 H 16 115/101 98 09/16/23 20:40 97.6 F 168 H 24 126/82 99 Intake and Output 09/16/23 09/16/23 09/17/23 14:59 22:59 06:59 Other: Weight 61.689 kg Results CBC & Chem 7: 09/16/23 21:04 09/16/23 21:04 Labs: Abnormal Lab Results - Last 24 Hours (Table) 09/16/23 09/16/23 09/16/23 Range/Units 21:04 21:04 21:04 WBC 29.1 H (3.8-10.6) k/uL Hct 49.8 H (34.0-46.0) % MCHC 30.1 L (31.0-37.0) g/dL RDW 16.0 H (11.5-15.5) % Plt Count 70 L D (150-450) k/uL Neutrophils # (Manual) 28.20 H (1.3-7.7) k/uL Lymphocytes # (Manual) 0.58 L (1.0-4.8) k/uL Sodium 130 L (137-145) mmol/L Carbon Dioxide 18 L (22-30) mmol/L BUN 26 H (7-17) mg/dL Glucose 368 H (74-99) mg/dL Plasma Lactic Acid Obed 8.9 H* (0.7-2.0) mmol/L Total Bilirubin 1.4 H (0.2-1.3) mg/dL AST 264 H (14-36) U/L ALT 349 H (4-34) U/L Alkaline Phosphatase 801 H (38-126) U/L Total Protein 5.9 L (6.3-8.2) g/dL Albumin 2.9 L (3.5-5.0) g/dL Urine Appearance (Clear) Urine Protein (Negative) Urine Glucose (UA) (Negative) Urine Ketones (Negative) Urine Blood (Negative) Ur Leukocyte Esterase (Negative) Urine RBC (0-5) /hpf Urine WBC (0-5) /hpf Amorphous Sediment (None) /hpf Hyaline Casts (0-2) /lpf Urine Mucus (None) /hpf 09/16/23 09/17/23 Range/Units 21:33 00:23 WBC (3.8-10.6) k/uL Hct (34.0-46.0) % MCHC (31.0-37.0) g/dL RDW (11.5-15.5) % Plt Count (150-450) k/uL Neutrophils # (Manual) (1.3-7.7) k/uL Lymphocytes # (Manual) (1.0-4.8) k/uL Sodium (137-145) mmol/L Carbon Dioxide (22-30) mmol/L BUN (7-17) mg/dL Glucose (74-99) mg/dL Plasma Lactic Acid Obed 5.9 H* (0.7-2.0) mmol/L Total Bilirubin (0.2-1.3) mg/dL AST (14-36) U/L ALT (4-34) U/L Alkaline Phosphatase (38-126) U/L Total Protein (6.3-8.2) g/dL Albumin (3.5-5.0) g/dL Urine Appearance Cloudy H (Clear) Urine Protein 1+ H (Negative) Urine Glucose (UA) Trace H (Negative) Urine Ketones Trace H (Negative) Urine Blood Large H (Negative) Ur Leukocyte Esterase Small H (Negative) Urine RBC >182 H (0-5) /hpf Urine WBC 30 H (0-5) /hpf Amorphous Sediment Rare H (None) /hpf Hyaline Casts 186 H (0-2) /lpf Urine Mucus Rare H (None) /hpf Assessment and Plan Assessment: 58-year-old female with metastatic breast cancer to the brain bone and liver coming in due to palpitations dyspnea patient was found to be in A-fib I discus sed case with ED doctor and accepted the admission for A-fib with RVR, ruling out underlying infectious process with anticipated length of stay more than 2 midnights Symptomatic A-fib with RVR Continue with Eliquis Continue with Cardizem drip Cardiac monitoring Cardiology consult Tropes negative Sepsis secondary to UTI start patient on Rocephin 1 g IV piggyback daily for possible UTI Blood work showed white count 29.1 , no fever, chest x-ray unremarkable urine analysis showed leukocyte esterase and blood Follow-up cultures Monitor vital signs Chronic conditions Metastatic breast cancer to the brain bone and liver Elevated lactic acid Elevated liver enzymes AST 264 ALT 349 alk phos 801 Continue with Decadron 2 mg 3 times daily p.o. for brain mets Hyponatremia with sodium 130 Cautious IV fluid hydration monitor for possible SIADH Continue with normal saline at 130 for now cc per hour Hypertension Blood pressure controlled Continue with Norvasc Full code DVT prophylaxis on Eliquis for A-fib GI prophylaxis Protonix 40 mg p.o. daily
--- NOTE | 2023-09-17 07:32 | CT ---
EXAM: CT Head Without Intravenous Contrast CLINICAL HISTORY: ITS.REASON CT Reason: Known brain mets, complaining of worsening headach TECHNIQUE: Axial computed tomography images of the head/brain without intravenous contrast. CTDI is 49.1 mGy and DLP is 1121 mGy-cm. This CT exam was performed using one or more of the following dose reduction techniques: automated exposure control, adjustment of the mA and/or kV according to patient size, and/or use of iterative reconstruction technique. COMPARISON: CT dated 08/28/2023 FINDINGS: Brain: Postoperative changes are seen to the posterior left parietal lobe and overlying the skull. Stable 1.1 cm hypodensity seen within the posterior left occipital lobe seen on series 202 image 32. No hemorrhage. No significant white matter disease. Ventricles: Unremarkable. No ventriculomegaly. Bones/joints: No acute findings. Soft tissues: Unremarkable. Sinuses: Unremarkable as visualized. No acute sinusitis. Mastoid air cells: Unremarkable as visualized. No mastoid effusion. IMPRESSION: Grossly stable head with no acute intracranial findings.
[2023-09-17] MEDS: APIXABAN 5 MG TAB PO SCH (08:13)
[2023-09-17] MEDS: Acetaminophen-Codeine 300-30mg TAB PO PRN (08:13)
[2023-09-17] MEDS: PANTOPRAZOLE 40 MG TABLET PO SCH (08:13)
[2023-09-17] MEDS: amLODIPine 5 MG TAB PO SCH (08:14)
[2023-09-17] MEDS: METOPROLOL TARTRATE 25 MG TAB PO SCH (09:26)
--- NOTE | 2023-09-17 09:49 | P.CRDCN ---
History of Present Illness Consult date: 09/17/23 Chief complaint: Shortness of breath History of present illness: The patient is a pleasant 58-year-old female patient who is known to our service from before with a past medical history significant for metastatic breast cancer as well as smoking currently she is not a smoker as well as paroxysmal atrial fibrillation and history of pulmonary embolism. She presented to the emergency department complaining of shortness of breath associated with dizziness and lightheadedness. She was in her usual state of health till yesterday when she was at home and started experiencing the shortness of breath and dizziness and lightheadedness and also she was experiencing some discomfort in the chest mostly on the left side of the chest as a dull/sharp with no radiation. She decided to come to the emergency department where she underwent an EKG and that showed atrial fibrillation with rapid ventricular response. She stated that she has been compliant with her medications including oral anticoagulation. For some reasons she was not on any oral AV vesta willa agents as an outpatient. Now she is in atrial fibrillation with heart rate around 120 bpm. The EKG showed diffuse nonspecific ST and T wave abnormalities beside the atrial fibrillation. The first set of troponin came in to be unremarkable. She underwent also a CT scan of the brain which showed no acute abnormalities. The patient was seen by our service in June 2023 and at that point she underwent an echo which revealed normal LV systolic function. The patient is known to have metastatic breast cancer to the bone and lungs and also to the brain and she underwent craniotomy in the past. The physical examination revealed irregular rhythm with tachycardia and clear breathing sounds bilaterally and no edema was noted. Assessment Atrial fibrillation with RVR in patient with paroxysmal atrial fibrillation History of pulmonary embolism Metastatic breast cancer as described above History of smoking Plan Continue the current dose of Cardizem IV Oral beta-willa to the current medical regimen Continue oral anticoagulation No need to repeat the echo in the light of recent echo showing normal LV systolic function Follow-up with the patient Past Medical History Past Medical History: Atrial Fibrillation, Cancer, Deep Vein Thrombosis (DVT), Pulmonary Embolus (PE) Additional Past Medical History / Comment(s): left breast CA-dx April 30, 2021-had surg. & currently getting chemo; completed radiation,unable to lay on stomach from prior old injury as a teenager, DVT & PE after hysterectomy 15 yrs ago and DVT after varicose vein stripping yrs ago., DVT in August behind right knee and another DVT behind left knee. Brain mets status postcraniotomy 02/18 History of Any Multi-Drug Resistant Organisms: None Reported Past Surgical History: Breast Surgery, Section, Hernia Repair, Hysterectomy, Tonsillectomy Additional Past Surgical History / Comment(s): breast biopsy. Ear surgery as child., mediport insertion with removal, left breast lumpectomy w/sentinel lymph node bx. in November 2021, tumor removal brain. fatty tissue removed from back. Cysts removed from bilateral breasts. Past Anesthesia/Blood Transfusion Reactions: No Reported Reaction Additional Past Anesthesia/Blood Transfusion Reaction / Comment(s): no hx blood transfusion Past Psychological History: No Psychological Hx Reported Smoking Status: Former smoker Past Alcohol Use History: None Reported Additional Past Alcohol Use History / Comment(s): <1/2 ppd, started smoking as a teenager on and off Past Drug Use History: None Reported - Past Family History Mother Family Medical History: AFIB, Congestive Heart Failure (CHF), COPD, Hypertension Additional Family Medical History / Comment(s): beginings of uterine Cancer Father Family Medical History: Cancer Additional Family Medical History / Comment(s): lung Medications and Allergies Home Medications Medication Instructions Recorded Confirmed Type Apixaban [Eliquis] 5 mg PO BID 07/07/23 09/17/23 History Omeprazole 40 mg PO AC-BRKFST 07/07/23 09/17/23 History Acetaminophen-Codeine 300-30mg 1 tab PO Q4H PRN 3 Days #18 tablet 07/09/23 09/17/23 Rx [Tylenol w/codeine #3] amLODIPine [Norvasc] 5 mg PO DAILY 90 Days #90 tab 07/09/23 09/17/23 Rx OLANZapine 5 mg PO DIRECTED 08/28/23 09/17/23 History Ondansetron Odt [Zofran ODT] 4 mg PO Q4-6H PRN 08/28/23 09/17/23 History HYDROcodone/APAP 5-325MG [[place] 1 tab PO Q4H PRN 09/17/23 09/17/23 History 5-325] dexAMETHasone [Decadron] See Taper PO DIRECTED 09/17/23 09/17/23 History Allergies Allergy/AdvReac Type Severity Reaction Status Date / Time metronidazole [From Flagyl] Allergy Intermediate Anaphylaxis Verified 09/17/23 09:17 adhesive tape Allergy Mild Rash/Hives,sometimes Verified 09/17/23 09:17 blisters sulfamethoxazole Allergy Anaphylaxis Verified 09/17/23 09:17 [From Bactrim] trimethoprim [From Bactrim] Allergy Anaphylaxis Verified 09/17/23 09:17 Penicillins AdvReac Nausea Verified 09/17/23 09:17 Physical Exam Vitals: Vital Signs Temp Pulse Resp BP Pulse Ox 09/17/23 09:12 148 H 09/17/23 08:55 97.8 F 128 H 20 133/80 98 09/17/23 08:07 97.9 F 122 H 18 116/88 99 09/17/23 04:00 152 H 17 116/94 97 09/17/23 01:20 155 H 16 107/58 97 09/16/23 23:04 152 H 16 115/101 98 09/16/23 20:40 97.6 F 168 H 24 126/82 99 Intake and Output 09/16/23 09/17/23 09/17/23 22:59 06:59 14:59 Intake Total 105 Balance 105 Intake: Intake, IV Titration 105 Amount Diltiazem 125 mg In 105 Sodium Chloride 0.9% 100 ml @ 10 MG/HR 10 mls/hr IV .[id number] [facility] Rx#: [id number] Other: Weight 61.689 kg 61.689 kg Results 09/16/23 21:04 09/16/23 21:04 Cardiac Enzymes 09/16/23 09/16/23 Range/Units 21:04 21:04 AST 264 H (14-36) U/L Troponin I <0.012 (0.000-0.034) ng/mL Coagulation 09/16/23 Range/Units 21:04 PT 11.3 (10.0-12.5) sec APTT 24.4 (22.0-30.0) sec CBC 09/16/23 Range/Units 21:04 WBC 29.1 H (3.8-10.6) k/uL RBC 5.24 (3.80-5.40) m/uL Hgb 15.0 (11.4-16.0) gm/dL Hct 49.8 H (34.0-46.0) % Plt Count 70 L D (150-450) k/uL Comprehensive Metabolic Panel 09/16/23 Range/Units 21:04 Sodium 130 L (137-145) mmol/L Potassium 4.9 (3.5-5.1) mmol/L Chloride 98 (98-107) mmol/L Carbon Dioxide 18 L (22-30) mmol/L BUN 26 H (7-17) mg/dL Creatinine 0.53 (0.52-1.04) mg/dL Glucose 368 H (74-99) mg/dL Calcium 9.1 (8.4-10.2) mg/dL AST 264 H (14-36) U/L ALT 349 H (4-34) U/L Alkaline Phosphatase 801 H (38-126) U/L Total Protein 5.9 L (6.3-8.2) g/dL Albumin 2.9 L (3.5-5.0) g/dL Current Medications Generic Name Dose Route Start Last Admin Trade Name Freq PRN Reason Stop Dose Admin Acetaminophen/Codeine Phosphate 1 each 09/16/23 23:16 09/17/23 08:13 Acetaminophen-Codeine 300-30mg Tab PO 1 each Q4H PRN Administration Pain Control Apixaban 5 mg 09/17/23 09:00 09/17/23 08:13 Apixaban 5 Mg Tab PO 5 mg BID AVELINO Administration Protocol Dexamethasone 2 mg 09/17/23 00:00 09/17/23 08:13 Dexamethasone 2 Mg Tab PO 2 mg Q8HR AVELINO Administration Diltiazem HCl 125 mg/ Sodium 125 mls @ 10 mls/hr 09/16/23 23:00 09/17/23 09:29 Chloride IV 15 mg/hr .[id number] AVELINO 15 mls/hr Administration 10 MG/HR Sodium Chloride 1,000 mls @ 20 mls/hr 09/16/23 23:15 09/16/23 23:26 Saline 0.9% IV Not Given .Q24H AVELINO Ceftriaxone Sodium 1 gm/ 50 mls @ 100 mls/hr 09/18/23 05:00 Sodium Chloride IVPB Q24H AVELINO Protocol Metoprolol Tartrate 25 mg 09/17/23 09:30 09/17/23 09:26 Metoprolol Tartrate 25 Mg Tab PO 25 mg BID AVELINO Administration Naloxone HCl 0.2 mg 09/16/23 23:11 Naloxone 0.4 Mg/Ml 1 Ml Vial IV Q2M PRN Opioid Reversal Ondansetron HCl 4 mg 09/16/23 23:16 Ondansetron Odt 4 Mg Tab PO Q6H PRN Nausea And Vomiting Pantoprazole Sodium 40 mg 09/17/23 07:30 09/17/23 08:19 Pantoprazole 40 Mg Tablet PO Not Given AC-BRKFST [facility] Intake and Output 09/16/23 09/17/23 09/17/23 22:59 06:59 14:59 Intake Total 105 Balance 105 Intake: Intake, IV Titration 105 Amount Diltiazem 125 mg In 105 Sodium Chloride 0.9% 100 ml @ 10 MG/HR 10 mls/hr IV .[id number] [facility] Rx#: [id number] Other: Weight 61.689 kg 61.689 kg Patient Weight 09/18/23 06:59 Weight 61.689 kg 09/16/23 21:04 09/16/23 21:04
[2023-09-17] MEDS: LACTATED RINGERS 1,000 ML IV ONE (12:44)
--- NOTE | 2023-09-17 13:38 | P.PN ---
Subjective Progress Note Date: 09/17/23 Hospital course Patient is a 58-year-old female with past medical history of stage IV breast cancer with metastasis to the brain liver and bone and atrial fibrillation on Eliquis who presents to the ED with palpitations, shortness of breath and weakness. Patient was recently admitted to the hospital for workup of vertigo. Patient was found to have new metastatic lesions in her brain. Patient was discharged and was instructed to follow-up with radiation oncology. Patient st ates that her last chemotherapy was 5 days ago. She has not started radiation therapy yet. She states that about a week ago her Decadron was increased to 4 mg 3 times a day. Patient states that she has been taking the Decadron every day. Patient also states that she has hematuria. She also complains of dysuria. In the ED patient was found to be in A-fib with RVR. Patient started on Cardizem drip. Cardiology following the patient and started the patient metoprolol. HPI This morning patient states that she still feels weak. Physical exam General examination - Alert and Oriented 3 in NAD, appears chronically debilitated Heart - + S1S2 no murmurs Lungs - Clear to auscultation Abdomen soft NT ND +ve BS Extremities - No edema [employer] - Moving all 4 extremities spontaneously Psych - Calm and cooperative Assessment and plan Symptomatic A-fib with RVR Continue with Eliquis Wean Cardizem drip as tolerated Patient started on metoprolol Sepsis secondary to UTI Continue with IV Rocephin Leukocytosis could be due to the recent increasing of Decadron Continue to monitor WBC Follow-up on blood culture Follow-up on urine culture which unfortunately was not done on admission Lactic acidosis I suspect this is mainly due to liver metastasis. I doubt this is due to sepsis as patient is not ill-appearing. Will give another liter bolus of lactated Ringer's Breast cancer with metastasis to the brain bone and liver Continue with pain meds Continue with dexamethasone 2 mg p.o. every 8 hours Generalized weakness This is multifactorial due to dehydration, sepsis, atrial fibrillation and breast cancer stage IV Will consult PT OT Elevated liver enzymes secondary to metastasis Trend CMP Mild hyponatremia Continue with fluids trend BMP Hypertension Blood pressure controlled Norvasc on hold as patient is on Cardizem drip DVT prophylaxis: Chuck I discussed goals of care with the patient. She wishes to be full code. Objective - Vital Signs Vital signs: Vital Signs Temp 98.0 F 09/17/23 12:49 Pulse 91 09/17/23 12:49 Resp 20 09/17/23 12:49 BP 138/78 09/17/23 12:49 Pulse Ox 97 09/17/23 12:49 FiO2 Intake & Output 09/16/23 09/17/23 09/17/23 18:59 06:59 18:59 Intake Total 105 Balance 105 Weight 61.689 kg 61.689 kg Intake: Intake, IV Titration 105 Amount Diltiazem 125 mg In 105 Sodium Chloride 0.9% 100 ml @ 10 MG/HR 10 mls/hr IV .[id number] [facility] Rx#: [id number] - Labs CBC & Chem 7: 09/16/23 21:04 09/16/23 21:04 Labs: Abnormal Lab Results - Last 24 Hours (Table) 09/16/23 09/16/23 09/16/23 Range/Units 21:04 21:04 21:04 WBC 29.1 H (3.8-10.6) k/uL Hct 49.8 H (34.0-46.0) % MCHC 30.1 L (31.0-37.0) g/dL RDW 16.0 H (11.5-15.5) % Plt Count 70 L D (150-450) k/uL Neutrophils # (Manual) 28.20 H (1.3-7.7) k/uL Lymphocytes # (Manual) 0.58 L (1.0-4.8) k/uL Sodium 130 L (137-145) mmol/L Carbon Dioxide 18 L (22-30) mmol/L BUN 26 H (7-17) mg/dL Glucose 368 H (74-99) mg/dL Plasma Lactic Acid Obed 8.9 H* (0.7-2.0) mmol/L Total Bilirubin 1.4 H (0.2-1.3) mg/dL AST 264 H (14-36) U/L ALT 349 H (4-34) U/L Alkaline Phosphatase 801 H (38-126) U/L Total Protein 5.9 L (6.3-8.2) g/dL Albumin 2.9 L (3.5-5.0) g/dL Urine Appearance (Clear) Urine Protein (Negative) Urine Glucose (UA) (Negative) Urine Ketones (Negative) Urine Blood (Negative) Ur Leukocyte Esterase (Negative) Urine RBC (0-5) /hpf Urine WBC (0-5) /hpf Amorphous Sediment (None) /hpf Hyaline Casts (0-2) /lpf Urine Mucus (None) /hpf 09/16/23 09/17/23 09/17/23 Range/Units 21:33 00:23 03:11 WBC (3.8-10.6) k/uL Hct (34.0-46.0) % MCHC (31.0-37.0) g/dL RDW (11.5-15.5) % Plt Count (150-450) k/uL Neutrophils # (Manual) (1.3-7.7) k/uL Lymphocytes # (Manual) (1.0-4.8) k/uL Sodium (137-145) mmol/L Carbon Dioxide (22-30) mmol/L BUN (7-17) mg/dL Glucose (74-99) mg/dL Plasma Lactic Acid Obed 5.9 H* 5.9 H* (0.7-2.0) mmol/L Total Bilirubin (0.2-1.3) mg/dL AST (14-36) U/L ALT (4-34) U/L Alkaline Phosphatase (38-126) U/L Total Protein (6.3-8.2) g/dL Albumin (3.5-5.0) g/dL Urine Appearance Cloudy H (Clear) Urine Protein 1+ H (Negative) Urine Glucose (UA) Trace H (Negative) Urine Ketones Trace H (Negative) Urine Blood Large H (Negative) Ur Leukocyte Esterase Small H (Negative) Urine RBC >182 H (0-5) /hpf Urine WBC 30 H (0-5) /hpf Amorphous Sediment Rare H (None) /hpf Hyaline Casts 186 H (0-2) /lpf Urine Mucus Rare H (None) /hpf 09/17/23 Range/Units 07:05 WBC (3.8-10.6) k/uL Hct (34.0-46.0) % MCHC (31.0-37.0) g/dL RDW (11.5-15.5) % Plt Count (150-450) k/uL Neutrophils # (Manual) (1.3-7.7) k/uL Lymphocytes # (Manual) (1.0-4.8) k/uL Sodium (137-145) mmol/L Carbon Dioxide (22-30) mmol/L BUN (7-17) mg/dL Glucose (74-99) mg/dL Plasma Lactic Acid Obed 9.1 H* (0.7-2.0) mmol/L Total Bilirubin (0.2-1.3) mg/dL AST (14-36) U/L ALT (4-34) U/L Alkaline Phosphatase (38-126) U/L Total Protein (6.3-8.2) g/dL Albumin (3.5-5.0) g/dL Urine Appearance (Clear) Urine Protein (Negative) Urine Glucose (UA) (Negative) Urine Ketones (Negative) Urine Blood (Negative) Ur Leukocyte Esterase (Negative) Urine RBC (0-5) /hpf Urine WBC (0-5) /hpf Amorphous Sediment (None) /hpf Hyaline Casts (0-2) /lpf Urine Mucus (None) /hpf
--- NOTE | 2023-09-17 18:13 | P.CNPUL ---
History of Present Illness Consult date: 09/17/23 Requesting physician: Abhijeet Urbano Reason for consult: dyspnea Chief complaint: Shortness of breath, weakness, hematuria History of present illness: This is a very pleasant 58-year-old female patient with a known history of stage IV breast cancer she was initially diagnosed in April 2021 and had a lumpectomy and subsequent chemotherapy and radiation therapy. She was later found to have a large left parietal brain metastasis and had undergone resection in January 2023. She had undergone postoperative adjunctive radiation therapy finished in February 2023. She was later found to have 3 new small lesions and underwent single fraction radiation on June 15, 2023. He has been under the care of Dr. Kapadia and Dr. Aquino. She was receiving chemotherapy most recently on September 11, 2023. She came to the emergency room left evening after having increasing shortness of breath, dizziness, weakness and burning with urination and developed hematuria. She had been on Eliquis for approximately 4 to 5 months for a left lower extremity DVT. Upon admission here she was found to be in atrial fibrillation with a rapid ventricular response. She is currently on Cardizem drip at 15 mg/h. She was also complaining of a worsening headache however CT scan of the brain revealed no acute intracranial findings. White count 29.1. Hemoglobin 15.0. Platelets 70,000. Sodium 130. Potassium 4.9. Bicarb 18. BUN 26. Creatinine 0.53. Glucose 368. Initial lactic acid 8.9, peaking at 11.4 and currently 6.1. AST 264. ALT 349. Alk phos 801. Troponin negative x 2. proBNP 3080. Urine with large blood, greater than 182 RBCs, 30 WBCs. She has received 3 L of fluid resuscitation. She was initiated on ceftriaxone. Resumed on Eliquis and continued on a Cardizem drip. She is se en today in consultation in the emergency department. She is currently sitting up on a stretcher. Awake and alert in no acute distress. She is still quite weak and she is maintaining good O2 saturations in the 90s on room air. She is afebrile. Remains in atrial fibrillation. X-ray reveals no acute pulmonary process. Review of Systems REVIEW OF SYSTEMS: CONSTITUTIONAL: Positive for generalized weakness, fatigue. Positive for significant weight loss. EYES: Denies change in vision. EARS, NOSE, MOUTH, THROAT: Denies headaches, denies sore throat. CARDIOVASCULAR: Positive for palpitations no syncopal episodes. RESPIRATORY: Positive for shortness of breath, no cough, congestion or hemoptysis. GASTROINTESTINAL: Denies change in appetite, denies abdominal pain GENITOURINARY: Denies hematuria, denies infections. MUSKULOSKELETAL: Positive for pain and weakness of the lower extremities. INTEGUMENTARY: Denies rash, denies eczema. NEUROLOGICAL: Denies recent memory loss, no recent seizure activity. PSYCHIATRIC: Positive for anxiety, denies depression. HEMATOLOGIC/LYMPHATIC: Denies anemia, denies enlarged lymph nodes. Past Medical History Past Medical History: Atrial Fibrillation, Cancer, Deep Vein Thrombosis (DVT), P ulmonary Embolus (PE) Additional Past Medical History / Comment(s): left breast CA-dx April 30, 2021-had surg. & currently getting chemo; completed radiation,unable to lay on stomach from prior old injury as a teenager, DVT & PE after hysterectomy 15 yrs ago and DVT after varicose vein stripping yrs ago., DVT in August behind right knee and another DVT behind left knee. Brain mets status postcraniotomy 02/18 History of Any Multi-Drug Resistant Organisms: None Reported Past Surgical History: Breast Surgery, Section, Hernia Repair, Hysterectomy, Tonsillectomy Additional Past Surgical History / Comment(s): breast biopsy. Ear surgery as child., mediport insertion with removal, left breast lumpectomy w/sentinel lymph node bx. in November 2021, tumor removal brain. fatty tissue removed from back. Cysts removed from bilateral breasts. Past Anesthesia/Blood Transfusion Reactions: No Reported Reaction Additional Past Anesthesia/Blood Transfusion Reaction / Comment(s): no hx blood transfusion Past Psychological History: No Psychological Hx Reported Smoking Status: Former smoker Past Alcohol Use History: None Reported Additional Past Alcohol Use History / Comment(s): <1/2 ppd, started smoking as a teenager on and off Past Drug Use History: None Reported - Past Family History Mother Family Medical History: AFIB, Congestive Heart Failure (CHF), COPD, Hypertension Additional Family Medical History / Comment(s): beginings of uterine Cancer Father Family Medical History: Cancer Additional Family Medical History / Comment(s): lung Medications and Allergies Home Medications Medication Instructions Recorded Confirmed Type Apixaban [Eliquis] 5 mg PO BID 07/07/23 09/17/23 History Omeprazole 40 mg PO AC-BRKFST 07/07/23 09/17/23 History Acetaminophen-Codeine 300-30mg 1 tab PO Q4H PRN 3 Days #18 tablet 07/09/2309/16 Rx [Tylenol w/codeine #3] amLODIPine [Norvasc] 5 mg PO DAILY 90 Days #90 tab 07/09/23 09/17/23 Rx OLANZapine 5 mg PO DIRECTED 08/28/23 09/17/23 History Ondansetron Odt [Zofran ODT] 4 mg PO Q4-6H PRN 08/28/23 09/17/23 History HYDROcodone/APAP 5-325MG [[place] 1 tab PO Q4H PRN 09/17/23 09/17/23 History 5-325] dexAMETHasone [Decadron] See Taper PO DIRECTED 09/17/23 09/17/23 History Allergies Allergy/AdvReac Type Severity Reaction Status Date / Time metronidazole [From Flagyl] Allergy Intermediate Anaphylaxis Verified 09/17/23 09:17 adhesive tape Allergy Mild Rash/Hives,sometimes Verified 09/17/23 09:17 blisters sulfamethoxazole Allergy Anaphylaxis Verified 09/17/23 09:17 [From Bactrim] trimethoprim [From Bactrim] Allergy Anaphylaxis Verified 09/17/23 09:17 Penicillins AdvReac Nausea Verified 09/17/23 09:17 Physical Exam Vitals: Vital Signs Temp Pulse Resp BP Pulse Ox 09/17/23 16:34 79 18 119/92 96 09/17/23 12:49 98.0 F 91 20 138/78 97 09/17/23 11:00 132 H 20 131/82 98 09/17/23 10:30 140 H 20 131/88 97 09/17/23 09:12 148 H 09/17/23 08:55 97.8 F 128 H 20 133/80 98 09/17/23 08:07 97.9 F 122 H 18 116/88 99 09/17/23 04:00 152 H 17 116/94 97 09/17/23 01:20 155 H 16 107/58 97 09/16/23 23:04 152 H 16 115/101 98 09/16/23 20:40 97.6 F 168 H 24 126/82 99 Intake and Output 09/17/23 09/17/23 09/17/23 06:59 14:59 22:59 Intake Total 105 Balance 105 Intake: Intake, IV Titration 105 Amount Diltiazem 125 mg In 105 Sodium Chloride 0.9% 100 ml @ 10 MG/HR 10 mls/hr IV .[id number] [facility] Rx#: [id number] Other: Weight 61.689 kg GENERAL EXAM: Alert, anxious, thin 58-year-old female, on room air, fairly comfortable in no apparent distress. HEAD: Normocephalic. EYES: Normal reaction of pupils, equal size. NOSE: Clear with pink turbinates. THROAT: No erythema or exudates. NECK: No masses, no JVD. CHEST: No chest wall deformity. LUNGS: Equal air entry with no crackles, wheeze, rhonchi or dullness. CVS: S1 and S2 normal with no audible murmur, irregular rhythm. ABDOMEN: No hepatosplenomegaly, normal bowel sounds, no guarding or rigidity. SPINE: No scoliosis or deformity SKIN: No rashes CENTRAL NERVOUS SYSTEM: No focal deficits, tone is normal in all 4 extremities. EXTREMITIES: There is no peripheral edema. No clubbing, no cyanosis. Peripheral pulses are intact. Results - Laboratory Findings CBC and BMP: 09/16/23 21:04 09/16/23 21:04 PT/INR, D-dimer PT 11.3 sec (10.0-12.5) 09/16/23 21:04 INR 1.0 (<1.2) 09/16/23 21:04 Abnormal lab findings: Abnormal Labs 09/16/23 09/16/23 09/16/23 21:04 21:04 21:04 WBC 29.1 H Hct 49.8 H MCHC 30.1 L RDW 16.0 H Plt Count 70 L D Neutrophils # (Manual) 28.20 H Lymphocytes # (Manual) 0.58 L Sodium 130 L Carbon Dioxide 18 L BUN 26 H Glucose 368 H Plasma Lactic Acid Obed 8.9 H* Total Bilirubin 1.4 H AST 264 H ALT 349 H Alkaline Phosphatase 801 H Total Protein 5.9 L Albumin 2.9 L Urine Appearance Urine Protein Urine Glucose (UA) Urine Ketones Urine Blood Ur Leukocyte Esterase Urine RBC Urine WBC Amorphous Sediment Hyaline Casts Urine Mucus 09/16/23 09/17/23 09/17/23 21:33 00:23 03:11 WBC Hct MCHC RDW Plt Count Neutrophils # (Manual) Lymphocytes # (Manual) Sodium Carbon Dioxide BUN Glucose Plasma Lactic Acid Obed 5.9 H* 5.9 H* Total Bilirubin AST ALT Alkaline Phosphatase Total Protein Albumin Urine Appearance Cloudy H Urine Protein 1+ H Urine Glucose (UA) Trace H Urine Ketones Trace H Urine Blood Large H Ur Leukocyte Esterase Small H Urine RBC >182 H Urine WBC 30 H Amorphous Sediment Rare H Hyaline Casts 186 H Urine Mucus Rare H 09/17/23 09/17/23 09/17/23 07:05 13:24 16:12 WBC Hct MCHC RDW Plt Count Neutrophils # (Manual) Lymphocytes # (Manual) Sodium Carbon Dioxide BUN Glucose Plasma Lactic Acid Obed 9.1 H* 11.4 H* 6.1 H* Total Bilirubin AST ALT Alkaline Phosphatase Total Protein Albumin Urine Appearance Urine Protein Urine Glucose (UA) Urine Ketones Urine Blood Ur Leukocyte Esterase Urine RBC Urine WBC Amorphous Sediment Hyaline Casts Urine Mucus - Diagnostic Findings Chest x-ray: image reviewed Assessment and Plan Assessment: Acute sepsis with lactic acidosis secondary to suspected urinary tract infection and hematuria Dyspnea secondary to atrial fibrillation with a rapid ventricular response History of left lower extremity DVT approximately 4 to 5 months ago and maintained on Eliquis Stage IV metastatic breast cancer with metastasis to the brain bone and liver. Initially treated in 2020 with recurrence currently receiving chemotherapy last treatment on September 11, 2023 History of metastatic left parietal brain metastasis status post resection in January 2023 subsequent radiation currently on Decadron Transaminitis secondary to sepsis, liver metastasis Former smoker Hypertension Plan: The patient was seen and evaluated Chest x-ray, labs and medications reviewed Continue Cardizem drip at 15 mg/h Cardiology consulted Continue fluid resuscitation Continue antibiotics Continue Decadron Admit to the intensive care unit We will continue to follow and make further recommendations based on her clinical status I have personally seen and examined the patient, performed the documentation and the assessment and plan as written. Number of minutes spent on the visit: 20.
[2023-09-17] MEDS: LACTATED RINGERS 1,000 ML IV SCH (18:51)
[2023-09-17 20:43] LABS: Glucose,Whole Blood 228 mg/dL (70-110)
[2023-09-17 21:41] LABS: Anisocytosis Slight; Basophils % (A) 0 %; Eosinophils % (A) 0 %; HCT 42.8 % (34.0-46.0); HGB 13.2 gm/dL (11.4-16.0); Lymphocytes # (A) 0.9 k/uL (1.0-4.8); Lymphocytes % (A) 4 %; MCHC 30.8 g/dL (31.0-37.0); MCV 94.2 fL (80.0-100.0); Mean Platelet Volume 9.7; Monocytes % (A) 1 %; Neutrophils # (A) 25.2 k/uL (1.3-7.7); Neutrophils % (A) 95 %; RBC 4.55 m/uL (3.80-5.40); RDW 16.3 % (11.5-15.5); WBC 26.5 k/uL (3.8-10.6)
[2023-09-17 21:42] LABS: Monocytes # (A) 0.3 k/uL (0-1.0)
[2023-09-17 21:58] LABS: Platelet Count 56 k/uL (150-450)
[2023-09-17 22:07] LABS: ALT 291 U/L (4-34); AST 261 U/L (14-36); African American GFR (CKD) >90 (>60 ml/min/1.73 sqM); Albumin 2.4 g/dL (3.5-5.0); Anion Gap 11 mmol/L; Blood Urea Nitrogen 28 mg/dL (7-17); Calcium 8.3 mg/dL (8.4-10.2); Carbon Dioxide 18 mmol/L (22-30); Chloride 103 mmol/L (98-107); Glucose 244 mg/dL (74-99); Non-African American GFR(CKD) >90 (>60 ml/min/1.73 sqM); Potassium 4.4 mmol/L (3.5-5.1); Sodium 132 mmol/L (137-145); Total Bilirubin 1.3 mg/dL (0.2-1.3); Total Protein 5.2 g/dL (6.3-8.2)
[2023-09-17 23:05] LABS: Alkaline Phosphatase 710 U/L (38-126)
[2023-09-17 23:22] LABS: RBC Morphology Normal
[2023-09-17] MEDS: SODIUM CHLORIDE 0.9% 1,000 ML IV ONE (23:38)
[2023-09-18 06:49] LABS: African American GFR (CKD) >90 (>60 ml/min/1.73 sqM); Anion Gap 10 mmol/L; Blood Urea Nitrogen 26 mg/dL (7-17); Calcium 8.3 mg/dL (8.4-10.2); Carbon Dioxide 17 mmol/L (22-30); Chloride 104 mmol/L (98-107); Glucose 269 mg/dL (74-99); Magnesium 1.8 mg/dL (1.6-2.3); Non-African American GFR(CKD) >90 (>60 ml/min/1.73 sqM); Potassium 4.2 mmol/L (3.5-5.1); Sodium 131 mmol/L (137-145)
[2023-09-18 06:52] LABS: Anisocytosis Slight; Basophils # (A) 0.1 k/uL (0-0.2); Basophils % (A) 0 %; Eosinophils % (A) 0 %; HCT 40.6 % (34.0-46.0); HGB 12.7 gm/dL (11.4-16.0); Hypochromasia Moderate; Lymphocytes # (A) 0.9 k/uL (1.0-4.8); Lymphocytes % (A) 4 %; MCHC 31.3 g/dL (31.0-37.0); MCV 95.8 fL (80.0-100.0); Mean Platelet Volume 8.9; Monocytes # (A) 0.4 k/uL (0-1.0); Monocytes % (A) 2 %; Neutrophils # (A) 20.3 k/uL (1.3-7.7); Neutrophils % (A) 94 %; RBC 4.23 m/uL (3.80-5.40); RDW 16.5 % (11.5-15.5); WBC 21.7 k/uL (3.8-10.6)
[2023-09-18 06:55] LABS: Platelet Count 43 k/uL (150-450)
[2023-09-18] MEDS: CALCIUM CARBONATE 500 MG CHEWABLE PO PRN (11:54)
--- NOTE | 2023-09-18 12:16 | P.PN ---
Subjective Progress Note Date: 09/18/23 This is a very pleasant 58-year-old female patient with a known history of stage IV breast cancer she was initially diagnosed in April 2021 and had a lumpectomy and subsequent chemotherapy and radiation therapy. She was later found to have a large left parietal brain metastasis and had undergone resection in January 2023. She had undergone postoperative adjunctive radiation therapy finished in February 2023. She was later found to have 3 new small lesions and underwent single fraction radiation on June 15, 2023. He has been under the care of Dr. Kapadia and Dr. Aquino. She was receiving chemotherapy most recently on September 11, 2023. She came to the emergency room left evening after having increasing shortness of breath, dizziness, weakness and burning with urination and developed hematuria. She had been on Eliquis for approximately 4 to 5 months for a left lower extremity DVT. Upon admission here she was found to be in atrial fibrillation with a rapid ventricular response. She is currently on Cardizem drip at 15 mg/h. She was also complaining of a worsening headache however CT scan of the brain revealed no acute intracranial findings. White count 29.1. Hemoglobin 15.0. Platelets 70,000. Sodium 130. Potassium 4.9. Bicarb 18. BUN 26. Creatinine 0.53. Glucose 368. Initial lactic acid 8.9, peaking at 11.4 and currently 6.1. AST 264. ALT 349. Alk phos 801. Tr oponin negative x 2. proBNP 3080. Urine with large blood, greater than 182 RBCs, 30 WBCs. She has received 3 L of fluid resuscitation. She was initiated on ceftriaxone. Resumed on Eliquis and continued on a Cardizem drip. She is seen today in consultation in the emergency department. She is currently sitting up on a stretcher. Awake and alert in no acute distress. She is still quite weak and she is maintaining good O2 saturations in the 90s on room air. She is afebrile. Remains in atrial fibrillation. X-ray reveals no acute pulmonary process. The patient is seen today September 18, 2023 in follow-up in the intensive care unit. She is currently resting comfortably in bed. Awake and alert in no acute distress. She is maintaining O2 saturations in the 90s on room air. She remains on lactated Ringer's at 125 MLS per hour. Continued on a Cardizem drip at 15 mg/h. Remains in atrial fibrillation. Rate is better controlled. White count 21.7. Hemoglobin 12.7. Platelets 43,000. Sodium 131. Potassium 4.2. Bicarb 17. BUN 26. Creatinine 0.42. Glucose 269. Lactic acid 6.7. He remains on ceftriaxone. Continued on Decadron. Eliquis on hold. Objective - Vital Signs Vital signs: Vital Signs Temp 97.4 F L 09/18/23 08:00 Pulse 67 09/18/23 10:00 Resp 22 09/18/23 10:00 BP 127/90 09/18/23 10:00 Pulse Ox 96 09/18/23 10:00 FiO2 Intake & Output 09/17/23 09/18/23 09/18/23 18:59 06:59 18:59 Intake Total 230 1125 500 Output Total 450 350 Balance 230 675 150 Weight 61.689 kg 64 kg Intake: IV 1125 500 Lactated Ringers 1,000 ml 1125 500 @ 125 mls/hr IV .Q8H [facility] Rx#:[id number] Intake, IV Titration 230 Amount Diltiazem 125 mg In 230 Sodium Chloride 0.9% 100 ml @ 10 MG/HR 10 mls/hr IV .[id number] [facility] Rx#: [id number] Output: Urine 450 350 Other: Voiding Method Bedside Commode # Voids 0 - Exam GENERAL EXAM: Alert, thin 58-year-old female, resting in bed, on room air, comfortable in no apparent distress. HEAD: Normocephalic. EYES: Normal reaction of pupils, equal size. NOSE: Clear with pink turbinates. THROAT: No erythema or exudates. NECK: No masses, no JVD. CHEST: No chest wall deformity. LUNGS: Equal air entry with no crackles, wheeze, rhonchi or dullness. CVS: S1 and S2 normal with no audible murmur, irregular rhythm. ABDOMEN: No hepatosplenomegaly, normal bowel sounds, no guarding or rigidity. SPINE: No scoliosis or deformity SKIN: No rashes CENTRAL NERVOUS SYSTEM: No focal deficits, tone is normal in all 4 extremities. EXTREMITIES: There is no peripheral edema. No clubbing, no cyanosis. Peripheral pulses are intact. - Labs CBC & Chem 7: 09/18/23 05:37 09/18/23 05:37 Labs: Abnormal Lab Results - Last 24 Hours (Table) 09/17/23 09/17/23 09/17/23 Range/Units 13:24 16:12 20:42 WBC (3.8-10.6) k/uL MCHC (31.0-37.0) g/dL RDW (11.5-15.5) % Plt Count (150-450) k/uL Neutrophils # (1.3-7.7) k/uL Lymphocytes # (1.0-4.8) k/uL Sodium (137-145) mmol/L Carbon Dioxide (22-30) mmol/L BUN (7-17) mg/dL Creatinine (0.52-1.04) mg/dL Glucose (74-99) mg/dL POC Glucose (mg/dL) 228 H (70-110) mg/dL Plasma Lactic Acid Obed 11.4 H* 6.1 H* (0.7-2.0) mmol/L Calcium (8.4-10.2) mg/dL AST (14-36) U/L ALT (4-34) U/L Alkaline Phosphatase (38-126) U/L Total Protein (6.3-8.2) g/dL Albumin (3.5-5.0) g/dL 09/17/23 09/17/23 09/17/23 Range/Units 20:56 20:56 20:56 WBC 26.5 H (3.8-10.6) k/uL MCHC 30.8 L (31.0-37.0) g/dL RDW 16.3 H (11.5-15.5) % Plt Count 56 L (150-450) k/uL Neutrophils # 25.2 H (1.3-7.7) k/uL Lymphocytes # 0.9 L (1.0-4.8) k/uL Sodium 132 L (137-145) mmol/L Carbon Dioxide 18 L (22-30) mmol/L BUN 28 H (7-17) mg/dL Creatinine (0.52-1.04) mg/dL Glucose 244 H (74-99) mg/dL POC Glucose (mg/dL) (70-110) mg/dL Plasma Lactic Acid Obed 6.8 H* (0.7-2.0) mmol/L Calcium 8.3 L (8.4-10.2) mg/dL AST 261 H (14-36) U/L ALT 291 H (4-34) U/L Alkaline Phosphatase 710 H (38-126) U/L Total Protein 5.2 L (6.3-8.2) g/dL Albumin 2.4 L (3.5-5.0) g/dL 09/18/23 09/18/23 09/18/23 Range/Units 01:18 05:37 05:37 WBC 21.7 H (3.8-10.6) k/uL MCHC (31.0-37.0) g/dL RDW 16.5 H (11.5-15.5) % Plt Count 43 L (150-450) k/uL Neutrophils # 20.3 H (1.3-7.7) k/uL Lymphocytes # 0.9 L (1.0-4.8) k/uL Sodium 131 L (137-145) mmol/L Carbon Dioxide 17 L (22-30) mmol/L BUN 26 H (7-17) mg/dL Creatinine 0.42 L (0.52-1.04) mg/dL Glucose 269 H (74-99) mg/dL POC Glucose (mg/dL) (70-110) mg/dL Plasma Lactic Acid Obed 6.6 H* (0.7-2.0) mmol/L Calcium 8.3 L (8.4-10.2) mg/dL AST (14-36) U/L ALT (4-34) U/L Alkaline Phosphatase (38-126) U/L Total Protein (6.3-8.2) g/dL Albumin (3.5-5.0) g/dL 09/18/23 09/18/23 Range/Units 05:37 08:41 WBC (3.8-10.6) k/uL MCHC (31.0-37.0) g/dL RDW (11.5-15.5) % Plt Count (150-450) k/uL Neutrophils # (1.3-7.7) k/uL Lymphocytes # (1.0-4.8) k/uL Sodium (137-145) mmol/L Carbon Dioxide (22-30) mmol/L BUN (7-17) mg/dL Creatinine (0.52-1.04) mg/dL Glucose (74-99) mg/dL POC Glucose (mg/dL) (70-110) mg/dL Plasma Lactic Acid Obed 6.7 H* 6.7 H* (0.7-2.0) mmol/L Calcium (8.4-10.2) mg/dL AST (14-36) U/L ALT (4-34) U/L Alkaline Phosphatase (38-126) U/L Total Protein (6.3-8.2) g/dL Albumin (3.5-5.0) g/dL Assessment and Plan Assessment: Acute sepsis with lactic acidosis secondary to suspected urinary tract infection and hematuria. Currently on ceftriaxone Dyspnea secondary to atrial fibrillation with a rapid ventricular response. Currently on a Cardizem drip History of left lower extremity DVT approximately 4 to 5 months ago and maintained on Eliquis Stage IV metastatic breast cancer with metastasis to the brain bone and liver. Initially treated in 2020 with recurrence currently receiving chemotherapy last treatment on September 11, 2023 History of metastatic left parietal brain metastasis status post resection in January 2023 subsequent radiation currently on Decadron Transaminitis secondary to sepsis, liver metastasis Thrombocytopenia Former smoker Hypertension Plan: The patient was seen and evaluated Labs and medications reviewed Continue antibiotic Continue Decadron Eliquis on hold We will continue to follow I have personally seen and examined the patient, performed the documentation and the assessment and plan as written. Number of minutes spent on the visit: 10.
--- NOTE | 2023-09-18 13:19 | P.PN ---
Subjective Progress Note Date: 09/18/23 Hospital course Patient is a 58-year-old female with past medical history of stage IV breast cancer with metastasis to the brain liver and bone and atrial fibrillation on Eliquis who presents to the ED with palpitations, shortness of breath and weakness. Patient was recently admitted to the hospital for workup of vertigo. Patient was found to have new metastatic lesions in her brain. Patient was discharged and was instructed to follow-up with radiation oncology. Patient st ates that her last chemotherapy was 5 days ago. She has not started radiation therapy yet. She states that about a week ago her Decadron was increased to 4 mg 3 times a day. Patient states that she has been taking the Decadron every day. Patient also states that she has hematuria. She also complains of dysuria. In the ED patient was found to be in A-fib with RVR. Patient started on Cardizem drip. Cardiology following the patient and started the patient metoprolol. HPI This morning patient states that she still feels weak. Physical exam General examination - Alert and Oriented 3 in NAD, appears chronically debilitated Heart - + S1S2 no murmurs Lungs - Clear to auscultation Abdomen soft NT ND +ve BS Extremities - No edema RN SURGERY ICU - Moving all 4 extremities spontaneously Psych - Calm and cooperative Assessment and plan Symptomatic A-fib with RVR Hold Eliquis due to thrombocytopenia Wean Cardizem drip as tolerated. Currently on 15cc/hr Patient started on metoprolol cardiology following Sepsis secondary to UTI Continue with IV Rocephin Leukocytosis could be due to the recent increasing of Decadron Continue to monitor WBC. Improving. Follow-up on blood culture Follow-up on urine culture which unfortunately was not done on admission Lactic acidosis I suspect this is mainly due to liver metastasis. I doubt this is due to sepsis as patient is not ill-appearing. Will monitor closely in ICU. Continue with LR at 125cc/hr Breast cancer with metastasis to the brain bone and liver Continue with pain meds Continue with dexamethasone 2 mg p.o. every 8 hours hematology consult Thrombocytopenia Decreasing Hematology consult Hold anticoagulation Generalized weakness This is multifactorial due to dehydration, sepsis, atrial fibrillation and breast cancer stage IV Will consult PT OT Elevated liver enzymes secondary to metastasis Trend CMP Improving Mild hyponatremia Continue with fluids trend BMP stable Hypertension Blood pressure controlled Norvasc on hold as patient is on Cardizem drip DVT prophylaxis: No anticoagulation due to thrombocytopenia I discussed goals of care with the patient. She wishes to be full code. Objective - Vital Signs Vital signs: Vital Signs Temp 97.6 F 09/18/23 12:00 Pulse 68 09/18/23 12:00 Resp 20 09/18/23 12:00 BP 119/81 09/18/23 12:00 Pulse Ox 95 09/18/23 12:00 FiO2 Intake & Output 09/17/23 09/18/23 09/18/23 18:59 06:59 18:59 Intake Total 230 1125 875 Output Total 450 500 Balance 230 675 375 Weight 61.689 kg 64 kg Intake: IV 1125 750 Lactated Ringers 1,000 ml 1125 750 @ 125 mls/hr IV .Q8H [facility] Rx#:[id number] Intake, IV Titration 230 125 Amount Diltiazem 125 mg In 230 125 Sodium Chloride 0.9% 100 ml @ 10 MG/HR 10 mls/hr IV .[id number] [facility] Rx#: [id number] Output: Urine 450 500 Other: Voiding Method Bedside Commode # Voids 0 - Labs CBC & Chem 7: 09/18/23 05:37 09/18/23 05:37 Labs: Abnormal Lab Results - Last 24 Hours (Table) 09/17/23 09/17/23 09/17/23 Range/Units 13:24 16:12 20:42 WBC (3.8-10.6) k/uL MCHC (31.0-37.0) g/dL RDW (11.5-15.5) % Plt Count (150-450) k/uL Neutrophils # (1.3-7.7) k/uL Lymphocytes # (1.0-4.8) k/uL Sodium (137-145) mmol/L Carbon Dioxide (22-30) mmol/L BUN (7-17) mg/dL Creatinine (0.52-1.04) mg/dL Glucose (74-99) mg/dL POC Glucose (mg/dL) 228 H (70-110) mg/dL Plasma Lactic Acid Obed 11.4 H* 6.1 H* (0.7-2.0) mmol/L Calcium (8.4-10.2) mg/dL AST (14-36) U/L ALT (4-34) U/L Alkaline Phosphatase (38-126) U/L Total Protein (6.3-8.2) g/dL Albumin (3.5-5.0) g/dL 09/17/23 09/17/23 09/17/23 Range/Units 20:56 20:56 20:56 WBC 26.5 H (3.8-10.6) k/uL MCHC 30.8 L (31.0-37.0) g/dL RDW 16.3 H (11.5-15.5) % Plt Count 56 L (150-450) k/uL Neutrophils # 25.2 H (1.3-7.7) k/uL Lymphocytes # 0.9 L (1.0-4.8) k/uL Sodium 132 L (137-145) mmol/L Carbon Dioxide 18 L (22-30) mmol/L BUN 28 H (7-17) mg/dL Creatinine (0.52-1.04) mg/dL Glucose 244 H (74-99) mg/dL POC Glucose (mg/dL) (70-110) mg/dL Plasma Lactic Acid Obed 6.8 H* (0.7-2.0) mmol/L Calcium 8.3 L (8.4-10.2) mg/dL AST 261 H (14-36) U/L ALT 291 H (4-34) U/L Alkaline Phosphatase 710 H (38-126) U/L Total Protein 5.2 L (6.3-8.2) g/dL Albumin 2.4 L (3.5-5.0) g/dL 09/18/23 09/18/23 09/18/23 Range/Units 01:18 05:37 05:37 WBC 21.7 H (3.8-10.6) k/uL MCHC (31.0-37.0) g/dL RDW 16.5 H (11.5-15.5) % Plt Count 43 L (150-450) k/uL Neutrophils # 20.3 H (1.3-7.7) k/uL Lymphocytes # 0.9 L (1.0-4.8) k/uL Sodium 131 L (137-145) mmol/L Carbon Dioxide 17 L (22-30) mmol/L BUN 26 H (7-17) mg/dL Creatinine 0.42 L (0.52-1.04) mg/dL Glucose 269 H (74-99) mg/dL POC Glucose (mg/dL) (70-110) mg/dL Plasma Lactic Acid Obed 6.6 H* (0.7-2.0) mmol/L Calcium 8.3 L (8.4-10.2) mg/dL AST (14-36) U/L ALT (4-34) U/L Alkaline Phosphatase (38-126) U/L Total Protein (6.3-8.2) g/dL Albumin (3.5-5.0) g/dL 09/18/23 09/18/23 Range/Units 05:37 08:41 WBC (3.8-10.6) k/uL MCHC (31.0-37.0) g/dL RDW (11.5-15.5) % Plt Count (150-450) k/uL Neutrophils # (1.3-7.7) k/uL Lymphocytes # (1.0-4.8) k/uL Sodium (137-145) mmol/L Carbon Dioxide (22-30) mmol/L BUN (7-17) mg/dL Creatinine (0.52-1.04) mg/dL Glucose (74-99) mg/dL POC Glucose (mg/dL) (70-110) mg/dL Plasma Lactic Acid Obed 6.7 H* 6.7 H* (0.7-2.0) mmol/L Calcium (8.4-10.2) mg/dL AST (14-36) U/L ALT (4-34) U/L Alkaline Phosphatase (38-126) U/L Total Protein (6.3-8.2) g/dL Albumin (3.5-5.0) g/dL Microbiology - Last 24 Hours (Table) 09/17/23 04:10 Blood Culture - Preliminary Blood
[2023-09-18] MEDS ORDERED: VASOPRESSIN 60 UNIT in SODIUM CHLORIDE 0.9% 150 ML IV SCH (14:15)
--- NOTE | 2023-09-18 16:05 | P.PN ---
Subjective The patient is a pleasant 58-year-old female patient who is known to our service from before with a past medical history significant for metastatic breast cancer as well as smoking currently she is not a smoker as well as paroxysmal atrial fibrillation and history of pulmonary embolism. She presented to the emergency department complaining of shortness of breath associated with dizziness and lightheadedness. She was in her usual state of health till yesterday when she was at home and started experiencing the shortness of breath and dizziness and lightheadedness and also she was experiencing some discomfort in the chest mostly on the left side of the chest as a dull/sharp with no radiation. She decided to come to the emergency department where she underwent an EKG and that showed atrial fibrillation with rapid ventricular response. She stated that she has been compliant with her medications including oral anticoagulation. For some reasons she was not on any oral AV vesta willa agents as an outpatient. Now she is in atrial fibrillation with heart rate around 120 bpm. The EKG showed diffuse nonspecific ST and T wave abnormalities beside the atrial fibrillation. The first set of troponin came in to be unremarkable. She un derwent also a CT scan of the brain which showed no acute abnormalities. The patient was seen by our service in June 2023 and at that point she underwent an echo which revealed normal LV systolic function. The patient is known to have metastatic breast cancer to the bone and lungs and also to the brain and she underwent craniotomy in the past. The physical examination revealed irregular rhythm with tachycardia and clear breathing sounds bilaterally and no edema was noted. 09/17 patient seen and examined. Patient was placed on Cardizem drip currently at 15 and heart rates controlled in the 70s to 80s. Her lactic acid are gone up to 11 however currently has improved down to 6. She is feeling much better. She has been receiving IV fluids. She admits she has difficulty swallowing larger pills. Her anticoagulation has been held secondary to severe thrombocytopenia with platelets down into the 40s. Assessment Atrial fibrillation with RVR in patient with paroxysmal atrial fibrillation History of pulmonary embolism Metastatic breast cancer as described above History of smoking thrombocytopenia Plan patient received metoprolol 25 earlier today and we will increase up to 50 twice a day. Attempt to wean the Cardizem drip. No anticoagulation currently given severe thrombocytopenia which may be related to her recent chemotherapy. No need to repeat echo unless having worsened hypotension. Continue with current supportive care with most recent symptoms appear related to sepsis. Objective - Vital Signs Vital signs: Vital Signs Temp 97.6 F 09/18/23 12:00 Pulse 74 09/18/23 15:00 Resp 19 09/18/23 15:00 BP 121/79 09/18/23 15:00 Pulse Ox 95 09/18/23 15:00 FiO2 Intake & Output 09/17/23 09/18/23 09/18/23 18:59 06:59 18:59 Intake Total 230 1125 1250 Output Total 450 800 Balance 230 675 450 Weight 61.689 kg 64 kg Intake: IV 1125 1125 Lactated Ringers 1,000 ml 1125 1125 @ 125 mls/hr IV .Q8H [facility]INO Rx#:[id number] Intake, IV Titration 230 125 Amount Diltiazem 125 mg In 230 125 Sodium Chloride 0.9% 100 ml @ 10 MG/HR 10 mls/hr IV .[id number] [facility] Rx#: [id number] Output: Urine 450 800 Other: Voiding Method Bedside Commode # Voids 0 - Labs CBC & Chem 7: 09/18/23 05:37 09/18/23 05:37 Labs: Abnormal Lab Results - Last 24 Hours (Table) 09/17/23 09/17/23 09/17/23 Range/Units 16:12 20:42 20:56 WBC (3.8-10.6) k/uL MCHC (31.0-37.0) g/dL RDW (11.5-15.5) % Plt Count (150-450) k/uL Neutrophils # (1.3-7.7) k/uL Lymphocytes # (1.0-4.8) k/uL Sodium (137-145) mmol/L Carbon Dioxide (22-30) mmol/L BUN (7-17) mg/dL Creatinine (0.52-1.04) mg/dL Glucose (74-99) mg/dL POC Glucose (mg/dL) 228 H (70-110) mg/dL Plasma Lactic Acid Obed 6.1 H* 6.8 H* (0.7-2.0) mmol/L Calcium (8.4-10.2) mg/dL AST (14-36) U/L ALT (4-34) U/L Alkaline Phosphatase (38-126) U/L Total Protein (6.3-8.2) g/dL Albumin (3.5-5.0) g/dL 09/17/23 09/17/23 09/18/23 Range/Units 20:56 20:56 01:18 WBC 26.5 H (3.8-10.6) k/uL MCHC 30.8 L (31.0-37.0) g/dL RDW 16.3 H (11.5-15.5) % Plt Count 56 L (150-450) k/uL Neutrophils # 25.2 H (1.3-7.7) k/uL Lymphocytes # 0.9 L (1.0-4.8) k/uL Sodium 132 L (137-145) mmol/L Carbon Dioxide 18 L (22-30) mmol/L BUN 28 H (7-17) mg/dL Creatinine (0.52-1.04) mg/dL Glucose 244 H (74-99) mg/dL POC Glucose (mg/dL) (70-110) mg/dL Plasma Lactic Acid Obed 6.6 H* (0.7-2.0) mmol/L Calcium 8.3 L (8.4-10.2) mg/dL AST 261 H (14-36) U/L ALT 291 H (4-34) U/L Alkaline Phosphatase 710 H (38-126) U/L Total Protein 5.2 L (6.3-8.2) g/dL Albumin 2.4 L (3.5-5.0) g/dL 09/18/23 09/18/23 09/18/23 Range/Units 05:37 05:37 05:37 WBC 21.7 H (3.8-10.6) k/uL MCHC (31.0-37.0) g/dL RDW 16.5 H (11.5-15.5) % Plt Count 43 L (150-450) k/uL Neutrophils # 20.3 H (1.3-7.7) k/uL Lymphocytes # 0.9 L (1.0-4.8) k/uL Sodium 131 L (137-145) mmol/L Carbon Dioxide 17 L (22-30) mmol/L BUN 26 H (7-17) mg/dL Creatinine 0.42 L (0.52-1.04) mg/dL Glucose 269 H (74-99) mg/dL POC Glucose (mg/dL) (70-110) mg/dL Plasma Lactic Acid Obed 6.7 H* (0.7-2.0) mmol/L Calcium 8.3 L (8.4-10.2) mg/dL AST (14-36) U/L ALT (4-34) U/L Alkaline Phosphatase (38-126) U/L Total Protein (6.3-8.2) g/dL Albumin (3.5-5.0) g/dL 09/18/23 Range/Units 08:41 WBC (3.8-10.6) k/uL MCHC (31.0-37.0) g/dL RDW (11.5-15.5) % Plt Count (150-450) k/uL Neutrophils # (1.3-7.7) k/uL Lymphocytes # (1.0-4.8) k/uL Sodium (137-145) mmol/L Carbon Dioxide (22-30) mmol/L BUN (7-17) mg/dL Creatinine (0.52-1.04) mg/dL Glucose (74-99) mg/dL POC Glucose (mg/dL) (70-110) mg/dL Plasma Lactic Acid Obed 6.7 H* (0.7-2.0) mmol/L Calcium (8.4-10.2) mg/dL AST (14-36) U/L ALT (4-34) U/L Alkaline Phosphatase (38-126) U/L Total Protein (6.3-8.2) g/dL Albumin (3.5-5.0) g/dL Microbiology - Last 24 Hours (Table) 09/17/23 04:10 Blood Culture - Preliminary Blood
--- NOTE | 2023-09-18 19:10 | P.CONS ---
History of Present Illness - Reason for Consult Consult date: 09/18/23 Metastatic breast cancer Requesting physician: Sundeep Anne - Chief Complaint Dizziness, weakness - History of Present Illness Ms. Duncan is a 57-year-old woman with a PMH significant for stage IIIC (T4b N0 M0) grade 3 invasive ductal carcinoma of the left breast, diagnosed late 2020, ER negative, AZ weakly positive (1 to 10%), and HER2 negative (IHC 1+), treated with neoadjuvant chemo, lumpectomy with SLN biopsy 12/08/21, residual tumor 2.2cm grade 3 IDC with 1+SLN, radiation and then adjuvant xeloda. She could not tolerate xeloda so, she eventually stopped around Mar 2022. She did not follow up. She returned 02/2023, with stage IV triple negative cancer. In December 2022, she began to have mild headaches, which were initially relieved with Tylenol. They persisted and progressed. CT head 02/07/2023 without contrast noted cystic lesion in the left occipital lobe measuring 3.9 x 1.8 x 3.4 cm with surrounding vasogenic edema along with an additional hypodense 7 mm area within the right thalamus of unclear etiology. She was eventually transferred to [facility] for brain MRI revealed 4.6 x 3.3 cm mass in the left occipital region with surrounding vasogenic edema and no midline shift. There was noted to be remote lacunar infarct in the right thalamus. CT CAP 02/09/2023 was notable for nodule in the apical segment of the right lower lobe measuring 2 x 1.5 cm. She underwent craniotomy with resection of the left occipital tumor on 02/14/2023 with postsurgical pathology revealing poorly differentiated metastatic carcinoma compatible with breast primary (IHC positive for GATA3, CK7, CK5/6) that was ER/AZ negative, HER2 low (IHC 1+) with Ki-67 of 90%. Her postoperative course was complicated by DVT of LLE on 03/01/2023 and was subsequently started on Eliquis. She received 5 fractions of radiation therapy to the surgical bed. She was on single agent taxol 04/20-06/21. She had recurrence in the brain and received treatment and received radiation 06/13 through 06/15/2023. PET/CT 06/08/2023 revealed evidence of disease progression with new liver lesions, subcarinal lymphadenopathy and bony metastases. Patient was started on Enhertu and is status post 3 cycles. She was hospitalized multiple times related to chest pain, shortness of breath and dizziness. She was last seen in the ER 09/04, for the same symptoms but reported some vaginal bleeding, which subsided spontaneously. MRI of the brain 08/28/2023 revealed progression of disease with postsurgical changes and new scattered metastatic foci. Patient was prescribed steroids. She is due for treatment follow-up imaging in 3 days. Patient is currently admitted in the intensive care unit with A-fib with RVR. She complains of headache, persistent/progressive, associated with some dizziness and weakness. Patient is not sure if she is having hematuria versus vaginal bleeding, she does report some dysuria. Platelets were 43 on admission Eliquis has been held. Lactic acid is elevated and not decreasing. She is also noted to have some elevated LFTs. Denies fever, chills, nausea or vomiting, abdominal pain or cramping, she reports some Review of Systems 10 point review of systems is negative except as stated in HPI Past Medical History Past Medical History: Atrial Fibrillation, Cancer, Deep Vein Thrombosis (DVT), Pulmonary Embolus (PE) Additional Past Medical History / Comment(s): left breast CA-dx April 30, 2021-had surg. & currently getting chemo; completed radiation,unable to lay on stomach from prior old injury as a teenager, DVT & PE after hysterectomy 15 yrs ago and DVT after varicose vein stripping yrs ago., DVT in August behind right k nee and another DVT behind left knee. Brain mets status postcraniotomy 02/18 History of Any Multi-Drug Resistant Organisms: None Reported Past Surgical History: Breast Surgery, Section, Hernia Repair, Hysterectomy, Tonsillectomy Additional Past Surgical History / Comment(s): breast biopsy. Ear surgery as child., mediport insertion with removal, left breast lumpectomy w/sentinel lymph node bx. in November 2021, tumor removal brain. fatty tissue removed from back. Cysts removed from bilateral breasts. Past Anesthesia/Blood Transfusion Reactions: No Reported Reaction Additional Past Anesthesia/Blood Transfusion Reaction / Comm: no hx blood transfusion Past Psychological History: No Psychological Hx Reported Smoking Status: Former smoker Past Alcohol Use History: None Reported Additional Past Alcohol Use History / Comment(s): <1/2 ppd, started smoking as a teenager on and off Past Drug Use History: None Reported - Past Family History Mother Family Medical History: AFIB, Congestive Heart Failure (CHF), COPD, Hypertension Additional Family Medical History / Comment(s): beginings of uterine Cancer Father Family Medical History: Cancer Additional Family Medical History / Comment(s): lung Medications and Allergies Home Medications Medication Instructions Recorded Confirmed Type Apixaban [Eliquis] 5 mg PO BID 07/07/23 09/17/23 History Omeprazole 40 mg PO AC-BRKFST 07/07/23 09/17/23 History Acetaminophen-Codeine 300-30mg 1 tab PO Q4H PRN 3 Days #18 tablet 07/09/23 09/17/23 Rx [Tylenol w/codeine #3] amLODIPine [Norvasc] 5 mg PO DAILY 90 Days #90 tab 07/09/23 09/17/23 Rx OLANZapine 5 mg PO DIRECTED 08/28/23 09/17/23 History Ondansetron Odt [Zofran ODT] 4 mg PO Q4-6H PRN 08/28/23 09/17/23 History HYDROcodone/APAP 5-325MG [Glynn 1 tab PO Q4H PRN 09/17/23 09/17/23 History 5-325] dexAMETHasone [Decadron] See Taper PO DIRECTED 09/17/23 09/17/23 History Allergies Allergy/AdvReac Type Severity Reaction Status Date / Time metronidazole [From Flagyl] Allergy Intermediate Anaphylaxis Verified 09/17/23 09:17 adhesive tape Allergy Mild Rash/Hives,sometimes Verified 09/17/23 09:17 blisters sulfamethoxazole Allergy Anaphylaxis Verified 09/17/23 09:17 [From Bactrim] trimethoprim [From Bactrim] Allergy Anaphylaxis Verified 09/17/23 09:17 Penicillins AdvReac Nausea Verified 09/17/23 09:17 Physical Exam Vitals: Vital Signs Temp Pulse Resp BP Pulse Ox 09/18/23 07:00 71 28 H 124/80 94 L 09/18/23 06:00 67 17 123/72 95 09/18/23 05:00 70 17 127/78 95 09/18/23 04:00 98.4 F 75 17 127/71 95 09/18/23 03:00 72 19 118/79 94 L 09/18/23 02:00 68 20 132/76 94 L 09/18/23 01:00 84 37 H 121/81 09/18/23 00:00 98.2 F 85 22 144/76 95 09/17/23 23:03 80 28 H 133/79 96 09/17/23 23:00 90 22 118/72 96 09/17/23 22:00 78 19 120/76 96 09/17/23 21:00 98 19 102/26 96 09/17/23 20:50 92 28 H 132/72 96 09/17/23 20:47 98.3 F 75 30 H 132/72 97 09/17/23 20:30 81 26 H 114/80 09/17/23 20:20 80 24 114/80 09/17/23 20:10 101 H 32 H 114/80 09/17/23 20:00 72 28 H 127/61 96 09/17/23 19:50 76 21 127/61 09/17/23 19:40 73 25 H 127/61 09/17/23 19:30 79 20 115/83 09/17/23 19:20 75 22 115/83 09/17/23 19:10 87 21 115/83 09/17/23 19:00 79 22 131/78 09/17/23 18:50 80 21 131/78 09/17/23 18:40 92 21 131/78 09/17/23 18:30 95 24 124/80 09/17/23 18:20 79 23 124/80 09/17/23 18:10 92 20 124/80 09/17/23 18:00 78 21 09/17/23 17:50 87 17 09/17/23 17:40 82 25 H 09/17/23 17:30 91 21 129/88 09/17/23 17:20 93 22 129/88 09/17/23 17:10 91 30 H 129/88 09/17/23 17:00 90 22 119/92 09/17/23 16:50 79 17 119/92 09/17/23 16:40 90 17 119/92 09/17/23 16:34 79 18 119/92 96 09/17/23 16:33 93 22 119/92 09/17/23 12:49 98.0 F 91 20 138/78 97 09/17/23 11:00 132 H 20 131/82 98 04/21/24 10:30 140 H 20 131/88 97 09/17/23 09:12 148 H 09/17/23 08:55 97.8 F 128 H 20 133/80 98 09/17/23 08:07 97.9 F 122 H 18 116/88 99 Intake and Output 09/17/23 09/18/23 09/18/23 22:59 06:59 14:59 Intake Total 250 1000 125 Output Total 450 150 Balance 250 550 -25 Intake: IV 125 1000 125 Lactated Ringers 1,000 ml 125 1000 125 @ 125 mls/hr IV .Q8H [facility] Rx#:[id number] Intake, IV Titration 125 Amount Diltiazem 125 mg In 125 Sodium Chloride 0.9% 100 ml @ 10 MG/HR 10 mls/hr IV .[id number] [facility]INO Rx#: [id number] Output: Urine 450 150 Other: Voiding Method Bedside Commode # Voids 0 0 Weight 64 kg - Constitutional General appearance: average body habitus, cooperative, no acute distress - EENT Eyes: anicteric sclerae, EOMI ENT: hearing grossly normal - Respiratory Respiratory: bilateral: CTA - Cardiovascular Heart sounds: normal: S1, S2 Abnormal Heart Sounds: no systolic murmur, no diastolic murmur, no rub, no S3 Gallop, no S4 Gallop, no click, no other leg Peripheral Edema: bilateral: None - Gastrointestinal General gastrointestinal: no absent bowel sounds, no decreased bowel sounds, no distended, no hepatomegaly, no hyperactive bowel sounds, normal bowel sounds, no organomegaly, no rigid, no scaphoid, soft, no splenomegaly, no tenderness, no umbilical hernia, no ventral hernia - Integumentary Integumentary: normal - Neurologic Neurologic: CNII-XII intact - Musculoskeletal Musculoskeletal: generalized weakness, strength equal bilaterally - Psychiatric Psychiatric: A&O x's 3, appropriate affect, intact judgment & insight Results CBC & Chem 7: 09/18/23 05:37 09/18/23 05:37 Labs: Abnormal Lab Results - Last 24 Hours (Table) 09/17/23 09/17/23 09/17/23 Range/Units 07:05 13:24 16:12 WBC (3.8-10.6) k/uL MCHC (31.0-37.0) g/dL RDW (11.5-15.5) % Plt Count (150-450) k/uL Neutrophils # (1.3-7.7) k/uL Lymphocytes # (1.0-4.8) k/uL Sodium (137-145) mmol/L Carbon Dioxide (22-30) mmol/L BUN (7-17) mg/dL Creatinine (0.52-1.04) mg/dL Glucose (74-99) mg/dL POC Glucose (mg/dL) (70-110) mg/dL Plasma Lactic Acid Obed 9.1 H* 11.4 H* 6.1 H* (0.7-2.0) mmol/L Calcium (8.4-10.2) mg/dL AST (14-36) U/L ALT (4-34) U/L Alkaline Phosphatase (38-126) U/L Total Protein (6.3-8.2) g/dL Albumin (3.5-5.0) g/dL 09/17/23 09/17/23 09/17/23 Range/Units 20:42 20:56 20:56 WBC 26.5 H (3.8-10.6) k/uL MCHC 30.8 L (31.0-37.0) g/dL RDW 16.3 H (11.5-15.5) % Plt Count 56 L (150-450) k/uL Neutrophils # 25.2 H (1.3-7.7) k/uL Lymphocytes # 0.9 L (1.0-4.8) k/uL Sodium (137-145) mmol/L Carbon Dioxide (22-30) mmol/L BUN (7-17) mg/dL Creatinine (0.52-1.04) mg/dL Glucose (74-99) mg/dL POC Glucose (mg/dL) 228 H (70-110) mg/dL Plasma Lactic Acid Obed 6.8 H* (0.7-2.0) mmol/L Calcium (8.4-10.2) mg/dL AST (14-36) U/L ALT (4-34) U/L Alkaline Phosphatase (38-126) U/L Total Protein (6.3-8.2) g/dL Albumin (3.5-5.0) g/dL 09/17/23 09/18/23 09/18/23 Range/Units 20:56 01:18 05:37 WBC 21.7 H (3.8-10.6) k/uL MCHC (31.0-37.0) g/dL RDW 16.5 H (11.5-15.5) % Plt Count 43 L (150-450) k/uL Neutrophils # 20.3 H (1.3-7.7) k/uL Lymphocytes # 0.9 L (1.0-4.8) k/uL Sodium 132 L (137-145) mmol/L Carbon Dioxide 18 L (22-30) mmol/L BUN 28 H (7-17) mg/dL Creatinine (0.52-1.04) mg/dL Glucose 244 H (74-99) mg/dL POC Glucose (mg/dL) (70-110) mg/dL Plasma Lactic Acid Obed 6.6 H* (0.7-2.0) mmol/L Calcium 8.3 L (8.4-10.2) mg/dL AST 261 H (14-36) U/L ALT 291 H (4-34) U/L Alkaline Phosphatase 710 H (38-126) U/L Total Protein 5.2 L (6.3-8.2) g/dL Albumin 2.4 L (3.5-5.0) g/dL 09/18/23 09/18/23 Range/Units 05:37 05:37 WBC (3.8-10.6) k/uL MCHC (31.0-37.0) g/dL RDW (11.5-15.5) % Plt Count (150-450) k/uL Neutrophils # (1.3-7.7) k/uL Lymphocytes # (1.0-4.8) k/uL Sodium 131 L (137-145) mmol/L Carbon Dioxide 17 L (22-30) mmol/L BUN 26 H (7-17) mg/dL Creatinine 0.42 L (0.52-1.04) mg/dL Glucose 269 H (74-99) mg/dL POC Glucose (mg/dL) (70-110) mg/dL Plasma Lactic Acid Obed 6.7 H* (0.7-2.0) mmol/L Calcium 8.3 L (8.4-10.2) mg/dL AST (14-36) U/L ALT (4-34) U/L Alkaline Phosphatase (38-126) U/L Total Protein (6.3-8.2) g/dL Albumin (3.5-5.0) g/dL Chest x-ray: report reviewed CT Scan - head: report reviewed Assessment and Plan (1) Triple negative breast carcinoma Current Visit: Yes Status: Chronic Priority: High Code(s): C50.919 - MALIGNANT NEOPLASM OF UNSP SITE OF UNSPECIFIED FEMALE BREAST; Z17.1 - ESTROGEN RECEPTOR NEGATIVE STATUS [ER-] SNOMED Code(s): 646769362 (2) Breast cancer metastasized to multiple sites Current Visit: Yes Status: Chronic Priority: High Code(s): C50.919 - MALIGNANT NEOPLASM OF UNSP SITE OF UNSPECIFIED FEMALE BREAST SNOMED Code(s): 579446963 Plan: Metastatic Triple negative breast cancer -Diagnosis and treatment as stated in HPI -Cont dex as prescribed for brain mets -Patient is due for treatment follow-up imaging in 3 days. This will determine if she stays on current therapy or not. -We will continue plans for the same for now A-fib with RVR -Cardiology consulted Elevated lactic acid -Pancultures pending -Empiric abx Doctor attests: I performed a history and physical examination of this patient, developed impression and plan of care. Discussed with dictator. I agree with dictators note, documented as a scribe.
[2023-09-18] MEDS: DOCUSATE 100 MG CAP PO SCH (20:25)
[2023-09-18] MEDS: METOPROLOL TARTRATE 50 MG TAB PO SCH (20:25)
[2023-09-19 06:29] LABS: African American GFR (CKD) >90 (>60 ml/min/1.73 sqM); Anion Gap 7 mmol/L; Blood Urea Nitrogen 21 mg/dL (7-17); Calcium 8.8 mg/dL (8.4-10.2); Carbon Dioxide 20 mmol/L (22-30); Chloride 105 mmol/L (98-107); Glucose 205 mg/dL (74-99); Non-African American GFR(CKD) >90 (>60 ml/min/1.73 sqM); Potassium 4.3 mmol/L (3.5-5.1); Sodium 132 mmol/L (137-145)
--- NOTE | 2023-09-19 07:31 | P.PN ---
Subjective Progress Note Date: 09/19/23 58-year-old female with past medical history of stage IV breast cancer with metastasis to the brain liver and bone, h/o DVT/PE, atrial fibrillation on Eliquis who presents to the ED with palpitations, shortness of breath and weakness. Patient was recently admitted to the hospital for workup of vertigo. Patient was found to have new metastatic lesions in her brain. Patient was discharged and was instructed to follow-up with radiation oncology. Patient states that her last chemotherapy was 5 days ago. She has not started radiation therapy yet. She states that about a week ago her Decadron was increased to 4 mg 3 times a day. Patient states that she has been taking the Decadron every day. Patient also states that she has hematuria. She also complains of dysuria. In the ED, patient underwent extensive evaluation. BP 126/82, HR 168, T97.6F, RR 24, 99% on RA. CBC, Coag panel, CMP done significant for WBC 29.1, Hct 49.8, Plt 70, Na 130, bicarb 18, BUN 26, glu 368, T. Bili 1.4, AST 264, ALT 349, alk phos 801, alb 2.9. Lactic acid 8.9. UA large blood, trace ketones, small LE. Patient was found to be in A-fib with RVR confirmed with EKG. CXR and CT brain no acute findings. Patient started on Cardizem drip and Rocephin. Cardiology following the patient and started the patient metoprolol. 09/18 Patient was seen and examined. Complains of shortness of breath with little exertion. Reports chest discomfort with deep inspiration. Heart rate improved currently in the 80s. Currently on Cardizem 10 mg/hr and Metoprolol 50 mg PO BID. Antibiotics include Rocephin 1g IV QD (D2). BCx prelim negative at 24H. BMP Na 132, bicarb 20, BUN 21, Cr 0.39, glu 205. CBC pending. General: non toxic, no distress, appears at stated age Derm: warm, dry Head: atraumatic, normocephalic, symmetric Eyes: EOMI, no lid lag, anicteric sclera Mouth: no lip lesion, mucus membranes moist Cardiovascular: S1S2 irreg, no murmur Lungs: Decreased BS bilateral, no rhonchi, no rales , no accessory muscle use Ext: no gross muscle atrophy, no edema, no contractures Neuro: no focal neuro deficits Psych: Alert, oriented, appropriate affect Based on my assessment of this patient, this patient meets a high complexity level of care. Patient has an acute diagnosis of UTI sepsis with A-Fib with RVR that poses a threat to life or bodily function. Symptomatic A-fib with RVR: Hold Eliquis due to thrombocytopenia. Wean Cardizem drip as tolerated (10 mg/hr). Currently on 10cc/hr. Patient started on metoprolol 50 mg PO BID. Cardiology following Sepsis secondary to UTI: Continue with IV Rocephin 1g QD (D2). Leukocytosis could be due to the recent increasing of Decadron. Continue to monitor WBC. Improving. Follow-up on blood culture. Follow-up on urine culture which unfortunately was not done on admission. Lactic acidosis: I suspect this is mainly due to liver metastasis. I doubt this is due to sepsis as patient is not ill-appearing. Will monitor closely in ICU. Continue IV hydration. Breast cancer with metastasis to the brain bone and liver: Continue with dexamethasone 2 mg PO Q8H. Hematology/Oncology consult. Thrombocytopenia: Likely related to chemotherapy. Hematology consult. Hold anticoagulation Generalized weakness: This is multifactorial due to dehydration, sepsis, atrial fibrillation and breast cancer stage IV. Consult PT OT Elevated liver enzymes secondary to metastasis: Trend. Mild hyponatremia: Continue with fluids. Trend. Hypertension: Blood pressure controlled. Norvasc on hold as patient is on Cardizem drip CODE STATUS: FULL CODE. DVT Prophylaxis: SCD GI Prophylaxis: Protonix PO Designated medical POA if patient is not able to make medical decisions for themselves: I have reviewed the following marketing database consultant notes: Cardiology, Pulmonary. I have reviewed the results of the following tests: BMP. I have ordered the following tests: CBC pending. I have discussed the care of this patient with the following independent historian: I have independently interpreted the following test below: I have discussed the management of this patient with the following physician: Objective - Vital Signs Vital signs: Vital Signs Temp 98.3 F 09/19/23 04:00 Pulse 70 09/19/23 06:00 Resp 26 H 09/19/23 06:00 BP 134/86 09/19/23 06:00 Pulse Ox 96 09/19/23 06:00 FiO2 Intake & Output 09/18/23 09/18/23 09/19/23 06:59 18:59 06:59 Intake Total 1125 1625 1622.25 Output Total 450 1000 750 Balance 675 625 872.25 Weight 64 kg 66 kg Intake: IV 1125 1500 1500 Lactated Ringers 1,000 ml 1125 1500 1500 @ 125 mls/hr IV .Q8H [facility] Rx#:[id number] Intake, IV Titration 125 122.25 Amount Diltiazem 125 mg In 125 122.25 Sodium Chloride 0.9% 100 ml @ 10 MG/HR 10 mls/hr IV .[id number] [facility] Rx#: [id number] Output: Urine 450 1000 750 Other: Voiding Method Bedside Commode Bedside Commode Bedside Commode # Voids 0 0 - Labs CBC & Chem 7: 09/18/23 05:37 09/19/23 05:35 Labs: Abnormal Lab Results - Last 24 Hours (Table) 09/18/23 09/18/23 09/18/23 Range/Units 05:37 05:37 05:37 WBC 21.7 H (3.8-10.6) k/uL RDW 16.5 H (11.5-15.5) % Plt Count 43 L (150-450) k/uL Neutrophils # 20.3 H (1.3-7.7) k/uL Lymphocytes # 0.9 L (1.0-4.8) k/uL Sodium 131 L (137-145) mmol/L Carbon Dioxide 17 L (22-30) mmol/L BUN 26 H (7-17) mg/dL Creatinine 0.42 L (0.52-1.04) mg/dL Glucose 269 H (74-99) mg/dL Plasma Lactic Acid Obed 6.7 H* (0.7-2.0) mmol/L Calcium 8.3 L (8.4-10.2) mg/dL 09/18/23 Range/Units 08:41 WBC (3.8-10.6) k/uL RDW (11.5-15.5) % Plt Count (150-450) k/uL Neutrophils # (1.3-7.7) k/uL Lymphocytes # (1.0-4.8) k/uL Sodium (137-145) mmol/L Carbon Dioxide (22-30) mmol/L BUN (7-17) mg/dL Creatinine (0.52-1.04) mg/dL Glucose (74-99) mg/dL Plasma Lactic Acid Obed 6.7 H* (0.7-2.0) mmol/L Calcium (8.4-10.2) mg/dL Microbiology - Last 24 Hours (Table) 09/17/23 04:10 Blood Culture - Preliminary Blood
[2023-09-19 10:10] LABS: Anisocytosis Slight; Basophils % (A) 0 %; Eosinophils % (A) 0 %; HCT 44.9 % (34.0-46.0); HGB 13.5 gm/dL (11.4-16.0); Hypochromasia Slight; Lymphocytes % (A) 4 %; MCH 28.4 pg (25.0-35.0); MCHC 30.1 g/dL (31.0-37.0); MCV 94.5 fL (80.0-100.0); Mean Platelet Volume 10.2; Monocytes # (A) 0.4 k/uL (0-1.0); Monocytes % (A) 1 %; Neutrophils # (A) 25.3 k/uL (1.3-7.7); Neutrophils % (A) 95 %; RBC 4.75 m/uL (3.80-5.40); RDW 16.3 % (11.5-15.5); WBC 26.8 k/uL (3.8-10.6)
[2023-09-19 10:18] LABS: Platelet Count 61 k/uL (150-450)
[2023-09-19] MEDS: ONDANSETRON ODT 4 MG TAB PO PRN (11:00)
--- NOTE | 2023-09-19 11:08 | P.PN ---
Subjective Progress Note Date: 09/19/23 This is a very pleasant 58-year-old female patient with a known history of stage IV breast cancer she was initially diagnosed in April 2021 and had a lumpectomy and subsequent chemotherapy and radiation therapy. She was later found to have a large left parietal brain metastasis and had undergone resection in January 2023. She had undergone postoperative adjunctive radiation therapy finished in February 2023. She was later found to have 3 new small lesions and underwent single fraction radiation on June 15, 2023. He has been under the care of Dr. Kapadia and Dr. Aquino. She was receiving chemotherapy most recently on September 11, 2023. She came to the emergency room left evening after having increasing shortness of breath, dizziness, weakness and burning with urination and developed hematuria. She had been on Eliquis for approximately 4 to 5 months for a left lower extremity DVT. Upon admission here she was found to be in atrial fibrillation with a rapid ventricular response. She is currently on Cardizem drip at 15 mg/h. She was also complaining of a worsening headache however CT scan of the brain revealed no acute intracranial findings. White count 29.1. Hemoglobin 15.0. Platelets 70,000. Sodium 130. Potassium 4.9. Bicarb 18. BUN 26. Creatinine 0.53. Glucose 368. Initial lactic acid 8.9, peaking at 11.4 and currently 6.1. AST 264. ALT 349. Alk phos 801. Tr oponin negative x 2. proBNP 3080. Urine with large blood, greater than 182 RBCs, 30 WBCs. She has received 3 L of fluid resuscitation. She was initiated on ceftriaxone. Resumed on Eliquis and continued on a Cardizem drip. She is seen today in consultation in the emergency department. She is currently sitting up on a stretcher. Awake and alert in no acute distress. She is still quite weak and she is maintaining good O2 saturations in the 90s on room air. She is afebrile. Remains in atrial fibrillation. X-ray reveals no acute pulmonary process. The patient is seen today September 18, 2023 in follow-up in the intensive care unit. She is currently resting comfortably in bed. Awake and alert in no acute distress. She is maintaining O2 saturations in the 90s on room air. She remains on lactated Ringer's at 125 MLS per hour. Continued on a Cardizem drip at 15 mg/h. Remains in atrial fibrillation. Rate is better controlled. White count 21.7. Hemoglobin 12.7. Platelets 43,000. Sodium 131. Potassium 4.2. Bicarb 17. BUN 26. Creatinine 0.42. Glucose 269. Lactic acid 6.7. He remains on ceftriaxone. Continued on Decadron. Eliquis on hold. The patient is seen today September 19, 2023 in follow-up in the intensive care unit. She is currently sitting up in bed. Awake and alert in no acute distress. She is maintaining good O2 saturations in the 90s on room air. She is continued on Cardizem at 10 mg/h. Lactated Ringer's at 125 MLS per hour. Blood cultures pending. White count 26.8. Hemoglobin 13.5. Platelets 61,000. Sodium 132. Potassium 4.3. Bicarb 20. BUN 21. Creatinine 0.39. Glucose 205. She remains on Decadron. Eliquis remains on hold. She remains on ceftriaxone. Objective - Vital Signs Vital signs: Vital Signs Temp 97.9 F 09/19/23 09:00 Pulse 69 09/19/23 10:00 Resp 16 09/19/23 10:00 BP 146/94 09/19/23 10:00 Pulse Ox 95 09/19/23 10:00 FiO2 Intake & Output 09/18/23 09/19/23 09/19/23 18:59 06:59 18:59 Intake Total 1625 1625.00 225 Output Total 1000 750 Balance 625 875.00 225 Weight 66 kg Intake: IV 1500 1500 125 Lactated Ringers 1,000 ml 1500 1500 125 @ 125 mls/hr IV .Q8H [facility] Rx#:[id number] Intake, IV Titration 125 125.00 Amount Diltiazem 125 mg In 125 125.00 Sodium Chloride 0.9% 100 ml @ 10 MG/HR 10 mls/hr IV .[id number] [facility] Rx#: [id number] Oral 100 Output: Urine 1000 750 Other: Voiding Method Bedside Commode Bedside Commode Bedside Commode # Voids 0 0 - Exam GENERAL EXAM: Alert, pleasant 58-year-old female, on room air, comfortable in no apparent distress. HEAD: Normocephalic. EYES: Normal reaction of pupils, equal size. NOSE: Clear with pink turbinates. THROAT: No erythema or exudates. NECK: No masses, no JVD. CHEST: No chest wall deformity. LUNGS: Equal air entry with no crackles, wheeze, rhonchi or dullness. CVS: S1 and S2 normal with no audible murmur, irregular rhythm. ABDOMEN: No hepatosplenomegaly, normal bowel sounds, no guarding or rigidity. SPINE: No scoliosis or deformity SKIN: No rashes CENTRAL NERVOUS SYSTEM: No focal deficits, tone is normal in all 4 extremities. EXTREMITIES: There is no peripheral edema. No clubbing, no cyanosis. Peripheral pulses are intact. - Labs CBC & Chem 7: 09/19/23 08:28 09/19/23 05:35 Labs: Abnormal Lab Results - Last 24 Hours (Table) 09/19/23 09/19/23 Range/Units 05:35 08:28 WBC 26.8 H (3.8-10.6) k/uL MCHC 30.1 L (31.0-37.0) g/dL RDW 16.3 H (11.5-15.5) % Plt Count 61 L (150-450) k/uL Neutrophils # 25.3 H (1.3-7.7) k/uL Sodium 132 L (137-145) mmol/L Carbon Dioxide 20 L (22-30) mmol/L BUN 21 H (7-17) mg/dL Creatinine 0.39 L (0.52-1.04) mg/dL Glucose 205 H (74-99) mg/dL Microbiology - Last 24 Hours (Table) 09/17/23 04:10 Blood Culture - Preliminary Blood Assessment and Plan Assessment: Acute sepsis with lactic acidosis secondary to suspected urinary tract infection and hematuria. Currently on ceftriaxone Dyspnea secondary to atrial fibrillation with a rapid ventricular response. C urrently on a Cardizem drip History of left lower extremity DVT approximately 4 to 5 months ago and maintained on Eliquis Stage IV metastatic breast cancer with metastasis to the brain bone and liver. Initially treated in 2020 with recurrence currently receiving chemotherapy last treatment on September 11, 2023 History of metastatic left parietal brain metastasis status post resection in January 2023 subsequent radiation currently on Decadron Transaminitis secondary to sepsis, liver metastasis Thrombocytopenia, Eliquis on hold Former smoker Hypertension Plan: The patient was seen and evaluated Labs and medications reviewed Currently stable and on room air Continue ceftriaxone Continue Decadron Eliquis on hold Transfer to selective care unit We will continue to follow I have personally seen and examined the patient, performed the documentation and the assessment and plan as written. Number of minutes spent on the visit: 10.
--- NOTE | 2023-09-19 17:42 | P.PN ---
Subjective The patient is a pleasant 58-year-old female patient who is known to our service from before with a past medical history significant for metastatic breast cancer as well as smoking currently she is not a smoker as well as paroxysmal atrial fibrillation and history of pulmonary embolism. She presented to the emergency department complaining of shortness of breath associated with dizziness and lightheadedness. She was in her usual state of health till yesterday when she was at home and started experiencing the shortness of breath and dizziness and lightheadedness and also she was experiencing some discomfort in the chest mostly on the left side of the chest as a dull/sharp with no radiation. She decided to come to the emergency department where she underwent an EKG and that showed atrial fibrillation with rapid ventricular response. She stated that she has been compliant with her medications including oral anticoagulation. For some reasons she was not on any oral AV vesta willa agents as an outpatient. Now she is in atrial fibrillation with heart rate around 120 bpm. The EKG showed diffuse nonspecific ST and T wave abnormalities beside the atrial fibrillation. The first set of troponin came in to be unremarkable. She un derwent also a CT scan of the brain which showed no acute abnormalities. The patient was seen by our service in June 2023 and at that point she underwent an echo which revealed normal LV systolic function. The patient is known to have metastatic breast cancer to the bone and lungs and also to the brain and she underwent craniotomy in the past. The physical examination revealed irregular rhythm with tachycardia and clear breathing sounds bilaterally and no edema was noted. 09/17 patient seen and examined. Patient was placed on Cardizem drip currently at 15 and heart rates controlled in the 70s to 80s. Her lactic acid are gone up to 11 however currently has improved down to 6. She is feeling much better. She has been receiving IV fluids. She admits she has difficulty swallowing larger pills. Her anticoagulation has been held secondary to severe thrombocytopenia with platelets down into the 40s. 09/18 Patient seen and examined. Patient's Cardizem drip was weaned down to 5. His metoprolol was increased. She is still having chest pain as well as abdominal pain. Chest pain is worse with deep inspiration. Her abdominal pain is worse with eating. Her lactic acid remains high despite vital signs improving. Assessment Atrial fibrillation with RVR in patient with paroxysmal atrial fibrillation History of pulmonary embolism Metastatic breast cancer as described above History of smoking thrombocytopenia lactic acidosis Chest pain atypical Abdominal pain Elevated liver enzymes Plan Patient's platelet levels have increased and likely related to recent chemotherapy. We will check limited 2-D echo to evaluate for any other reasons for her significant lactic acidosis. She does have significant abdominal pain and increased lactic acid with additional abnormal liver enzymes. Consider surgical [facility] GI evaluation. Possibility of mesenteric ischemia however has bee n taking anticoagulation for some time and less likely thromboembolism from her A. fib. We will however restart anticoagulation and monitor response. Continue with current supportive care. Attempt to discontinue Cardizem entirely. Prognosis guarded. Objective - Vital Signs Vital signs: Vital Signs Temp 97.8 F 09/19/23 12:00 Pulse 80 09/19/23 16:00 Resp 17 09/19/23 16:00 BP 142/94 09/19/23 16:00 Pulse Ox 95 09/19/23 16:00 FiO2 Intake & Output 09/18/23 09/19/23 09/19/23 18:59 06:59 18:59 Intake Total 1625 1625.00 1113 Output Total 1000 750 500 Balance 625 875.00 613 Weight 66 kg Intake: IV 1500 1500 825 Lactated Ringers 1,000 ml 1500 1500 825 @ 125 mls/hr IV .Q8H [facility] Rx#:[id number] Intake, IV Titration 125 125.00 38 Amount Diltiazem 125 mg In 125 125.00 38 Sodium Chloride 0.9% 100 ml @ 10 MG/HR 10 mls/hr IV .[id number] [facility] Rx#: [id number] Oral 250 Output: Urine 1000 750 500 Other: Voiding Method Bedside Commode Bedside Commode Bedside Commode # Voids 0 0 - Labs CBC & Chem 7: 09/19/23 08:28 09/19/23 05:35 Labs: Abnormal Lab Results - Last 24 Hours (Table) 09/19/23 09/19/23 Range/Units 05:35 08:28 WBC 26.8 H (3.8-10.6) k/uL MCHC 30.1 L (31.0-37.0) g/dL RDW 16.3 H (11.5-15.5) % Plt Count 61 L (150-450) k/uL Neutrophils # 25.3 H (1.3-7.7) k/uL Sodium 132 L (137-145) mmol/L Carbon Dioxide 20 L (22-30) mmol/L BUN 21 H (7-17) mg/dL Creatinine 0.39 L (0.52-1.04) mg/dL Glucose 205 H (74-99) mg/dL Microbiology - Last 24 Hours (Table) 09/18/23 13:36 Urine Culture - Final Urine,Voided 09/17/23 04:10 Blood Culture - Preliminary Blood
[2023-09-19] MEDS: MAG HYDROX/AL HYDROX/SIMETH 30 ML, HYOSCYAMINE ELIXIR 10 ML, LIDOCAINE VISCOUS 10 ML PO ONE (18:49)
[2023-09-19] MEDS: METOPROLOL TARTRATE 25 MG TAB PO SCH (20:02)
[2023-09-19] MEDS: APIXABAN 5 MG TAB PO SCH (20:02)
[2023-09-19 20:05] LABS: Glucose,Whole Blood 281 mg/dL (70-110)
[2023-09-19] MEDS ORDERED: DEXTROSE 50% SYRINGE 50 ML IVP PRN ×2 (21:15)
[2023-09-19] MEDS: INSULIN ASPART (NovoLOG) 100 UNIT/ML VIAL SQ SCH (21:39)
[2023-09-20] MEDS: ALPRAZolam 0.5 MG TAB PO PRN (02:33)
[2023-09-20 06:23] LABS: Glucose,Whole Blood 142 mg/dL (70-110)
[2023-09-20 08:35] LABS: Anisocytosis Slight; HCT 43.7 % (34.0-46.0); HGB 13.7 gm/dL (11.4-16.0); MCHC 31.4 g/dL (31.0-37.0); MCV 92.4 fL (80.0-100.0); Mean Platelet Volume 10.6; RBC 4.73 m/uL (3.80-5.40); RDW 16.9 % (11.5-15.5); WBC 24.8 k/uL (3.8-10.6)
[2023-09-20 08:38] LABS: Platelet Count 71 k/uL (150-450)
[2023-09-20 08:50] LABS: African American GFR (CKD) >90 (>60 ml/min/1.73 sqM); Anion Gap 9 mmol/L; Blood Urea Nitrogen 24 mg/dL (7-17); Calcium 8.9 mg/dL (8.4-10.2); Carbon Dioxide 20 mmol/L (22-30); Chloride 102 mmol/L (98-107); Glucose 189 mg/dL (74-99); Magnesium 1.9 mg/dL (1.6-2.3); Non-African American GFR(CKD) >90 (>60 ml/min/1.73 sqM); Potassium 4.4 mmol/L (3.5-5.1); Sodium 131 mmol/L (137-145)
[2023-09-20 11:35] LABS: Glucose,Whole Blood 151 mg/dL (70-110)
[2023-09-20] MEDS: MORPHINE SULFATE 2 MG/ML SYRINGE IVP PRN (12:02)
--- NOTE | 2023-09-20 12:02 | P.PN ---
Subjective Progress Note Date: 09/20/23 58-year-old female with past medical history of stage IV breast cancer with metastasis to the brain liver and bone, h/o DVT/PE, atrial fibrillation on Eliquis who presents to the ED with palpitations, shortness of breath and weakness. Patient was recently admitted to the hospital for workup of vertigo. Patient was found to have new metastatic lesions in her brain. Patient was discharged and was instructed to follow-up with radiation oncology. Patient states that her last chemotherapy was 5 days ago. She has not started radiation therapy yet. She states that about a week ago her Decadron was increased to 4 mg 3 times a day. Patient states that she has been taking the Decadron every day. Patient also states that she has hematuria. She also complains of dysuria. In the ED, patient underwent extensive evaluation. BP 126/82, HR 168, T97.6F, RR 24, 99% on RA. CBC, Coag panel, CMP done significant for WBC 29.1, Hct 49.8, Plt 70, Na 130, bicarb 18, BUN 26, glu 368, T. Bili 1.4, AST 264, ALT 349, alk phos 801, alb 2.9. Lactic acid 8.9. UA large blood, trace ketones, small LE. Patient was found to be in A-fib with RVR confirmed with EKG. CXR and CT brain no acute findings. Patient started on Cardizem drip and Rocephin. Cardiology following the patient and started the patient metoprolol. 09/18 Patient was seen and examined. Complains of shortness of breath with little exertion. Reports chest discomfort with deep inspiration. Heart rate improved currently in the 80s. Currently on Cardizem 10 mg/hr and Metoprolol 50 mg PO BID. Antibiotics include Rocephin 1g IV QD (D2). BCx prelim negative at 24H. BMP Na 132, bicarb 20, BUN 21, Cr 0.39, glu 205. CBC WBC 26.8 Plt 61. 09/19 Patient was seen and examined. She reports generalized abdominal pain, 6/10 in severity. No rebound tenderness. No nausea or vomiting. Cardizem drip discontinued yesterday by Cardiology. UCx negative and BCx prelim negative. Rocephin discontinued. Eliquis restarted. CBC WBC 24.8 Plt 71. BMP Na 131, bicarb 20, BUN 24, Cr 0.46, glu 189. Mag 1.9. General: non toxic, no distress, appears at stated age Derm: warm, dry Head: atraumatic, normocephalic, symmetric Eyes: EOMI, no lid lag, anicteric sclera Mouth: no lip lesion, mucus membranes moist Cardiovascular: S1S2 irreg, no murmur Lungs: Decreased BS bilateral, no rhonchi, no rales , no accessory muscle use Abd: Tenderness to palpation in bilateral LQ without rebound Ext: no gross muscle atrophy, no edema, no contractures Neuro: no focal neuro deficits Psych: Alert, oriented, appropriate affect Based on my assessment of this patient, this patient meets a high complexity level of care. Patient has an acute diagnosis of UTI sepsis with A-Fib with RVR that poses a threat to life or bodily function. A-fib with RVR: Eliquis 5 mg PO BID restarted. Cardizem drip weaned off. Metoprolol 50 mg PO BID. Echo ordered. Cardiology following Sepsis secondary to UTI: Completed 2 days of Rocephin. UCx negative. BCx prelim negative. Leukocytosis could be due to the recent increasing of Decadron. Continue to monitor WBC. Lactic acidosis: I suspect this is mainly due to liver metastasis. I doubt this is due to sepsis as patient is not ill-appearing. Will monitor closely in ICU. Continue IV hydration. CTA Abd/Pelvis ordered to rule out mesenteric ischemia. Breast cancer with metastasis to the brain bone and liver: Continue with dexamethasone 2 mg PO Q8H. Hematology/Oncology consult. Thrombocytopenia: Likely related to chemotherapy. Hematology consult. Generalized weakness: This is multifactorial due to dehydration, sepsis, atrial fibrillation and breast cancer stage IV. Consult PT OT Elevated liver enzymes secondary to metastasis: Trend. Mild hyponatremia: Continue with fluids. Trend. Hypertension: Blood pressure controlled. Norvasc on hold as patient is on Cardizem drip. CODE STATUS: FULL CODE. DVT Prophylaxis: SCD GI Prophylaxis: Protonix PO Designated medical POA if patient is not able to make medical decisions for themselves: I have reviewed the following research consultant notes: Cardiology, Pulmonary. I have reviewed the results of the following tests: BMP. CBC. Mag. I have ordered the following tests: Echo. CTA AP I have discussed the care of this patient with the following independent historian: I have independently interpreted the following test below: I have discussed the management of this patient with the following physician: Dr. Mejia Objective - Vital Signs Vital signs: Vital Signs Temp 97.6 F 09/19/23 19:52 Pulse 71 09/20/23 05:42 Resp 16 09/20/23 05:42 BP 129/76 09/20/23 05:42 Pulse Ox 95 09/20/23 05:42 FiO2 Intake & Output 09/19/23 09/20/23 09/20/23 18:59 06:59 18:59 Intake Total 1143 Output Total 700 Balance 443 Intake: IV 825 Lactated Ringers 1,000 ml 825 @ 125 mls/hr IV .Q8H [facility] Rx#:[id number] Intake, IV Titration 68 Amount Diltiazem 125 mg In 68 Sodium Chloride 0.9% 100 ml @ 10 MG/HR 10 mls/hr IV .[id number] [facility]INO Rx#: [id number] Oral 250 Output: Urine 700 Other: Voiding Method Bedside Commode Bedside Commode # Voids 0 2 - Labs CBC & Chem 7: 09/20/23 08:14 09/20/23 08:14 Labs: Abnormal Lab Results - Last 24 Hours (Table) 09/19/23 09/19/23 09/20/23 Range/Units 08:28 20:04 06:21 WBC 26.8 H (3.8-10.6) k/uL MCHC 30.1 L (31.0-37.0) g/dL RDW 16.3 H (11.5-15.5) % Plt Count 61 L (150-450) k/uL Neutrophils # 25.3 H (1.3-7.7) k/uL Sodium (137-145) mmol/L Carbon Dioxide (22-30) mmol/L BUN (7-17) mg/dL Creatinine (0.52-1.04) mg/dL Glucose (74-99) mg/dL POC Glucose (mg/dL) 281 H 142 H (70-110) mg/dL 09/20/23 09/20/23 Range/Units 08:14 08:14 WBC 24.8 H (3.8-10.6) k/uL MCHC (31.0-37.0) g/dL RDW 16.9 H (11.5-15.5) % Plt Count 71 L (150-450) k/uL Neutrophils # (1.3-7.7) k/uL Sodium 131 L (137-145) mmol/L Carbon Dioxide 20 L (22-30) mmol/L BUN 24 H (7-17) mg/dL Creatinine 0.46 L (0.52-1.04) mg/dL Glucose 189 H (74-99) mg/dL POC Glucose (mg/dL) (70-110) mg/dL Microbiology - Last 24 Hours (Table) 09/18/23 13:36 Urine Culture - Final Urine,Voided 09/17/23 04:10 Blood Culture - Preliminary Blood
--- NOTE | 2023-09-20 14:31 | P.PN ---
Subjective Progress Note Date: 09/20/23 Principal diagnosis: Atrial fibrillation. This is a very pleasant 58-year-old female patient with a known history of stage IV breast cancer she was initially diagnosed in April 2021 and had a lumpectomy and subsequent chemotherapy and radiation therapy. She was later found to have a large left parietal brain metastasis and had undergone resection in January 2023. She had undergone postoperative adjunctive radiation therapy finished in February 2023. She was later found to have 3 new small lesions and underwent single fraction radiation on June 15, 2023. He has been under the care of Dr. Kapadia and Dr. Aquino. She was receiving chemotherapy most recently on September 11, 2023. She came to the emergency room left evening after having increasing shortness of breath, dizziness, weakness and burning with urination and developed hematuria. She had been on Eliquis for approximately 4 to 5 months for a left lower extremity DVT. Upon admission here she was found to be in atrial fibrillation with a rapid ventricular response. She is currently on Cardizem drip at 15 mg/h. She was also complaining of a worsening headache however CT scan of the brain revealed no acute intracranial findings. White count 29.1. Hemoglobin 15.0. Platelets 70,000. Sodium 130. Potassium 4.9. Bicarb 18. BUN 26. Creatinine 0.53. Glucose 368. Initial lactic acid 8.9, peaking at 11.4 and currently 6.1. AST 264. ALT 349. Alk phos 801. Troponin negative x 2. proBNP 3080. Urine with large blood, greater than 182 RBCs, 30 WBCs. She has received 3 L of fluid resuscitation. She was initiated on ceftriaxone. Resumed on Eliquis and continued on a Cardizem drip. She is seen today in consultation in the emergency department. She is currently sitting up on a stretcher. Awake and alert in no acute distress. She is still quite weak and she is maintaining good O2 saturations in the 90s on room air. She is afebrile. Remains in atrial fibrillation. X-ray reveals no acute pulmonary process. The patient is seen today September 18, 2023 in follow-up in the intensive care unit. She is currently resting comfortably in bed. Awake and alert in no acute distress. She is maintaining O2 saturations in the 90s on room air. She remains on lactated Ringer's at 125 MLS per hour. Continued on a Cardizem drip at 15 mg/h. Remains in atrial fibrillation. Rate is better controlled. White count 21.7. Hemoglobin 12.7. Platelets 43,000. Sodium 131. Potassium 4.2. Bicarb 17. BUN 26. Creatinine 0.42. Glucose 269. Lactic acid 6.7. He remains on ceftriaxone. Continued on Decadron. Eliquis on hold. The patient is seen today September 19, 2023 in follow-up in the intensive care unit. She is currently sitting up in bed. Awake and alert in no acute distress. She is maintaining good O2 saturations in the 90s on room air. She is continued on Cardizem at 10 mg/h. Lactated Ringer's at 125 MLS per hour. Blood cultures pending. White count 26.8. Hemoglobin 13.5. Platelets 61,000. Sodium 132. Potassium 4.3. Bicarb 20. BUN 21. Creatinine 0.39. Glucose 205. She remains on Decadron. Eliquis remains on hold. She remains on ceftriaxone. Progress note dated September 20, 2023. The patient is seen today in room 376. She is on room air. She is not receiving any IV fluids. She continues in atrial fibrillation with rates of about 100 bpm. She states that she is not feeling well today. Current laboratory data includes a white count 24.8, hemoglobin 13.7, hematocrit 43.7, and a platelet count of 71,000. Sodium 131, potassium 4.4, chlorides 102, CO2 20, BUN 24, and creatinine 0.46. Glucose is 151. Hemoglobin A1c is 7.2. Calcium 8.9. Magnesium 1.9. The patient was scheduled to have a CT scan of the abdomen and pelvis. Objective - Vital Signs Vital signs: Vital Signs Temp 98 F 09/20/23 12:00 Pulse 123 H 09/20/23 12:00 Resp 18 09/20/23 12:00 BP 124/74 09/20/23 12:00 Pulse Ox 98 09/20/23 12:00 FiO2 Intake & Output 09/19/23 09/20/23 09/20/23 18:59 06:59 18:59 Intake Total 1143 180 Output Total 700 Balance 443 180 Intake: IV 825 Lactated Ringers 1,000 ml 825 @ 125 mls/hr IV .Q8H [facility] Rx#:[id number] Intake, IV Titration 68 Amount Diltiazem 125 mg In 68 Sodium Chloride 0.9% 100 ml @ 10 MG/HR 10 mls/hr IV .[id number] [facility] Rx#: [id number] Oral 250 180 Output: Urine 700 Other: Voiding Method Bedside Commode Bedside Commode Bedside Commode # Voids 0 2 - Exam No acute distress, oriented 3. Patient states that she does not feel well. Room air saturation 98%. HEENT examination is grossly unremarkable. Mucous membranes are moist. No oral lesions. Neck supple. Full range of motion. No adenopathy thyromegaly or neck vein distention. Cardiovascular examination reveals an irregular rhythm and rate. S1-S2 normal. No S3 or S4. No discernible murmur noted. Heart rate 115 bpm. Lungs reveal clear breath sounds. Breath sounds are equal bilaterally. No adventitious lung sounds including wheezes rhonchi or crackles. Room air saturation 98%. Abdomen soft bowel sounds are heard. No masses or tenderness. Extremities are intact. No cyanosis clubbing or edema. Skin is without rash or lesion. Neurologic examination is brief but nonfocal. - Labs CBC & Chem 7: 09/20/23 08:14 09/20/23 08:14 Labs: Abnormal Lab Results - Last 24 Hours (Table) 09/19/23 09/20/23 09/20/23 Range/Units 20:04 06:21 08:14 WBC 24.8 H (3.8-10.6) k/uL RDW 16.9 H (11.5-15.5) % Plt Count 71 L (150-450) k/uL Sodium (137-145) mmol/L Carbon Dioxide (22-30) mmol/L BUN (7-17) mg/dL Creatinine (0.52-1.04) mg/dL Glucose (74-99) mg/dL POC Glucose (mg/dL) 281 H 142 H (70-110) mg/dL Hemoglobin A1c (<=6.0) % 09/20/23 09/20/23 09/20/23 Range/Units 08:14 08:14 11:34 WBC (3.8-10.6) k/uL RDW (11.5-15.5) % Plt Count (150-450) k/uL Sodium 131 L (137-145) mmol/L Carbon Dioxide 20 L (22-30) mmol/L BUN 24 H (7-17) mg/dL Creatinine 0.46 L (0.52-1.04) mg/dL Glucose 189 H (74-99) mg/dL POC Glucose (mg/dL) 151 H (70-110) mg/dL Hemoglobin A1c 7.2 H (<=6.0) % Microbiology - Last 24 Hours (Table) 09/17/23 04:10 Blood Culture - Preliminary Blood 09/18/23 13:36 Urine Culture - Final Urine,Voided Assessment and Plan Assessment: Acute sepsis with lactic acidosis secondary to suspected urinary tract infection and hematuria. Dyspnea secondary to atrial fibrillation with a rapid ventricular response. History of left lower extremity DVT approximately 4 to 5 months ago and maintained on Eliquis. Stage IV metastatic breast cancer with metastasis to the brain bone and liver. Initially treated in 2020 with recurrence currently receiving chemotherapy last treatment on September 11, 2023. History of metastatic left parietal brain metastasis status post resection in January 2023 subsequent radiation currently on Decadron. Transaminitis secondary to sepsis, liver metastasis. Thrombocytopenia. Former smoker. Hypertension. Plan: Plan dated September 20, 2023. The patient continues in atrial fibrillation. Her rates are anywhere from 100 bpm, up to 125 bpm. She actually states today that she was not feeling well. The patient was scheduled to have a CT scan of the abdomen and pelvis. Labs, x- rays, medications are reviewed. The patient continues on Decadron, and ceftriaxone. We will continue to follow make recommendations along the way. Prognosis is guarded. Time with Patient: Less than 30
[2023-09-20] MEDS: METOPROLOL TARTRATE 25 MG TAB PO STA (14:59)
--- NOTE | 2023-09-20 15:18 | P.PN ---
Subjective Progress Note Date: 09/20/23 The patient is a pleasant 58-year-old female patient who is known to our service from before with a past medical history significant for metastatic breast cancer as well as smoking currently she is not a smoker as well as paroxysmal atrial fibrillation and history of pulmonary embolism. She presented to the emergency department complaining of shortness of breath associated with dizziness and lightheadedness. She was in her usual state of health till yesterday when she was at home and started experiencing the shortness of breath and dizziness and lightheadedness and also she was experiencing some discomfort in the chest mostly on the left side of the chest as a dull/sharp with no radiation. She decided to come to the emergency department where she underwent an EKG and that showed atrial fibrillation with rapid ventricular response. She stated that she has been compliant with her medications including oral anticoagulation. For some reasons she was not on any oral AV vesta willa agents as an outpatient. Now she is in atrial fibrillation with heart rate around 120 bpm. The EKG showed diffuse nonspecific ST and T wave abnormalities beside the atrial fibrillation. The first set of troponin came in to be unremarkable. She underwent also a CT scan of the brain which showed no acute abnormalities. The patient was seen by our service in June 2023 and at that point she underwen t an echo which revealed normal LV systolic function. The patient is known to have metastatic breast cancer to the bone and lungs and also to the brain and she underwent craniotomy in the past. The physical examination revealed irregular rhythm with tachycardia and clear breathing sounds bilaterally and no edema was noted. 09/17 patient seen and examined. Patient was placed on Cardizem drip currently at 15 and heart rates controlled in the 70s to 80s. Her lactic acid are gone up to 11 however currently has improved down to 6. She is feeling much better. She has been receiving IV fluids. She admits she has difficulty swallowing larger pills. Her anticoagulation has been held secondary to severe thrombocytopenia with platelets down into the 40s. 09/18 Patient seen and examined. Patient's Cardizem drip was weaned down to 5. His metoprolol was increased. She is still having chest pain as well as abdominal pain. Chest pain is worse with deep inspiration. Her abdominal pain is worse with eating. Her lactic acid remains high despite vital signs improving. 09/19 Patient is seen today on the cardiac stepdown unit. She states her shortness of breath is worse at nighttime and in general about the same from yesterday. Heart rate is running 120s, blood pressure 124/74, pulse ox 98% on room air. Echocardiogram has been obtained and report is pending. Patient is also ordered for CT angiogram of the abdomen and pelvis due to pain and lactic acidosis. Patient has been resumed on Eliquis as of last evening. She is off Cardizem. Physical Examination Gen: This is a 58-year-old female HEENT: Head is atraumatic, normocephalic. Pupils equal, round. Sclerae is anicteric. LUNGS: Clear to auscultation. No wheezes or rhonchi. No intercostal retractions. HEART: Irregular rate and rhythm. Tachycardic. No murmur. EXTREMITIES: No pedal edema. No calf tenderness. NEUROLOGICAL: Patient is awake, alert. Assessment Atrial fibrillation with RVR in patient with paroxysmal atrial fibrillation History of pulmonary embolism Metastatic breast cancer as described above History of smoking thrombocytopenia lactic acidosis Chest pain atypical Abdominal pain Elevated liver enzymes Plan Patient's platelet levels have increased and likely related to recent chemotherapy. Obtain 2D echocardiogram report Evaluate for any other reasons for her significant lactic acidosis. CTA of the abdomen pelvis ordered. She does have significant abdominal pain and increased lactic acid with additional abnormal liver enzymes. Consider surgical and GI evaluation. Possibility of mesenteric ischemia however has been taking anticoagulation for some time and less likely thromboembolism from her A. fib. Eliquis has been resumed. Continue with current supportive care. Prognosis guarded. Nurse practitioner note has been reviewed, I agree with documented findings and plan of care. Patient was seen and examined. Objective - Vital Signs Vital signs: Vital Signs Temp 98 F 09/20/23 12:00 Pulse 123 H 09/20/23 12:00 Resp 18 09/20/23 12:00 BP 124/74 09/20/23 12:00 Pulse Ox 98 09/20/23 12:00 FiO2 Intake & Output 09/19/23 09/20/23 09/20/23 18:59 06:59 18:59 Intake Total 1143 180 Output Total 700 Balance 443 180 Intake: IV 825 Lactated Ringers 1,000 ml 825 @ 125 mls/hr IV .Q8H [facility] Rx#:[id number] Intake, IV Titration 68 Amount Diltiazem 125 mg In 68 Sodium Chloride 0.9% 100 ml @ 10 MG/HR 10 mls/hr IV .[id number] [facility] Rx#: [id number] Oral 250 180 Output: Urine 700 Other: Voiding Method Bedside Commode Bedside Commode Bedside Commode # Voids 0 2 - Labs CBC & Chem 7: 09/20/23 08:14 09/20/23 08:14 Labs: Abnormal Lab Results - Last 24 Hours (Table) 09/19/23 09/20/23 09/20/23 Range/Units 20:04 06:21 08:14 WBC 24.8 H (3.8-10.6) k/uL RDW 16.9 H (11.5-15.5) % Plt Count 71 L (150-450) k/uL Sodium (137-145) mmol/L Carbon Dioxide (22-30) mmol/L BUN (7-17) mg/dL Creatinine (0.52-1.04) mg/dL Glucose (74-99) mg/dL POC Glucose (mg/dL) 281 H 142 H (70-110) mg/dL Hemoglobin A1c (<=6.0) % 09/20/23 09/20/23 09/20/23 Range/Units 08:14 08:14 11:34 WBC (3.8-10.6) k/uL RDW (11.5-15.5) % Plt Count (150-450) k/uL Sodium 131 L (137-145) mmol/L Carbon Dioxide 20 L (22-30) mmol/L BUN 24 H (7-17) mg/dL Creatinine 0.46 L (0.52-1.04) mg/dL Glucose 189 H (74-99) mg/dL POC Glucose (mg/dL) 151 H (70-110) mg/dL Hemoglobin A1c 7.2 H (<=6.0) % Microbiology - Last 24 Hours (Table) 09/17/23 04:10 Blood Culture - Preliminary Blood 09/18/23 13:36 Urine Culture - Final Urine,Voided
[2023-09-20 16:31] LABS: Glucose,Whole Blood 145 mg/dL (70-110)
--- NOTE | 2023-09-20 18:18 | P.PN ---
Subjective Progress Note Date: 09/20/23 Principal diagnosis: Dizziness, weak. Met breast cancer In f/u pt has no new c/o, she is eating some, no recent vomiting but poor appetite. Objective - Vital Signs Vital signs: Vital Signs Temp 97.6 F 09/20/23 09:00 Pulse 116 H 09/20/23 09:00 Resp 20 09/20/23 09:10 BP 123/92 09/20/23 09:00 Pulse Ox 98 09/20/23 09:00 FiO2 Intake & Output 09/19/23 09/20/23 09/20/23 18:59 06:59 18:59 Intake Total 1143 180 Output Total 700 Balance 443 180 Intake: IV 825 Lactated Ringers 1,000 ml 825 @ 125 mls/hr IV .Q8H [facility] Rx#:[id number] Intake, IV Titration 68 Amount Diltiazem 125 mg In 68 Sodium Chloride 0.9% 100 ml @ 10 MG/HR 10 mls/hr IV .[id number] [facility] Rx#: [id number] Oral 250 180 Output: Urine 700 Other: Voiding Method Bedside Commode Bedside Commode Bedside Commode # Voids 0 2 - Constitutional General appearance: Present: average body habitus, cooperative, no acute distress - EENT Eyes: Present: anicteric sclerae, EOMI ENT: Present: hearing grossly normal - Respiratory Details: resp even and unlabored - Cardiovascular Details: well perfused - Peripheral edema leg Peripheral Edema: bilateral: None - Gastrointestinal General gastrointestinal: Present: soft - Musculoskeletal Musculoskeletal: Present: generalized weakness - Psychiatric Psychiatric: Present: A&O x's 3, appropriate affect, intact judgment & insight - Labs CBC & Chem 7: 09/20/23 08:14 09/20/23 08:14 Labs: Abnormal Lab Results - Last 24 Hours (Table) 09/19/23 09/20/23 09/20/23 Range/Units 20:04 06:21 08:14 WBC 24.8 H (3.8-10.6) k/uL RDW 16.9 H (11.5-15.5) % Plt Count 71 L (150-450) k/uL Sodium (137-145) mmol/L Carbon Dioxide (22-30) mmol/L BUN (7-17) mg/dL Creatinine (0.52-1.04) mg/dL Glucose (74-99) mg/dL POC Glucose (mg/dL) 281 H 142 H (70-110) mg/dL Hemoglobin A1c (<=6.0) % 09/20/23 09/20/23 Range/Units 08:14 08:14 WBC (3.8-10.6) k/uL RDW (11.5-15.5) % Plt Count (150-450) k/uL Sodium 131 L (137-145) mmol/L Carbon Dioxide 20 L (22-30) mmol/L BUN 24 H (7-17) mg/dL Creatinine 0.46 L (0.52-1.04) mg/dL Glucose 189 H (74-99) mg/dL POC Glucose (mg/dL) (70-110) mg/dL Hemoglobin A1c 7.2 H (<=6.0) % Microbiology - Last 24 Hours (Table) 09/18/23 13:36 Urine Culture - Final Urine,Voided 09/17/23 04:10 Blood Culture - Preliminary Blood Assessment and Plan (1) Triple negative breast carcinoma Current Visit: Yes Status: Chronic Priority: High Code(s): C50.919 - MALIGNANT NEOPLASM OF UNSP SITE OF UNSPECIFIED FEMALE BREAST; Z17.1 - ESTROGEN RECEPTOR NEGATIVE STATUS [ER-] SNOMED Code(s): 868551773 (2) Breast cancer metastasized to multiple sites Current Visit: Yes Status: Chronic Priority: High Code(s): C50.919 - MALIGNANT NEOPLASM OF UNSP SITE OF UNSPECIFIED FEMALE BREAST SNOMED Code(s): 997256431 Plan: Metastatic Triple negative breast cancer -Currently on steroids for symptoms from brain mets. Cont dex as prescribed -Patient is due for treatment follow-up imaging. This will determine if she stays on current therapy or not. PET rescheduled for 10/04. Pt daughter aware -We will continue plans for the same for now A-fib with RVR -Cardiology following, work up continues -Medications being adjusted -resumed on eliquis Elevated lactic acid -Pancultures negative -Empiric abx have been discontinued Doctor attests: I performed a history and physical examination of this patient, developed impression and plan of care. Discussed with dictator. I agree with dictators note, documented as a scribe.
[2023-09-20 20:07] LABS: Glucose,Whole Blood 127 mg/dL (70-110)
[2023-09-20] MEDS: METOPROLOL TARTRATE 50 MG TAB PO SCH (20:25)
[2023-09-21] MEDS: DILTIAZEM 125 MG in SODIUM CHLORIDE 0.9% 100 ML IV SCH (00:59)
[2023-09-21 05:46] LABS: Glucose,Whole Blood 127 mg/dL (70-110)
--- NOTE | 2023-09-21 10:27 | CA ---
Transthoracic Echo Report Name: Vicky Duncan Age: 58 Gender: F : 1965 Exam Date: 09/20/2023 11:09 Exam Location: [facility] Ht (in): 63 Wt (lb): 145 Ordering Physician: Hui Gray MD Attending/Referring Phys: Transportation Security Screener Jodie Reddy RDCS Procedure CPT: Indications: lactic acidosis Cardiac Hx: limited study Technical Quality: Poor Contrast 1: Total Dose (mL): Contrast 2: Total Dose (mL): MEASUREMENTS (Male / Female) Normal Values 2D ECHO LV Diastolic Diameter PLAX 4.2 cm 4.2 - 5.9 / 3.9 - 5.3 cm LV Systolic Diameter PLAX 3.3 cm IVS Diastolic Thickness 0.9 cm 0.6 - 1.0 / 0.6 - 0.9 cm LVPW Diastolic Thickness 0.9 cm 0.6 - 1.0 / 0.6 - 0.9 cm LV Relative Wall Thickness 0.4 RV Internal Dim ED PLAX 2.9 cm LA Systolic Diameter LX 3.2 cm 3.0 - 4.0 / 2.7 - 3.8 cm LA Volume 64.1 cm??? 18 - 58 / 22 - 52 cm??? LA Volume Index 37.2 cm???/m??? 16 - 28 cm???/m??? Aorta at Sinotubular Diameter 3.4 cm M-MODE LV Diastolic Diameter MM 3.9 cm 4.2 - 5.9 / 3.9 - 5.3 cm LV Systolic Diameter MM 2.4 cm LV Cardiac Index MM Teich 3533.0 cm???/min???m??? IVS Diastolic Thickness MM 0.7 cm 0.6 - 1.0 / 0.6 - 0.9 cm LVPW Diastolic Thickness MM 0.9 cm 0.6 - 1.0 / 0.6 - 0.9 cm LV Relative Wall Thickness MM 0.4 0.24 - 0.42 / 0.22 - 0.42 LV Mass Index MM 50.7 g/m??? 49 - 115 / 43 - 95 g/m??? Aortic Root Diameter MM 3.4 cm AV Cusp Separation MM 1.6 cm DOPPLER TR Peak Velocity 244.0 cm/s TR Peak Gradient 23.8 mmHg Right Ventricular Systolic Press 28.8 mmHg FINDINGS Left Ventricle Left ventricular ejection fraction is estimated at 45-50 %. Left ventricular cavity size normal. Left ventricular wall thickness normal. No obvious regional wall motion abnormalities. Right Ventricle Normal right ventricular size. Right ventricular systolic pressure within normal limits. Right Atrium Right atrium not well visualized. Left Atrium Moderately increased left atrial volume. Mildly increased left atrial area. Mitral Valve Structurally normal mitral valve. Mild mitral regurgitation. Aortic Valve Trileaflet aortic valve. Trace aortic regurgitation. Tricuspid Valve Structurally normal tricuspid valve. Mild tricuspid regurgitation. Pulmonic Valve Pulmonic valve not well visualized. No pulmonic regurgitation. Pericardium No pericardial effusion. Aorta Normal size aortic root and proximal ascending aorta. CONCLUSIONS Patient tachycardic Reduced LV systolic function Tricuspid regurgitation 2+ Previewed by: Dr. Marky Devlin MD (Electronically Signed) Final Date: 21 September 2023 10:25
[2023-09-21 11:55] LABS: Glucose,Whole Blood 138 mg/dL (70-110)
--- NOTE | 2023-09-21 13:15 | CT ---
EXAMINATION TYPE: CT angio abdomen pelvis DATE OF EXAM: 09/20/2023 COMPARISON: PET CT 06/08/2023 HISTORY: 58-year-old female Lactic acidosis and abdominal pain. Personal history of breast cancer. TECHNIQUE: Contiguous axial scanning of the abdomen and pelvis following administration of 100 ml Omn ipaque 300 IV contrast. Delayed images through the kidneys and coronal/sagittal reconstructions perf ormed. CT DLP: 1333.8 mGycm Automated exposure control for dose reduction was used. FINDINGS: Postsurgical and posttreatment change inferior left breast. There is generalized anasarca change which has developed. Trace pleural effusions. Multifocal periphe ral and peribronchial vascular groundglass changes are demonstrated, new from prior. A new 4 mm peripheral left basilar pulmonary nodule. Masslike opacity in the right base measuring 5.5 x 3.2 cm previously 3.9 x 3.3 cm on 06/08/2023.r a ne w 5 mm left basilar pulmonary nodule as well. Spleen, right adrenal gland, and pancreas within normal limits. Innumerable hepatic lesions. Difficult to visualize on arterial phase imaging but estimated to measur e up to 2.5 cm. The overall disease burden to the liver appears to have increased from 06/08/2023. Thi s results in a somewhat macronodular hepatic contour. Gallbladder wall thickening without abnormal distention; likely relates to fluid overload state. Nodule left adrenal gland at 1.6 cm may be new and could represent metastatic disease. Nonobstructive 3 mm left renal calculus. There is a lesion of the mid right kidney measuring 3.8 cm not apparent on the patient's 06/08/[address] Exam is to have a solid appearance, possible atypical intraparenchymal metas tatic lesion. Satisfactory enhancement of the abdominal aorta with scattered mild apical scarring changes. The celiac axis, SMA, and bilateral renal arteries are patent. NADINE is patent. No dilated small bowel or free air. There is mild abdominal and moderate pelvic ascites fluid. Scatte red mild to moderate stool throughout the colon. Left-sided colonic diverticulosis. No pericolic infl ammatory change seen. Bladder distended. Uterus appears surgically absent. Both ovaries are visualized. No pelvic lymphaden opathy. Possible intramuscular soft tissue deposit measuring 1.6 cm left gluteal musculature. Hypertrophic facet arthropathy mid to lower lumbar spine with degenerative grade 1 anterolisthesis L4 -L5. There is osteopenia. No obvious lytic destruction is seen. IMPRESSION: 1. FLUID OVERLOAD WITH GENERALIZED ANASARCA AND MILD ABDOMINAL AND MODERATE PELVIC ASCITES FLUID. TR TREY PLEURAL EFFUSIONS. 2. MULTIFOCAL GROUNDGLASS CHANGES IN THE LOWER LUNGS. CONSIDER POSSIBILITIES SUCH ATYPICAL/COVID PNEUMONIA, INTERSTITIAL PNEUMONITIS SUCH YARN INSPECTOR, OR DRUG REACTION. A MORE FOCAL MASSLIKE AREA AT THE PERIPHERY OF THE RIGHT BASE HAS INCREASED IN SIZE CURRENTLY 5.5 CM VERSUS 3.9 CM ON PRIOR PET/CT. 3. ADDITIONAL METASTATIC DISEASE PROGRESSION WITH INCREASING DISEASE BURDEN TO THE LIVER WITH KIERSTEN US LESIONS, LARGEST MEASURING UP TO 2.5 CM. NEW 1.6 CM LEFT ADRENAL NODULE. NEW 1.6 CM INTRAMUSCULAR SOFT TISSUE DEPOSIT LEFT GLUTEAL REGION. 4. A NEW/ENLARGING LESION OF THE RIGHT KIDNEY CURRENTLY MEASURING 3.8 CM. NOT APPARENT ON THE PATIEN T'S ATTENUATION CORRECTION CT FROM 06/08/2023. POSSIBLE ATYPICAL METASTATIC LESION. RECOMMEND RENAL UL TRASOUND TO EXCLUDE AN ABNORMAL FLUID COLLECTION. 5. NO SIGNIFICANT ARTERIAL STENOSIS/OCCLUSION OR ABNORMAL BOWEL WALL THICKENING OR PNEUMATOSIS TO NIEVES GGEST BOWEL ISCHEMIA.
[2023-09-21 13:58] VITALS: BMI 25.7
--- NOTE | 2023-09-21 14:05 | P.PN ---
Subjective Progress Note Date: 09/21/23 58-year-old female with past medical history of stage IV breast cancer with metastasis to the brain liver and bone, h/o DVT/PE, atrial fibrillation on Eliquis who presents to the ED with palpitations, shortness of breath and weakness. Patient was recently admitted to the hospital for workup of vertigo. Patient was found to have new metastatic lesions in her brain. Patient was discharged and was instructed to follow-up with radiation oncology. Patient states that her last chemotherapy was 5 days ago. She has not started radiation therapy yet. She states that about a week ago her Decadron was increased to 4 mg 3 times a day. Patient states that she has been taking the Decadron every day. Patient also states that she has hematuria. She also complains of dysuria. In the ED, patient underwent extensive evaluation. BP 126/82, HR 168, T97.6F, RR 24, 99% on RA. CBC, Coag panel, CMP done significant for WBC 29.1, Hct 49.8, Plt 70, Na 130, bicarb 18, BUN 26, glu 368, T. Bili 1.4, AST 264, ALT 349, alk phos 801, alb 2.9. Lactic acid 8.9. UA large blood, trace ketones, small LE. Patient was found to be in A-fib with RVR confirmed with EKG. CXR and CT brain no acute findings. Patient started on Cardizem drip and Rocephin. Cardiology following the patient and started the patient metoprolol. 09/18 Patient was seen and examined. Complains of shortness of breath with little exertion. Reports chest discomfort with deep inspiration. Heart rate improved currently in the 80s. Currently on Cardizem 10 mg/hr and Metoprolol 50 mg PO BID. Antibiotics include Rocephin 1g IV QD (D2). BCx prelim negative at 24H. BMP Na 132, bicarb 20, BUN 21, Cr 0.39, glu 205. CBC WBC 26.8 Plt 61. 09/19 Patient was seen and examined. She reports generalized abdominal pain, 6/10 in severity. No rebound tenderness. No nausea or vomiting. Cardizem drip discontinued yesterday by Cardiology. UCx negative and BCx prelim negative. Rocephin discontinued. Eliquis restarted. CBC WBC 24.8 Plt 71. BMP Na 131, bicarb 20, BUN 24, Cr 0.46, glu 189. Mag 1.9. 09/20 Patient was seen and examined. Went back into A-Fib RVR yesterday and restarted on Cardizem drip currently running at 10 mg/hr. Discussed with Radiologist with regard to CTA AP patient with anasarca, progression of metastatic disease to the liver and enlarged 4 cm mass seen in the right kidney (Renal US recommended), ground glass appearance of the lungs (infectious versus side effect of chemo/radiation). General: non toxic, no distress, appears at stated age Derm: warm, dry Head: atraumatic, normocephalic, symmetric Eyes: EOMI, no lid lag, anicteric sclera Mouth: no lip lesion, mucus membranes moist Cardiovascular: S1S2 irreg, no murmur Lungs: Decreased BS bilateral, no rhonchi, no rales , no accessory muscle use Abd: Tenderness to palpation in bilateral LQ without rebound Ext: no gross muscle atrophy, no edema, no contractures Neuro: no focal neuro deficits Psych: Alert, oriented, appropriate affect Based on my assessment of this patient, this patient meets a high complexity level of care. Patient has an acute diagnosis of UTI sepsis with A-Fib with RVR that poses a threat to life or bodily function. A-fib with RVR: Eliquis 5 mg PO BID restarted. Cardizem drip restarted at 10 mg/hr on 09/20. Metoprolol 50 mg PO BID. Echo as above. Cardiology following Sepsis secondary to UTI: Completed 2 days of Rocephin. UCx negative. BCx prelim negative. Leukocytosis could be due to the recent increasing of Decadron. Continue to monitor WBC. Lactic acidosis: I suspect this is mainly due to liver metastasis. I doubt this is due to sepsis as patient is not ill-appearing. Will monitor closely in ICU. Continue IV hydration. Renal mass: Discussed with radiology, appears to be atypical metastatic lesion. Obtain Renal US to further delineate. Ground glass opacity of the lung: Obtain COVID test. Breast cancer with metastasis to the brain bone and liver: Continue with dexamethasone 2 mg PO Q8H. Hematology/Oncology consult. Thrombocytopenia: Likely related to chemotherapy. Hematology consult. Generalized weakness: This is multifactorial due to dehydration, sepsis, atrial fibrillation and breast cancer stage IV. Consult PT OT Elevated liver enzymes secondary to metastasis: Trend. Mild hyponatremia: Continue with fluids. Trend. Hypertension: Blood pressure controlled. Norvasc on hold as patient is on Cardizem drip. CODE STATUS: FULL CODE. DVT Prophylaxis: SCD GI Prophylaxis: Protonix PO Designated medical POA if patient is not able to make medical decisions for themselves: I have reviewed the following sap basis consultant notes: Cardiology, Pulmonary. I have reviewed the results of the following tests: Echo. CT AP I have ordered the following tests: COVID. Renal US I have discussed the care of this patient with the following independent historian: I have independently interpreted the following test below: I have discussed the management of this patient with the following physician: Radiologist Objective - Vital Signs Vital signs: Vital Signs Temp 96.4 F L 09/21/23 08:00 Pulse 137 H 09/21/23 08:00 Resp 18 09/21/23 08:00 BP 102/72 09/21/23 08:00 Pulse Ox 95 09/21/23 08:00 FiO2 Intake & Output 09/20/23 09/21/23 09/21/23 18:59 06:59 18:59 Intake Total 180 22.25 Balance 180 22.25 Intake: Intake, IV Titration 22.25 Amount Diltiazem 125 mg In 22.25 Sodium Chloride 0.9% 100 ml @ 5 MG/HR 5 mls/hr IV .Q24H [facility] Rx#:[id number] Oral 180 0 Other: Voiding Method Bedside Commode Bedside Commode Bedside Commode # Voids 2 1 1 - Labs CBC & Chem 7: 09/20/23 08:14 09/20/23 08:14 Labs: Abnormal Lab Results - Last 24 Hours (Table) 09/20/23 09/20/23 09/21/23 Range/Units 16:30 20:05 05:41 POC Glucose (mg/dL) 145 H 127 H 127 H (70-110) mg/dL 09/21/23 Range/Units 11:53 POC Glucose (mg/dL) 138 H (70-110) mg/dL Microbiology - Last 24 Hours (Table) 09/17/23 04:10 Blood Culture - Preliminary Blood
--- NOTE | 2023-09-21 15:09 | P.PN ---
Subjective Progress Note Date: 09/21/23 Principal diagnosis: Atrial fibrillation. This is a very pleasant 58-year-old female patient with a known history of stage IV breast cancer she was initially diagnosed in April 2021 and had a lumpectomy and subsequent chemotherapy and radiation therapy. She was later found to have a large left parietal brain metastasis and had undergone resection in January 2023. She had undergone postoperative adjunctive radiation therapy finished in February 2023. She was later found to have 3 new small lesions and underwent single fraction radiation on June 15, 2023. He has been under the care of Dr. Kapadia and Dr. Aquino. She was receiving chemotherapy most recently on September 11, 2023. She came to the emergency room left evening after having increasing shortness of breath, dizziness, weakness and burning with urination and developed hematuria. She had been on Eliquis for approximately 4 to 5 months for a left lower extremity DVT. Upon admission here she was found to be in atrial fibrillation with a rapid ventricular response. She is currently on Cardizem drip at 15 mg/h. She was also complaining of a worsening headache however CT scan of the brain revealed no acute intracranial findings. White count 29.1. Hemoglobin 15.0. Platelets 70,000. Sodium 130. Potassium 4.9. Bicarb 18. BUN 26. Creatinine 0.53. Glucose 368. Initial lactic acid 8.9, peaking at 11.4 and currently 6.1. AST 264. ALT 349. Alk phos 801. Troponin negative x 2. proBNP 3080. Urine with large blood, greater than 182 RBCs, 30 WBCs. She has received 3 L of fluid resuscitation. She was initiated on ceftriaxone. Resumed on Eliquis and continued on a Cardizem drip. She is seen today in consultation in the emergency department. She is currently sitting up on a stretcher. Awake and alert in no acute distress. She is still quite weak and she is maintaining good O2 saturations in the 90s on room air. She is afebrile. Remains in atrial fibrillation. X-ray reveals no acute pulmonary process. The patient is seen today September 18, 2023 in follow-up in the intensive care unit. She is currently resting comfortably in bed. Awake and alert in no acute distress. She is maintaining O2 saturations in the 90s on room air. She remains on lactated Ringer's at 125 MLS per hour. Continued on a Cardizem drip at 15 mg/h. Remains in atrial fibrillation. Rate is better controlled. White count 21.7. Hemoglobin 12.7. Platelets 43,000. Sodium 131. Potassium 4.2. Bicarb 17. BUN 26. Creatinine 0.42. Glucose 269. Lactic acid 6.7. He remains on ceftriaxone. Continued on Decadron. Eliquis on hold. The patient is seen today September 19, 2023 in follow-up in the intensive care unit. She is currently sitting up in bed. Awake and alert in no acute distress. She is maintaining good O2 saturations in the 90s on room air. She is continued on Cardizem at 10 mg/h. Lactated Ringer's at 125 MLS per hour. Blood cultures pending. White count 26.8. Hemoglobin 13.5. Platelets 61,000. Sodium 132. Potassium 4.3. Bicarb 20. BUN 21. Creatinine 0.39. Glucose 205. She remains on Decadron. Eliquis remains on hold. She remains on ceftriaxone. Progress note dated September 20, 2023. The patient is seen today in room 376. She is on room air. She is not receiving any IV fluids. She continues in atrial fibrillation with rates of about 100 bpm. She states that she is not feeling well today. Current laboratory data includes a white count 24.8, hemoglobin 13.7, hematocrit 43.7, and a platelet count of 71,000. Sodium 131, potassium 4.4, chlorides 102, CO2 20, BUN 24, and creatinine 0.46. Glucose is 151. Hemoglobin A1c is 7.2. Calcium 8.9. Magnesium 1.9. The patient was scheduled to have a CT scan of the abdomen and pelvis. Progress note dated September 21, 2023. 58-year-old female seen today in room 376. She is on room air. The patient has chronic atrial fibrillation, and is currently on a Cardizem drip at 10 mg an hour. Because she is short of breath, will add oxygen, at 2 L. She is 58, but looks much older than her stated age. Current labs include a glucose of 138. Urine and blood sampling has been negative. Results of the abdominal/pelvic CTA, have been reviewed. Objective - Vital Signs Vital signs: Vital Signs Temp 96.4 F L 09/21/23 08:00 Pulse 137 H 09/21/23 08:00 Resp 18 09/21/23 08:00 BP 102/72 09/21/23 08:00 Pulse Ox 95 09/21/23 08:00 FiO2 Intake & Output 09/20/23 09/21/23 09/21/23 18:59 06:59 18:59 Intake Total 180 22.25 80.833 Balance 180 .25 80.833 Weight 66 kg Intake: Intake, IV Titration 80.833 Amount Diltiazem 125 mg In 80.833 Sodium Chloride 0.9% 100 ml @ 5 MG/HR 5 mls/hr IV .Q24H [facility] Rx#:[id number] Oral 180 0 Other: Voiding Method Bedside Commode Bedside Commode Bedside Commode # Voids 2 1 1 - Exam No acute distress, oriented 3. Patient states that she does not feel well. The patient does admit to being mildly short of breath. Room air saturation 94- 95 %. HEENT examination is grossly unremarkable. Mucous membranes are moist. No oral lesions. Neck supple. Full range of motion. No adenopathy thyromegaly or neck vein distention. Cardiovascular examination reveals an irregular rhythm and rate. S1-S2 normal. No S3 or S4. No discernible murmur noted. Heart rate 125 bpm. Lungs reveal clear breath sounds. Breath sounds are equal bilaterally. No adventitious lung sounds including wheezes rhonchi or crackles. Room air saturation 95 %. Abdomen soft bowel sounds are heard. No masses or tenderness. Extremities are intact. No cyanosis clubbing or edema. Skin is without rash or lesion. Neurologic examination is brief but nonfocal. - Labs CBC & Chem 7: 09/20/23 08:14 09/20/23 08:14 Labs: Abnormal Lab Results - Last 24 Hours (Table) 09/20/23 09/20/23 09/21/23 Range/Units 16:30 20:05 05:41 POC Glucose (mg/dL) 145 H 127 H 127 H (70-110) mg/dL 09/21/23 Range/Units 11:53 POC Glucose (mg/dL) 138 H (70-110) mg/dL Microbiology - Last 24 Hours (Table) 09/17/23 04:10 Blood Culture - Preliminary Blood Assessment and Plan Assessment: Acute sepsis with lactic acidosis secondary to suspected urinary tract infection and hematuria. Dyspnea secondary to atrial fibrillation with a rapid ventricular response. History of left lower extremity DVT approximately 4 to 5 months ago and maintained on Eliquis. Stage IV metastatic breast cancer with metastasis to the brain bone and liver. Initially treated in 2020 with recurrence currently receiving chemotherapy last treatment on September 11, 2023. History of metastatic left parietal brain metastasis status post resection in January 2023 subsequent radiation currently on Decadron. Transaminitis secondary to sepsis, liver metastasis. Thrombocytopenia. Former smoker. Hypertension. Plan: Plan dated September 20, 2023. The patient continues in atrial fibrillation. Her rates are anywhere from 100 bpm, up to 125 bpm. She actually states today that she was not feeling well. The patient was scheduled to have a CT scan of the abdomen and pelvis. Labs, x- rays, medications are reviewed. The patient continues on Decadron, and ceftriaxone. We will continue to follow make recommendations along the way. Prognosis is guarded. Plan dated September 21, 2023. The patient continues in atrial fibrillation. She is on a Cardizem drip at 10 mg an hour. She admits to being mildly short of breath. We had nasal O2 at 2 L. Labs, x-rays, medications are reviewed. We will continue to follow make recommendations along the way. The results of recent CT scan of the abdomen and pelvis, have been reviewed. Additional recommendations and suggestions are forthcoming. Prognosis is certainly guarded. Time with Patient: Less than 30
--- NOTE | 2023-09-21 16:06 | P.PN ---
Subjective The patient is a pleasant 58-year-old female patient who is known to our service from before with a past medical history significant for metastatic breast cancer as well as smoking currently she is not a smoker as well as paroxysmal atrial fibrillation and history of pulmonary embolism. She presented to the emergency department complaining of shortness of breath associated with dizziness and lightheadedness. She was in her usual state of health till yesterday when she was at home and started experiencing the shortness of breath and dizziness and lightheadedness and also she was experiencing some discomfort in the chest mostly on the left side of the chest as a dull/sharp with no radiation. She decided to come to the emergency department where she underwent an EKG and that showed atrial fibrillation with rapid ventricular response. She stated that she has been compliant with her medications including oral anticoagulation. For some reasons she was not on any oral AV vesta willa agents as an outpatient. Now she is in atrial fibrillation with heart rate around 120 bpm. The EKG showed diffuse nonspecific ST and T wave abnormalities beside the atrial fibrillation. The first set of troponin came in to be unremarkable. She un derwent also a CT scan of the brain which showed no acute abnormalities. The patient was seen by our service in June 2023 and at that point she underwent an echo which revealed normal LV systolic function. The patient is known to have metastatic breast cancer to the bone and lungs and also to the brain and she underwent craniotomy in the past. The physical examination revealed irregular rhythm with tachycardia and clear breathing sounds bilaterally and no edema was noted. 09/17 patient seen and examined. Patient was placed on Cardizem drip currently at 15 and heart rates controlled in the 70s to 80s. Her lactic acid are gone up to 11 however currently has improved down to 6. She is feeling much better. She has been receiving IV fluids. She admits she has difficulty swallowing larger pills. Her anticoagulation has been held secondary to severe thrombocytopenia with platelets down into the 40s. 09/18 Patient seen and examined. Patient's Cardizem drip was weaned down to 5. His metoprolol was increased. She is still having chest pain as well as abdominal pain. Chest pain is worse with deep inspiration. Her abdominal pain is worse with eating. Her lactic acid remains high despite vital signs improving. 09/19 Patient is seen today on the cardiac stepdown unit. She states her shortness of breath is worse at nighttime and in general about the same from yesterday. Heart rate is running 120s, blood pressure 124/74, pulse ox 98% on room air. Echocardiogram has been obtained and report is pending. Patient is also ordered for CT angiogram of the abdomen and pelvis due to pain and lactic acidosis. Patient has been resumed on Eliquis as of last evening. She is off Cardizem. 09/20 patient seen and examined. Patient is still having significant chest tightness which feels worse when she takes a deep breath in. She is feeling somewhat short of breath however again cannot feel like she can take a deep breath and with her increased abdominal distention. She continues to feel nauseous and more significant abdominal pain. She had CAT scan abdomen and pelvis which showed progression of metastasis and recommendations for renal ultrasound which has been performed however results pending. Physical Examination Gen: This is a 58-year-old female HEENT: Head is atraumatic, normocephalic. Pupils equal, round. Sclerae is anicteric. LUNGS: Clear to auscultation. No wheezes or rhonchi. No intercostal retractions. HEART: Irregular rate and rhythm. Tachycardic. No murmur. EXTREMITIES: No pedal edema. No calf tenderness. NEUROLOGICAL: Patient is awake, alert. Assessment Atrial fibrillation with RVR in patient with paroxysmal atrial fibrillation History of pulmonary embolism Metastatic breast cancer as described above History of smoking thrombocytopenia lactic acidosis Chest pain atypical Abdominal pain Elevated liver enzymes Plan Patient's platelet levels have increased and likely related to recent chemotherapy. Limited 2-D echo showing of 45-50% without significant valvular disease. Amee presentation more related to abdominal pain with CAT scan showing progression of metastasis. Prognosis guarded. Attempt to stop Cardizem drip and add oral Cardizem. if she cannot keep orals down we will switch her back to IV Cardizem. Objective - Vital Signs Vital signs: Vital Signs Temp 96.4 F L 09/21/23 08:00 Pulse 137 H 09/21/23 14:00 Resp 18 09/21/23 08:00 BP 102/72 09/21/23 08:00 Pulse Ox 95 09/21/23 08:00 FiO2 Intake & Output 09/20/23 09/21/23 09/21/23 18:59 06:59 18:59 Intake Total 180 22.25 80.833 Balance 180 22.25 80.833 Weight 66 kg Intake: Intake, IV Titration 80.833 Amount Diltiazem 125 mg In 80.833 Sodium Chloride 0.9% 100 ml @ 5 MG/HR 5 mls/hr IV .Q24H [facility] Rx#:[id number] Oral 180 0 Other: Voiding Method Bedside Commode Bedside Commode Bedside Commode # Voids 2 1 1 - Labs CBC & Chem 7: 09/20/23 08:14 09/20/23 08:14 Labs: Abnormal Lab Results - Last 24 Hours (Table) 09/20/23 09/20/23 09/21/23 Range/Units 16:30 20:05 05:41 POC Glucose (mg/dL) 145 H 127 H 127 H (70-110) mg/dL 09/21/23 Range/Units 11:53 POC Glucose (mg/dL) 138 H (70-110) mg/dL Microbiology - Last 24 Hours (Table) 09/17/23 04:10 Blood Culture - Preliminary Blood
[2023-09-21 16:41] LABS: Glucose,Whole Blood 127 mg/dL (70-110)
[2023-09-21 20:13] LABS: Glucose,Whole Blood 140 mg/dL (70-110)
[2023-09-21] MEDS: DILTIAZEM ORAL 60 MG TAB PO SCH (21:36)
[2023-09-21] MEDS: ONDANSETRON 4 MG/2 ML VIAL IVP PRN (21:42)
[2023-09-22 06:02] LABS: Glucose,Whole Blood 147 mg/dL (70-110)
--- NOTE | 2023-09-22 08:25 | US ---
EXAMINATION TYPE: US renals and bladder DATE OF EXAM: 09/21/2023 Exam done portable COMPARISON: CT 2023 CLINICAL INDICATION: Female, 58 years old with history of renal lesion seen on CTA AP; EXAM MEASUREMENTS: Right Kidney: 10.7 x 4.7 x 5.2 cm Left Kidney: 9.3 x 4.8 x 4.4 cm Right Kidney: 5.0 x 3.2 x 3.8cm ill defined isoechoic mass lateral mid pole Left Kidney: 0.6cm echogenic focus superior pole Bladder: not distended Liver: enlarged with multiple lesions There is no evidence for hydronephrosis at this point in time. The urinary bladder is anechoic. Bi lateral ureteral jets are seen. IMPRESSION: 1. Solid mass mid pole right kidney as seen on recent CT. Neoplasm is not excluded. 2. Hepatomegaly with multiple hepatic lesions. Correlate for metastatic disease.
[2023-09-22] MEDS: PANTOPRAZOLE 40 MG/10 ML VIAL IVP SCH (09:29)
[2023-09-22] MEDS: MORPHINE SULFATE IR 15 MG TABLET PO PRN (09:30)
[2023-09-22 10:14] LABS: Anisocytosis Slight; HCT 43.6 % (34.0-46.0); HGB 13.7 gm/dL (11.4-16.0); Hypochromasia Slight; MCH 29.7 pg (25.0-35.0); MCHC 31.4 g/dL (31.0-37.0); MCV 94.6 fL (80.0-100.0); Mean Platelet Volume 11.3; Platelet Count 102 k/uL (150-450); RBC 4.61 m/uL (3.80-5.40); RDW 17.5 % (11.5-15.5); WBC 11.9 k/uL (3.8-10.6)
[2023-09-22 10:20] LABS: ALT 297 U/L (4-34); AST 374 U/L (14-36); African American GFR (CKD) 87 (>60 ml/min/1.73 sqM); Albumin 2.2 g/dL (3.5-5.0); Anion Gap 11 mmol/L; Blood Urea Nitrogen 62 mg/dL (7-17); Calcium 8.2 mg/dL (8.4-10.2); Carbon Dioxide 17 mmol/L (22-30); Chloride 102 mmol/L (98-107); Glucose 152 mg/dL (74-99); Non-African American GFR(CKD) 75 (>60 ml/min/1.73 sqM); Sodium 130 mmol/L (137-145); Total Bilirubin 4.4 mg/dL (0.2-1.3); Total Protein 4.7 g/dL (6.3-8.2)
[2023-09-22 10:47] LABS: Alkaline Phosphatase 790 U/L (38-126)
[2023-09-22 11:22] LABS: Glucose,Whole Blood 135 mg/dL (70-110)
--- NOTE | 2023-09-22 12:59 | P.PN ---
Subjective Progress Note Date: 09/22/23 58-year-old female with past medical history of stage IV breast cancer with metastasis to the brain liver and bone, h/o DVT/PE, atrial fibrillation on Eliquis who presents to the ED with palpitations, shortness of breath and weakness. Patient was recently admitted to the hospital for workup of vertigo. Patient was found to have new metastatic lesions in her brain. Patient was discharged and was instructed to follow-up with radiation oncology. Patient states that her last chemotherapy was 5 days ago. She has not started radiation therapy yet. She states that about a week ago her Decadron was increased to 4 mg 3 times a day. Patient states that she has been taking the Decadron every day. Patient also states that she has hematuria. She also complains of dysuria. In the ED, patient underwent extensive evaluation. BP 126/82, HR 168, T97.6F, RR 24, 99% on RA. CBC, Coag panel, CMP done significant for WBC 29.1, Hct 49.8, Plt 70, Na 130, bicarb 18, BUN 26, glu 368, T. Bili 1.4, AST 264, ALT 349, alk phos 801, alb 2.9. Lactic acid 8.9. UA large blood, trace ketones, small LE. Patient was found to be in A-fib with RVR confirmed with EKG. CXR and CT brain no acute findings. Patient started on Cardizem drip and Rocephin. Cardiology following the patient and started the patient metoprolol. 09/18 Patient was seen and examined. Complains of shortness of breath with little exertion. Reports chest discomfort with deep inspiration. Heart rate improved currently in the 80s. Currently on Cardizem 10 mg/hr and Metoprolol 50 mg PO BID. Antibiotics include Rocephin 1g IV QD (D2). BCx prelim negative at 24H. BMP Na 132, bicarb 20, BUN 21, Cr 0.39, glu 205. CBC WBC 26.8 Plt 61. 09/19 Patient was seen and examined. She reports generalized abdominal pain, 6/10 in severity. No rebound tenderness. No nausea or vomiting. Cardizem drip discontinued yesterday by Cardiology. UCx negative and BCx prelim negative. Rocephin discontinued. Eliquis restarted. CBC WBC 24.8 Plt 71. BMP Na 131, bicarb 20, BUN 24, Cr 0.46, glu 189. Mag 1.9. 09/20 Patient was seen and examined. Went back into A-Fib RVR yesterday and restarted on Cardizem drip currently running at 10 mg/hr. Discussed with Radiologist with regard to CTA AP patient with anasarca, progression of metastatic disease to the liver and enlarged 4 cm mass seen in the right kidney (Renal US recommended), ground glass appearance of the lungs (infectious versus side effect of chemo/radiation). 09/21 Patient was seen and examined. She reports generalized pain, headache, back and abdomen. Also reports nausea but no vomiting. Patient appears debilitated, agreeable for SNF. AFib RVR resolved, Cardizem drip discontinued, Metoprolol increased to 100 mg PO BID, started on Cardizem 60 mg PO TID. Renal US shows solid 5 x 3.2 x 3.8 cm mass. COVID negative. CBC WBC 11.9 Plt 102. CMP Na 130, bicarb 17, BUN 62, glu 152, Ca 8.2, T. bili 4.4, AST 374, ALT 297, alk phos 790. General surgery consulted for obstructive transaminitis and GB wall thickening seen on CT AP. Patient will be started on Morphine IR 15 mg PO Q6H PRN and attempt will be made to wean off Morphine IV. General: non toxic, no distress, appears at stated age Derm: warm, dry Head: atraumatic, normocephalic, symmetric Eyes: EOMI, no lid lag, anicteric sclera Mouth: no lip lesion, mucus membranes moist Cardiovascular: S1S2 irreg, no murmur Lungs: Decreased BS bilateral, no rhonchi, no rales , no accessory muscle use Abd: Tenderness to palpation in bilateral LQ without rebound Ext: no gross muscle atrophy, no edema, no contractures Neuro: no focal neuro deficits Psych: Alert, oriented, appropriate affect Based on my assessment of this patient, this patient meets a high complexity level of care. Patient has an acute diagnosis of A-Fib with RVR meeting SIRS criteria with new obstructive transaminitis that poses a threat to life or bodily function. Obstructive Transaminitis: In the setting of metastatic lesion to the liver. With CT finding of GB wall thickening. Given leukocytosis, concerns for cholecystitis. Re-start Rocephin 2g IV QD. Allergic to Flagyl. Obtain GB US. Consult surgery. A-fib with RVR: Eliquis 5 mg PO BID restarted. Cardizem drip discontinued. Metoprolol increased to 100 mg PO BID. Cardizem 60 mg PO TID added. Echo as above. Cardiology following Lactic acidosis: I suspect this is mainly due to liver metastasis. Renal mass: Discussed with radiology, appears to be atypical metastatic lesion. Renal US shows large solid mass in the right kidney as described above. Ground glass opacity of the lung: COVID negative. Breast cancer with metastasis to the brain bone and liver: Continue with Decadron 2 mg PO Q8H. Hematology/Oncology consult. Thrombocytopenia: Likely related to chemotherapy. Hematology consult. Generalized weakness: This is multifactorial due to dehydration, sepsis, atrial fibrillation and breast cancer stage IV. Consult PT OT Elevated liver enzymes secondary to metastasis: Trend. Mild hyponatremia: Continue with fluids. Trend. Hypertension: Blood pressure controlled. Norvasc on hold as patient is on Cardizem drip. CODE STATUS: FULL CODE. DVT Prophylaxis: SCD GI Prophylaxis: Protonix IV Designated medical POA if patient is not able to make medical decisions for themselves: I have reviewed the following industrial methods consultant notes: Cardiology, Pulmonary. I have reviewed the results of the following tests: Renal US. COVID. CBC. CMP. I have ordered the following tests: GB US. I have discussed the care of this patient with the following independent historian: I have independently interpreted the following test below: I have discussed the management of this patient with the following physician: Objective - Vital Signs Vital signs: Vital Signs Temp 96.4 F L 09/21/23 08:00 Pulse 57 L 09/22/23 04:00 Resp 16 09/22/23 04:00 BP 127/69 09/22/23 04:00 Pulse Ox 96 09/22/23 04:00 FiO2 Intake & Output 09/21/23 09/22/23 09/22/23 18:59 06:59 18:59 Intake Total 80.833 Balance 80.833 Weight 66 kg Intake: Intake, IV Titration 80.833 Amount Diltiazem 125 mg In 80.833 Sodium Chloride 0.9% 100 ml @ 5 MG/HR 5 mls/hr IV .Q24H [facility] Rx#:[id number] Other: Voiding Method Bedside Commode Bedside Commode # Voids 3 - Labs CBC & Chem 7: 09/22/23 09:32 09/22/23 09:32 Labs: Abnormal Lab Results - Last 24 Hours (Table) 09/21/23 09/21/23 09/21/23 Range/Units 11:38 11:53 16:38 POC Glucose (mg/dL) 138 H 127 H (70-110) mg/dL Procalcitonin 2.74 H (0.02-0.09) ng/mL 09/21/23 09/22/23 Range/Units 20:11 06:01 POC Glucose (mg/dL) 140 H 147 H (70-110) mg/dL Procalcitonin (0.02-0.09) ng/mL
--- NOTE | 2023-09-22 13:13 | P.PN ---
Subjective Progress Note Date: 09/22/23 Principal diagnosis: Atrial fibrillation. This is a very pleasant 58-year-old female patient with a known history of stage IV breast cancer she was initially diagnosed in April 2021 and had a lumpectomy and subsequent chemotherapy and radiation therapy. She was later found to have a large left parietal brain metastasis and had undergone resection in January 2023. She had undergone postoperative adjunctive radiation therapy finished in February 2023. She was later found to have 3 new small lesions and underwent single fraction radiation on June 15, 2023. He has been under the care of Dr. Kapadia and Dr. Aquino. She was receiving chemotherapy most recently on September 11, 2023. She came to the emergency room left evening after having increasing shortness of breath, dizziness, weakness and burning with urination and developed hematuria. She had been on Eliquis for approximately 4 to 5 months for a left lower extremity DVT. Upon admission here she was found to be in atrial fibrillation with a rapid ventricular response. She is currently on Cardizem drip at 15 mg/h. She was also complaining of a worsening headache however CT scan of the brain revealed no acute intracranial findings. White count 29.1. Hemoglobin 15.0. Platelets 70,000. Sodium 130. Potassium 4.9. Bicarb 18. BUN 26. Creatinine 0.53. Glucose 368. Initial lactic acid 8.9, peaking at 11.4 and currently 6.1. AST 264. ALT 349. Alk phos 801. Troponin negative x 2. proBNP 3080. Urine with large blood, greater than 182 RBCs, 30 WBCs. She has received 3 L of fluid resuscitation. She was initiated on ceftriaxone. Resumed on Eliquis and continued on a Cardizem drip. She is seen today in consultation in the emergency department. She is currently sitting up on a stretcher. Awake and alert in no acute distress. She is still quite weak and she is maintaining good O2 saturations in the 90s on room air. She is afebrile. Remains in atrial fibrillation. X-ray reveals no acute pulmonary process. The patient is seen today September 18, 2023 in follow-up in the intensive care unit. She is currently resting comfortably in bed. Awake and alert in no acute distress. She is maintaining O2 saturations in the 90s on room air. She remains on lactated Ringer's at 125 MLS per hour. Continued on a Cardizem drip at 15 mg/h. Remains in atrial fibrillation. Rate is better controlled. White count 21.7. Hemoglobin 12.7. Platelets 43,000. Sodium 131. Potassium 4.2. Bicarb 17. BUN 26. Creatinine 0.42. Glucose 269. Lactic acid 6.7. He remains on ceftriaxone. Continued on Decadron. Eliquis on hold. The patient is seen today September 19, 2023 in follow-up in the intensive care unit. She is currently sitting up in bed. Awake and alert in no acute distress. She is maintaining good O2 saturations in the 90s on room air. She is continued on Cardizem at 10 mg/h. Lactated Ringer's at 125 MLS per hour. Blood cultures pending. White count 26.8. Hemoglobin 13.5. Platelets 61,000. Sodium 132. Potassium 4.3. Bicarb 20. BUN 21. Creatinine 0.39. Glucose 205. She remains on Decadron. Eliquis remains on hold. She remains on ceftriaxone. Progress note dated September 20, 2023. The patient is seen today in room 376. She is on room air. She is not receiving any IV fluids. She continues in atrial fibrillation with rates of about 100 bpm. She states that she is not feeling well today. Current laboratory data includes a white count 24.8, hemoglobin 13.7, hematocrit 43.7, and a platelet count of 71,000. Sodium 131, potassium 4.4, chlorides 102, CO2 20, BUN 24, and creatinine 0.46. Glucose is 151. Hemoglobin A1c is 7.2. Calcium 8.9. Magnesium 1.9. The patient was scheduled to have a CT scan of the abdomen and pelvis. Progress note dated September 21, 2023. 58-year-old female seen today in room 376. She is on room air. The patient has chronic atrial fibrillation, and is currently on a Cardizem drip at 10 mg an hour. Because she is short of breath, will add oxygen, at 2 L. She is 58, but looks much older than her stated age. Current labs include a glucose of 138. Urine and blood sampling has been negative. Results of the abdominal/pelvic CTA, have been reviewed. Progress note dated September 22, 2023. 58-year-old female seen today in room 376. The patient has a history of chronic atrial fibrillation. Currently, she is on room air. She is not receiving any IV fluids. She has no specific complaints today. Today's laboratory data includes a white count 11.9, hemoglobin 13.7, hematocrit 43.6, and a platelet count of 102,000. Sodium 130, potassium 5, chlorides 102, CO2 17, BUN 62, and creatinine 0.86. Glucose is 135. Calcium 8.2. Total bilirubin 4.4. AST is 374. ALT is 297. Alkaline phosphatase is 790. Albumin is 2.2. Microbiology is currently negative. No recent chest x-ray to report. Objective - Vital Signs Vital signs: Vital Signs Temp 97.4 F L 09/22/23 09:23 Pulse 71 09/22/23 11:41 Resp 15 09/22/23 11:41 BP 125/67 09/22/23 11:41 Pulse Ox 95 09/22/23 11:41 FiO2 Intake & Output 09/21/23 09/22/23 09/22/23 18:59 06:59 18:59 Intake Total 80.833 Balance 80.833 Weight 66 kg Intake: Intake, IV Titration 80.833 Amount Diltiazem 125 mg In 80.833 Sodium Chloride 0.9% 100 ml @ 5 MG/HR 5 mls/hr IV .Q24H [facility] Rx#:[id number] Other: Voiding Method Bedside Commode Bedside Commode Bedside Commode Diaper # Voids 3 - Labs CBC & Chem 7: 09/22/23 09:32 09/22/23 09:32 Labs: Abnormal Lab Results - Last 24 Hours (Table) 09/21/23 09/21/23 09/21/23 Range/Units 11:38 16:38 20:11 WBC (3.8-10.6) k/uL RDW (11.5-15.5) % Plt Count (150-450) k/uL Sodium (137-145) mmol/L Carbon Dioxide (22-30) mmol/L BUN (7-17) mg/dL Glucose (74-99) mg/dL POC Glucose (mg/dL) 127 H 140 H (70-110) mg/dL Calcium (8.4-10.2) mg/dL Total Bilirubin (0.2-1.3) mg/dL AST (14-36) U/L ALT (4-34) U/L Alkaline Phosphatase (38-126) U/L Total Protein (6.3-8.2) g/dL Albumin (3.5-5.0) g/dL Procalcitonin 2.74 H (0.02-0.09) ng/mL 09/22/23 09/22/23 09/22/23 Range/Units 06:01 09:32 09:32 WBC 11.9 H (3.8-10.6) k/uL RDW 17.5 H (11.5-15.5) % Plt Count 102 L (150-450) k/uL Sodium 130 L (137-145) mmol/L Carbon Dioxide 17 L (22-30) mmol/L BUN 62 H (7-17) mg/dL Glucose 152 H (74-99) mg/dL POC Glucose (mg/dL) 147 H (70-110) mg/dL Calcium 8.2 L (8.4-10.2) mg/dL Total Bilirubin 4.4 H (0.2-1.3) mg/dL AST 374 H (14-36) U/L ALT 297 H (4-34) U/L Alkaline Phosphatase 790 H (38-126) U/L Total Protein 4.7 L (6.3-8.2) g/dL Albumin 2.2 L (3.5-5.0) g/dL Procalcitonin (0.02-0.09) ng/mL 09/22/23 Range/Units 11:21 WBC (3.8-10.6) k/uL RDW (11.5-15.5) % Plt Count (150-450) k/uL Sodium (137-145) mmol/L Carbon Dioxide (22-30) mmol/L BUN (7-17) mg/dL Glucose (74-99) mg/dL POC Glucose (mg/dL) 135 H (70-110) mg/dL Calcium (8.4-10.2) mg/dL Total Bilirubin (0.2-1.3) mg/dL AST (14-36) U/L ALT (4-34) U/L Alkaline Phosphatase (38-126) U/L Total Protein (6.3-8.2) g/dL Albumin (3.5-5.0) g/dL Procalcitonin (0.02-0.09) ng/mL Microbiology - Last 24 Hours (Table) 09/17/23 04:10 Blood Culture - Final Blood Assessment and Plan Assessment: Acute sepsis with lactic acidosis secondary to suspected urinary tract infection and hematuria. Dyspnea secondary to atrial fibrillation with a rapid ventricular response. History of left lower extremity DVT approximately 4 to 5 months ago and maintained on Eliquis. Stage IV metastatic breast cancer with metastasis to the brain bone and liver. Initially treated in 2020 with recurrence currently receiving chemotherapy last treatment on September 11, 2023. History of metastatic left parietal brain metastasis status post resection in January 2023 subsequent radiation currently on Decadron. Transaminitis secondary to sepsis, liver metastasis. Thrombocytopenia. Former smoker. Hypertension. Plan: Plan dated September 20, 2023. The patient continues in atrial fibrillation. Her rates are anywhere from 100 bpm, up to 125 bpm. She actually states today that she was not feeling well. The patient was scheduled to have a CT scan of the abdomen and pelvis. Labs, x- rays, medications are reviewed. The patient continues on Decadron, and ceftriaxone. We will continue to follow make recommendations along the way. Prognosis is guarded. Plan dated September 21, 2023. The patient continues in atrial fibrillation. She is on a Cardizem drip at 10 mg an hour. She admits to being mildly short of breath. We had nasal O2 at 2 L. Labs, x-rays, medications are reviewed. We will continue to follow make recommendations along the way. The results of recent CT scan of the abdomen and pelvis, have been reviewed. Additional recommendations and suggestions are forthcoming. Prognosis is certainly guarded. Plan dated September 22, 2023. The patient is stable from the pulmonary standpoint. The patient denies any shortness of breath, cough, wheezing, chest tightness, or phlegm production. She also denies any chest pain or chest discomfort. The patient is currently on room air. She is not receiving any IV fluids. All labs, x-rays, and medications are reviewed. We will continue to follow and make recommendations w here appropriate. Prognosis is certainly guarded. Time with Patient: Less than 30
--- NOTE | 2023-09-22 14:57 | P.GSCN ---
History of Present Illness Consult date: 09/22/23 History of present illness: CHIEF COMPLAINT: Shortness of breath HISTORY OF PRESENT ILLNESS: This is a 58-year-old female with history of stage IV breast cancer with metastatic disease to the brain, bone and liver. She presented to the hospital with complaints of worsening shortness of breath and found to be in A-fib RVR. She is on Eliquis for anticoagulation. Her last chemo and radiation treatment was September 10. Patient has significant elevated liver enzymes. She has been nauseated and poor oral intake. Surgical service consulted for elevated liver enzymes, gallbladder wall thickening and liver mets. Patient also being treated for UTI with sepsis. PAST MEDICAL HISTORY: Atrial Fibrillation, Cancer, Deep Vein Thrombosis (DVT), Pulmonary Embolus (PE), breast cancer, DVT and PE. PAST SURGICAL HISTORY: Breast Surgery, Section, Hernia Repair, Hysterectomy, Tonsillectomy MEDICATIONS: See below ALLERGIES: See below SOCIAL HISTORY: No illicit drug use. REVIEW OF SYSTEMS: CONSTITUTIONAL: Denies fever or chills. HEENT: Denies blurred vision, vision changes, or eye pain. Denies hemoptysis CARDIOVASCULAR: Denies chest pain or pressure. RESPIRATORY: No shortness of breath. GASTROINTESTINAL: See HPI for pertinent findings HEMATOLOGIC: Denies bleeding disorders. GENITOURINARY: Denies any blood in urine or increased urinary frequency. SKIN: Denies pruitis. Denies rash. PHYSICAL EXAM: VITAL SIGNS: Reviewed GENERAL: Well-developed in no acute distress. HEENT: No sclera icterus. Extraocular movements grossly intact. Moist buccal mucosa. Head is atraumatic, normocephalic. No nasal drainage. ABDOMEN: Soft. Nondistended. Nontender right upper quadrant. Mild discomfort epigastric area and left upper quadrant NEUROLOGIC: Awake and alert. Confused. LABORATORY DATA: WBC 24.8 down to 11.9 Hgb 13.7 platelets 102 Sodium is 130 potassium is 5.0 creatinine 0.86 Total bili 4.4 AST 374 ALT 297 alk phos 790 IMAGING: CT scan abdomen and pelvis fluid overload with generalized anasarca and mild abdominal and moderate pelvic ascites fluid. Multifocal groundglass changes in the lower lungs additional metastatic disease progression with increased disease burden to the liver with numerous lesions. New enlarging lesion in the right kidney ASSESSMENT: 1. Elevated liver enzymes likely related to liver metastasis. Patient has no evidence of right upper quadrant abdominal pain 2. Gallbladder wall thickening on CT scan likely related to fluid overload state. Gallbladder ultrasound pending PLAN: -Patient's elevated LFTs are likely related to her liver metastasis. Patient has no right upper quadrant abdominal pain. Patient is a poor surgical candidate. Recommend supportive care. 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 Signing provider agrees with the documented findings, assessment, and plan of care. Past Medical History Past Medical History: Atrial Fibrillation, Cancer, Deep Vein Thrombosis (DVT), Pulmonary Embolus (PE) Additional Past Medical History / Comment(s): left breast CA-dx April 30, 2021-had surg. & currently getting chemo; completed radiation,unable to lay on stomach from prior old injury as a teenager, DVT & PE after hysterectomy 15 yrs ago and DVT after varicose vein stripping yrs ago., DVT in August behind right knee and another DVT behind left knee. Brain mets status postcraniotomy 02/18 History of Any Multi-Drug Resistant Organisms: None Reported Past Surgical History: Breast Surgery, Section, Hernia Repair, Hysterectomy, Tonsillectomy Additional Past Surgical History / Comment(s): breast biopsy. Ear surgery as child., mediport insertion with removal, left breast lumpectomy w/sentinel lymph node bx. in November 2021, tumor removal brain. fatty tissue removed from back. Cysts removed from bilateral breasts. Past Anesthesia/Blood Transfusion Reactions: No Reported Reaction Additional Past Anesthesia/Blood Transfusion Reaction / Comm: no hx blood transfusion Past Psychological History: No Psychological Hx Reported Smoking Status: Former smoker Past Alcohol Use History: None Reported Additional Past Alcohol Use History / Comment(s): <1/2 ppd, started smoking as a teenager on and off Past Drug Use History: None Reported - Past Family History Mother Family Medical History: AFIB, Congestive Heart Failure (CHF), COPD, Hypertension Additional Family Medical History / Comment(s): beginings of uterine Cancer Father Family Medical History: Cancer Additional Family Medical History / Comment(s): lung Medications and Allergies Home Medications Medication Instructions Recorded Confirmed Type Apixaban [Eliquis] 5 mg PO BID 07/07/23 09/17/23 History Omeprazole 40 mg PO AC-BRKFST 07/07/23 09/17/23 History Acetaminophen-Codeine 300-30mg 1 tab PO Q4H PRN 3 Days #18 tablet 07/09/23 09/17/23 Rx [Tylenol w/codeine #3] amLODIPine [Norvasc] 5 mg PO DAILY 90 Days #90 tab 07/09/23 09/17/23 Rx OLANZapine 5 mg PO DIRECTED 08/28/23 09/17/23 History Ondansetron Odt [Zofran ODT] 4 mg PO Q4-6H PRN 08/28/23 09/17/23 History HYDROcodone/APAP 5-325MG [[place] 1 tab PO Q4H PRN 09/17/23 09/17/23 History 5-325] dexAMETHasone [Decadron] See Taper PO DIRECTED 09/17/23 09/17/23 History Allergies Allergy/AdvReac Type Severity Reaction Status Date / Time metronidazole [From Flagyl] Allergy Intermediate Anaphylaxis Verified 09/17/23 09:17 adhesive tape Allergy Mild Rash/Hives,sometimes Verified 09/17/23 09:17 blisters sulfamethoxazole Allergy Anaphylaxis Verified 09/17/23 09:17 [From Bactrim] trimethoprim [From Bactrim] Allergy Anaphylaxis Verified 09/17/23 09:17 Penicillins AdvReac Nausea Verified 09/17/23 09:17 Surgical - Exam Vital Signs Temp Pulse Resp BP Pulse Ox 97.6 F 168 H 24 126/82 99 09/16/23 20:40 09/16/23 20:40 09/16/23 20:40 09/16/23 20:40 09/16/23 20:40 Results - Labs 09/22/23 09:32 09/22/23 09:32 Abnormal Lab Results - Last 24 Hours (Table) 09/21/23 09/21/23 09/21/23 Range/Units 11:38 16:38 20:11 WBC (3.8-10.6) k/uL RDW (11.5-15.5) % Plt Count (150-450) k/uL Sodium (137-145) mmol/L Carbon Dioxide (22-30) mmol/L BUN (7-17) mg/dL Glucose (74-99) mg/dL POC Glucose (mg/dL) 127 H 140 H (70-110) mg/dL Calcium (8.4-10.2) mg/dL Total Bilirubin (0.2-1.3) mg/dL AST (14-36) U/L ALT (4-34) U/L Alkaline Phosphatase (38-126) U/L Total Protein (6.3-8.2) g/dL Albumin (3.5-5.0) g/dL Procalcitonin 2.74 H (0.02-0.09) ng/mL 09/22/23 09/22/23 09/22/23 Range/Units 06:01 09:32 09:32 WBC 11.9 H (3.8-10.6) k/uL RDW 17.5 H (11.5-15.5) % Plt Count 102 L (150-450) k/uL Sodium 130 L (137-145) mmol/L Carbon Dioxide 17 L (22-30) mmol/L BUN 62 H (7-17) mg/dL Glucose 152 H (74-99) mg/dL POC Glucose (mg/dL) 147 H (70-110) mg/dL Calcium 8.2 L (8.4-10.2) mg/dL Total Bilirubin 4.4 H (0.2-1.3) mg/dL AST 374 H (14-36) U/L ALT 297 H (4-34) U/L Alkaline Phosphatase 790 H (38-126) U/L Total Protein 4.7 L (6.3-8.2) g/dL Albumin 2.2 L (3.5-5.0) g/dL Procalcitonin (0.02-0.09) ng/mL 09/22/23 Range/Units 11:21 WBC (3.8-10.6) k/uL RDW (11.5-15.5) % Plt Count (150-450) k/uL Sodium (137-145) mmol/L Carbon Dioxide (22-30) mmol/L BUN (7-17) mg/dL Glucose (74-99) mg/dL POC Glucose (mg/dL) 135 H (70-110) mg/dL Calcium (8.4-10.2) mg/dL Total Bilirubin (0.2-1.3) mg/dL AST (14-36) U/L ALT (4-34) U/L Alkaline Phosphatase (38-126) U/L Total Protein (6.3-8.2) g/dL Albumin (3.5-5.0) g/dL Procalcitonin (0.02-0.09) ng/mL Microbiology - Last 24 Hours (Table) 09/17/23 04:10 Blood Culture - Final Blood Diabetes panel 09/22/23 Range/Units 09:32 Sodium 130 L (137-145) mmol/L Potassium 5.0 (3.5-5.1) mmol/L Chloride 102 (98-107) mmol/L Carbon Dioxide 17 L (22-30) mmol/L BUN 62 H (7-17) mg/dL Creatinine 0.86 (0.52-1.04) mg/dL Glucose 152 H (74-99) mg/dL Calcium 8.2 L (8.4-10.2) mg/dL AST 374 H (14-36) U/L ALT 297 H (4-34) U/L Alkaline Phosphatase 790 H (38-126) U/L Total Protein 4.7 L (6.3-8.2) g/dL Albumin 2.2 L (3.5-5.0) g/dL Calcium panel 09/22/23 Range/Units 09:32 Calcium 8.2 L (8.4-10.2) mg/dL Albumin 2.2 L (3.5-5.0) g/dL Pituitary panel 09/22/23 Range/Units 09:32 Sodium 130 L (137-145) mmol/L Potassium 5.0 (3.5-5.1) mmol/L Chloride 102 (98-107) mmol/L Carbon Dioxide 17 L (22-30) mmol/L BUN 62 H (7-17) mg/dL Creatinine 0.86 (0.52-1.04) mg/dL Glucose 152 H (74-99) mg/dL Calcium 8.2 L (8.4-10.2) mg/dL Adrenal panel 09/22/23 Range/Units 09:32 Sodium 130 L (137-145) mmol/L Potassium 5.0 (3.5-5.1) mmol/L Chloride 102 (98-107) mmol/L Carbon Dioxide 17 L (22-30) mmol/L BUN 62 H (7-17) mg/dL Creatinine 0.86 (0.52-1.04) mg/dL Glucose 152 H (74-99) mg/dL Calcium 8.2 L (8.4-10.2) mg/dL Total Bilirubin 4.4 H (0.2-1.3) mg/dL AST 374 H (14-36) U/L ALT 297 H (4-34) U/L Alkaline Phosphatase 790 H (38-126) U/L Total Protein 4.7 L (6.3-8.2) g/dL Albumin 2.2 L (3.5-5.0) g/dL
--- NOTE | 2023-09-22 16:00 | P.PN ---
Subjective Progress Note Date: 09/22/23 Principal diagnosis: Metastatic triple negative breast cancer -CTA of the abdomen revealed progressive liver metastases as well as new left adrenal lesion and right kidney lesion concerning for metastases -Vicky appeared more encephalopathic today and was only intermittently able to follow conversation Objective - Vital Signs Vital signs: Vital Signs Temp 97.4 F L 09/22/23 09:23 Pulse 61 09/22/23 15:29 Resp 17 09/22/23 15:29 BP 144/77 09/22/23 15:29 Pulse Ox 95 09/22/23 15:29 FiO2 Intake & Output 09/21/23 09/22/23 09/22/23 18:59 06:59 18:59 Intake Total 80.833 Balance 80.833 Weight 66 kg Intake: Intake, IV Titration 80.833 Amount Diltiazem 125 mg In 80.833 Sodium Chloride 0.9% 100 ml @ 5 MG/HR 5 mls/hr IV .Q24H [facility] Rx#:[id number] Other: Voiding Method Bedside Commode Bedside Commode Bedside Commode Diaper # Voids 3 - Constitutional Constitutional Comment(s): Confused and not consistently able to follow commands General appearance: Present: no acute distress - Respiratory Details: Nonlabored breathing - Cardiovascular Rhythm: regular - Gastrointestinal General gastrointestinal: Present: distended, soft, tenderness Localized gastrointestinal: tender: RUQ - Integumentary Integumentary: Present: pale - Neurologic Neurologic: Absent: focal deficits - Labs CBC & Chem 7: 09/22/23 09:32 09/22/23 09:32 Labs: Abnormal Lab Results - Last 24 Hours (Table) 09/21/23 09/21/23 09/21/23 Range/Units 11:38 16:38 20:11 WBC (3.8-10.6) k/uL RDW (11.5-15.5) % Plt Count (150-450) k/uL Sodium (137-145) mmol/L Carbon Dioxide (22-30) mmol/L BUN (7-17) mg/dL Glucose (74-99) mg/dL POC Glucose (mg/dL) 127 H 140 H (70-110) mg/dL Calcium (8.4-10.2) mg/dL Total Bilirubin (0.2-1.3) mg/dL AST (14-36) U/L ALT (4-34) U/L Alkaline Phosphatase (38-126) U/L Total Protein (6.3-8.2) g/dL Albumin (3.5-5.0) g/dL Procalcitonin 2.74 H (0.02-0.09) ng/mL 09/22/23 09/22/23 09/22/23 Range/Units 06:01 09:32 09:32 WBC 11.9 H (3.8-10.6) k/uL RDW 17.5 H (11.5-15.5) % Plt Count 102 L (150-450) k/uL Sodium 130 L (137-145) mmol/L Carbon Dioxide 17 L (22-30) mmol/L BUN 62 H (7-17) mg/dL Glucose 152 H (74-99) mg/dL POC Glucose (mg/dL) 147 H (70-110) mg/dL Calcium 8.2 L (8.4-10.2) mg/dL Total Bilirubin 4.4 H (0.2-1.3) mg/dL AST 374 H (14-36) U/L ALT 297 H (4-34) U/L Alkaline Phosphatase 790 H (38-126) U/L Total Protein 4.7 L (6.3-8.2) g/dL Albumin 2.2 L (3.5-5.0) g/dL Procalcitonin (0.02-0.09) ng/mL 09/22/23 Range/Units 11:21 WBC (3.8-10.6) k/uL RDW (11.5-15.5) % Plt Count (150-450) k/uL Sodium (137-145) mmol/L Carbon Dioxide (22-30) mmol/L BUN (7-17) mg/dL Glucose (74-99) mg/dL POC Glucose (mg/dL) 135 H (70-110) mg/dL Calcium (8.4-10.2) mg/dL Total Bilirubin (0.2-1.3) mg/dL AST (14-36) U/L ALT (4-34) U/L Alkaline Phosphatase (38-126) U/L Total Protein (6.3-8.2) g/dL Albumin (3.5-5.0) g/dL Procalcitonin (0.02-0.09) ng/mL Microbiology - Last 24 Hours (Table) 09/17/23 04:10 Blood Culture - Final Blood - Imaging and Cardiology CT scan - abdomen: report reviewed, image reviewed Assessment and Plan (1) Breast cancer metastasized to multiple sites Current Visit: Yes Status: Acute Priority: High Code(s): C50.919 - MALIGNANT NEOPLASM OF UNSP SITE OF UNSPECIFIED FEMALE BREAST SNOMED Code(s): 407649278 (2) Triple negative breast carcinoma Current Visit: Yes Status: Acute Priority: High Code(s): C50.919 - MALIGNANT NEOPLASM OF UNSP SITE OF UNSPECIFIED FEMALE BREAST; Z17.1 - ESTROGEN RECEPTOR NEGATIVE STATUS [ER-] SNOMED Code(s): 975561633 Plan: Metastatic Triple negative breast cancer -Underwent lobectomy in January 2023 along with adjuvant radiation therapy for brain metastases -Progressed on single agent Taxol based on PET/CT in May 2023 -Completed 3 cycles of enhertu as she had HER-2 low disease from June 2023 with cycle 3 on 09/11/2023 -CTA of the abdomen noted progressive liver metastases along with likely left adrenal gland and right renal lesion concerning for metastases -Clinically, she has declined over the past 2 days and is not alert and on today's visit -Discussed her clinical course with her daughter Melita today -On discussion, I recommended transition to hospice along with changing CODE STATUS to DNR/DNI -Following discussion, she was agreeable to these recommendations -Case management and primary team were notified of my discussion with her daughter -CODE STATUS changed to DNR/DNI -Case management to arrange for hospice consultation with her daughter to help initiate this transition We remain available if additional questions or concerns arise Dallas Mejia MD
--- NOTE | 2023-09-22 16:15 | US ---
EXAMINATION TYPE: US gallbladder DATE OF EXAM: 09/22/2023 COMPARISON: NONE CLINICAL INDICATION: Female, 58 years old with history of with bile duct; known liver lesions, patien t did not answer questioning TECHNIQUE: Multiple sonographic images of the right upper quadrant are obtained. FINDINGS: EXAM MEASUREMENTS: Liver Length: 19.2 cm Gallbladder Wall: 0.3 cm CBD: 5.9 mm Right Ki10.3 x 4.6 x 4.66 x 4.6 cm Pancreas: Difficult to delineate due to overlying heterogeneous liver. . Linnumerable lesion throughout enlarged liver liver Gallblawnlr: wnl Evidence for sonographic Ny's nogn: nownlD: wnl Right Kilesion noted on previous US not fully appreciated today, smaller lesion measured, patient in recliner and unable to move for better imagingima g. No hydronephrosis. IMPRES N: 1. Redemonstrated innumerable metastatic lesions throughout the liver. 2. No gallstones or biliary ductal dilatation. 3. On the present exam, limited assessment of the right kidney. Unable to delineate the known mass as seen yesterday.
[2023-09-22 16:24] LABS: Glucose,Whole Blood 143 mg/dL (70-110)
--- NOTE | 2023-09-22 16:47 | P.PN ---
Subjective Progress Note Date: 09/22/23 Principal diagnosis: metastatic breast cancer Spoke to the patient briefly today, and she did not seem to be responding appropriately to questioning. She denied any pain, but appeared quite confused. She underwent a CTA of the abdomen yesterday on September 20. This revealed progr essive disease within the liver, new ascites as well as an enlarging lesion in the right kidney. This was consistent with progression of her disease. Objective - Vital Signs Vital signs: Vital Signs Temp 97.4 F L 09/22/23 09:23 Pulse 61 09/22/23 15:29 Resp 17 09/22/23 15:29 BP 144/77 09/22/23 15:29 Pulse Ox 95 09/22/23 15:29 FiO2 Intake & Output 09/21/23 09/22/23 09/22/23 18:59 06:59 18:59 Intake Total 80.833 Balance 80.833 Weight 66 kg Intake: Intake, IV Titration 80.833 Amount Diltiazem 125 mg In 80.833 Sodium Chloride 0.9% 100 ml @ 5 MG/HR 5 mls/hr IV .Q24H [facility] Rx#:[id number] Other: Voiding Method Bedside Commode Bedside Commode Bedside Commode Diaper # Voids 3 - Constitutional General appearance: Present: disheveled, mild distress - EENT Eyes: Present: EOMI - Neck Neck: Absent: lymphadenopathy - Respiratory Respiratory: bilateral: CTA - Cardiovascular Rhythm: irregularly irregular - Psychiatric Psychiatric: Absent: A&O x's 3, appropriate affect - Labs CBC & Chem 7: 09/22/23 09:32 09/22/23 09:32 Labs: Abnormal Lab Results - Last 24 Hours (Table) 09/21/23 09/22/23 09/22/23 Range/Units 20:11 06:01 09:32 WBC 11.9 H (3.8-10.6) k/uL RDW 17.5 H (11.5-15.5) % Plt Count 102 L (150-450) k/uL Sodium (137-145) mmol/L Carbon Dioxide (22-30) mmol/L BUN (7-17) mg/dL Glucose (74-99) mg/dL POC Glucose (mg/dL) 140 H 147 H (70-110) mg/dL Calcium (8.4-10.2) mg/dL Total Bilirubin (0.2-1.3) mg/dL AST (14-36) U/L ALT (4-34) U/L Alkaline Phosphatase (38-126) U/L Total Protein (6.3-8.2) g/dL Albumin (3.5-5.0) g/dL 09/22/23 09/22/23 09/22/23 Range/Units 09:32 11:21 16:22 WBC (3.8-10.6) k/uL RDW (11.5-15.5) % Plt Count (150-450) k/uL Sodium 130 L (137-145) mmol/L Carbon Dioxide 17 L (22-30) mmol/L BUN 62 H (7-17) mg/dL Glucose 152 H (74-99) mg/dL POC Glucose (mg/dL) 135 H 143 H (70-110) mg/dL Calcium 8.2 L (8.4-10.2) mg/dL Total Bilirubin 4.4 H (0.2-1.3) mg/dL AST 374 H (14-36) U/L ALT 297 H (4-34) U/L Alkaline Phosphatase 790 H (38-126) U/L Total Protein 4.7 L (6.3-8.2) g/dL Albumin 2.2 L (3.5-5.0) g/dL Microbiology - Last 24 Hours (Table) 09/17/23 04:10 Blood Culture - Final Blood Assessment and Plan Assessment: The patient is a 58-year-old female with a history of a clinical stage IIIC (cT4b, cN0, M0) high-grade invasive ductal carcinoma the left breast, ER negative, VT weak (1-10%) and HER-2 negative. She underwent neoadjuvant chemotherapy followed by lumpectomy with sentinel lymph node sampling. Final pathology revealed a stage IIIA (pT2, pN1a, M0). She underwent a course of adjuvant radiotherapy to the breast and at risk lymphatics finishing 60 Gy on 02/25/2022. She initiated adjuvant Xeloda, but did ultimately discontinue this. She unfortunately was recently found to have a large left parietal brain metastasis and underwent resection on 02/14/23. She underwent post-operative adjuvant radiation to the brain finishing on 03/17/23. She was later found to have 3 new, small lesions and underwent single fraction SRS to each finishing on 06/15/23. She has had recent systemic disease progression and has switched treatment to Enhertu. Plan: 1. Progression of breast cancer: As detailed above, the patient has unfortunately had further progression of disease both intracranially as well as systemically. I spoke briefly with the patient's son, and it appears the family is in agreement with proceeding with hospice at this time. I also discussed her case with Dr. Mejia, and he is in agreement. The patient has clearly had a significant functional decline in the past few weeks. Time with Patient: Less than 30
--- NOTE | 2023-09-22 17:49 | CDI ---
Documentation Clarification Form Date: 09/22/2023 05:26:36 PM From: Diamond Navarrete RN CCDS Phone: [phone] Admit Date: 09/16/2023 11:12:00 PM Patient Name: Vicky Duncan Visit Number: [id number] Discharge Date: ATTENTION: The Clinical Documentation Specialists (CDI) and [facility] Coding Staff appreciate your assistance in clarifying documentation. Please respond to the clarification below the line at the bottom and electronically sign. The CDI & [facility] Coding staff will review the response and follow-up if needed. Please note: Queries are made part of the Legal Health Record. If you have any questions, please contact the author of this message via ITS. Dr. Dallas Mejia Encephalopathy is documented 09/21, Oncology note. Additional clarification regarding the type of encephalopathy is requested. History/Risk Factors: 58-year-old female presents to the ED with right sided shoulder and chest pain with palpitations and shortness of breath. Medical History: Atrial fibrillation, Left Breast Cancer with Brain mets, DVT and PE. 09/15, H&P. Clinical Indicators: Oncology note, 09/21: Vicky appeared more encephalopathic today and was only intermittently able to follow conversation. VSS, 09/21: B/P 122/78; HR 64; Temp 97.4F Axillary; RR 20; SpO2 95% ra Labs, 09/15: Wbc 29.1; Neutrophils 28.20; Lymph 0.58; NA 130; BUN 26; Cr 0.53; Glucose 368; Lactic acid 8.9; Total bli 1.4 AST 264; ALT 349; Alk phos 801; BNP 3080; Total protein 4.9; Albumin 2.9 Gallbladder US, 09/21: Remonstrated innumerable metastatic lesions throughout the liver. CT Brain, 09/16: Grossly stable head with no acute intracranial findings. CT Angio Pelvis/ABD, 09/20: Focal mass like area at the periphery of the right base has increased in size currently 5.5cm vs 3.9cm on prior PET/CT. Additional metastatic disease progression with increasing disease burden to the liver with numerous lesions. Largest measuring up to 2.5cm. new 1.6cm left adrenal nodule. New 1.6cm intramuscular soft tissue deposit left gluteal region. New enlarging lesion of the right kidney currently measuring 3.8cm. Possible atypical metastatic lesion. Surgery Consult, 09/21: Elevated liver enzymes likely related to liver metastasis. Patient has no evidence of right upper quadrant abdominal pain. Gallbladder wall thickening on CT scan likely related to fluid overload state. Gallbladder ultrasound pending. Treatment: 09/21 Ceftriaxone 2gm IVPB Q24H, MSIR 15mg PO Q6HR PRN, 09/21 Protonix 40mg IVP Daily; 09/19 - 09/20 Diltiazem HCI 125mg 125mls @ 5mls/hr IV Q24H; 09/20 Cardizem 60mg po TID; 09/19 Lopressor 25mg po x 1; 09/20 Lopressor 100mg po BID Consults: Surgery consult see above. Please clarify the type of encephalopathy, if known: [ X ] Metabolic Encephalopathy due to progressive liver metastases from malignancy [ ] Other, please specify [ ] Unable to determine (Template Last Revised: July 2020) MTDD
--- NOTE | 2023-09-22 23:34 | PN ---
PROGRESS NOTE This is a 58-year-old lady, who is admitted to hospital with metastatic breast cancer and has a history of paroxysmal atrial fibrillation and pulmonary embolism. She remains in sinus rhythm. Has intermittent episodes of atrial fibrillation. She complains of musculoskeletal pain. PHYSICAL EXAMINATION: VITAL SIGNS: Heart rate is 70 beats per minute. Blood pressure is 120/67, respiratory rate 18, O2 saturation is 95%. NECK: There is no jugular venous distention. CHEST: Reveals good air entry bilaterally. HEART: Reveals first and second heart sounds. No gallop. EXTREMITIES: Did not reveal any edema. She is currently on Eliquis 5 b.i.d., Cardizem 60 t.i.d., and Lopressor 100 b.i.d. The nurse has excellent judgment and holding the beta willa as needed for bradycardia. ASSESSMENT AND PLAN: Paroxysmal atrial fibrillation and metastatic breast cancer. PLAN: Continue with the Eliquis rate control measures and adjust the dose as needed and pain control. MMODL / IJN: [id number] /
[2023-09-23 08:23] VITALS: BP 111/78; TEMP 98
--- NOTE | 2023-09-23 11:40 | P.PN ---
Subjective Progress Note Date: 09/23/23 The patient is a pleasant 58-year-old female patient who is known to our service from before with a past medical history significant for metastatic breast cancer as well as smoking currently she is not a smoker as well as paroxysmal atrial fibrillation and history of pulmonary embolism. She presented to the emergency department complaining of shortness of breath associated with dizziness and lightheadedness. She was in her usual state of health till yesterday when she was at home and started experiencing the shortness of breath and dizziness and lightheadedness and also she was experiencing some discomfort in the chest mostly on the left side of the chest as a dull/sharp with no radiation. She decided to come to the emergency department where she underwent an EKG and that showed atrial fibrillation with rapid ventricular response. She stated that she has been compliant with her medications including oral anticoagulation. For some reasons she was not on any oral AV vesta willa agents as an outpatient. Now she is in atrial fibrillation with heart rate around 120 bpm. The EKG showed diffuse nonspecific ST and T wave abnormalities beside the atrial fibrillation. The first set of troponin came in to be unremarkable. She underwent also a CT scan of the brain which showed no acute abnormalities. The patient was seen by our service in June 2023 and at that point she underwen t an echo which revealed normal LV systolic function. The patient is known to have metastatic breast cancer to the bone and lungs and also to the brain and she underwent craniotomy in the past. The physical examination revealed irregular rhythm with tachycardia and clear breathing sounds bilaterally and no edema was noted. 09/17 patient seen and examined. Patient was placed on Cardizem drip currently at 15 and heart rates controlled in the 70s to 80s. Her lactic acid are gone up to 11 however currently has improved down to 6. She is feeling much better. She has been receiving IV fluids. She admits she has difficulty swallowing larger pills. Her anticoagulation has been held secondary to severe thrombocytopenia with platelets down into the 40s. 09/18 Patient seen and examined. Patient's Cardizem drip was weaned down to 5. His metoprolol was increased. She is still having chest pain as well as abdominal pain. Chest pain is worse with deep inspiration. Her abdominal pain is worse with eating. Her lactic acid remains high despite vital signs improving. 09/19 Patient is seen today on the cardiac stepdown unit. She states her shortness of breath is worse at nighttime and in general about the same from yesterday. Heart rate is running 120s, blood pressure 124/74, pulse ox 98% on room air. Echocardiogram has been obtained and report is pending. Patient is also ordered for CT angiogram of the abdomen and pelvis due to pain and lactic acidosis. Patient has been resumed on Eliquis as of last evening. She is off Cardizem. 09/22 Patient has had intermittent episodes of atrial fibrillation but is currently in sinus rhythm. Heart rate 80, blood pressure 111/78, pulse ox 93% on room air. Patient has discharge plan in place for Monday to [facility] under hospice care. Physical Examination Gen: This is a 58-year-old female HEENT: Head is atraumatic, normocephalic. Pupils equal, round. Sclerae is anicteric. LUNGS: Clear to auscultation. No wheezes or rhonchi. No intercostal retractions. HEART:Regular rate and rhythm. No murmur. EXTREMITIES: No pedal edema. No calf tenderness. NEUROLOGICAL: Patient is awake, alert. Assessment Atrial fibrillation with RVR in patient with paroxysmal atrial fibrillation History of pulmonary embolism Metastatic breast cancer as described above History of smoking thrombocytopenia lactic acidosis Chest pain atypical Abdominal pain Elevated liver enzymes Plan Continue patient on Eliquis 5 mg twice daily, Cardizem 60 mg 3 times daily, Lopressor 100 mg twice daily Cardiology will sign off this case and follow on an as-needed basis. Please reconsult for any new concerns. Discontinue telemetry Nurse practitioner note has been reviewed, I agree with documented findings and plan of care. Patient was seen and examined. Objective - Vital Signs Vital signs: Vital Signs Temp 98.0 F 09/23/23 07:56 Pulse 80 09/23/23 07:56 Resp 24 09/23/23 07:56 BP 111/78 09/23/23 07:56 Pulse Ox 93 L 09/23/23 07:56 FiO2 Intake & Output 09/22/23 09/23/23 09/23/23 18:59 06:59 18:59 Other: Voiding Method Bedside Commode Indwelling Catheter Diaper - Labs CBC & Chem 7: 09/22/23 09:32 09/22/23 09:32 Labs: Abnormal Lab Results - Last 24 Hours (Table) 09/22/23 09/22/23 09/22/23 Range/Units 09:32 09:32 11:21 WBC 11.9 H (3.8-10.6) k/uL RDW 17.5 H (11.5-15.5) % Plt Count 102 L (150-450) k/uL Sodium 130 L (137-145) mmol/L Carbon Dioxide 17 L (22-30) mmol/L BUN 62 H (7-17) mg/dL Glucose 152 H (74-99) mg/dL POC Glucose (mg/dL) 135 H (70-110) mg/dL Calcium 8.2 L (8.4-10.2) mg/dL Total Bilirubin 4.4 H (0.2-1.3) mg/dL AST 374 H (14-36) U/L ALT 297 H (4-34) U/L Alkaline Phosphatase 790 H (38-126) U/L Total Protein 4.7 L (6.3-8.2) g/dL Albumin 2.2 L (3.5-5.0) g/dL 09/22/23 Range/Units 16:22 WBC (3.8-10.6) k/uL RDW (11.5-15.5) % Plt Count (150-450) k/uL Sodium (137-145) mmol/L Carbon Dioxide (22-30) mmol/L BUN (7-17) mg/dL Glucose (74-99) mg/dL POC Glucose (mg/dL) 143 H (70-110) mg/dL Calcium (8.4-10.2) mg/dL Total Bilirubin (0.2-1.3) mg/dL AST (14-36) U/L ALT (4-34) U/L Alkaline Phosphatase (38-126) U/L Total Protein (6.3-8.2) g/dL Albumin (3.5-5.0) g/dL Microbiology - Last 24 Hours (Table) 09/17/23 04:10 Blood Culture - Final Blood
--- NOTE | 2023-09-23 12:47 | P.PN ---
Subjective Progress Note Date: 09/23/23 58-year-old female with past medical history of stage IV breast cancer with metastasis to the brain liver and bone, h/o DVT/PE, atrial fibrillation on Eliquis who presents to the ED with palpitations, shortness of breath and weakness. Patient was recently admitted to the hospital for workup of vertigo. Patient was found to have new metastatic lesions in her brain. Patient was discharged and was instructed to follow-up with radiation oncology. Patient states that her last chemotherapy was 5 days ago. She has not started radiation therapy yet. She states that about a week ago her Decadron was increased to 4 mg 3 times a day. Patient states that she has been taking the Decadron every day. Patient also states that she has hematuria. She also complains of dysuria. In the ED, patient underwent extensive evaluation. BP 126/82, HR 168, T97.6F, RR 24, 99% on RA. CBC, Coag panel, CMP done significant for WBC 29.1, Hct 49.8, Plt 70, Na 130, bicarb 18, BUN 26, glu 368, T. Bili 1.4, AST 264, ALT 349, alk phos 801, alb 2.9. Lactic acid 8.9. UA large blood, trace ketones, small LE. Patient was found to be in A-fib with RVR confirmed with EKG. CXR and CT brain no acute findings. Patient started on Cardizem drip and Rocephin. Cardiology was consulted for A-Fib with RVR. Cardizem drip was transitioned to PO Cardizem and Metoprolol was increased. Eliquis was restarted. She was continued on Rocephin for treatment of UTI. UCx and BCx came back negative. She was noted to have persistent lactic acidosis with increasing abdominal pain. CTA AP was ordered to rule out mesenteric ischemia. CTA AP showed anasarca, progression of metastatic disease to the liver and enlarged 4 cm mass seen in the right kidney (Renal US recommended), ground glass appearance of the lungs (infectious versus side effect of chemo/radiation). Renal US showed solid 5 x 3.2 x 3.8 cm mass. COVID was negative. CMP done on 09/21 showed elevated liver enzymes with T. bili 4.4, AST 374, ALT 297, alk phos 790. General surgery consulted due to GB wall thickening seen on CTA AP, GB US showed no gallstones or biliary ductal dilatation, poor candidate for surgery, recommended conservative management. Her mental status continued to deteriorate with increased lethargy. Dr Mejia discussed the case with family and decision was made to make the patient DNR/DNI and consult hospice on 07/24. 09/22 Patient was seen and examined. She is quite lethargic. Appears comfortable. Family has elected for comfort care. Hospice consulted, no pain or distress noted, family unable to provide 19/12 care, prefers placement. General: non toxic, no distress, appears at stated age Derm: warm, dry Head: atraumatic, normocephalic, symmetric Eyes: EOMI, no lid lag, anicteric sclera Mouth: no lip lesion, mucus membranes moist Cardiovascular: good distal perfusion in all 4 extremities Lungs: breathing comfortably, no accessory muscle use Ext: no gross muscle atrophy, no edema, no contractures Based on my assessment of this patient, this patient meets a moderate complexity level of care. Breast cancer with metastasis to the brain bone liver, now kidney Obstructive Transaminitis A-fib with RVR Persistent lactic acidosis Thrombocytopenia Generalized weakness Hyponatremia Hypertension Plans for hospice. Family unable to accommodate at home. Patient will need placement. Appears to be in no acute distress. Xanax 0.5 mg PO TID PRN for anxiety. Morphine 2 mg IV Q6H PRN for pain. Zofran 4 mg IV Q8H PRN for N/V. Objective - Vital Signs Vital signs: Vital Signs Temp 98.0 F 09/23/23 07:56 Pulse 80 09/23/23 07:56 Resp 24 09/23/23 07:56 BP 111/78 09/23/23 07:56 Pulse Ox 93 L 09/23/23 07:56 FiO2 Intake & Output 09/22/23 09/23/23 09/23/23 18:59 06:59 18:59 Other: Voiding Method Bedside Commode Indwelling Catheter Diaper - Labs CBC & Chem 7: 09/22/23 09:32 09/22/23 09:32 Labs: Abnormal Lab Results - Last 24 Hours (Table) 09/22/23 09/22/23 09/22/23 Range/Units 09:32 09:32 11:21 WBC 11.9 H (3.8-10.6) k/uL RDW 17.5 H (11.5-15.5) % Plt Count 102 L (150-450) k/uL Sodium 130 L (137-145) mmol/L Carbon Dioxide 17 L (22-30) mmol/L BUN 62 H (7-17) mg/dL Glucose 152 H (74-99) mg/dL POC Glucose (mg/dL) 135 H (70-110) mg/dL Calcium 8.2 L (8.4-10.2) mg/dL Total Bilirubin 4.4 H (0.2-1.3) mg/dL AST 374 H (14-36) U/L ALT 297 H (4-34) U/L Alkaline Phosphatase 790 H (38-126) U/L Total Protein 4.7 L (6.3-8.2) g/dL Albumin 2.2 L (3.5-5.0) g/dL 09/22/23 Range/Units 16:22 WBC (3.8-10.6) k/uL RDW (11.5-15.5) % Plt Count (150-450) k/uL Sodium (137-145) mmol/L Carbon Dioxide (22-30) mmol/L BUN (7-17) mg/dL Glucose (74-99) mg/dL POC Glucose (mg/dL) 143 H (70-110) mg/dL Calcium (8.4-10.2) mg/dL Total Bilirubin (0.2-1.3) mg/dL AST (14-36) U/L ALT (4-34) U/L Alkaline Phosphatase (38-126) U/L Total Protein (6.3-8.2) g/dL Albumin (3.5-5.0) g/dL Microbiology - Last 24 Hours (Table) 09/17/23 04:10 Blood Culture - Final Blood
--- NOTE | 2023-09-23 15:18 | P.PN ---
Subjective Progress Note Date: 09/23/23 Principal diagnosis: Atrial fibrillation. This is a very pleasant 58-year-old female patient with a known history of stage IV breast cancer she was initially diagnosed in April 2021 and had a lumpectomy and subsequent chemotherapy and radiation therapy. She was later found to have a large left parietal brain metastasis and had undergone resection in January 2023. She had undergone postoperative adjunctive radiation therapy finished in February 2023. She was later found to have 3 new small lesions and underwent single fraction radiation on June 15, 2023. He has been under the care of Dr. Kapadia and Dr. Aquino. She was receiving chemotherapy most recently on September 11, 2023. She came to the emergency room left evening after having increasing shortness of breath, dizziness, weakness and burning with urination and developed hematuria. She had been on Eliquis for approximately 4 to 5 months for a left lower extremity DVT. Upon admission here she was found to be in atrial fibrillation with a rapid ventricular response. She is currently on Cardizem drip at 15 mg/h. She was also complaining of a worsening headache however CT scan of the brain revealed no acute intracranial findings. White count 29.1. Hemoglobin 15.0. Platelets 70,000. Sodium 130. Potassium 4.9. Bicarb 18. BUN 26. Creatinine 0.53. Glucose 368. Initial lactic acid 8.9, peaking at 11.4 and currently 6.1. AST 264. ALT 349. Alk phos 801. Troponin negative x 2. proBNP 3080. Urine with large blood, greater than 182 RBCs, 30 WBCs. She has received 3 L of fluid resuscitation. She was initiated on ceftriaxone. Resumed on Eliquis and continued on a Cardizem drip. She is seen today in consultation in the emergency department. She is currently sitting up on a stretcher. Awake and alert in no acute distress. She is still quite weak and she is maintaining good O2 saturations in the 90s on room air. She is afebrile. Remains in atrial fibrillation. X-ray reveals no acute pulmonary process. The patient is seen today September 18, 2023 in follow-up in the intensive care unit. She is currently resting comfortably in bed. Awake and alert in no acute distress. She is maintaining O2 saturations in the 90s on room air. She remains on lactated Ringer's at 125 MLS per hour. Continued on a Cardizem drip at 15 mg/h. Remains in atrial fibrillation. Rate is better controlled. White count 21.7. Hemoglobin 12.7. Platelets 43,000. Sodium 131. Potassium 4.2. Bicarb 17. BUN 26. Creatinine 0.42. Glucose 269. Lactic acid 6.7. He remains on ceftriaxone. Continued on Decadron. Eliquis on hold. The patient is seen today September 19, 2023 in follow-up in the intensive care unit. She is currently sitting up in bed. Awake and alert in no acute distress. She is maintaining good O2 saturations in the 90s on room air. She is continued on Cardizem at 10 mg/h. Lactated Ringer's at 125 MLS per hour. Blood cultures pending. White count 26.8. Hemoglobin 13.5. Platelets 61,000. Sodium 132. Potassium 4.3. Bicarb 20. BUN 21. Creatinine 0.39. Glucose 205. She remains on Decadron. Eliquis remains on hold. She remains on ceftriaxone. Progress note dated September 20, 2023. The patient is seen today in room 376. She is on room air. She is not receiving any IV fluids. She continues in atrial fibrillation with rates of about 100 bpm. She states that she is not feeling well today. Current laboratory data includes a white count 24.8, hemoglobin 13.7, hematocrit 43.7, and a platelet count of 71,000. Sodium 131, potassium 4.4, chlorides 102, CO2 20, BUN 24, and creatinine 0.46. Glucose is 151. Hemoglobin A1c is 7.2. Calcium 8.9. Magnesium 1.9. The patient was scheduled to have a CT scan of the abdomen and pelvis. Progress note dated September 21, 2023. 58-year-old female seen today in room 376. She is on room air. The patient has chronic atrial fibrillation, and is currently on a Cardizem drip at 10 mg an hour. Because she is short of breath, will add oxygen, at 2 L. She is 58, but looks much older than her stated age. Current labs include a glucose of 138. Urine and blood sampling has been negative. Results of the abdominal/pelvic CTA, have been reviewed. Progress note dated September 22, 2023. 58-year-old female seen today in room 376. The patient has a history of chronic atrial fibrillation. Currently, she is on room air. She is not receiving any IV fluids. She has no specific complaints today. Today's laboratory data includes a white count 11.9, hemoglobin 13.7, hematocrit 43.6, and a platelet count of 102,000. Sodium 130, potassium 5, chlorides 102, CO2 17, BUN 62, and creatinine 0.86. Glucose is 135. Calcium 8.2. Total bilirubin 4.4. AST is 374. ALT is 297. Alkaline phosphatase is 790. Albumin is 2.2. Microbiology is currently negative. No recent chest x-ray to report. Progress note dated September 23, 2023. 58-year-old female seen in room 376. The patient is laying nearly flat in bed. She is not manifesting any signs or symptoms of respiratory distress. She is currently on room air. She is receiving saline at 20 cc an hour. Her procalcitonin level is 2.74. She continues on Rocephin. No new labs today other than a glucose of 143. Labs from September 21 have been reviewed, as above. Objective - Vital Signs Vital signs: Vital Signs Temp 98.0 F 09/23/23 07:56 Pulse 64 09/23/23 14:51 Resp 16 09/23/23 11:42 BP 111/78 09/23/23 07:56 Pulse Ox 93 L 09/23/23 07:56 FiO2 Intake & Output 09/22/23 09/23/23 09/23/23 18:59 06:59 18:59 Other: Voiding Method Bedside Commode Indwelling Catheter Indwelling Catheter Diaper - Exam No acute distress, oriented 3. Patient states that she does not feel well. The patient does admit to being mildly short of breath. 2 L saturation is is 96%. HEENT examination is grossly unremarkable. Mucous membranes are moist. No oral lesions. Neck supple. Full range of motion. No adenopathy thyromegaly or neck vein distention. Cardiovascular examination reveals an irregular rhythm and rate. S1-S2 normal. No S3 or S4. No discernible murmur noted. Heart rate 64 bpm. Lungs reveal clear breath sounds. Breath sounds are equal bilaterally. No adventitious lung sounds including wheezes rhonchi or crackles. Abdomen soft bowel sounds are heard. No masses or tenderness. Extremities are intact. No cyanosis clubbing or edema. Skin is without rash or lesion. Neurologic examination is brief but nonfocal. - Labs CBC & Chem 7: 09/22/23 09:32 09/22/23 09:32 Labs: Abnormal Lab Results - Last 24 Hours (Table) 09/22/23 Range/Units 16:22 POC Glucose (mg/dL) 143 H (70-110) mg/dL Microbiology - Last 24 Hours (Table) 09/17/23 04:10 Blood Culture - Final Blood Assessment and Plan Assessment: Acute sepsis with lactic acidosis secondary to suspected urinary tract infection and hematuria. Dyspnea secondary to atrial fibrillation with a rapid ventricular response. History of left lower extremity DVT approximately 4 to 5 months ago and maintained on Eliquis. Stage IV metastatic breast cancer with metastasis to the brain bone and liver. Initially treated in 2020 with recurrence currently receiving chemotherapy last treatment on September 11, 2023. History of metastatic left parietal brain metastasis status post resection in January 2023 subsequent radiation currently on Decadron. Transaminitis secondary to sepsis, liver metastasis. Thrombocytopenia. Former smoker. Hypertension. Plan: Plan dated September 20, 2023. The patient continues in atrial fibrillation. Her rates are anywhere from 100 bpm, up to 125 bpm. She actually states today that she was not feeling well. The patient was scheduled to have a CT scan of the abdomen and pelvis. Labs, x-rays, medications are reviewed. The patient continues on Decadron, and ceftriaxone. We will continue to follow make recommendations along the way. Prognosis is guarded. Plan dated September 21, 2023. The patient continues in atrial fibrillation. She is on a Cardizem drip at 10 mg an hour. She admits to being mildly short of breath. We had nasal O2 at 2 L. Labs, x-rays, medications are reviewed. We will continue to follow make recommendations along the way. The results of recent CT scan of the abdomen and pelvis, have been reviewed. Additional recommendations and suggestions are forthcoming. Prognosis is certainly guarded. Plan dated September 22, 2023. The patient is stable from the pulmonary standpoint. The patient denies any shortness of breath, cough, wheezing, chest tightness, or phlegm production. She also denies any chest pain or chest discomfort. The patient is currently on room air. She is not receiving any IV fluids. All labs, x-rays, and medications are reviewed. We will continue to follow and make recommendations where appropriate. Prognosis is certainly guarded. Plan dated September 23, 2023. The patient appears much more stable. The patient's heart rate is in the 60s and low 70s. The patient is currently on 2 L of oxygen. She is not manifesting any signs or symptoms of respiratory distress. No new labs today. The patient continues on Rocephin. The patient is getting saline at 20 cc an hour. The most recent procalcitonin level was 2.74. We will continue to follow and make recommendations along the way. Prognosis is certainly guarded. Time with Patient: Less than 30
--- NOTE | 2023-09-23 17:35 | P.DS ---
Providers Date of admission: 09/16/23 23:12 Expected date of discharge: 09/23/23 Attending physician: Abhijeet Urbano MD Consults: 09/16/23 23:11 Consult Physician Routine Consulting Provider: Grant Vaca Consult Reason/Comments: Rapid atrial fibrillation Do you want consulting provider notified?: Yes 09/17/23 13:39 Consult Physician Routine Consulting Provider: Myles Talbert Consult Reason/Comments: breast cancer stage IV Do you want consulting provider notified?: Yes 09/17/23 16:55 Consult Physician Routine Consulting Provider: Jarrell Piedra Consult Reason/Comments: sepstic shock Do you want consulting provider notified?: Yes 09/22/23 09:08 Consult Physician Routine Consulting Provider: Rell Aquino Consult Reason/Comments: SOB with pulmonary mets Do you want consulting provider notified?: Yes 09/22/23 12:51 Consult Physician Routine Consulting Provider: Jose R Newberry Consult Reason/Comments: Transaminitis, GB wall thickening, liver mets Do you want consulting provider notified?: Yes Primary care physician: [facility] Course: 58-year-old female with past medical history of stage IV breast cancer with metastasis to the brain liver and bone, h/o DVT/PE, atrial fibrillation on Eliquis who presents to the ED with palpitations, shortness of breath and weakness. Patient was recently admitted to the hospital for workup of vertigo. Patient was found to have new metastatic lesions in her brain. Patient was discharged and was instructed to follow-up with radiation oncology. Patient states that her last chemotherapy was 5 days ago. She has not started radiation therapy yet. She states that about a week ago her Decadron was increased to 4 mg 3 times a day. Patient states that she has been taking the Decadron every day. Patient also states that she has hematuria. She also complains of dysuria. In the ED, patient underwent extensive evaluation. BP 126/82, HR 168, T97.6F, RR 24, 99% on RA. CBC, Coag panel, CMP done significant for WBC 29.1, Hct 49.8, Plt 70, Na 130, bicarb 18, BUN 26, glu 368, T. Bili 1.4, AST 264, ALT 349, alk phos 801, alb 2.9. Lactic acid 8.9. UA large blood, trace ketones, small LE. Patient was found to be in A-fib with RVR confirmed with EKG. CXR and CT brain no acute findings. Patient started on Cardizem drip and Rocephin. Cardiology was consulted for A-Fib with RVR. Cardizem drip was transitioned to PO Cardizem and Metoprolol was increased. Eliquis was restarted. She was continued on Rocephin for treatment of UTI. UCx and BCx came back negative. She was noted to have persistent lactic acidosis with increasing abdominal pain. CTA AP was ordered to rule out mesenteric ischemia. CTA AP showed anasarca, progression of metastatic disease to the liver and enlarged 4 cm mass seen in the right kidney (Renal US recommended), ground glass appearance of the lungs (infectious versus side effect of chemo/radiation). Renal US showed solid 5 x 3.2 x 3.8 cm mass. COVID was negative. CMP done on 09/21 showed elevated liver enzymes with T. bili 4.4, AST 374, ALT 297, alk phos 790. General surgery consulted due to GB wall thickening seen on CTA AP, GB US showed no gallstones or biliary ductal dilatation, poor candidate for surgery, recommended conservative management. Her mental status continued to deteriorate with increased lethargy. Dr Mejia discussed the case with family and decision was made to make the patient DNR/DNI and consult hospice on 07/24. 09/22 Patient was seen and examined. She is quite lethargic. Appears comfortable. Family has elected for comfort care. Hospice consulted, no pain or distress noted, family unable to provide 24/7 care, prefers placement. Re-evaluated by hospice. Patient appears to be in more distress than earlier. Recommends GIP if daughter is agreeable. General: non toxic, no distress, appears at stated age Derm: warm, dry Head: atraumatic, normocephalic, symmetric Eyes: EOMI, no lid lag, anicteric sclera Mouth: no lip lesion, mucus membranes moist Cardiovascular: good distal perfusion in all 4 extremities Lungs: breathing comfortably, no accessory muscle use Ext: no gross muscle atrophy, no edema, no contractures Discharge Diagnosis: Breast cancer with metastasis to the brain bone liver, now kidney Obstructive Transaminitis A-fib with RVR Persistent lactic acidosis Thrombocytopenia Generalized weakness Hyponatremia Hypertension This complex discharge took 35 minutes to complete. Patient Condition at Discharge: Critical Plan - Discharge Summary Discharge Rx Participant: No New Discharge Prescriptions: No Action Apixaban [Eliquis] 5 mg PO BID amLODIPine [Norvasc] 5 mg PO DAILY 90 Days #90 tab Acetaminophen-Codeine 300-30mg [Tylenol w/codeine #3] 1 tab PO Q4H PRN 3 Days #18 tablet PRN Reason: Pain Control Ondansetron Odt [Zofran ODT] 4 mg PO Q4-6H PRN PRN Reason: Nausea And Vomiting OLANZapine 5 mg PO DIRECTED Omeprazole 40 mg PO AC-BRKFST HYDROcodone/APAP 5-325MG [[place] 5-325] 1 tab PO Q4H PRN PRN Reason: Pain dexAMETHasone [Decadron] See Taper PO DIRECTED Discharge Medication List Apixaban [Eliquis] 5 mg PO BID 07/07/23 [History] Omeprazole 40 mg PO AC-BRKFST 07/07/23 [History] Acetaminophen-Codeine 300-30mg [Tylenol w/codeine #3] 1 tab PO Q4H PRN 3 Days #18 tablet 07/09/23 [Rx] amLODIPine [Norvasc] 5 mg PO DAILY 90 Days #90 tab 07/09/23 [Rx] OLANZapine 5 mg PO DIRECTED 08/28/23 [History] Ondansetron Odt [Zofran ODT] 4 mg PO Q4-6H PRN 08/28/23 [History] HYDROcodone/APAP 5-325MG [[place] 5-325] 1 tab PO Q4H PRN 09/17/23 [History] dexAMETHasone [Decadron] See Taper PO DIRECTED 09/17/23 [History] Follow up Appointment(s)/Referral(s): Dallas Mejia MD [STAFF PHYSICIAN] - 09/26/23 9:15 am Geoff Wright DO [Primary Care Provider] - 1-2 days
--- NOTE | 2023-09-23 17:55 | P.PN ---
Subjective Progress Note Date: 09/23/23 Family at bedside. Additional history obtained where patient is not eating. Patient is now discharged to hospice. Questions regarding abdominal pain however patient has difficulty answering and somnolent. Abdomen: No diffuse peritonitis. Plan: 1. Patient has metastatic breast disease for which hospice transfer is being initiated Objective - Vital Signs Vital signs: Vital Signs Temp 98.0 F 09/23/23 07:56 Pulse 61 09/23/23 15:11 Resp 20 09/23/23 15:11 BP 111/78 09/23/23 07:56 Pulse Ox 93 L 09/23/23 07:56 FiO2 Intake & Output 09/22/23 09/23/23 09/23/23 18:59 06:59 18:59 Other: Voiding Method Bedside Commode Indwelling Catheter Indwelling Catheter Diaper - Labs CBC & Chem 7: 09/22/23 09:32 09/22/23 09:32
[2023-09-23 20:07] VITALS: PULSE 59; RESP 15
== END 2023-09-23 19:59 | disposition hospice, home (50) | DRG 871 ==
LOC: EC 20:26 → 3SCARD 23:12 → 2SICU 09-17 17:01 → 3SCARD 09-19 18:42
PROVIDERS: ADMIT Internal Medicine; ATTEND Internal Medicine
PROC: 05HF33Z Insertion of Infusion Device into Left Cephalic Vein, Percutaneous Approach (ICD-10-PCS; principal; 2023-09-22 17:20)
DX: A41.9 Sepsis, unspecified organism (principal); G93.41 Metabolic encephalopathy; G93.6 Cerebral edema; R65.21 Severe sepsis with septic shock; N39.0 Urinary tract infection, site not specified; C79.51 Secondary malignant neoplasm of bone; C78.7 Secondary malignant neoplasm of liver and intrahepatic bile duct; R18.8 Other ascites; N17.9 Acute kidney failure, unspecified; E87.1 Hypo-osmolality and hyponatremia; C78.00 Secondary malignant neoplasm of unspecified lung; C79.31 Secondary malignant neoplasm of brain; E87.20 Acidosis, unspecified; C79.89 Secondary malignant neoplasm of other specified sites; C79.01 Secondary malignant neoplasm of right kidney and renal pelvis; Z20.822 Contact with and (suspected) exposure to COVID-19; R42 Dizziness and giddiness; D05.12 Intraductal carcinoma in situ of left breast; R31.9 Hematuria, unspecified; I48.0 Paroxysmal atrial fibrillation; I10 Essential (primary) hypertension; R79.89 Other specified abnormal findings of blood chemistry; Z86.718 Personal history of other venous thrombosis and embolism; Z86.711 Personal history of pulmonary embolism; Z17.1 Estrogen receptor negative status [ER-]; D69.59 Other secondary thrombocytopenia; E86.0 Dehydration; T45.1X5A Adverse effect of antineoplastic and immunosuppressive drugs, initial encounter; X58.XXXA Exposure to other specified factors, initial encounter; Z79.01 Long term (current) use of anticoagulants; Z85.3 Personal history of malignant neoplasm of breast; Z95.3 Presence of xenogenic heart valve; E87.70 Fluid overload, unspecified; N28.89 Other specified disorders of kidney and ureter; Z79.899 Other long term (current) drug therapy; Z86.73 Personal history of transient ischemic attack (TIA), and cerebral infarction without residual deficits; Z88.3 Allergy status to other anti-infective agents; Z90.710 Acquired absence of both cervix and uterus; Z92.3 Personal history of irradiation; Z88.2 Allergy status to sulfonamides; Z88.1 Allergy status to other antibiotic agents; Z91.048 Other nonmedicinal substance allergy status; Z82.49 Family history of ischemic heart disease and other diseases of the circulatory system; D69.6 Thrombocytopenia, unspecified; Z88.0 Allergy status to penicillin; Z87.891 Personal history of nicotine dependence
CPT/HCPCS: 36410; 36415; 70450; 71046; 74174; 76705; 76770; 76937; 80048; 80053; 81001; 83036; 83605; 83735; 83880; 84145; 84484; 85025; 85027; 85610; 85730; 87040; 87086; 87635; 93005; 93308; 96361; 96365; 96366; 96367; 96375; 99291

== ENCOUNTER 2023-09-23 17:53 | Inpatient (IN) | payer MEDICAID ==
[2023-09-23] MEDS ORDERED: ACETAMINOPHEN SUPPOSITORY 650 MG SUPP RECTAL PRN (18:02)
[2023-09-23] MEDS ORDERED: DRY MOUTH SPRAY 44.3 SPRAY/44.3 ML SPRAY MUCOUS MEM PRN (18:02)
[2023-09-23] MEDS ORDERED: ATROPINE OPHTH SOLN 1% 5ML BTL SUBLINGUAL PRN (18:02)
[2023-09-23] MEDS ORDERED: ARTIFICIAL TEARS-HYPROMELLOSE DROPS 15 ML BTL BOTH EYES PRN (18:02)
[2023-09-23] MEDS ORDERED: LORazepam 2 MG/ML INJ IV PRN (18:02)
[2023-09-23] MEDS ORDERED: GLYCOPYRROLATE 0.2 MG/ML 2 ML VIAL IVP PRN (18:02)
[2023-09-23] MEDS ORDERED: MORPHINE SULFATE 2 MG/ML SYRINGE IV PRN (18:02)
[2023-09-23] MEDS ORDERED: ONDANSETRON 4 MG/2 ML VIAL IVP PRN (18:02)
[2023-09-23] MEDS: SCOPOLAMINE 1 MG/72 HR PATCH TRANSDERM SCH (21:50)
[2023-09-23] MEDS: MORPHINE SULFATE 4 MG/ML SYRINGE IV PRN (23:15)
[2023-09-24 03:25] VITALS: PULSE 64; RESP 18
--- NOTE | 2023-09-24 19:10 | P.HPIM ---
History of Present Illness H&P Date: 09/24/23 Patient was a 58-year-old female with stage IV breast cancer with mets to the brain liver and bone, A-fib anticoagulated with Eliquis, and prior DVT/PE who initially presented to the hospital for workup of hematuria and dysuria. She was found to have A-fib with RVR and was subsequently started on Cardizem. She was also found to have a UTI, started on Rocephin. During her hospital stay her mentation deteriorated quickly with increasing lethargy and Dr. Mejia recommended hospice care. Patient was admitted to hospice on 09/22. She was started on IV push morphine along with multiple other comfort medications. Assessment/Plan: Breast cancer with metastasis to the brain bone liver, now kidney Obstructive Transaminitis A-fib with RVR Persistent lactic acidosis Thrombocytopenia Generalized weakness Hyponatremia Hypertension Patient passed prior to completion of this history and physical. There is no charge associated with this note. Past Medical History Past Medical History: Atrial Fibrillation, Cancer, Deep Vein Thrombosis (DVT), Pulmonary Embolus (PE) Additional Past Medical History / Comment(s): left breast CA-dx April 30, 2021-had surg. & currently getting chemo; completed radiation,unable to lay on stomach from prior old injury as a teenager, DVT & PE after hysterectomy 15 yrs ago and DVT after varicose vein stripping yrs ago., DVT in August behind right knee and another DVT behind left knee. Brain mets status postcraniotomy 02/18 History of Any Multi-Drug Resistant Organisms: None Reported Past Surgical History: Breast Surgery, Section, Hernia Repair, Hysterectomy, Tonsillectomy Additional Past Surgical History / Comment(s): breast biopsy. Ear surgery as child., mediport insertion with removal, left breast lumpectomy w/sentinel lymph node bx. in November 2021, tumor removal brain. fatty tissue removed from back. Cysts removed from bilateral breasts. Past Anesthesia/Blood Transfusion Reactions: No Reported Reaction Additional Past Anesthesia/Blood Transfusion Reaction / Comment(s): no hx blood transfusion Past Psychological History: No Psychological Hx Reported Smoking Status: Former smoker Past Alcohol Use History: None Reported Additional Past Alcohol Use History / Comment(s): <1/2 ppd, started smoking as a teenager on and off Past Drug Use History: None Reported - Past Family History Mother Family Medical History: AFIB, Congestive Heart Failure (CHF), COPD, Hypertension Additional Family Medical History / Comment(s): beginings of uterine Cancer Father Family Medical History: Cancer Additional Family Medical History / Comment(s): lung Medications and Allergies Home Medications Medication Instructions Recorded Confirmed Type Apixaban [Eliquis] 5 mg PO BID 07/07/23 09/23/23 History Omeprazole 40 mg PO AC-BRKFST 07/07/23 09/23/23 History Acetaminophen-Codeine 300-30mg 1 tab PO Q4H PRN 3 Days #18 tablet 07/09/23 09/23/23 Rx [Tylenol w/codeine #3] amLODIPine [Norvasc] 5 mg PO DAILY 90 Days #90 tab 07/09/23 09/23/23 Rx OLANZapine 5 mg PO DIRECTED 08/28/23 09/23/23 History Ondansetron Odt [Zofran ODT] 4 mg PO Q4-6H PRN 08/28/23 09/23/23 History HYDROcodone/APAP 5-325MG [[place] 1 tab PO Q4H PRN 09/17/23 09/23/23 History 5-325] dexAMETHasone [Decadron] See Taper PO DIRECTED 09/17/23 09/23/23 History Allergies Allergy/AdvReac Type Severity Reaction Status Date / Time metronidazole [From Flagyl] Allergy Intermediate Anaphylaxis Verified 09/17/23 09:17 adhesive tape Allergy Mild Rash/Hives,sometimes Verified 09/17/23 09:17 blisters sulfamethoxazole Allergy Anaphylaxis Verified 09/17/23 09:17 [From Bactrim] trimethoprim [From Bactrim] Allergy Anaphylaxis Verified 09/17/23 09:17 Penicillins AdvReac Nausea Verified 09/17/23 09:17 Physical Exam Osteopathic Statement: *. No significant issues noted on an osteopathic structural exam other than those noted in the History and Physical/Consult. Vitals: Vital Signs Pulse Resp 09/24/23 03:10 64 18 09/23/23 23:10 57 L 20
--- NOTE | 2023-09-24 19:13 | P.DS ---
Providers Date of admission: 09/23/23 19:57 Expected date of discharge: 09/24/23 Attending physician: Hui Gray MD Primary care physician: Geoff Wright Hospital Course: Discharge Diagnosis: Breast cancer with metastasis to the brain bone liver, now kidney Obstructive Transaminitis A-fib with RVR Persistent lactic acidosis Thrombocytopenia Generalized weakness Hyponatremia Hypertension Hospital Course: Patient was a 58-year-old female with stage IV breast cancer with mets to the brain liver and bone, A-fib anticoagulated with Eliquis, and prior DVT/PE who initially presented to the hospital for workup of hematuria and dysuria. She was found to have A-fib with RVR and was subsequently started on Cardizem. She was also found to have a UTI, started on Rocephin. She was hospitalized from 09/16/23 through 09/23/23. During her hospital stay her mentation deteriorated quickly with increasing lethargy and Dr. Mejia recommended hospice care. Patient was admitted to hospice on 09/22. She was started on IV push morphine along with multiple other comfort medications. Patient will appeared comfortable. She with sister at bedside on 09/23/2026 and 0550 Patient was on 09/24/23. Patient passed prior to completion of this Discharge summary. There is no charge associated with this note. This dictation was prepared using [employer] voice recognition software. Though every attempt is made to correct errors during dictation some may still exist. Plan - Discharge Summary New Discharge Prescriptions: No Action Apixaban [Eliquis] 5 mg PO BID amLODIPine [Norvasc] 5 mg PO DAILY 90 Days #90 tab Acetaminophen-Codeine 300-30mg [Tylenol w/codeine #3] 1 tab PO Q4H PRN 3 Days #18 tablet PRN Reason: Pain Control Ondansetron Odt [Zofran ODT] 4 mg PO Q4-6H PRN PRN Reason: Nausea And Vomiting OLANZapine 5 mg PO DIRECTED Omeprazole 40 mg PO AC-BRKFST HYDROcodone/APAP 5-325MG [[place] 5-325] 1 tab PO Q4H PRN PRN Reason: Pain dexAMETHasone [Decadron] See Taper PO DIRECTED Discharge Medication List Apixaban [Eliquis] 5 mg PO BID 07/07/23 [History] Omeprazole 40 mg PO AC-BRKFST 07/07/23 [History] Acetaminophen-Codeine 300-30mg [Tylenol w/codeine #3] 1 tab PO Q4H PRN 3 Days #18 tablet 07/09/23 [Rx] amLODIPine [Norvasc] 5 mg PO DAILY 90 Days #90 tab 07/09/23 [Rx] OLANZapine 5 mg PO DIRECTED 08/28/23 [History] Ondansetron Odt [Zofran ODT] 4 mg PO Q4-6H PRN 08/28/23 [History] HYDROcodone/APAP 5-325MG [[place] 5-325] 1 tab PO Q4H PRN 09/17/23 [History] dexAMETHasone [Decadron] See Taper PO DIRECTED 09/17/23 [History] Discharge Disposition: - Preliminary Cause of Preliminary Cause of : Breast Cancer
== END 2023-09-24 10:19 | disposition expired | DRG 951 ==
LOC: 3SCARD 19:57
PROVIDERS: ADMIT Family Medicine; ATTEND Family Medicine
DX: Z51.5 Encounter for palliative care (principal); C78.7 Secondary malignant neoplasm of liver and intrahepatic bile duct; C79.31 Secondary malignant neoplasm of brain; C79.51 Secondary malignant neoplasm of bone; E87.1 Hypo-osmolality and hyponatremia; E87.20 Acidosis, unspecified; N39.0 Urinary tract infection, site not specified; D69.6 Thrombocytopenia, unspecified; I10 Essential (primary) hypertension; I48.91 Unspecified atrial fibrillation; Z79.01 Long term (current) use of anticoagulants; Z79.899 Other long term (current) drug therapy; Z80.49 Family history of malignant neoplasm of other genital organs; R31.9 Hematuria, unspecified; Z82.49 Family history of ischemic heart disease and other diseases of the circulatory system; Z86.711 Personal history of pulmonary embolism; Z85.3 Personal history of malignant neoplasm of breast; Z86.718 Personal history of other venous thrombosis and embolism; Z87.891 Personal history of nicotine dependence; Z90.710 Acquired absence of both cervix and uterus; Z92.3 Personal history of irradiation; R74.01 Elevation of levels of liver transaminase levels; Z88.2 Allergy status to sulfonamides; Z88.1 Allergy status to other antibiotic agents; Z91.048 Other nonmedicinal substance allergy status